=== PATIENT | male | born 1955 | race Caucasian/White ===

== ENCOUNTER 2024-11-05 01:10 | Outpatient (CLI) | payer MEDICARE, OTHER, SELFPAY ==
--- OUTSIDE RECORDS SUMMARY | 2024-11-05 01:47 | XMS_ITS ---
Author Organization [facility] Address [facility] [place] [address] Care Team Providers Care Commercial Credit Specialist Name Role Phone Vahe Valdes DO Primary Care Provider +1- [phone] Active Problems Problem Noted Date Diagnosed Date Sacrococcygeal disorders, not elsewhere classifi ed 08/08/2022 Sciatica 08/08/2022 Bradycardia 04/11/2022 Depression 02/21/2022 Anxiety state 02/21/2022 Arthritis of left acromioclavicular joint 2021 Temporomandibular joint disorder 02/21/2022 Asthma 02/21/2022 Benign localized prostatic h yperplasia with lower urinary tract symptoms (LUTS) 02/21/2022 Benign paroxysmal positional vertigo 02/21/2022 Sleep-related bruxism 02/21/2022 Cervical radiculopathy 02/21/2022 Chronic hepatitis C virus infection 02/21/2022 Degeneration of cervical intervertebral disc Facial pain 02/21/2022 Jaw pain 02/21/2022 Hearing loss 02/21/2022 Hemorrhoids without complication 02/21/2022 Impairment of balance 02/21/2022 Male hypogonadism 02/21/2022 Obstructive sleep apnea 02/21/2022 Other and unspecified alcohol dependence, in rem ission 02/21/2022 Persistent hypersomnia 02/21/2022 Sensorineural hearing loss (SNHL) of both ears 0 02/21/2022 Tinnitus 02/21/2022 Fibroid tumor 02/21/2022 Spine pain, multilevel 11/19/2019 Environmental allergies 11/21/2018 Overview (11/21/2018): PRN Loratadine Insomnia 11/13/2018 Overview (01/17/2019): (first encounter 11/2018); Sleeping well: It varies; difficult starting & staying asleep; [facility] (stopped 08/2018) Tx OTC Aleve PM Weaned myself off Ambien & Klonopin a number of times 5-6x in last 18 yrs; longest time without them 3-4 weeks - Prior non-pharm trial mindfulness (+) diff starting and staying asleep; onset 2000; worse last 2 months, sleep onset, bedtime 2200, out of bed at 0000 into recliner down stairs, awaking 0600 (+) snoring prior Tx CPAP stopped after intentional weight loss, last sleep study ~2017 Dr. Mota of [facility]; nightly Klonopin & Ambien at that time. (+) restless legs - Prior PRN OTC trial Unisom and Aleve PM; stopped working a month ago - last trial Melatonin 3-4 weeks ago; increased restlessness - Trial Trazodone 100 mg last 2 night; some what tired, through the night increased dreams, I have always nightmarish dreams since 2000; IMPROVED w/prior Ambien & Klonopin use. CAROLYNE (generalized anxiety disorder) 11/13/2018 Overview (01/17/2019): [facility]; 7552-8301 Klonopin, 2082-8844 Paxil, 2018 Zoloft 75-125 mg qd Most recent counseling Fall 2017 sleep disorders - Psychiatry Ashley Lieberman based in [facility] 10/2018 Gastroesophageal reflux 11/13/2018 Overview (11/21/2018): Intermittent since ; worse w/elevated weight ED (erectile dysfunction) 11/13/2018 Overview (11/21/2018): Urology in [facility] 2008, med trials Cialis, trial Viagra 2008; change in vision, light- headed/dizziness (+) Difficult maintaining erection; no masturbation; intercourse q2 weeks; able to switch positions Chronic pain syndrome 11/13/2018 Overview (11/21/2018): Daily neck and lower back stiffness; improves after starting activity of day. (+) RA screening per [facility] (+) Hx LEFT drop foot 2013 after lumbar disc herniation s/p lifting Tx PT; chronic LEFT great & 2nd toe numbness. (+) Hx Sc[facility] 70% disabled 2nd to bilateral wrist & knee pain & hearing loss. COPD (chronic obstructive pulmonary disease) Overview (11/21/2018): Dx 2009; PRN MDI Ventolin; last used winter Prior CPAP Viral warts 11/22/2017 AK (actinic keratosis) 11/22/2017 Acrochordon 05/10/2017 History of basal cell carcinoma 05/10/2017 CLL (chronic lymphocytic leukemia) 04/05/2011 Overview (06/30/2012): 1. 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 a. Caneadea 70 neg, Chrom 13 abnm by FISH (good prognosis) b. Observation only History of hepatitis C, successfully treated 03/2011 Overview (11/21/2018): Tx 2008 Current Oncology Plans No current plan information found. Past Plans No past plan information found. Radiation Treatments * No radiation treatments are documented for this patient in [facility]. Treatments may have been administered in another system. Lifetime Dose Tracking * Chemical Lifetime Dose Automatic Entry Manual Entr y DLP (Dose Length Product) 419 mGy-cm 419 mGy-cm 0 mGy-cm CTDI (CT Dose Index) Min 7.85 mGy 7.85 mGy 0 m Gy CTDI (CT Dose Index) Max 7.85 mGy 7.85 mGy 0 m Gy
--- OUTSIDE RECORDS SUMMARY | 2024-11-05 01:47 | XMS_ITS | Encounter Summary ---
Author Organization [facility] Address [facility] [place] [address] Care Team Providers Care Ball Worker Name Role Phone KeishaVahe Hoffman Primary Care Provider +1- [phone] Encounter Details Date Type Department Care Team (Latest Contact Info) Description 10/15/2023 Travel Social History Tobacco Use Types Packs/Day Years Used Date Smoking Tobacco: Never Smokeless Tobacco: Never Alcohol Use Standard Drinks/Week Comments Not Currently 0 (1 standard drink = 0.6 oz pure alcohol) (+) Hx Alcohol abuse; Quit 1998 Sex and Gender Information Value Date Recorded Sex Assigned at Not on file Gender Identity Not on file Sexual Orientation Not on file documented as of this encounter Plan of Treatment Upcoming Encounters Date Type Department Care Team (Late st Contact Info) Description 11/05/2024 10:30 AM EST Office Visit Hematology/Oncology at [address] [phone] Sha Figueroa MD [facility] [place] [address] Stephany Kramer, ELECTRIC CONTAINER TESTER [address] [place] [address] DR MEDICAL ONCOLOGY [place], [place] [address] 11/11/2024 8:45 AM EST Office Visit Dermatology at [address] [place] [phone] Rusty Flores MD [address] [place] [address] RD, [place] [address] documented as of this encounter Visit Diagnoses Not on filedocumented in this encounter Care Teams Ball Worker Relationship Specialty Start Date End Date Vahe Valdes DO [address] [place] [address] PCP - General Family Medicine 12/13/21 documented as of this encounter
--- OUTSIDE RECORDS SUMMARY | 2024-11-05 01:47 | XMS_ITS | Encounter Summary ---
Author Organization [facility] One [facility] [place] [address] Care Team Providers Care Clinical Information Systems Director Name Role Phone Keisha, Vahe Plaza DO Primary Care Provider +1- [phone] Reason for Visit * Reason Comments Skin Check Encounter Details Date Type Department Care Team (Late st Contact Info) Description 11/12/2023 10:15 AM EST Office Visit Dermatology at [address] [phone] Rusty Flores MD [address] [facility] A DERMATOLOGY [place], [place] [id number] History of basal cell carcinoma; History of SCC (squamous cell carcinoma) of skin; AK (actinic keratosis) Social History Tobacco Use Types Packs/Day Years [...] on file documented as of this encounter Progress Notes * Rusty Flores MD - 11/12/2023 10:15 AM EST Problem: 1. New lesions of concern, facial sites 2. 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 History of BCCA right upper shoulder x2, treated 1992 treated at [facility] 5. Status post 5-FU twice daily 1 week on 3 weeks off for 3 cycles March 2023 Isrrael follows up today for his 6-month skin checkup. Since I last saw him he utilized a course of 5-FU face and neck. Physical examination reveals a pleasant 68-year-old gentleman who has a benign examination today ofthe head and the neck chest the back the hands on forearms thighs and calves. He has actinic's present over the left latter day and an erythematous patch with actinic damage on the left lateral neck. There is no evidence of any cutaneous malignancies today. Assessment and plan: Actinic keratoses, facial and neck 1. LN 2 x 2 applied each of 2 sites 2. Return to clinic another 6 months for repeat skin checkup. History of nonmelanoma cutaneous malignancies 1. No evidence of recurrence. No new lesions of concern seen today. CC: Vahe Valdes DO documented in this encounter Plan of Treatment Upcoming Encounters Date Type Department Care Team (Late st Contact Info) Description 11/05/2024 10:30 AM EST Office Visit Hematology/Oncology at [address] [phone] Sha Figueroa MD [facility] DR H[place]AT[place]Y [place] [address] Stephany Kramer EDI CONSULTANT [address] [place] [address] [place] [address] 11/11/2024 8:45 AM EST Office Visit Dermatology at [place] [address] [facility] [place] [address] Rusty Flores MD [address] [facility], [place] [address] documented as of this encounter Visit Diagnoses Diagnosis History of basal cell carcinoma Personal history of other malignant neoplasm of skin History of SCC (squamous cell carcinoma) of skin Personal history of other malignant neoplasm of skin AK (actinic keratosis) Actinic keratosis documented in this encounter Care Teams Clinical Information Systems Director Relationship Specialty Start Date End Date Vahe Valdes DO [address] [place] [address] PCP - General Family Medicine 12/13/21 documented as of this encounter
--- OUTSIDE RECORDS SUMMARY | 2024-11-05 01:47 | XMS_ITS | Encounter Summary ---
Author Organization [facility] Address [facility] [place] [address] Care Team Providers Care Ibm Websphere Commerce Consultant Name Role Phone KeishaVahe Hoffman Primary Care Provider +1- [phone] Encounter Details Date Type Department Care Team (Latest Contact Info) Description 05/09/2024 Travel Social History Tobacco Use Types Packs/Day [...] 10:30 AM EST Office Visit Hematology/Oncology at [address] [phone] Sha Figueroa MD [facility] DR HEMATOLOGY [place] [address] Stephany Kramer, THINNER SPRAYER [address] [place] [address] DR MEDICAL ONCOLOGY [place], [place] [address] 11/11/2024 8:45 AM EST Office Visit Dermatology at [address] [place] [phone] Rusty Flores MD [address] [place] [address] RD, [place] [address] documented as of this encounter Visit Diagnoses Not on filedocumented in this encounter Care Teams Ibm Websphere Commerce Consultant Relationship Specialty Start Date End Date Vahe Valdes DO [address] [place] [address] PCP - General Family Medicine 12/13/21 documented as of this encounter
--- OUTSIDE RECORDS SUMMARY | 2024-11-05 01:47 | XMS_ITS | Encounter Summary ---
Author Organization [facility] Address [facility] [place] [address] Care Team Providers Care Supervisor [employer] Name Role Phone KeishaVahe oliveira Mela JARRELL Primary Care Provider +1- [phone] Encounter Details Date Type Department Care Team (Late Contact Info) Description 10/02/2024 Orders Only Hematology/Oncology at [address] [phone] Sha Figueroa MD [facility] DR HEMATOLOGY [place] [address] Chronic lymphocytic leukemia Social History Tobacco Use Types Packs/Day Years [...] Encounters Date Type Department Care Team (Late Contact Info) Description 11/05/2024 10:30 AM EST Office Visit Hematology/Oncology at [address] [phone] Sha Figueroa MD [facility] [place]AT[place] [address] Stephany Kramer APRN [address] [place] [address] [place] [address] 11/11/2024 8:45 AM EST Office Visit Dermatology at [place] [address] [facility] [place] [phone] [address]y [address] MD [address] [facility], [place] [address] Scheduled Orders Name Type Priority Associated Diagnoses Orde r Schedule CBC (with Diff) Lab Routine Chronic lymphocytic leukemia Expected: 10/09/2024 (Approximate), Expires: 10/02/2025 Comprehensive metabolic panel Non-fasting Lab STAT Chronic lymphocytic leukemia Expected: 10/09/2024 (Approximate), Expires: 10/02/2025 Lactate Dehydrogenase Lab STAT Chronic lymphocytic leukemia Expected: 10/09/2024 (Approximate), Expires: 10/02/2025 documented as of this encounter Visit Diagnoses Diagnosis Chronic lymphocytic leukemia Chronic lymphoid leukemia, without mention of having achieved remission documented in this encounter Care Teams Supervisor [employer] Relationship Specialty Start Date End Date Vahe Valdes DO [address] [place] [address] PCP - General Family Medicine 12/13/21 documented as of this encounter
--- OUTSIDE RECORDS SUMMARY | 2024-11-05 01:47 | XMS_ITS | Encounter Summary ---
Author Organization [facility] Address [facility] [place] [address] Care Team Providers Care Divider Operator Name Role Phone KeishaVahe Hoffman Primary Care Provider +1- [phone] Encounter Details Date Type Department Care Team (Latest Contact Info) Description 11/12/2023 Travel Social History Tobacco Use Types Packs/Day [...] 10:30 AM EST Office Visit Hematology/Oncology at [address] [phone] Sha Figueroa MD [facility] DR [place]OLOGY [place] [address] Stephany Kramer, GROUNDSKEEPING MAINTENANCE [address] [place] [address] DR MEDICAL ONCOLOGY [place], [place] [id number] 11/11/2024 8:45 AM EST Office Visit Dermatology at [address] [place] [phone] Rusty Flores MD [address] [place] [address] RD, [place] [address] documented as of this encounter Visit Diagnoses Not on filedocumented in this encounter Care Teams Divider Operator Relationship Specialty Start Date End Date Vahe Valdes DO [address] [place] [address] PCP - General Family Medicine 12/13/21 documented as of this encounter
--- OUTSIDE RECORDS SUMMARY | 2024-11-05 01:47 | XMS_ITS | Clinical Summary ---
Author Organization [facility] Address One [facility] [place] [address] Care Team Providers Care Armor Reconnaissance Vehicle Crewman Name Role Phone KeishaVahe shaw Mela JARRELL Primary Care Provider [phone]- [phone] Allergies Active Allergy Reactions Criticality Noted Date Comments Sildenafil Low 11/27/2018 Visual disturbance, dizziness Other reaction(s): visual disturbance, dizziness Other reaction(s): Dizziness, Visual disturbance Medications Medication Sig Dispensed Refills Start Date End Date Status acetaminophen (Tylenol) 500 mg Tablet Take 1,000 mg by mouth every 6 hours as needed for Pain. Active tadalafiL (CIALIS) 5 mg Tablet Take 5 mg by mouth as needed. 11/20/2019 Active omeprazole (PriLOSEC) 20 mg Capsule, Delayed Release(E.C.) daily as needed. 09/07/2020 Activ e b complex vitamins Capsule Take 1 capsule by mouth daily. Active clonazePAM (KlonoPIN) 1 mg tablet Take by mouth daily as needed. 01/18/2023 Active tamsulosin (Flomax) 0.4 mg capsule Take 0.8 mg by mouth. 06/06/2023 Active albuteroL 90 mcg/actuation inhaler (HFA) 02/02/2024 Active Active Problems Problem Noted Date Diagnosed Date [...] starting & staying asleep; onset Rx from [facility] 08/2001 (stopped 08/2018) Tx OTC Aleve PM [...] after intentional weight loss, last sleep study ~2018 Dr. Mota of [facility]; nightly Klonopin & Amblyla at that time. (+) restless legs - [...] Overview (01/17/2019): [facility]; 1010-4050 Klonopin, 5133-7166 Paxil, 2018 Zoloft 75-125 mg qd Most recent counseling Fall 2017 sleep disorders - Psychiatry Ashley Lieberman based in [facility] 10/2018 Gastroesophageal reflux 11/13/2018 Overview (11/21/2018): Intermittent since ; worse w/elevated weight ED (erectile dysfunction) 11/13/2018 Overview (11/21/2018): Urology in [facility] 2008, med trials Cialis, trial Viagra 2008; change in vision, light- headed/dizziness (+) Difficult maintaining erection; no masturbation; intercourse q2 weeks; able to switch positions Chronic pain syndrome 11/13/2018 Overview (11/21/2018): Daily neck and lower back stiffness; improves after starting activity of day. (+) RA screening per [employer] (+) Hx LEFT drop foot 2013 after [...] Stage 0 CLL diagnosed August 2009. a. [place] 70 neg, Chrom 13 abnm by FISH (good prognosis) b. Observation only History of hepatitis C, successfully treated 03/2011 Overview (11/21/2018): Tx 2009 Encounters Date Type Department Care Team Description 10/02/2024 Orders Only Hematology/Oncology at [address] [phone] Sha Figueroa MD Chronic lymphocytic leukemia from Last 3 Months Immunizations Name Administration Dates Next Due Covid-19 Monovalent (Pfizer Comirnaty purple cap) 12yrs+ (6911-5265) 01/30/2022 Hepatitis A Adult (Havrix, Vaqta) 01/20/2003 Hepatitis A/B (TwinRix) 11/21/2007,10/11/2007 Influenza Adjuvanted (FluAd) Trivalent, PF 65yrs + 09/10/2018 Influenza Trivalent, Preservative Free 9,09/10/2018 Influenza Unspecified Formulation 07/15/2008 Influenza Vaccine, Whole 08/08/2007 Pneumococcal 13-Valent Conjugate (Prevnar 13) Pneumococcal 23-Valent Polysaccharide (Pneumovax 23) 03/08/2015 Td Adult, Unspecified Formulation 03/01/2001,10/1996 Tdap (Adacel, Boostrix) 03/08/2015 Zoster Recombinant (ShingRix) 04/08/2019, 019 Family History Medical History Relation Comments Aneurysm Father Cerebrovascular Accident Father Arrhythmia Maternal Grandfather Coronary Artery Disease Maternal Grandmother Diabetes Maternal Grandmother Heart Disease Maternal Grandmother Cancer Mother Lung Ca (+) Toba account support manager abuse Heart Murmur Mother Thyroid Disease Mother Early Neg Hx Kidney Disease Neg Hx Relation Status Comments Father (Age 68) Maternal Grandfather (Age 96) Maternal Grandmother (Age 50s) Mother (Age 76) Paternal Grandfather Paternal Grandmother Social History Tobacco Use Types Packs/Day Years Used Date Smoking Tobacco: Never Smokeless Tobacco: Never Alcohol Use Standard Drinks/Week Comments Not Currently 0 (1 standard drink = 0.6 oz pure alcohol) (+) Hx Alcohol abuse; Quit 1998 Sex and Gender Information Value Date Recorded Sex Assigned at Not on file Gender Identity Not on file Sexual Orientation Not on file Last Filed Vital Signs Vital Sign Reading Time Taken Comments Blood Pressure 150/95 10/15/2023 2:39 PM EST Pulse 65 10/15/2023 2:39 PM EST Temperature 36.1 ??C (97 ??F) 10/15/2023 2:39 PM EST Respiratory Rate 16 10/15/2023 2:39 PM EST Oxygen Saturation 97% 10/15/2023 2:39 PM EST Inhaled Oxygen Concentration - - Weight 87.9 kg (193 lb 12.6 oz) 10/15/2023 2:39 PM EST Height 175.3 cm (5' 9.02) 10/15/2023 2:39 PM ES T Body Mass Index 28.6 10/15/2023 2:39 PM EST Plan of Treatment Upcoming Encounters Date Type Department Care Team (Late st Contact Info) Description 11/05/2024 10:30 AM EST Office Visit Hematology/Oncology at [address] [phone] Sha Figueroa MD [facility] DR [place] [address] Stephany Kramer MASTER OF CEREMONIES [address] [place] [address] DR MEDICAL ONCOLOGY [place], [place] [address] 11/11/2024 8:45 AM EST Office Visit Dermatology at [address] [place] [phone] Rusty Flores MD [address] [facility] [place] [address] Health Maintenance Due Date Last Done Comments CT Colonography 1955 FIT DNA 1955 FIT 1955 Sigmoidoscopy 1955 Advance Directive 2008 RSV Vaccine (1 - Risk 60-74 years 1-dose series) 2013 Pneumoccocal Vaccine: 50+ (3 of 3 - PPSV23, PCV20 or PCV21) 03/08/2020 10/18/2018, 03/08/2015 Lipid Screening 01/30/2022 01/30/2017 Influenza (Flu) vaccine (1 o f 1 - Influenza standard series) 06/01/2024 07/08/2019, 09/10/2018, 09/10/2018, Additional history exists Tetanus/Diphtheria/Pertussis Vaccines (2 - Td or Tdap) 03/08/2025 03/08/2015, 03/01/2001, 10/01/1996 Colonoscopy 11/27/2028 11/27/2018, 11/02, 05/11/2008 (Outside per patient (enter details in comments)), Additional history exists Colorectal Cancer Screening 11/27/2028 Sigmoidoscopy (10 year) with FIT yearly 11/27/2028 11/27/2018, 11/27/2018 Zoster vaccine Completed 04/08/2019, 11/05/2018 Diabetes Screening (HgbA1C o r Glucose) Discontinued 10/15/2023, 10/16/2022, 10/17/2021, Additional history exists Covid-19 Vaccine Completed 08/20/2024, , 07/19/2022, Additional history exists Medical Devices Implanted Type Area Dancing Instructor Device Identifier Shelf Expiration Date Model / Serial / Lot Mesh Hernia [id number] Synthetic Rectangle Pp Progrip ([id number]) ([employer]) - [id number] Implanted:Qt y: 1 on 09/14/2020 by Kimmy Trevino MD at [facility] IMPLANTS Left: Pelvis [employer] - CR BARD [id number] 05/28/2025 [id number] / / [id number] Procedures Procedure Name Priority Date/Time Associated Diagnosis Comments COMPREHENSIVE METABOLIC PANEL STAT 10/15/2023 1:43 PM EST Chronic lymphocytic leukemia COLONOSCOPY Routine 11/27/2018 4:00 PM EST EXTERNAL LIPID LAB RESULTS PANEL Routine 01/30/2017 from Last 3 Months or Most Recently Relevant to Health Maintenance Results * (ABNORMAL) Comprehensive metabolic panel (non-fasting) (10/15/2023 1:43 PM EST) Glucose 65 65 - 199 mg/dL [facility] Comment:Diabetes: >=200 mg/d L plus symptoms Blood Urea Nitrogen 22(H) 10 - 20 mg/dL [facility] Creatinine 0.98 0.80 - 1.50 mg/dL [facility] Sodium 142 135 - 145 mmol/L [facility] Potassium 4.3 3.5 - 5.0 mmol/L [facility] Comment: Please note: ??Patients with WBC >100,000 may have falsely elevated Potassium levels. ??For accurate Potassium quantification in these patients send serum separator tube (gold top) for subsequent determinations. ??Contact the Clinical Chemistry Laboratory if there are any questions. Chloride 107 98 - 107 mmol/L [facility] Carbon Dioxide 26 22 - 31 mmol/L [facility] Anion Gap 9 5 - 15 mmol/L [facility] Calcium 9.3 8.5 - 10.5 mg/dL [facility] Protein, Total 7.1 6.1 - 8.0 g/dL [facility] Albumin 4.6 3.2 - 5.2 g/dL [facility] Aspartate Aminotransferase 29 0 - 39 unit/L [facility] Alanine Aminotransferase 29 0 - 55 unit/L [facility] Alkaline Phosphatase 94 40 - 130 unit/L [facility] Bilirubin, Total 0.4 0.2 - 1.3 mg/dL [facility] Est Glomerular Filtration Rate 83 >=60 mL/min/1. 73 m?? [facility] Comment: This patient's estimated GFR was calculated using the 2020 CKD-EPI equation. The estimated GFR can vary from the measured GFR by up to 30% in the absence of rapidly changing kidney function. Assessment of the estimated GFR is not appropriate when creatinine concentrations are rapidly changing. For clinical situations in which a more precise estimate of GFR is necessary, consider alternative methods of GFR estimation such as a 24-hour urine creatinine clearance. Assignment of CKD stage 1-5 for patients with an eGFR near the transition point between stages may be based on clinical assessment of muscle mass and symptoms in addition to eGFR. Blood 10/15/2023 1:43 PM EST 10/15/2023 1:49 PM EST Narrative Resulting Agency Comment Spec In Lab Sha Figueroa MD CHEMISTRY ORDERABLES [facility] [place] [address] * COLONOSCOPY (11/27/2018 4:00 PM EST) COLONOSCOPY [facility] Endoscopy Procedure Date: 11/27/2018 4:00 PM ? Patient Name: Isrrael Anton ? Date of : 1955 ? Age: 63 ? Order #: [id number] ? Instrument Name: [id number] ? Procedure: ? Colonoscopy Indications: ? Screening for colorectal malignant ? neoplasm Providers: ? Nuria De León MD, Gabriela Valdovinos, ? Yamilex Garcia MD: ?Junior España Medicines: ? Midazolam 4.5 mg IV, Fentanyl 175 ? micrograms IV Complications: ? No immediate complications. Procedure: ? The procedure, indications, benefits, ? risks and alternatives were explained ? to the patient. Specifically ? discussed were potential ? complications including, but not ? limited to, bleeding, perforation, ? infection, missing a cancer, and ? adverse medication reactions. The ? patient was placed in the left ? lateral decubitus position, and a ? digital rectal exam was performed. ? The Colonoscope was inserted in the ? anus and under direct visualization, ? advanced to the cecum, identified by ? appendiceal orifice and ileocecal ? valve. Careful inspection was made as ? the colonoscope was withdrawn. The ? colonoscopy was performed without ? difficulty. The patient tolerated the ? procedure well. The quality of the ? bowel preparation was excellent. The ? quality of the bowel preparation was ? evaluated using the BBPS (Spencer ? Bowel Preparation Scale) with scores ? of: Right Colon = 3, Transverse Colon ? = 3 and Left Colon = 3 (entire mucosa ? seen well with no residual staining, ? small fragments of stool or opaque ? liquid). The total BBPS score equals ? 9. Withdrawal time was 19 minutes. ? Findings: ? The perianal and digital rectal examinations were ? normal. ? The entire examined colon appeared normal. ? Non-bleeding internal hemorrhoids were found during ? retroflexion. The hemorrhoids were mild. ? Moderate Sedation: ? Moderate (conscious) sedation was administered by the ? endoscopy nurse and supervised by the endoscopist. ? The following parameters were monitored: oxygen ? saturation, heart rate, blood pressure, and response ? to care. Impression: ?- The entire examined colon is normal. ? - Non-bleeding internal hemorrhoids. Recommendation: ?- High fiber diet. ? - Repeat colonoscopy in 10 years for ? screening purposes. ? - Return to referring physician PRN. ? Attending Participation: ? I personally performed the entire procedure. ? Dr. Nuria De León ___ Nuria De León MD 11/27/2018 5:06:56 PM Number of Addenda: 0 Note Initiated On: 11/27/2018 4:00 PM PROVATION 11/27/2018 4:00 PM EST Junior España DO GENERAL SURGICAL O RDERABLES PROVATION * (ABNORMAL) Lipid External Results (01/30/2017) Cholesterol, Total 185(Exter nal Lab) EXTERNAL LAB HDL Cholesterol 41(Machine Pecan Picker al Lab) EXTERNAL LAB LDL Cholesterol 113(Exter nal Lab) EXTERNAL LAB Triglyceride 156(ExtH) EXTERNAL LAB 01/30/2017 Historical Provider POINT OF CARE SHARON T ORDERABLES Performing Organization Address City/[facility]/ZIP Co de Phone Number EXTERNAL LAB from Last 3 Months or Most Recently Relevant to Health Maintenance Advance Directives * Attempt Cardiopulmonary Resuscitation - Inpatient (Latest Code Status on File) Date Activated Date Inactivated Comments 09/14/2020 1:26 PM 09/14/2020 9:11 PM Question Answer Comments Code Status decision made by: Patient Care Teams Armor Reconnaissance Vehicle Crewman Relationship Specialty Start Date End Date Vahe Valdes DO [address] [place] [address] PCP - General Family Medicine 12/13/21
--- OUTSIDE RECORDS SUMMARY | 2024-11-05 01:47 | XMS_ITS | Encounter Summary ---
Author Organization [facility] One [facility] [place] [address] Care Team Providers Care Scheduling Analyst Name Role Phone Keisha, Vahe Plaza DO Primary Care Provider +1- [phone] Reason for Visit * Reason Comments Follow-up Encounter Details Date Type Department Care Team (Late st Contact Info) Description 05/09/2024 9:30 AM EDT Office Visit Dermatology at [address] [phone] Rusty Flores MD [address] [facility] A DERMATOLOGY [place], [place] [id number] History of basal cell carcinoma; History of [...] Progress Notes * Rusty Flores MD - 05/09/2024 9:30 AM EDT Problem: 1. 6-month skin checkup 2. 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 History of BCCA right upper shoulder x2, treated 1993 treated at [place] 5. Status post 5-FU twice daily 1 week on 3 weeks off for 3 cycles May 2023, Isrrael follows up today for his 6-month skin checkup. Doing well. He is noticing new actinic's. Physical examination reveals a pleasant 69-year-old gentleman who has a benign examination today ofthe head and the neck chest the back the hands on forearms thighs and calves. He has actinic's present over the left and right superior sideburn areas. There is no evidence of any cutaneous malignancies today. Assessment and plan: Actinic keratoses, left and right sideburn areas 1. LN 2 x 2 applied each [...] 10:30 AM EST Office Visit Hematology/Oncology at [address] [phone] Sha Figueroa MD [facility] [address] [place] [address] Stephany Kramer [address] [address] 11/11/2024 8:45 AM EST Office Visit Dermatology at [address] [place] [address] Rusty Flores MD [address] [facility] [place] [address] documented as of this encounter Visit Diagnoses Diagnosis History of basal cell carcinoma Personal history of other malignant neoplasm of skin History of SCC (squamous cell carcinoma) of skin Personal history of other malignant neoplasm of skin AK (actinic keratosis) Actinic keratosis documented in this encounter Care Teams Scheduling Analyst Relationship Specialty Start Date End Date Vahe Valdes DO [address] [place] [address] PCP - General Family Medicine 12/13/21 documented as of this encounter
--- OUTSIDE RECORDS SUMMARY | 2024-11-05 01:48 | XMS_ITS | Encounter Summary ---
Author Organization [facility] [place] [address] Care Team Providers Care Fire Engineer Name Role Phone KeishaVahe oliveira Mela JARRELL Primary Care Provider [phone]- [phone] Reason for Visit * Reason Comments Follow-up Encounter Details Date Type Department Care Team (Late st Contact Info) Description 10/15/2023 2:45 PM EST Office Visit [place] [address] Bret Rojas MD [facility] DR HEMATOLOGY [place] [address] Reny Lawler, [employer] Chronic lymphocytic leukemia Social History Tobacco Use [...] on file documented as of this encounter Last Filed Vital Signs Vital Sign Reading [...] Mass Index 28.6 10/15/2023 2:39 PM EST documented in this encounter Progress Notes * Reny Lawler, [employer] - 10/15/2023 2:45 PM EST Subjective Patient ID: Isrrael Anton is a 68 y.o. male here for f/u of CLL Patient Active Problem List Diagnosis Sacrococcygeal disorders, not elsewhere classified Sciatica Bradycardia Depression Anxiety state Arthritis of left acromioclavicular joint Temporomandibular joint disorder Asthma Benign localized prostatic hyperplasia with lower urinary tract symptoms (LUTS) Benign paroxysmal positional vertigo Sleep-related bruxism Cervical radiculopathy Chronic hepatitis C virus infection Degeneration of cervical intervertebral disc Facial pain Jaw pain Hearing loss Hemorrhoids without complication Impairment of balance Male hypogonadism Obstructive sleep apnea Other and unspecified alcohol dependence, in remission Persistent hypersomnia Sensorineural hearing loss (SNHL) of both ears Tinnitus Fibroid tumor Spine pain, multilevel Environmental allergies PRN Loratadine Insomnia (first encounter 11/2018); Sleeping well: It varies; difficult starting & staying asleep; [facility] Josephon[facility] (stopped 08/2018) Tx OTC Aleve PM [...] last sleep study ~2018 Dr. Mota of [facility]; nightly Klonopin & Ambien at that [...] & Klonopin use. CAROLYNE (generalized anxiety disorder) [facility]; [id number] Klonopin, [id number] Paxil, 2018 Zoloft 75-125 mg qd Most recent counseling Fall 2017 sleep disorders - Psychiatry Ashley Lieberman based in [facility] 10/2018 Gastroesophageal reflux Intermittent since ; worse w/elevated weight ED (erectile dysfunction) Urology in [facility] 2008, med trials Cialis, trial Viagra 2008; change in vision, light- headed/dizziness (+) Difficult maintaining erection; no masturbation; intercourse q2 weeks; able to switch positions Chronic pain syndrome Daily neck and lower back stiffness; improves after starting activity of day. (+) RA screening per [employer] (+) Hx LEFT drop foot 2013 after lumbar disc herniation s/p lifting Tx PT; chronic LEFT great &2nd toe numbness. (+) Hx [facility] 70% disabled 2nd to bilateral wrist & knee pain & hearing loss. COPD (chronic obstructive pulmonary disease) Dx 2009; PRN MDI Walter; last used winter Prior CPAP Viral warts AK (actinic keratosis) Acrochordon History of basal cell carcinoma CLL (chronic lymphocytic leukemia) 1. 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 a. [place] 70 neg, Chrom 13 abnm by FISH (good prognosis) b. Observation only History of hepatitis C, successfully treated Tx 2008 HPI Desean is doing well. 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 He continuesto struggle with OA - currently sciatica - he has had a number of injections and medication pulses to help with this. He has no hospitalizations. He has started cymbalta which has helped - however hehas had sexual side effects from this. Review of Systems Constitutional: Negative. HENT: Negative. Eyes: Negative. Respiratory: Negative. Negative for cough and shortness of breath. Cardiovascular: Negative. Negative for chest pain, palpitations and leg swelling. Gastrointestinal: Negative. Negative for constipation, diarrhea, nausea and vomiting. Genitourinary: Negative. Musculoskeletal: Positive for arthralgias. Skin: Negative. Neurological: Negative. Negative for weakness and numbness. Hematological: Negative. Psychiatric/Behavioral: Negative. Objective Physical Exam Constitutional: General: He is not in acute distress. Appearance: He is well-developed. HENT: Head: Atraumatic. Mouth/Throat: Pharynx: No oropharyngeal exudate. Eyes: Conjunctiva/sclera: Conjunctivae normal. Pupils: Pupils are equal, round, and reactive to light. Cardiovascular: Rate and Rhythm: Normal rate and regular rhythm. Heart sounds: Normal heart sounds. No murmur heard. Pulmonary: Effort: Pulmonary effort is normal. Breath sounds: Normal breath sounds. No wheezing or rales. Abdominal: General: Bowel sounds are normal. Palpations: Abdomen is soft. There is no mass. Tenderness: There is no guarding or rebound. Musculoskeletal: General: Normal range of motion. Cervical back: Normal range of motion and neck supple. Lymphadenopathy: Cervical: No cervical adenopathy. Upper Body: Right upper body: No supraclavicular adenopathy. Left upper body: No supraclavicular adenopathy. Comments: Few shoddy cervical nodes bilat Skin: General: Skin is warm and dry. Neurological: Mental Status: He is alert and oriented to person, place, and time. Psychiatric: Mood and Affect: Mood normal. Recent Results (from the past 72 hour(s)) Lactate Dehydrogenase Result Value Ref Range LDH 239 (H) 110 - 220 unit/L Comprehensive metabolic panel (non-fasting) Result Value Ref Range Glucose Lvl 65 65 - 199 mg/dL BUN 22 (H) 10 - 20 mg/dL Creatinine 0.98 0.80 - 1.50 mg/dL Sodium 142 135 - 145 mmol/L Potassium 4.3 3.5 - 5.0 mmol/L Chloride 107 98 - 107 mmol/L CO2 26 22 - 31 mmol/L Anion Gap 9 5 - 15 mmol/L Calcium 9.3 8.5 - 10.5 mg/dL Total Protein 7.1 6.1 - 8.0 g/dL Albumin 4.6 3.2 - 5.2 g/dL AST 29 0 - 39 unit/L ALT 29 0 - 55 unit/L Alk Phos 94 40 - 130 unit/L Total Bilirubin 0.4 0.2 - 1.3 mg/dL Estimated GFR 83 >=60 mL/min/1.73 m?? Hemogram Result Value Ref Range WBC 18.1 (H) 4.0 - 9.5 x10(3)/mcL RBC 4.98 4.58 - 5.54 x10(6)/mcL Hemoglobin 15.4 13.7 - 16.5 g/dL Hematocrit 45.7 40.5 - 48.5 % MCV 91.8 82.9 - 93.1 fL MCH 30.9 27.5 - 32.1 pg MCHC 33.7 32.0 - 35.7 g/dL Platelets 191 145 - 357 x10(3)/mcL RDWSD 45.2 (H) 36.0 - 45.0 fL RDWCV 13.5 11.4 - 13.8 % MPV 11.3 7.6 - 12.9 fL nRBC % Auto 0.1 % nRBC Abs Auto 0.020 (H) 0.000 - 0.000 x10(3)/mcL Differential, Automated Result Value Ref Range Neutrophils % 28.7 % Neutr Abs (ANC) 5.17 1.70 - 6.10 x10(3)/mcL Lymphocytes % 62.3 % Lymphocytes Abs 11.3 (H) 0.9 - 3.2 x10(3)/mcL Monocytes % 5.4 % Monocyte Abs 1.0 (H) 0.3 - 0.9 x10(3)/mcL Eosinophils % 3.0 % Eosinophils Abs 0.6 (H) 0.0 - 0.4 x10(3)/mcL Basophils % 0.4 % Basophils Abs 0.1 0.0 - 0.1 x10(3)/mcL Immature Gran % 0.20 % Letty Gran Abs 0.04 0.00 - 0.04 x10(3)/mcL Scan, Peripheral Blood Result Value Ref Range Plat Estimate Normal RBC Morphology Abnormal Ovalocytes 1-5 /HPF Atypical Lymph Moderate Smudge Cells Present BP (!) 150/95 (Patient Position: Sitting) Pulse 65 Temp 36.1 ??C (97 ??F) (Temporal) Resp 16 Ht 175.3 cm (5' 9.02) Wt 87.9 kg (193 lb 12.6 oz) SpO2 97% BMI 28.60 kg/m?? Assessment and Plan Desean is a delightful 67 year old man with a 13 year history of stage 0 CLL, he has not required any treatment. His ALC remains stable. NO anemia or thrombocytopenia. NO significant palpable adenopathy, no B symptoms. No recent infections. We will continue to monitor prospectively. Desean would prefer to follow up closer to home with Dr. Figueroa. Chroni cback/neck pain - will continue to follow with PCP and spine center. We will see him back in 1 year in [facility] - he knows to call if he has any hcnages in status before then. documented in this encounter Plan of Treatment Upcoming Encounters Date Type Department Care Team (Late st Contact Info) Description 11/05/2024 10:30 AM EST Office Visit Hematology/Oncology at [address] [phone] Sha Figueroa MD [facility] DR HEMATOLOGY [place] [address] Stephany Kramer APRN [address] [place] [address] [place] [address] 11/11/2024 8:45 AM EST Office Visit Dermatology at [place] [address] [facility] [place] [phone] Rusty Flores MD [address] [facility] [place] [address] documented as of this encounter Visit Diagnoses Diagnosis Chronic lymphocytic leukemia Chronic lymphoid leukemia, without mention of having achieved remission documented in this encounter Care Teams Fire Engineer Relationship Specialty Start Date End Date Vahe Valdes DO [address] [place] [address] PCP - General Family Medicine 12/13/21 documented as of this encounter
--- OUTSIDE RECORDS SUMMARY | 2024-11-05 01:48 | XMS_ITS | Encounter Summary ---
Author Organization [facility] [place] [address] Care Team Providers Care Commodity Broker Name Role Phone Unavailable Primary Care Provider Unavailabl e Reason for Visit * Reason Comments Follow-up Encounter Details Date Type Department Care Team (Late st Contact Info) Description 10/17/2021 1:15 PM EST Office Visit Hematology and Oncology at [place] [phone] Sha Figueroa MD [facility] DR [place] [address] Reny Lawler, Jonah Arenas P, DO Chronic lymphocytic leukemia Social History Tobacco Use [...] Sign Reading Time Taken Comments Blood Pressure 156/78 10/17/2021 1:01 PM EST Pulse 57 10/17/2021 1:01 PM EST Temperature 37 ??C (98.6 ??F) 10/17/2021 1:01 PM EST Respiratory Rate 18 10/17/2021 1:01 PM EST Oxygen Saturation 97% 10/17/2021 1:01 PM EST Inhaled Oxygen Concentration - - Weight 87.6 kg (193 lb 3.2 oz) 10/17/2021 1:01 P M EST Height 174.5 cm (5' 8.7) 10/17/2021 1:01 PM EST Body Mass Index 28.78 10/17/2021 1:01 PM EST documented in this encounter Progress Notes * Reny Lawler, INTERNAL REVIEW AND AUDIT COMPLIANCE - 10/17/2021 1:15 PM EST Subjective Patient ID: Isrrael Anton is a 66 y.o. male here for f/u of CLL Patient Active Problem List Diagnosis ??? Spine pain, multilevel ??? Environmental allergies PRN Loratadine ??? Insomnia (first encounter 11/2018); Sleeping well: It varies; difficult starting & staying asleep; [facility] Amblyla & Klonopin 08/2001 (stopped 08/2018) Tx OTC [...] last sleep study ~2017 Dr. Mota of [facility]; nightly Klonopin & Ambien at that time. (+) restless legs - Prior PRN OTC trial Unisom and Aleve PM; stopped working a month ago - last trial Melatonin 3-4 weeks ago; increased restlessness - Trial Trazodone 100 mg last 2 night; some what tired, through the night increased dreams, I have always nightmarish dreams since 2000; IMPROVED w/prior Ambien & Klonopin use. ??? CAROLYNE (generalized anxiety disorder) [facility]; 0330-8389 Klonopin, [id number] Paxil, 2018 Zoloft 75-125 mg qd Most recent counseling Fall 2017 sleep disorders - Psychiatry Ashley Lieberman based in [facility] 10/2018 ??? Gastroesophageal reflux Intermittent since ; worse w/elevated weight ??? ED (erectile dysfunction) Urology in [facility] 2008, med trials Cialis, trial Viagra 2008; change in vision, light- headed/dizziness (+) Difficult maintaining erection; no masturbation; intercourse q2 weeks; able to switch positions ??? Chronic pain syndrome Daily neck and lower back stiffness; improves after starting activity of day. (+) RA screening per [employer] (+) Hx LEFT drop foot 2013 after lumbar disc herniation s/p lifting Tx PT; chronic LEFT great &2nd toe numbness. (+) Hx [facility] 70% disabled 2nd to bilateral wrist & knee pain & hearing loss. ??? COPD (chronic obstructive pulmonary disease) Dx 2009; PRN MDI Ventolin; last used winter Prior CPAP ??? Viral warts ??? AK (actinic keratosis) ??? Acrochordon ??? History of basal cell carcinoma ??? CLL (chronic lymphocytic leukemia) 1. 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 a. [place] 70 neg, Chrom 13 abnm by FISH (good prognosis) b. Observation only ??? History of hepatitis C, successfully treated Tx 2008 HPI Isrrael is doing well - he continues to enjoy caring for his grandchildren, ages 5,8,9 and 12. He didget covid this fall, mild URI. He is fully vaccinated including booster. He otherwise has been healthy. He has a left cervical radiculopathy - he has seen neurology for this. He is on amitrytplyine for this which is helping. He has had successful hernia repair. He denies any lumps or bumps, no night sweats. His energy is low which is stable for him over the past 2 years. Feels worn out. He does nap occasionally. He is sleeping better at night with the Elavil. His anxiety has been about the same. He is looking into natural alternatives. Review of Systems Constitutional: Negative. HENT: Negative. Eyes: Negative. Respiratory: Negative. Negative for cough and shortness of breath. Cardiovascular: Negative. Negative for chest pain, palpitations and leg swelling. Gastrointestinal: Negative. Negative for constipation, diarrhea, nausea and vomiting. Genitourinary: Negative. Musculoskeletal: Positive for arthralgias. Skin: Negative. Neurological: Negative. Negative for weakness and numbness. Psychiatric/Behavioral: The patient is nervous/anxious. Objective Physical Exam Constitutional: General: He is not in acute distress. Appearance: He is well-developed. HENT: Mouth/Throat: Pharynx: No oropharyngeal exudate. Eyes: Conjunctiva/sclera: Conjunctivae normal. Pupils: Pupils are equal, round, and reactive to light. Cardiovascular: Rate and Rhythm: Normal rate and regular rhythm. Heart sounds: Normal heart sounds. No murmur heard. Pulmonary: Effort: Pulmonary effort is normal. Breath sounds: Normal breath sounds. No wheezing or rales. Chest: Breasts: Right: No supraclavicular adenopathy. Left: No supraclavicular adenopathy. Abdominal: General: Bowel sounds are normal. Palpations: Abdomen is soft. There is no mass. Tenderness: There is no guarding or rebound. Musculoskeletal: General: Normal range of motion. Cervical back: Normal range of motion and neck supple. Lymphadenopathy: Cervical: No cervical adenopathy. Upper Body: Right upper body: No supraclavicular adenopathy. Left upper body: No supraclavicular adenopathy. Skin: General: Skin is warm and dry. Neurological: Mental Status: He is alert and oriented to person, place, and time. CLINICAL HISTORY: Abdominal distension Please assess for recurrent right inguinal hernia ?? TECHNIQUE: Helical CT of the abdomen and pelvis was performed without contrast. ?? COMPARISON: None ?? FINDINGS: The absence of intravenous contrast limits the evaluation of solid viscera and vasculature. ?? Lower chest: Small hiatal hernia. ?? Liver: Normal. Bile ducts: Nondilated. Gallbladder: No calcified gallstones. Normal caliber wall. Pancreas: Normal. Spleen: Normal. Adrenals: Normal. Kidneys: Minimal perinephric stranding. No obvious masses, calcifications or hydronephrosis.. Urinary Bladder: Normal. ?? Vasculature: Rare mural atherosclerotic calcifications. No aneurysm. Lymph Nodes: No enlarged lymph nodes. Bowel: Nondilated, no wall thickening. Normal appendix. Peritoneum and mesentery: No ascites, free air, or loculated fluid collection. No mesenteric inflammation. Abdominal wall: Suggestion of prior left femoral hernia repair with mesh. A small fat-containing right inguinal hernia, approximately 2 cm in diameter.. ?? Reproductive organs: Normal sized prostate. Osseous structures: Minimal facet hypertrophic changes in the lumbar spine. Degenerative spondylosis changes at L4-L5 level. No suspicious lesions. ?? IMPRESSION ?? 1. A small fat-containing right inguinal hernia. 2. Ancillary findings as above. ?? Recent Results (from the past 72 hour(s)) Lactate Dehydrogenase Result Value Ref Range LDH 216 110 - 220 unit/L Comprehensive metabolic panel (non-fasting) Result Value Ref Range Glucose Lvl 74 65 - 199 mg/dL BUN 16 10 - 20 mg/dL Creatinine 0.88 0.80 - 1.50 mg/dL Sodium 143 135 - 145 mmol/L Potassium 3.8 3.5 - 5.0 mmol/L Chloride 109 (H) 98 - 107 mmol/L CO2 25 22 - 31 mmol/L Anion Gap 9 5 - 15 mmol/L Calcium 9.1 8.5 - 10.5 mg/dL Total Protein 6.6 6.1 - 8.0 g/dL Albumin 4.6 3.2 - 5.2 g/dL AST 37 0 - 39 unit/L ALT 37 0 - 55 unit/L Alk Phos 79 40 - 130 unit/L Total Bilirubin 0.4 0.2 - 1.3 mg/dL Estimated GFR 88 >=60 mL/min/1.73 m?? Hemogram Result Value Ref Range WBC 14.7 (H) 4.0 - 9.5 x10(3)/mcL RBC 4.69 4.58 - 5.54 x10(6)/mcL Hemoglobin 14.7 13.7 - 16.5 g/dL Hematocrit 42.8 40.5 - 48.5 % MCV 91.3 82.9 - 93.1 fL MCH 31.3 27.5 - 32.1 pg MCHC 34.3 32.0 - 35.7 g/dL Platelets 148 145 - 357 x10(3)/mcL RDWSD 44.2 36.0 - 45.0 fL RDWCV 13.2 11.4 - 13.8 % MPV 11.8 7.6 - 12.9 fL nRBC % Auto 0.0 % nRBC Abs Auto 0.000 0.000 - 0.000 x10(3)/mcL BP 156/78 (Patient Position: Sitting) Pulse 57 Temp 37 ??C (98.6 ??F) (Temporal) Resp 18 Ht174.5 cm (5' 8.7) Wt 87.6 kg (193 lb 3.2 oz) SpO2 97% BMI 28.78 kg/m?? Assessment & Plan Desean is a very pleasant 66 year old man with an 11 year history of stage 0 CLL, he has not required any treatment. Counts stable, No worrisome or symptomatic adenoapthy. No B symptoms, ALC doubling time is stable since diagnosis, No recurrent infections, no signs of AIHA or ITP. No concern for transformation. No indication for treatment at this time. ?? Reviewed CLL and indications for therapy, Also reviewed inherent increase risk for infection. ?? Influenza = UTD ?? Pneumococcal - UTD ?? Varicella - UTD ?? COVID - will be getting as soon as available. ? Plan: We will continue to monitor in hematology clinic. Reviewed CLL and indications for treatment.Isrrael will return to hematology in 12 months. he will call if there are any problems before then. ?? documented in this encounter Plan of Treatment Upcoming Encounters Date Type Department Care Team (Late st Contact Info) Description 11/05/2024 10:30 AM EST Office Visit Hematology/Oncology at [address] [phone] Sha Figueroa MD [facility] DR HEMATOLOGY [place] [address] Stephany Kramer APRN [address] [place] [address] [place] [address] 11/11/2024 8:45 AM EST Office Visit Dermatology at [address] [place] [address] Rusty Flores MD [address] [place] [address] RD, LYLE [place] [address] documented as of this encounter Results * Lactate Dehydrogenase (10/16/2022 12:08 PM EST) Lactate Dehydrogenase 214 110 - 220 unit/L [facility] Blood 10/16/2022 12:0 8 PM EST 10/16/2022 12:22 PM EST Narrative Resulting Agency Comment Spec In Lab Reny Thee Lawler INTERNAL REVIEW AND AUDIT COMPLIANCE CHEMISTRY ORDERABLES [facility] [place] [address] * (ABNORMAL) Comprehensive metabolic panel (non-fasting) (10/16/2022 12:08 PM EST) Glucose 82 65 - 199 mg/dL [facility] Comment:Diabetes: >=200 mg/d L plus symptoms Blood Urea Nitrogen 21(H) 10 - 20 mg/dL [facility] Creatinine 0.98 0.80 - 1.50 mg/dL [facility] Sodium 139 135 - 145 mmol/L [facility] Potassium 4.2 3.5 - 5.0 mmol/L [facility] Comment: Please note: ??Patients with WBC >100,000 may have falsely elevated Potassium levels. ??For accurate Potassium quantification in these patients send serum separator tube (gold top) for subsequent determinations. ??Contact the Clinical Chemistry Laboratory if there are any questions. Chloride 105 98 - 107 mmol/L [facility] Carbon Dioxide 27 22 - 31 mmol/L [facility] Anion Gap 7 5 - 15 mmol/L [facility] Calcium 9.4 8.5 - 10.5 mg/dL [facility] Protein, Total 6.8 6.1 - 8.0 g/dL [facility] Albumin 4.4 3.2 - 5.2 g/dL [facility] Aspartate Aminotransferase 28 0 - 39 unit/L [facility] Alanine Aminotransferase 38 0 - 55 unit/L [facility] Alkaline Phosphatase 76 40 - 130 unit/L [facility] Bilirubin, Total 0.4 0.2 - 1.3 mg/dL [facility] Est Glomerular Filtration Rate 83 >=60 mL/min/1. 73 m?? [facility] Comment: This patient's estimated GFR was [...] and symptoms in addition to eGFR. Blood 10/16/2022 12:0 8 PM EST 10/16/2022 12:22 PM EST Narrative Resulting Agency Comment Spec In Lab Reny Lawler INTERNAL REVIEW AND AUDIT COMPLIANCE CHEMISTRY ORDERABLES [facility] [place] [address] documented in this encounter Visit Diagnoses Diagnosis Chronic lymphocytic leukemia Chronic lymphoid leukemia, without mention of having achieved remission documented in this encounter
--- OUTSIDE RECORDS SUMMARY | 2024-11-05 01:48 | XMS_ITS | Encounter Summary ---
Author Organization [facility] Address [facility] [place] [address] Care Team Providers Care Gallery Or Museum Guide Name Role Phone Marco Reina MD Primary Care Provider + Reason for Visit * Reason Comments Follow-up Skin Check Encounter Details Date Type Department Care Team (Late st Contact Info) Description 12/21/2020 8:45 AM EDT Office Visit Dermatology at [address] [phone] Rusty Flores MD [address] [facility] A DERMATOLOGY [place], [place] [id number] Seborrheic keratosis; Acrochordon Social History Tobacco Use Types Packs/Day Years [...] Progress Notes * Rusty Flores MD - 12/21/2020 8:45 AM EDT Problem: 1. ??New lesions of concern 2. ??History of BCCA right upper shoulder x2, treated 1992 treated at [place] Isrrael follows up concerned about lesion on the left sideburn area, on the right inner thigh, and onthe right superior shoulder. Physical examination reveals an actinic keratosis on the face, and the other 2 sites are skin tags. Assessment and plan: Skin tags/actinic keratosis 1. LN 2 x 2 applied to all 3 sites. 2. Return to clinic here as needed. CC: Marco Reina MD documented in this encounter Plan of Treatment Upcoming Encounters Date Type Department Care Team (Late st Contact Info) Description 11/05/2024 10:30 AM EST Office Visit Hematology/Oncology at [address] [phone] Sha Figueroa MD [facility] DR [place] [address] [place] [address] 11/11/2024 8:45 AM EST Office Visit Dermatology at [address] [phone] Rusty Flores MD [address] [facility] [place] [address] documented as of this encounter Visit Diagnoses Diagnosis Seborrheic keratosis Other seborrheic keratosis Acrochordon Unspecified hypertrophic and atrophic condition of skin documented in this encounter Care Teams Gallery Or Museum Guide Relationship Specialty Start Date End Date Marco Reina MD [address] [place] [id number] PCP - General Family Medicine 07/08/19 10/01/21 documented as of this encounter
--- OUTSIDE RECORDS SUMMARY | 2024-11-05 01:48 | XMS_ITS | Encounter Summary ---
Author Organization [facility] Address [facility] [place] [address] Care Team Providers Care Kettle Firer Name Role Phone Marco Reina MD Primary Care Provider + Encounter Details Date Type Department Care Team (Late st Contact Info) Description 10/13/2020 2:45 PM EST Office Visit General Surgery at [place] [phone] Kimmy Trevino MD [facility] [place] [address] Status post hernia repair Social History Tobacco Use Types Packs/Day Years [...] Sign Reading Time Taken Comments Blood Pressure 147/77 10/13/2020 2:20 PM EST Pulse 75 10/13/2020 2:20 PM EST Temperature 36.4 ??C (97.6 ??F) 10/13/2020 2:20 PM ES T Respiratory Rate 16 10/13/2020 2:20 PM EST Oxygen Saturation 97% 10/13/2020 2:20 PM EST Inhaled Oxygen Concentration - - Weight 92.8 kg (204 lb 9.6 oz) 10/13/2020 2:20 P M EST Height - - Body Mass Index 31.12 09/14/2020 1:49 PM EST documented in this encounter Progress Notes * Kimmy Trevino MD - 10/13/2020 2:45 PM EST Isrrael Anton returns one month following laparoscopic repair of a left inguinal and umbilical hernia. This procedure went well and he has done well since. He is essentially asymptomatic since and has resumed many of his usual activities. On physical examination, his incision sites are well healed. There are no signs of recurrent hernias. Overall, he is doing very well. He knows to contact me if further problems develop. [facility] Postoperative Assessment - Inguinal Hernia 05/26/2020 10/13/2020 Feel hernia has come back - No Feel or see bulge - No Physical Pain of symptoms at site - No Additional surgeries since hernia operation - No Pain at Rest: Pain in rest (lying down) (0-10) - 0 - No pain Pain at Rest: Pain during activities (0-10) - 0 - No pain Pain at Rest: Pain during last week (0-10) - 0 - No pain Restrictions of Activities: Restrictions from daily activities (0-10) - 0 - No restrictions Restrictions of Activities: Restriction outside house (0-10) - 0 - No restriction Restrictions of Activities: Restrictions durig sports (0-10) - 0 - No restrictions Restrictions of Activities: Restrictions during heavy labor (0-10) - 0 - No restrictions Cosmetic Discomfort: Shape of your abdomen (0-10) - 1 Cosmetic Discomfort:Site of Hernia and scor (0-10) - 1 Taking prescription opioids in last 30 days 0 0 documented in this encounter Plan of Treatment Upcoming Encounters Date Type Department Care Team (Late st Contact Info) Description 11/05/2024 10:30 AM EST Office Visit Hematology/Oncology at [address] [phone] Sha Figueroa MD [facility] DR [place] [address] Stephany Kramer APRN [address] [place] [address] [place] [address] 11/11/2024 8:45 AM EST Office Visit Dermatology at [place] [address] [facility] [place] [address] Rusty Flores MD [address] [facility] [place] [address] documented as of this encounter Visit Diagnoses Diagnosis Status post hernia repair Other postprocedural status documented in this encounter Care Teams Kettle Firer Relationship Specialty Start Date End Date Marco Reina MD [address] [place] [address] PCP - General Family Medicine 07/08/19 10/01/21 documented as of this encounter
--- OUTSIDE RECORDS SUMMARY | 2024-11-05 01:48 | XMS_ITS | Encounter Summary ---
Author Organization [facility] [place] [address] Care Team Providers Care Tire Center Supervisor Name Role Phone Marco Reina MD Primary Care Provider + Reason for Visit * Reason Comments Skin Check Encounter Details Date Type Department Care Team (Late st Contact Info) Description 08/20/2020 11:30 AM EST Office Visit Dermatology at [address] [place] [address] Rusty Flores MD [address] [facility] A DERMATOLOGY [place], [place] [id number] [place] (actinic keratosis); Seborrheic keratosis; History of basal cell carcinoma Social History Tobacco Use Types Packs/Day Years [...] Progress Notes * Rusty Flores MD - 08/20/2020 11:30 AM EST Problem: 1. New lesions of concern 2. History of BCCA right upper shoulder x2, treated 1992 treated at [place] Isrrael follows up today and is concerned about a lesion on his left leg and skin tags that are pruritic.. Physical examination reveals a pleasant 65-year-old gentleman who has a waxy stuck on appearing magalis-shaped waxy stuck on appearing lesion on the left lateral thigh consistent with a seborrheic keratosis. He has skin tags on the right buttock and also one on the left lateral neck. He has actinic's in the left sideburn area and one on his left lateral eyebrow. Fortunately otherwise examination of the face the neck the chest the back the hands the arms of forearms the thighs and the calves is benign. Assessment and plan: Seborrheic keratosis left thigh 1. Patient reassured about benign seborrheic keratosis 2. No treatment necessary nor was it requested. 3. Return to clinic prn. Tags left lateral base of neck and right buttocks 1. Today the neck site was treated with LN2 and the buttocks site was anesthetized and removed withelectrodesiccation therapy 2. Wound care instructions given CC: Marco Reina MD documented in this encounter Plan of Treatment Upcoming Encounters Date Type Department Care Team (Late st Contact Info) Description 11/05/2024 10:30 AM EST Office Visit Hematology/Oncology at [address] [phone] Sha Figueroa MD [facility] DR HEMATOLOGY [place] [address] Stephany Kramer [address] [place] [address] 11/11/2024 8:45 AM EST Office Visit Dermatology at [place] [address] [facility] [place] [address] Rusty Flores MD [address] [facility] [place] [address] documented as of this encounter Visit Diagnoses Diagnosis AK (actinic keratosis) Actinic keratosis Seborrheic keratosis Other seborrheic keratosis History of basal cell carcinoma Personal history of other malignant neoplasm of skin documented in this encounter Care Teams Tire Center Supervisor Relationship Specialty Start Date End Date Marco Reina MD [address] [place] [address] PCP - General Family Medicine 07/08/19 10/01/21 documented as of this encounter
--- OUTSIDE RECORDS SUMMARY | 2024-11-05 01:48 | XMS_ITS | Encounter Summary ---
Author Organization [facility] Address [facility] [place] [address] Care Team Providers Care Head Teller Name Role Phone Vahe Valdes Primary Care Provider [phone]- [phone] Encounter Details Date Type Department Care Team (Late st Contact Info) Description 04/11/2022 Abstract Cardiology at [address] [place] [address] Gamaliel Méndez RN Social History Tobacco Use Types Packs/Day Years [...] 10:30 AM EST Office Visit Hematology/Oncology at [address] [phone] Sha Figueroa MD [facility] DR [place] [address] Stephany Kramer APRN [address] [place] [address] DR MEDICAL ONCOLOGY [place], [place] [address] 11/11/2024 8:45 AM EST Office Visit Dermatology at [address] [place] [address] Rusty Flores MD [address] [facility] [place] [address] documented as of this encounter Visit Diagnoses Not on filedocumented in this encounter Care Teams Head Teller Relationship Specialty Start Date End Date Vahe Valdes DO [address] [place] [address] PCP - General Family Medicine 12/13/21 documented as of this encounter
--- OUTSIDE RECORDS SUMMARY | 2024-11-05 01:48 | XMS_ITS | Encounter Summary ---
Author Organization [facility] [address] [facility] [place] [address] Care Team Providers Care Audio Visual Equipment Rental Clerk Name Role Phone KeishaVahe oliveira Mela JARRELL Primary Care Provider +1- [phone] Reason for Visit * Reason Comments Follow-up Encounter Details Date Type Department Care Team (Late st Contact Info) Description 05/07/2023 10:45 AM EDT Office Visit Dermatology at [address] [phone] Rusty Flores MD [address] [facility] A DERMATOLOGY [place], [place] [phone] History of basal cell carcinoma; History of [...] Progress Notes * Rusty Flores MD - 05/07/2023 10:45 AM EDT Problem: 1. New lesions of concern, facial sites 2. 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 History of BCCA right upper shoulder x2, treated 1992 treated at [place] Isrrael follows up concerned today about some lesions on his face. Physical examination reveals a pleasant 68-year-old gentleman who is mild actinic keratoses presenton the forehead the temples and on his left lateral neck. Assessment and plan: Actinic keratoses 1. Recommend that we begin 5-fluorouracil 5% cream apply on a twice daily basis for 1 week on 3 weeks off. Repeat for total of 3 cycles. Dispense 40 g with 0 refills. This to be submitted to his [facility] pharmacy. 2. Return to clinic another 6 months for repeat skin checkup. History of nonmelanoma cutaneous malignancies 1. No evidence of recurrence. No new lesions of concern seen today. CC: Vahe Valdes DO documented in this encounter Plan of Treatment Upcoming Encounters Date Type Department Care Team (Late st Contact Info) Description 11/05/2024 10:30 AM EST Office Visit Hematology/Oncology at [address] [phone] Sha Figueroa MD [facility] DR HEMATOLOGY [place] [address] Stephany Kramer APRN [address] [place] [address] [place] [address] 11/11/2024 8:45 AM EST Office Visit Dermatology at [place] [address] [place] [phone] Rusty Flores MD [address] [facility] [place] [address] documented as of this encounter Visit Diagnoses Diagnosis History of basal cell carcinoma Personal history of other malignant neoplasm of skin History of SCC (squamous cell carcinoma) of skin Personal history of other malignant neoplasm of skin [place] (actinic keratosis) Actinic keratosis documented in this encounter Care Teams Audio Visual Equipment Rental Clerk Relationship Specialty Start Date End Date Vahe Valdes DO [address] [place] [address] PCP - General Family Medicine 12/13/21 documented as of this encounter
--- OUTSIDE RECORDS SUMMARY | 2024-11-05 01:48 | XMS_ITS | Encounter Summary ---
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 Name Role Phone Marco Reina MD Primary Care Provider + Encounter Details Date Type Department Care Team (Late st Contact Info) Description 09/14/2020 2:12 PM EST - 09/14/2020 4:49 PM EST Surgery [place] [address] Rian Negrete MD [facility] [place] [address] LAPAROSCOPIC HERNIA REPAIR, INITIAL INGUINAL (WRVU 6.36) Social History Tobacco Use Types Packs/Day Years [...] Sign Reading Time Taken Comments Blood Pressure 129/61 09/14/2020 4:45 PM EST Pulse 63 09/14/2020 4:45 PM EST Temperature 36.7 ??C (98.1 ??F) 09/14/2020 4:15 PM ES T Respiratory Rate 17 09/14/2020 4:45 PM EST Oxygen Saturation 95% 09/14/2020 4:45 PM EST Inhaled Oxygen Concentration - - Weight 88.7 kg (195 lb 8.8 oz) 09/14/2020 1:49 P M EST Height 172.7 cm (5' 7.99) 09/14/2020 1:49 PM ES T Body Mass Index 29.74 09/14/2020 1:49 PM EST documented in this encounter Discharge Instructions * Patient Instructions* Rian Negrete MD - 09/14/2020 9:10 AM EST Instructions following Laparoscopic Inguinal and Umbilical Hernia Repair Wound Care: You will either have a liquid dressing or steri-strips and Band-Aids or a dry sterile dressing. ?? If you have a liquid dressing, there is nothing to remove. - Please keep the area clean and dry. After 24 hours, you may shower and gently pat the area dry. ?? If you have steri-strips and Band-Aids, remove the Band-Aids/outer dressing in 48 hours. - You may then shower and pat the area dry. Leave the steri-strips (little pieces of skin tape) across the incision and allow them to peel off on their own. If they are still there in 10 days, you may remove them. ?? Some bruising around your incisions is normal. ?? For men: Bruising and swelling of your scrotum and base of your penis is normal ?? No swimming or soaking for two weeks. ?? Your stitches will dissolve and do not need to be removed. Urinary retention: If you are unable to urinate 6-8 hours after your surgery, please call [phone] before 5 PM weekdays and [phone] after 5 PM and weekends to discuss further managment. Activity: No heavy lifting more than 10 pounds for the next 4 weeks, then you may gradually lift heavier objects as tolerated by discomfort. Otherwise activity as tolerated by your comfort level. Pain Management: Use Tylenol, ibuprofen and ice to treat your pain. ?? You may take 1 gram of Tylenol (Max 4 grams per day), and 600 mg of ibuprofen with meals and before bed time. ?? You may use an ice pack to your groin as needed. ?? If you still have pain not controlled by these measures, take your prescription pain medication as prescribed. Bowel Medications: Prescription pain medication can make you constipated. If you take this medication, also take colace 100 mg twice daily (this is over the counter). If this is not sufficient, you may take Miralax (polyethylene glycol) to help move your bowels. Diet: After your procedure, there are no dietary restrictions. Driving restrictions: No driving if you are taking prescription pain medication or if you think your normal reaction timeand attentiveness has been slowed by your surgery. Call Doctor for: Please call if you notice worsening redness or drainage from incision(s) lasting longer than 5 daysafter your surgery, any foul-smelling drainage from the incision, pain not controlled by pain medications, persistent nausea and vomiting, or for any fevers greater than 101.3 F. The number for questions is [phone] before 5 PM weekdays and [phone] after 5 PM and weekends. Follow-up: Follow-up appointment will be scheduled with Dr. Negrete in 4 weeks. Appointment will be mailed to you. Please call [phone] (clinic number for appointments) to confirm date and time of your appointment if you do not receive your apointment in 3 weeks. documented in this encounter Medications at Time of Discharge Medication Sig Dispensed Refills Start Date End Date omeprazole (PriLOSEC) 20 mg Capsule, Delayed Release(E.C.) daily as needed. 09/07/2020 tadalafiL (CIALIS) 5 mg Tablet Take 5 mg by mouth as needed. 11/20/2019 acetaminophen (Tylenol) 500 mg Tablet Take 1,000 mg by mouth every 6 hours as needed for Pain. tamsulosin (Flomax) 0.4 mg Capsule take 1 capsule by mouth once daily 05/10/2020 11/12/2023 albuterol 90 mcg/actuation HFA Aerosol Inhaler Inhale 2 puffs into the lungs every 4 hours as needed for Wheezing. Use with spacer 1 Inhaler 1 12/03/2019 04/11/2022 zolpidem (AMBIEN) 10 mg Tablet 1 tablet nightly as needed. 08/07/2019 08/15/2023 clonazePAM (KlonoPIN) 2 mg Tablet 1 tablet as needed. Taking half the dose as needed 07/14/2016 01/11/2023 naproxen sodium (Aleve) 220 mg Tablet Take 440 mg by mouth 2 times daily (with meals). 10/13/2020 sertraline (ZOLOFT) 100 mg TabletIndications:CAROLYNE (generalized anxiety disorder) Take 1 tablet by mouth daily. 90 tablet 1 01/17/2019 10/13/2020 documented as of this encounter Progress Notes * Ilene Grant RN - 09/14/2020 6:20 PM EST 174: Break coverage for RN. Pt ambulated to bathroom to void. No PVR by bladder scan. Order obtained to d/c pt. 1814: IV d/c'd, pt dressed. AVS given to pt and , instructions reviewed with both. Pt d/c'd to home via wheelchair. * Zahra So RN - 09/14/2020 4:18 PM EST Patient admitted to PACU. Hand off received from Lizeth Geiger CRNA. care assumed. Assessments asdocumented. Monitors on, alarms audible and individualized to patient. documented in this encounter H&P Notes * Rian Negrete MD - 09/14/2020 1:26 PM EST Day of Surgery Update Please see clinic note for further historical details, copied below. The patient's history and physical exam have been reviewed and completed. There has been no interval change from that of the pre-operative history and physical exam with RRRand CTAB. All preoperative questions were answered. Plan to proceed with laparoscopic left inguinal hernia repair and umbilical hernia repair. RIAN NEGRETE MD Isrrael Anton is referred by Marco Reina MD for evaluation of a left inguinal hernia. This 65y.o. male first noticed the onset of a pressure feeling in his left groin approximately 3-4 months ago when renovating his home. This was followed shortly afterwards by the appearance of a lump. His symptoms bother him most with lifting or other heavy exertion. He denies symptoms of incarceration or intestinal obstruction. ?? He states his umbilicus is minimally symptomatic. ?? He has a history of a prior open right inguinal hernia repair. ?? Past Medical History Past Medical History: Diagnosis Date ??? CLL (chronic lymphocytic leukemia) 04/05/2011 ?? Patient Active Problem List Diagnosis Code ??? CLL (chronic lymphocytic leukemia) C91.10 ??? History of hepatitis C, successfully treated Z86.19 ??? Acrochordon L91.8 ??? History of basal cell carcinoma Z85.828 ??? Viral warts B07.9 ??? AK (actinic keratosis) L57.0 ??? Insomnia G47.00 ??? CAROLYNE (generalized anxiety disorder) F41.1 ??? Gastroesophageal reflux K21.9 ??? ED (erectile dysfunction) N52.9 ??? Chronic pain syndrome G89.4 ??? COPD (chronic obstructive pulmonary disease) J44.9 ??? Environmental allergies Z91.09 ??? Spine pain, multilevel M54.9 ?? CLL - stable, diagnosed 10 years ago ?? Past Surgical History Past Surgical History: Procedure Laterality Date ??? ELBOW FRACTURE SURGERY Right 1963 ??? HERNIA REPAIR Right 1960 ?? Ingiunal ??? PRO COLONOSCOPY, DIAGNOSTIC N/A 11/27/2018 ?? COLONOSCOPY, DIAGNOSTIC performed by Nuria De León MD at [facility] ENDOSCOPY Vasectomy ? Current Outpatient Medications: ??? tadalafiL (CIALIS) 5 mg Tablet, every 24 hours., Disp: , Rfl: ??? tamsulosin (Flomax) 0.4 mg Capsule, take 1 capsule by mouth once daily, Disp: , Rfl: ??? zolpidem (AMBIEN) 10 mg Tablet, 1 tablet nightly., Disp: , Rfl: ??? clonazePAM (KlonoPIN) 2 mg Tablet, 1 tablet as needed., Disp: , Rfl: ??? sertraline (ZOLOFT) 100 mg Tablet, Take 1 tablet by mouth daily., Disp: 90 tablet, Rfl: 1 ??? albuterol 90 mcg/actuation HFA Aerosol Inhaler, Inhale 2 puffs into the lungs every 4 hours as needed for Wheezing. Use with spacer (Patient not taking: Reported on 05/26/2020), Disp: 1 Inhaler, Rfl: 1 ??? acetaminophen (Tylenol Extra Strength) 500 mg Tablet, Take 1,000 mg by mouth every 6 hours as needed for Pain., Disp: , Rfl: ??? naproxen sodium (Aleve) 220 mg Tablet, Take 440 mg by mouth 2 times daily (with meals)., Disp: , Rfl: ?? Allergies: Viagra [sildenafil] ?? Social history: reports that he has never smoked. He has never used smokeless tobacco. He reports previous alcohol use. He reports previous drug use. ?? Family history noncontributory ?? Review of systems is negative for any unexplained weight loss or weight gain. He denies any cough, chest pain or shortness on breath on exertion. He has no fevers, chills or night sweats. Bowel and bladder elimination is normal. He denies issues with bleeding, clotting or anesthesia. All other system reviews are negative. ?? BP 111/60 (BP Location (NBP): Right arm) Pulse 80 Temp 36.3 ??C (97.4 ??F) Resp 16 Ht 172.7cm (5' 7.99) Wt 88.7 kg (195 lb 8 oz) SpO2 97% BMI 29.73 kg/m?? On physical examination, this is a well appearing male. There is no scleral or skin icterus. Mucousmembranes are moist. His lungs are clear to auscultation. Heart is regular, rate, and rhythm and without murmurs. His abdomen is nontender and without palpable masses. A small, reducible left inguinal hernia is easily appreciated. There are no right groin hernias. There is a well healed open right inguinal hernia incision. There is a small, reducible umbilical hernia. His extremity and neurological exam are grossly normal. ?? Impression. Symptomatic left inguinal hernia, and umbilical hernia. Because he is bothered by his hernia symptoms, I agree that surgical repair is warranted. We discussed both open and laparoscopic options for repair. The patient wishes to proceed with a laparoscopic repair. The majority of this visit was spent discussing the nature of hernia surgery and its risks, including risks of postoperative hematoma, neuralgias which tend to resolve with time in most patients, and hernia recurrence. We discussed that permanent mesh will be used to reduce the recurrence rate, and this has a small associated risk ofinfection and erosion. Overall, he seems well informed and wishes to proceed with a laparoscopic left inguinal hernia and umbilical hernia repair. [facility] - Inguinal Hernia 05/26/2020 Pain at site: Pain at rest (0-10) 2 Pain at site: Pain during acivities (0-10) 4 Pain at site: Pain felt during the last week (0-10) 3 Restrictions of activities: Restrictions from daily activities (0-10) 2 Restrictions of activities: Restriction outside the house (0-10) 4 Restrictions of activities: Restriction during sports (0-10) 10 - Completely restricted Restrictions of activities: Restriction during heavy labor (0-10) 5 Cosmetic discomfort: Shape of your abdomen (0-10) 2 Cosmetic discomfort: Site of the hernia (0-10) 3 Taking prescription opioids in last 30 days 0 ?? documented in this encounter Miscellaneous Notes * Op Note - Rian Negrete MD - 09/14/2020 3:39 PM EST [facility] Operative Note Patient Name: Isrrael Anton : [id number] MR#: [id number] Case Date: 09/14/2020 Surgeon: Surgeon(s) and Role: * Rian Negrete MD - Primary * Dennis Patiño MD - Resident Preoperative diagnosis: LEFT INGUINAL HERNIA UMBILICAL HERNIA Postoperative diagnosis: LEFT INGUINAL HERNIA UMBILICAL HERNIA Procedure(s) (LRB): LAPAROSCOPIC HERNIA REPAIR, INITIAL INGUINAL (WRVU 6.36) (Left) MODIFIER MESH,BARD,3D MAX REG (Left) HERNIA REPAIR, UMBILICAL, REDUCIBLE; AGE 5 OR OVER (WRVU 6.59) (N/A) MODIFIER MESH,BARD VENTRALEX ST (N/A) Findings: 1) Indirect defect and cord lipoma 2) < 1 cm umbilical hernia, repaired primarily Anesthesia: General Estimated Blood Loss: 11 cc Specimens removed during surgery: None Drains: None Surgical Closure: Primary Closure - skin incision is completely closed without any wires, aspen, drains or other devices Disposition: awakened from anesthesia, extubated and taken to the recovery room in a stable condition, having suffered no apparent untoward event. Condition: doing well without problems (Please see the Surgical Encounter Summary for any Implant and Specimen details pertinent to this patient.) HPI/Surgical Indications: This 65 y.o. male presented with a history of left groin pain and some asymmetry on examination in the office. He was diagnosed with an inguinal hernia, and he chose to have laparoscopic hernia repair, with an open repair of an umbilical hernia. Description of procedure: Under general anesthesia and endotracheal intubation, the patient was prepped and draped in the supine position with both arms tucked. A timeout was performed with verification of site duarte and side of procedure verified. Iv antibiotics were infused prior to incision. After infiltration with 0.25% Marcaine without epinephrine, an incision was made just below the umbilicus, slightly off to the left of midline. Dissection was carried across the anterior sheath and the rectus muscle retracted laterally. A kidney shaped dissecting balloon was then inserted in through the anterior portion of the rectus into the preperitoneal space. This was insufflated with the right side compressed and blunt dissection was therefore achieved in the preperitoneal space of the left. The balloon was then removedand a Alfreda trocar placed and anchored with 0 Vicryl suture. Two 5- mm pedi ports were also placed in the midline below the camera port. Blunt dissection was used to dissect the epigastric vessels and leave then anterior onto the posterior surface of the muscle. Blunt dissection was used to identify the direct, indirect, and femoral canals. The cord was inspected and an indirect hernia sac was noted. This was reduced along with a cord lipoma. There was no weakness in the direct space floor. There was no femoral herniation. The spermatic vessels and vas deferens were identified and preserved. A large 3D max mesh was then placed into position and positioned into the appropriate area to cover all 3 defects. The area was then completely infiltrated with 30 cc of 0.25% Marcaine without epinephrine. The insufflation was slowly decreased and the mesh was assured to be in proper position with desufflation. The trocars were removed. The Alfreda trocar site was then closed with 0 Vicryl sutures to the fascial layer in a [id number] fashion We then turned our attention to the umbilicus. The stalk of the umbilicus was encircled and the sacseparated from the stalk of the umbilicus. The stalk was from the fascia. The sac was excised, and a 0.7 cm umbilical defect was noted. The fascial edges were then reapproximated with a [id number] 0 PDS suture. The stalk was tacked to the fascia using an interrupted 2-0 Vicryl suture. Bilateral rectus sheath blocks were placed with a blunted needle, utilizing 10 cc of 0.25% marcaine on each side. Hemostasis was assured. The skin sites were all closed with running subcuticular 4-0 Monacryl suture. Dermabond was applied. Inspection of the scrotum revealed both testes to be in position. No obvious hernia was noted on the patient coughing waking up. The patient returned to the recovery room in stable condition. Spongeand instrument counts were correct. No specimen sent to pathology I was the attending physician supervising the resident in the above care and I was present with theresident for the entire procedure. Wt & BMI By Encounter Date Admission (Current) from 09/14/2020 in Main Operating Room [facility] Office Visit from 05/26/2020 in General Surgery at [facility] Weight 88.7 kg (195 lb 8.8 oz) 1 09/14/2020 1349 88.7 kg (195 lb 8 oz) 1 05/26/2020 0919 BMI 29.74 1 09/14/2020 1349 29.73 1 05/26/2020 0919 ASA Class: 2 Elective case: Yes Intraoperative wound class: Clean Operative time (minutes): 0-59 x 60-119 120-179 180-239 240+ Concomitant procedure: No Intra-op complications: No History of inflammatory bowel disease: No History of open abdomen: No Is this hernia related to a previous organ transplantation operation: No History of component separation: No History of abdominal wall surgical site infection: No Is this hernia related to a previous cancer operation: No If yes, Type of cancer: Bowel preparation: No Prophylactic IV antibiotic received within 1 hour prior to surgical incision: Yes Epidural used for pain control: No Transversus Abdominis Plane block or Rectus sheath block used for pain control: Yes Indications for umbilical hernia repair: x Asymptomatic Pain Enlarging/interfering with activities Bowel obstruction Fistula Infected mesh Ventral hernia Procedure Category: Incisional Parastomal Incisional and Parastomal Epigastric (primary hernia) x Umbilical (primary hernia) Spigelian (primary hernia) Lumbar (primary hernia) Prior mesh present: No Recurrent hernia: Yes/No Midline ( Hernia Classification - Incisional hernia) M1 - Subxiphoidal M2 - Epigastric x M3 - Umbilical M4 - Infraumbilical M5 - Suprapubic No Midline component (if selected, ensure no other boxes checked M1-M5) Lateral L1 - Subcostal L2 - Flank L3 - Iliac L4 - Lumbar x No Lateral component (if selected, ensure no other boxes checked L1-L4) Hernia Length (cm) = 0.7 Hernia Width (cm) = 0.7 Stoma present: No Parastomal hernia present: No Operative approach: x Open Laparoscopic Robotic Laparoscopy-assisted ventral hernia repair MIS convert to open Robotic-assisted ventral hernia repair Subcutaneous flaps raised: No Mesh used: No Chemical Component Separation: No Fascial closure: Yes Suture type used for fascial closure: x Absorbable Permanent Mesh suture Suture technique used for fascial closure site: Running Simple interrupted x Figure of eight Mattress Wound Closure Technique (select all that apply): x Closed (hector, sutures, adhesives, strips) Wet to Dry Packing or Aspen Negative Pressure Wound Therapy Drains used: No Concomitant procedure: No Intra-op complications: No Prior pelvic operation: No Urinary catheter placed during operation: No Hernia laterality: Unilateral left Indications for left hernia repair: Asymptomatic x Painful bulge Pain without bulge Recurrent Hernia Inguinal disruption/Core muscle injury Chronic pain after prior inguinal hernia repair Bowel obstruction Infected mesh Incidental contra-lateral hernia found at operation Enlarging hernia Anesthesia: General, Local Local Anesthesia Type: Bupivacaine Left Hernia Type and Size: 0 - No hernia I -(<1.5 cm or <1 fingertip II - 1.5-3 cm or 1-2 fingertips III - >3 cm or >2 fingertips 1. Lateral (indirect) x 2. Medial (direct) x 3. Femoral x 4. Obturator x Scrotal component: No Left prior mesh present: No Left operative approach: Laparoscopic TEP Left defect primarily closed: No Left mesh used: Yes Left Mesh Name: 3D Max Left mesh fixation: None Preformed mesh size: Large Left dissecting Balloon Name: Other Balloons Individual nerves identified: No Infection Bundle used? N/A documented in this encounter Plan of Treatment Upcoming Encounters Date Type Department Care Team (Late st Contact Info) Description 11/05/2024 10:30 AM EST Office Visit Hematology/Oncology at [address] [place] [phone] Sha Figueroa MD [facility] DR HEMATOLOGY [place] [address] Stephany Kramer APRN [address] [place] [address] DR MEDICAL ONCOLOGY [place], [place] [address] 11/11/2024 8:45 AM EST Office Visit Dermatology at [place] [address] [place] [id number] Rusty Flores MD [address], R[address] [place]quita DERMATOLOGY [place], [place] [id number] documented as of this encounter Procedures Procedure Name Priority Date/Time Associated Diagnosis Comments MODIFIER MESH,BARD VENTRALEX ST 09/14/2020 2:09 PM EST LEFT INGUINAL HERNIA UMBILICAL HERNIA Repair Umbilical Sandi, 5+Y/O, Reduc ([id number]) 09/14/2020 2:09 PM EST LEFT INGUINAL HERNIA UMBILICAL HERNIA MODIFIER MESH,BARD,3D MAX REG 09/14/2020 2:09 PM EST LEFT INGUINAL HERNIA UMBILICAL HERNIA Lap, Inguinal Hernia Repr, Initial ([id number]) 09/14/2020 2:09 PM EST LEFT INGUINAL HERNIA UMBILICAL HERNIA documented in this encounter Visit Diagnoses Not on filedocumented in this encounter Administered Medications Inactive Administered Medications - up to 3 most recent administrations Medication Order MAR Action Action Date Dose Rate Site acetaminophen (Tylenol) tablet 1,000 mg 1,000 mg, Oral, EVERY 6 HOURS PRN, Starting on Sun09/14/20 at 1603, Until Sun09/14/20 at 2110, Pain, Maximum dose of acetaminophen is 4000 mg from all sources in 24 hours., Routine BUpivacaine (pf) (Marcaine) (2.5 mg/mL) 0.25% injection ONCE PRN, Starting on Sun09/14/20 at 1434, Until Sun09/14/20 at 211, Intra-Operative (Intra-Procedure), Routine Given 09/14/2020 2:34 PM EST 60 mLs 19- Surgical Site HYDROmorphone (Dilaudid) (2 mg/mL) multi-dose injection solution 0.2-0.4 mg 0.2-0.4 mg, Intravenous, EVERY 5 MIN PRN, Starting on Sun09/14/20 at 1628, Until Sun09/14/20 at 2110, Pain, Give 0.2 mg every 5 minutes PRN for mild to moderate pain (1-5) Give 0.4 mg every 5 minutes PRN for moderate to severe pain (6-10). Hold for respiratory rate less than 10 per minute. Maximum dose 4 mg over one hour. If multiple pain medications are ordered, start with hydromorphone or morphine and use fentanyl for breakthrough pain., PACU Recovery, Routine ibuprofen (Advil;Motrin) tablet 600 mg 600 mg, Oral, EVERY 6 HOURS PRN, Starting on Sun09/14/20 at 1603, Until Sun09/14/20 at 2110, Pain, Administer orally with milk or food to minimize GI irritation. Maximum dose of 3200 mg from all sources in 24 hours, Routine Given 09/14/2020 5:04 PM EST 600 mg lactated ringers infusion 1,000 mL, at 100 mL/hr, Intravenous, CONTINUOUS, Starting on Sun09/14/20 at 1400, Until Sun09/14/20 at 2110, Day of Surgery (Day of Procedure) New Bag 09/14/2020 2:02 PM EST 1,000 mLs 100 mL/hr lidocaine (Xylocaine) 1% (10 mg/mL) injection 3 mg 3 mg (0.3 mL), Subcutaneous, ONCE PRN, 1 dose, Starting on Sun09/14/20 at 1339, Until Sun09/14/20 at 2110, for discomfort with PIV insertion, Day of Surgery (Day of Procedure), Routine naloxone (Narcan) (0.4 mg/mL) injection 0.04 mg 0.04 mg, Intravenous, EVERY 5 MIN PRN, 3 doses, Starting on Sun09/14/20 at 1628, Until Sun09/14/20 at 2110, Opioid Reversal, for respiratory rate less than 6 or unresponsive., May repeat every 5 minutes to increase respiratory rate. DO NOT exceed 0.12 mg total dose. Notify anesthesia immediately if administered., PACU Recovery, Routine ondansetron (pf) (Zofran) (2 mg/mL) injection 4 mg 4 mg, Intravenous, EVERY 30 MIN PRN, Starting on Sun09/14/20 at 1628, Until 09/14/20 at 2111, Nausea, May repeat 4 mg once in 30 minutes. If multiple antiemetics ordered, use ondansetron first and if ineffective use prochlorperazine second and if ineffective use promethazine, PACU Recovery prochlorperazine (Compazine) (5 mg/mL) injection 5 mg 5 mg, Intravenous, EVERY 30 MIN PRN, 2 doses, Starting on Sun09/14/20 at 1628, Until Sun09/14/20 at 2111, Nausea, May repeat 5 mg once in 30 minutes. If multiple antiemetics ordered, use ondansetron first and if ineffective use prochlorperazine second and if ineffective use promethazine, PACU Recovery, Routine sodium chloride 0.9 % (flush) flush 5-20 mL 5-20 mL, Intravenous, EVERY 1 MIN PRN, Starting on Sun09/14/20 at 1339, Until Sun09/14/20 at 2111, flush, Flush pertains to all indwelling lines. Flush per protocol found in the job aid using the link provided on this medication record., Day of Surgery (Day of Procedure), Routine documented in this encounter Active and Recently Administered Medications Times are shown in EST. Scheduled Medication Order 09/12/2020 09/13/2020 09/14/2020 ceFAZolin (Ancef) 2 g in dextrose 5% 100 mL infusion (COMPLETED) 2 g, Intravenous, ONCE, 1 dose, On Sun09/14/20 at 1400, Administer over 30 Minutes, Indication for (Active or Suspected): Prophylaxis 1412 (Given - Provid er: Lizeth Sterling, FINE ARTIST - Comment: administered over 15 minutes) Continuous Medication Order 09/12/2020 09/13/2020 09/14/2020 lactated ringers infusion 1,000 mL, at 100 mL/hr, Intravenous, CONTINUOUS, Starting on Sun09/14/20 at 1400, Until Sun09/14/20 at 2110, Day of Surgery (Day of Procedure) 1402 (New Bag - Prov ider: Domonique Wen RN)1430 (Anesthesia Volume Adjustment - Provider: Lizeth Sterling CRNA)1549 (Anesthesia Volume Adjustment - Provider: Lizeth Sterling CRNA) PRN Medication Order 09/12/2020 09/13/2020 09/14/2020 acetaminophen (Tylenol) tablet 1,000 mg 1,000 mg, Oral, EVERY 6 HOURS PRN, Starting on Sun09/14/20 at 1603, Until Sun09/14/20 at 2110, Pain, Maximum dose of acetaminophen is 4000 mg from all sources in 24 hours., Routine BUpivacaine (pf) (Marcaine) (2.5 mg/mL) 0.25% injection (CANCELED) ONCE PRN, Starting on Sun09/14/20 at 1434, Until Sun09/14/20 at 2110, Intra-Operative (Intra-Procedure), Routine 1434 (Given - Provid er: Dennis Patiño MD) HYDROmorphone (Dilaudid) (2 mg/mL) multi-dose injection solution 0.2-0.4 mg 0.2-0.4 mg, Intravenous, EVERY 5 MIN PRN, Starting on Sun09/14/20 at 1628, Until Sun09/14/20 at 2110, Pain, Give 0.2 mg every 5 minutes PRN for mild to moderate pain (1-5) Give 0.4 mg every 5 minutes PRN for moderate to severe pain (6-10). Hold for respiratory rate less than 10 per minute. Maximum dose 4 mg over one hour. If multiple pain medications are ordered, start with hydromorphone or morphine and use fentanyl for breakthrough pain., PACU Recovery, Routine ibuprofen (Advil;Motrin) tablet 600 mg 600 mg, Oral, EVERY 6 HOURS PRN, Starting on Sun09/14/20 at 1603, Until Sun09/14/20 at 2110, Pain, Administer orally with milk or food to minimize GI irritation. Maximum dose of 3200 mg from all sources in 24 hours, Routine 1704 (Given - Provid er: Zahra So RN) lidocaine (Xylocaine) 1% (10 mg/mL) injection 3 mg 3 mg (0.3 mL), Subcutaneous, ONCE PRN, 1 dose, Starting on Sun09/14/20 at 1339, Until Sun09/14/20 at 2110, for discomfort with PIV insertion, Day of Surgery (Day of Procedure), Routine naloxone (Narcan) (0.4 mg/mL) injection 0.04 mg 0.04 mg, Intravenous, EVERY 5 MIN PRN, 3 doses, Starting on Sun09/14/20 at 1628, Until Sun09/14/20 at 2110, Opioid Reversal, for respiratory rate less than 6 or unresponsive., May repeat every 5 minutes to increase respiratory rate. DO NOT exceed 0.12 mg total dose. Notify anesthesia immediately if administered., PACU Recovery, Routine ondansetron (pf) (Zofran) (2 mg/mL) injection 4 mg 4 mg, Intravenous, EVERY 30 MIN PRN, Starting on Sun09/14/20 at 1628, Until Sun09/14/20 at 2110, Nausea, May repeat 4 mg once in 30 minutes. If multiple antiemetics ordered, use ondansetron first and if ineffective use prochlorperazine second and if ineffective use promethazine, PACU Recovery prochlorperazine (Compazine) (5 mg/mL) injection 5 mg 5 mg, Intravenous, EVERY 30 MIN PRN, 2 doses, Starting on Sun09/14/20 at 1628, Until Sun09/14/20 at 2110, Nausea, May repeat 5 mg once in 30 minutes. If multiple antiemetics ordered, use ondansetron first and if ineffective use prochlorperazine second and if ineffective use promethazine, PACU Recovery, Routine sodium chloride 0.9 % (flush) flush 5-20 mL 5-20 mL, Intravenous, EVERY 1 MIN PRN, Starting on Sun09/14/20 at 1339, Until Sun09/14/20 at 2110, flush, Flush pertains to all indwelling lines. Flush per protocol found in the job aid using the link provided on this medication record., Day of Surgery (Day of Procedure), Routine documented in this encounter Care Teams Washing Machine Loader And Puller Relationship Specialty Start Date End Date Marco Reina MD [address] [place] [address] PCP - General Family Medicine 07/08/19 10/01/21 documented as of this encounter
--- OUTSIDE RECORDS SUMMARY | 2024-11-05 01:48 | XMS_ITS | Encounter Summary ---
Author Organization Formerly [facility] [place] [address] Care Team Providers Care Assistant Secretary Name Role Phone Unavailable Primary Care Provider Unavailabl e Encounter Details Date Type Department Care Team (Late st Contact Info) Description 10/25/2021 10:45 AM EST Office Visit Dermatology at [address] [phone] Rusty Flores MD [address] [facility] [place] [address] Seborrheic keratosis; Acrochordon; AK (actinic keratosis); History of basal cell carcinoma Social History [...] Progress Notes * Rusty Flores MD - 10/25/2021 10:45 AM EST Problem: 1. ??New lesions of concern 2. ??History of BCCA right upper shoulder x2, treated 1992 treated at [place] Isrrael follows up and is now 66. I had last seen him in November and treated some irritated skin tags and early actinic keratoses. He is noted some new lesions of concern. Physical examination reveals an early seborrheic keratosis of the left preauricular cheek. He has asmall papule developing at the right oral commissure. Fortunately there is no evidence of any malignant lesions today on the facial status post skin examination Assessment and plan: Seborrheic keratoses/irritated tag 1. Could consider LN2 for the sites 2. The patient was reassured about his overall benign skin examination 3. Return to clinic as needed for new lesions/concerns. CC: Marco Reina MD documented in this encounter Plan of Treatment Upcoming Encounters Date Type Department Care Team (Late st Contact Info) Description 11/05/2024 10:30 AM EST Office Visit Hematology/Oncology at [address] [phone] Sha Figueroa MD [facility] DR HEMATOLOGY [place] [address] Stephany Kramer APRN [address] [place] [address] [place] [address] 11/11/2024 8:45 AM EST Office Visit Dermatology at [place] [address] [place] [phone] Rusty Flores MD [address] [facility] [place] [address] documented as of this encounter Visit Diagnoses Diagnosis Seborrheic keratosis Other seborrheic keratosis Acrochordon Unspecified hypertrophic and atrophic condition of skin AK (actinic keratosis) Actinic keratosis History of basal cell carcinoma Personal history of other malignant neoplasm of skin documented in this encounter
--- OUTSIDE RECORDS SUMMARY | 2024-11-05 01:48 | XMS_ITS | Encounter Summary ---
Author Organization Formerly [facility] [place] [address] Care Team Providers Care General Office Dispatcher Name Role Phone Marco Reina MD Primary Care Provider + Reason for Referral * Diagnostic Test (Routine) - Closed Specialty Diagnoses / Procedures Referred By Contac t Referred To Contact Radiology Diagnoses Right groin pain Procedures CT Abdomen & Pelvis wo Contrast Kimmy Negrete MD [facility] [address] [facility] [place] [address] Referral ID Status Reason Start Date Expiration Date V isits Requested Visits Authorized [id number] Closed Specialty Service Requested 06/09/2021 12/07/2022 1 1 Reason for Visit * Reason Comments Follow-up recurrent inguinal h ernia Encounter Details Date Type Department Care Team (Late st Contact Info) Description 06/09/2021 9:45 AM EDT Office Visit [place] [address] Kimmy Negrete MD [facility] [address] Right groin pain Social History Tobacco Use Types Packs/Day Years [...] Sign Reading Time Taken Comments Blood Pressure - - Pulse - - Temperature - - Respiratory Rate - - Oxygen Saturation - - Inhaled Oxygen Concentration - - Weight - - Height 172.7 cm (5' 7.99) 06/09/2021 9:38 AM ED T Body Mass Index - - documented in this encounter Progress Notes * Cong Guzman MD - 06/09/2021 9:45 AM EDT [facility] General Surgery History and Physical Isrrael Anton is a 66 y.o. male with a history of prior laparoscopic left inguinal/primary umbilcalhernia repair who presents today for evaluation of right groin pain. Pain started getting worse 3 months prior to his visit. He denies any signs or symptoms concrning for incarceration/strangulation.His pain radiated down his right leg and medial inner thigh, exacerbated when he walks. He had a prior open inguinal hernia repair when he was 1 years old.The patient reports that he has been well since the last clinic visit without significant changes to medical status. Denies new diagnoses or medication changes. Denies recent illness including fever/chills, cough/flu-like symptoms, and recent in fection. Denies chest pain and shortness of breath. Signficant PM/ Past Medical History: Diagnosis Date ??? CLL (chronic lymphocytic leukemia) 04/05/2011 Past Surgical History: Procedure Laterality Date ??? ELBOW FRACTURE SURGERY Right 1963 ??? HERNIA REPAIR Right 1959 Ingiunal ??? PRO COLONOSCOPY, DIAGNOSTIC N/A 11/27/2018 COLONOSCOPY, DIAGNOSTIC performed by Nuria De León MD at [facility] ENDOSCOPY ??? PRO LAP, INGUINAL HERNIA REPR, INITIAL Left 09/14/2020 LAPAROSCOPIC HERNIA REPAIR, INITIAL INGUINAL (WRVU 6.36) performed by Kimmy Negrete MD at [facility] MAIN OR ??? PRO REPAIR UMBILICAL CHLOE, 5+Y/O, REDUC N/A 09/14/2020 HERNIA REPAIR, UMBILICAL, REDUCIBLE; AGE 5 OR OVER (WRVU 6.59) performed by Kimmy Negrete MD at [facility] MAIN OR Current Outpatient Medications: ??? omeprazole (PriLOSEC) 20 mg Capsule, Delayed Release(E.C.), , Disp: , Rfl: ??? tadalafiL (CIALIS) 5 mg Tablet, every 24 hours., Disp: , Rfl: ??? tamsulosin (Flomax) 0.4 mg Capsule, take 1 capsule by mouth once daily, Disp: , Rfl: ??? albuterol 90 mcg/actuation HFA Aerosol Inhaler, Inhale 2 puffs into the lungs every 4 hours as needed for Wheezing. Use with spacer, Disp: 1 Inhaler, Rfl: 1 ??? zolpidem (AMBIEN) 10 mg Tablet, 1 tablet nightly., Disp: , Rfl: ??? clonazePAM (KlonoPIN) 2 mg Tablet, 1 tablet as needed., Disp: , Rfl: ??? acetaminophen (Tylenol Extra Strength) 500 mg Tablet, Take 1,000 mg by mouth every 6 hours as needed for Pain., Disp: , Rfl: No data found. Physical Exam Gen: alert and oriented, laying comfortably in bed Neuro: no focal deficits CV: regular rate and rhythm Pulm: clear bilaterally, breathing comfortably on room air GI: Soft, nondistended, nontender, +cough impulse on right. No obvious signs of hernia. Left inguinal region with no hernia. Assesssment/Plan: Isrrael Anton is a 66 y.o. male with a history of prior left inguinal/umbilcal hernia repair who presents today for evaluation of right groin pain. Afebrile and hemodynamically stable. - Will obtain CT scan to better characterize pain etiology and to look for recurrence. Cong Guzman MD 06/09/2021 General Surgery Resident [facility] Attending addendum: I have seen and examined the patient. I agree with the events, physical exam findings and assessment/plan as outlined above. In brief, this is a 66 year old male known to me status post prior laparoscopic left inguinal and umbilical hernia repair, as well as a history of an openright inguinal hernia repair with several month history of right groin/right medial thigh pain, exacerbated by exercise. No clear hernia on exam. Discussed continued watchful waiting and further workup with imaging. He prefers the later. Will schedule CT and follow up afterward to finalize a surgical plan. KIMMY NEGRETE MD documented in this encounter Plan of Treatment Upcoming Encounters Date Type Department Care Team (Late st Contact Info) Description 11/05/2024 10:30 AM EST Office Visit Hematology/Oncology at [address] [place] [phone] Sha Figueroa MD [facility] DR [place] [address] Stephany Kramer APRN [address] [place] [address] DR MEDICAL ONCOLOGY [place], [place] [address] 11/11/2024 8:45 AM EST Office Visit Dermatology at [place] [address] [place] [address] Rusty Flores MD [address] [facility] [place] [address] documented as of this encounter Results * CT Abdomen & Pelvis wo Contrast (06/22/2021 2:24 PM EDT) Anatomical Region Laterality Modality Abdomen, Pelvis Computed Tomogra phy 06/22/2021 2:41 PM EDT Impressions 06/22/2021 2:39 PM EDT 1. ??A small fat-containing right inguinal hernia. 2. ??Ancillary findings as above. Thank you for letting us participate in the care of this patient. ??If you are a health care provider and have any questions regarding this report, please contact the number below. ??For patients who have questions please contact the health senior care manager that requested your imaging first. ? Narrative 06/22/2021 2:39 PM EDT EXAMINATION: ??CT ABDOMEN AND PELVIS WO CONTRAST CLINICAL HISTORY: ??Abdominal distension Please assess for recurrent right inguinal hernia TECHNIQUE: Helical CT of the abdomen and pelvis was performed without contrast. COMPARISON: ??None FINDINGS: The absence of intravenous contrast limits the evaluation of solid viscera and vasculature. Lower chest: ??Small hiatal hernia. Liver: Normal. Bile ducts: Nondilated. Gallbladder: No calcified gallstones. Normal caliber wall. Pancreas: Normal. Spleen: Normal. Adrenals: Normal. Kidneys: Minimal perinephric stranding. No obvious masses, calcifications or hydronephrosis.. Urinary Bladder: Normal. Vasculature: Rare mural atherosclerotic calcifications. No aneurysm. Lymph Nodes: No enlarged lymph nodes. Bowel: Nondilated, no wall thickening. Normal appendix. Peritoneum and mesentery: No ascites, free air, or loculated fluid collection. No mesenteric inflammation. Abdominal wall: Suggestion of prior left femoral hernia repair with mesh. A small fat-containing right inguinal hernia, approximately 2 cm in diameter.. Reproductive organs: Normal sized prostate. Osseous structures: Minimal facet hypertrophic changes in the lumbar spine. Degenerative spondylosis changes at L4-L5 level. No suspicious lesions. Procedure Note Giorgi Flores MD - 06/22/2021 EXAMINATION: CT ABDOMEN AND PELVIS WO CONTRAST CLINICAL HISTORY: Abdominal distension Please assess for recurrent right inguinal hernia TECHNIQUE: Helical CT of the abdomen and pelvis was performed withoutcontrast. COMPARISON: None FINDINGS: The absence of intravenous contrast limits the evaluation of solid visceraand vasculature. Lower chest: Small hiatal hernia. Liver: Normal. Bile ducts: Nondilated. Gallbladder: No calcified gallstones. Normal caliber wall. Pancreas: Normal. Spleen: Normal. Adrenals: Normal. Kidneys: Minimal perinephric stranding. No obvious masses, calcificationsor hydronephrosis.. Urinary Bladder: Normal. Vasculature: Rare mural atherosclerotic calcifications. No aneurysm. Lymph Nodes: No enlarged lymph nodes. Bowel: Nondilated, no wall thickening. Normal appendix. Peritoneum and mesentery: No ascites, free air, or loculated fluidcollection. No mesenteric inflammation. Abdominal wall: Suggestion of prior left femoral hernia repair with mesh.A small fat-containing right inguinal hernia, approximately 2 cm indiameter.. Reproductive organs: Normal sized prostate. Osseous structures: Minimal facet hypertrophic changes in the lumbarspine. Degenerative spondylosis changes at L4-L5 level. No suspicious lesions. IMPRESSION 1. A small fat-containing right inguinal hernia. 2. Ancillary findings as above. Thank you for letting us participate in the care of this patient. If youare a health care provider and have any questions regarding this report,please contact the number below. For patients who have questions please contactthe health senior care manager that requested your imaging first. Kimmy Negrete MD IMG CT ORDERABLES documented in this encounter Visit Diagnoses Diagnosis Right groin pain Abdominal pain, right lower quadrant Right groin pain Abdominal pain, right lower quadrant documented in this encounter Care Teams General Office Dispatcher Relationship Specialty Start Date End Date Marco Reina MD [address] [place] [address] PCP - General Family Medicine 07/08/19 10/01/21 documented as of this encounter
--- OUTSIDE RECORDS SUMMARY | 2024-11-05 01:48 | XMS_ITS | Encounter Summary ---
Author Organization Formerly [facility] Address [facility] [place] [address] Care Team Providers Care Warehouse Person Name Role Phone Marco Reina MD Primary Care Provider + Encounter Details Date Type Department Care Team (Latest Contact Info) Description 10/18/2020 8:40 AM EST - 10/18/2020 11:59 PM [facility] Hospital Encounter [place]ematology [place] [address] Chronic lymphocytic leukemia Discharge Disposition: Home Social History Tobacco Use Types Packs/Day Years [...] on file documented as of this encounter Medications at Time of Discharge [...] half the dose as needed 07/14/2016 01/11/2023 documented as of this encounter Plan of Treatment Upcoming Encounters Date Type Department Care Team (Late st Contact Info) Description 11/05/2024 10:30 AM EST Office Visit Hematology/Oncology at [address] [phone] Sha Figueroa MD [facility] DR HEMATOLOGY [place] [address] Stephany Kramer APRN [address] [place] [address] DR MEDICAL ONCOLOGY [place], [place] [address] 11/11/2024 8:45 AM EST Office Visit Dermatology at [place] [address] [place] [address] Rusty Flores MD [address] [facility] [address] [place] [address] documented as of this encounter Procedures Procedure Name Priority Date/Time Associated Diagnosis Comments SCAN, PERIPHERAL BLOOD STAT 10/18/2020 9:20 AM EST HEMOGRAM STAT 10/18/2020 9:20 AM EST Chronic lymphocytic leukemia DIFFERENTIAL, AUTOMATED STAT 10/18/2020 9:20 AM EST Chronic lymphocytic leukemia HC CBC,PLT & AUTO DIFF STAT 10/18/2020 9:20 AM EST Chronic lymphocytic leukemia HC VENIPUNCTURE STAT 10/18/2020 9:20 AM EST Chronic lymphocytic leukemia documented in this encounter Results * Scan, Peripheral Blood (10/18/2020 9:20 AM EST) Pathologist [facility] Plat estimate Normal [facility] RBC Morphology Abnormal [facility] Ovalocytes 1-5 /HPF [facility] Smudge cell Present [facility] Blood specimen (specimen) 10/18/2020 9:20 AM EST 10/18/2020 9:34 AM EST Narrative Resulting Agency Comment Spec In Lab Sha Figueroa MD HEMATOLOGY ORDERABLE S [facility] [place] [address] * (ABNORMAL) Differential, Automated (10/18/2020 9:20 AM EST) Neutrophil % 21.2 % [facility] Neutrophil Absolute 2.91 1.70 - 6.10 x10(3)/mc L [facility] Lymph % 70.7 % [facility] Lymphocytes Abs 9.8(H) 0.9 - 3.2 x10(3)/mc L [facility] Monocyte % 5.1 % [facility] Monocyte Abs 0.7 0.3 - 0.9 x10(3)/mc L [facility] Eos % 2.5 % [facility] Eosinophils Abs 0.4 0.0 - 0.4 x10(3)/mc L [facility] Basophil % 0.4 % [facility] Baso Absolute 0.1 0.0 - 0.1 x10(3)/mc L [facility] Immature Gran % 0.10 % [facility] Comment: Immature granulocytes(IG's)percentage and absolute count will include metamyelocytes, myelocytes, and promyelocytes. Blood smears from CBCs yielding IG's will be scanned manually for concordance. If this scan disagrees with the automated IG or if promyelocytes are noted, a manual differential will be performed. Immature Gran Absolute 0.02 0.00 - 0.04 x10(3)/mc L [facility] Blood specimen (specimen) 10/18/2020 9:20 AM EST 10/18/2020 9:34 AM EST Narrative Resulting Agency Comment Spec In Lab Sha Figueroa MD HEMATOLOGY ORDERABLE S Performing Organization Address City/State/[facility] Co de Phone Number [facility] [place] [address] * (ABNORMAL) Hemogram (10/18/2020 9:20 AM EST) White Blood Cell 13.8(H) 4.0 - 9.5 x10(3)/mc L [facility] Red Blood Cell 4.65 4.58 - 5.54 x10(6)/mc L [facility] Hemoglobin 14.6 13.7 - 16.5 gm/dL [facility] Hematocrit 43.3 40.5 - 48.5 % [facility] Mean Cell Volume 93.1 82.9 - 93.1 fL [facility] Mean Cell Hemoglobin 31.4 27.5 - 32.1 pg [facility] Mean Cell Hemoglobin Concentration 33.7 32.0 - 35.7 gm/dL [facility] Platelet 147 145 - 357 x10(3)/mc L [facility] RDW Standard Deviation 45.4(H) 36.0 - 45.0 [facility] RDW coefficient of variation 13.3 11.4 - 13.8 % [facility] Mean Platelet Volume 11.9 7.6 - 12.9 [facility] NRBC% auto 0.0 % [facility] NRBC Absolute 0.000 0.000 - 0.000 x10(3)/mc L [facility] Blood specimen (specimen) 10/18/2020 9:20 AM EST 10/18/2020 9:34 AM EST Narrative Resulting Agency Comment Spec In Lab Sha Figueroa MD HEMATOLOGY ORDERABLE S [facility] [place] [address] * (ABNORMAL) Comprehensive metabolic panel (non-fasting) (10/18/2020 9:20 AM EST) Glucose 90 65 - 199 mg/dL [facility] Comment:Diabetes: >=200 mg/d L plus symptoms Blood Urea Nitrogen 14 10 - 20 mg/dL [facility] Creatinine 0.95 0.80 - 1.50 mg/dL [facility] Sodium 141 135 - 145 mmol/L [facility] Potassium 4.2 3.5 - 5.0 mmol/L [facility] Comment: Please note: ??Patients with WBC >100,000 may have falsely elevated Potassium levels. ??For accurate Potassium quantification in these patients send serum separator tube (gold top) for subsequent determinations. ??Contact the Clinical Chemistry Laboratory if there are any questions. Chloride 108(H) 98 - 107 mmol/L [facility] Carbon Dioxide 26 22 - 31 mmol/L [facility] Anion Gap 7 5 - 15 mmol/L [facility] Calcium 8.9 8.5 - 10.5 mg/dL [facility] Protein, Total 6.5 6.1 - 8.0 gm/dL [facility] Albumin 4.6 3.2 - 5.2 gm/dL [facility] Aspartate Aminotransferase 27 0 - 39 unit/L [facility] Alanine Aminotransferase 25 0 - 55 unit/L [facility] Alkaline Phosphatase 87 40 - 130 unit/L [facility] Bilirubin, Total 0.3 0.2 - 1.3 mg/dL [facility] Est Glomerular Filtration Rate 82 >=60 mL/min/1. 73 m?? [facility] Comment: This patient? s estimated glomerular filtration rate (eGFR) is between 82 mL/min/1.73 m2 (patients with less muscle mass per kg body weight) and 96 mL/min/1.73 m2 (patients with more muscle mass per kg body weight) as determined by the CKD-EPI equation. Assessment of eGFR is not appropriate when creatinine concentrations are rapidly changing. For clinical decisions where creatinine clearance will affect therapy, a 24-hour urine creatinine clearance may be advised. Assignment of CKD stage 1 ? 5 for patients with an eGFR near the transition point between stages may be based on clinical assessment of muscle mass and symptoms in addition to eGFR. Blood specimen (specimen) 10/18/2020 9:20 AM EST 10/18/2020 9:34 AM EST Narrative Resulting Agency Comment Spec In Lab Sah Figueroa MD [place] [address] documented in this encounter Visit Diagnoses Diagnosis Chronic lymphocytic leukemia Chronic lymphoid leukemia, without mention of having achieved remission documented in this encounter Care Teams Warehouse Person Relationship Specialty Start Date End Date Marco Reina MD [address] [place] [address] PCP - General Family Medicine 07/08/19 10/01/21 documented as of this encounter
--- OUTSIDE RECORDS SUMMARY | 2024-11-05 01:48 | XMS_ITS | Encounter Summary ---
Author Organization [facility] [place] [address] Care Team Providers Care Supervisor Hot Dip Tinning Name Role Phone KeishaVahe oliveira Primary Care Provider +1- [phone] Encounter Details Date Type Department Care Team (Late Contact Info) Description 03/06/2022 Surgery [place] [phone] Kimmy Trevino MD [facility] [place] [address] Not Performed LAPAROSCOPIC HERNIA REPAIR, INITIAL INGUINAL (WRVU 6.36) [...] 10:30 AM EST Office Visit Hematology/Oncology at [address] [phone] Sha Figueroa MD [facility] [address] HEM[place] [address] Stephany Kramer, BAHMAN [address] [place] [address] [place] [address] 11/11/2024 8:45 AM EST Office Visit Dermatology at [place] [address] [facility] [place] [phone] Rusty Flores MD 580 [facility], R[place] Flaquita DERMATOLOGY [place], [place] [phone] documented as of this encounter Visit Diagnoses Not on filedocumented in this encounter Care Teams Supervisor Hot Dip Tinning Relationship Specialty Start Date End Date Vahe Valdes DO [address] [place] [address] PCP - General Family Medicine 12/13/21 documented as of this encounter
--- OUTSIDE RECORDS SUMMARY | 2024-11-05 01:48 | XMS_ITS | Encounter Summary ---
Author Organization [facility] Address [facility] [place] [address] Care Team Providers Care Telecommunications Sales Representative Name Role Phone Marco Reina MD Primary Care Provider + Reason for Visit * Reason Comments Follow-up Encounter Details Date Type Department Care Team (Late st Contact Info) Description 10/18/2020 9:45 AM EST Office Visit Hematology [place] [address] Sha Figueroa MD [facility] DR HEMATOLOGY [place] [address] Reny Lawler, Stephany Blackwell MD Chronic lymphocytic leukemia Social History Tobacco Use [...] Taken Comments Blood Pressure - - Pulse 69 10/18/2020 9:47 AM EST Temperature 36.4 ??C (97.5 ??F) 10/18/2020 9:47 AM ES T Respiratory Rate 18 10/18/2020 9:47 AM EST Oxygen Saturation 96% 10/18/2020 9:47 AM EST Inhaled Oxygen Concentration - - Weight 90.6 kg (199 lb 12.8 oz) 10/18/2020 9:47 AM EST Height 172.7 cm (5' 7.99) 10/18/2020 9:47 AM ES T Body Mass Index 30.39 10/18/2020 9:47 AM EST documented in this encounter Patient Instructions * Patient Instructions* Reny Lawler, TORCH BURNER - 10/18/2020 9:45 AM EST Recent Results (from the past 72 hour(s)) Comprehensive metabolic panel (non-fasting) Result Value Ref Range Glucose Lvl 90 65 - 199 mg/dL BUN 14 10 - 20 mg/dL Creatinine 0.95 0.80 - 1.50 mg/dL Sodium 141 135 - 145 mmol/L Potassium 4.2 3.5 - 5.0 mmol/L Chloride 108 (H) 98 - 107 mmol/L CO2 26 22 - 31 mmol/L Anion Gap 7 5 - 15 mmol/L Calcium 8.9 8.5 - 10.5 mg/dL Total Protein 6.5 6.1 - 8.0 gm/dL Albumin 4.6 3.2 - 5.2 gm/dL AST 27 0 - 39 unit/L ALT 25 0 - 55 unit/L Alk Phos 87 40 - 130 unit/L Total Bilirubin 0.3 0.2 - 1.3 mg/dL Estimated GFR 82 >=60 mL/min/1.73 m?? Hemogram Result Value Ref Range WBC 13.8 (H) 4.0 - 9.5 x10(3)/mcL RBC 4.65 4.58 - 5.54 x10(6)/mcL Hemoglobin 14.6 13.7 - 16.5 gm/dL Hematocrit 43.3 40.5 - 48.5 % MCV 93.1 82.9 - 93.1 fL MCH 31.4 27.5 - 32.1 pg MCHC 33.7 32.0 - 35.7 gm/dL Platelets 147 145 - 357 x10(3)/mcL RDWSD 45.4 (H) 36.0 - 45.0 fL RDWCV 13.3 11.4 - 13.8 % MPV 11.9 7.6 - 12.9 fL nRBC % Auto 0.0 % nRBC Abs Auto 0.000 0.000 - 0.000 x10(3)/mcL Pulse 69 Temp 36.4 ??C (97.5 ??F) (Temporal) Resp 18 Ht 172.7 cm (5' 7.99) Wt 90.6 kg (199lb 12.8 oz) SpO2 96% BMI 30.39 kg/m?? documented in this encounter Progress Notes * Reny Lawler APRN - 10/18/2020 9:45 AM EST Subjective: Patient ID: Isrrael Anton is a 65 y.o. male here for annual CLL follow up Patient Active Problem List Diagnosis ??? Spine [...] last sleep study ~2018 Dr. Mota of [facility]; nightly Klonopin & Ambien at that time. [...] anxiety disorder) [facility]; [id number] Klonopin, [id number] Paxil, 2018 Zoloft 75-125 mg qd Most recent counseling Fall 2017 sleep disorders - Psychiatry Ashley Lieberman based in [facility] 10/2018 ??? Gastroesophageal reflux Intermittent since ; worse w/elevated weight ??? ED (erectile dysfunction) Urology in [facility] 2008, med trials Cialis, trial Viagra 2008; change in vision, light- headed/dizziness (+) Difficult maintaining erection; no masturbation; intercourse q2 weeks; able to switch positions ??? Chronic pain syndrome Daily neck and lower back stiffness; improves after starting activity of day. 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 a. [place] 70 neg, Chrom 13 abnm by FISH (good prognosis) b. Observation only ??? History of hepatitis C, successfully treated Tx 2008 HPI Desean is doing well - he is enjoying his long term - he and his help to take care of his 4 grandchildren. He was diagnosed last year with TMJ which was likely contributing to his headaches. He was treated with botox which was successful, headaches much improved. He is UTD with his PCP. He had a successful hernia repair with no complications. He is UTD with hisPCP. Denies any lumps or bumps, no recent infections. Energy is stable. Review of Systems Constitutional: Negative. HENT: Negative. Eyes: Negative. Respiratory: Negative. Negative for cough and shortness of breath. Cardiovascular: Negative. Negative for chest pain, palpitations and leg swelling. Gastrointestinal: Negative. Negative for constipation, diarrhea, nausea and vomiting. Genitourinary: Negative. Musculoskeletal: Positive for arthralgias and back pain. Chronic and stable Skin: Negative. Neurological: Negative. Negative for weakness and numbness. Hematological: Negative. Psychiatric/Behavioral: The patient is nervous/anxious. Chronic anxiety - stable on klonipin Objective: Physical Exam Constitutional: General: He is not in acute distress. Appearance: He is well-developed. HENT: Mouth/Throat: Pharynx: No oropharyngeal exudate. Eyes: Conjunctiva/sclera: Conjunctivae normal. Pupils: Pupils are equal, round, and reactive to light. Neck: Musculoskeletal: Normal range of motion and neck supple. Cardiovascular: Rate and Rhythm: Normal rate and regular rhythm. Heart sounds: Normal heart sounds. No murmur. Pulmonary: Effort: Pulmonary effort is normal. Breath sounds: Normal breath sounds. No wheezing or rales. Abdominal: General: Bowel sounds are normal. Palpations: Abdomen is soft. There is no mass. Tenderness: There is no guarding or rebound. Musculoskeletal: Normal range of motion. Lymphadenopathy: Cervical: No cervical adenopathy. Upper Body: Right upper body: No supraclavicular adenopathy. Left upper body: No supraclavicular adenopathy. Skin: General: Skin is warm and dry. Neurological: Mental Status: He is alert and oriented to person, place, and time. Recent Results (from the past 72 hour(s)) Comprehensive metabolic panel (non-fasting) Result Value Ref Range Glucose Lvl 90 65 - 199 mg/dL BUN 14 10 - 20 mg/dL Creatinine 0.95 0.80 - 1.50 mg/dL Sodium 141 135 - 145 mmol/L Potassium 4.2 3.5 - 5.0 mmol/L Chloride 108 (H) 98 - 107 mmol/L CO2 26 22 - 31 mmol/L Anion Gap 7 5 - 15 mmol/L Calcium 8.9 8.5 - 10.5 mg/dL Total Protein 6.5 6.1 - 8.0 gm/dL Albumin 4.6 3.2 - 5.2 gm/dL AST 27 0 - 39 unit/L ALT 25 0 - 55 unit/L Alk Phos 87 40 - 130 unit/L Total Bilirubin 0.3 0.2 - 1.3 mg/dL Estimated GFR 82 >=60 mL/min/1.73 m?? Hemogram Result Value Ref Range WBC 13.8 (H) 4.0 - 9.5 x10(3)/mcL RBC 4.65 4.58 - 5.54 x10(6)/mcL Hemoglobin 14.6 13.7 - 16.5 gm/dL Hematocrit 43.3 40.5 - 48.5 % MCV 93.1 82.9 - 93.1 fL MCH 31.4 27.5 - 32.1 pg MCHC 33.7 32.0 - 35.7 gm/dL Platelets 147 145 - 357 x10(3)/mcL RDWSD 45.4 (H) 36.0 - 45.0 fL RDWCV 13.3 11.4 - 13.8 % MPV 11.9 7.6 - 12.9 fL nRBC % Auto 0.0 % nRBC Abs Auto 0.000 0.000 - 0.000 x10(3)/mcL Pulse 69 Temp 36.4 ??C (97.5 ??F) (Temporal) Resp 18 Ht 172.7 cm (5' 7.99) Wt 90.6 kg (199lb 12.8 oz) SpO2 96% BMI 30.39 kg/m?? Assessment and Plan: Desean is a very pleasant 65 year old man with a 10 year history of stage 0 CLL, he has not requiredany treatment. Counts stable, No worrisome or symptomatic adenoapthy. No B symptoms, ALC doubling time is stable since diagnosis, No recurrent infections, no signs of AIHA or ITP. No concern for transformation. No indication for treatment at this time. Reviewed CLL and indications for therapy, Also reviewed inherent increase risk for infection. Influenza = UTD Pneumococcal - UTD Varicella - UTD COVID - will be getting as soon as available. Plan: We will continue to monitor in hematology clinic. Reviewed CLL and indications for treatment.Isrrael will return to hematology in 12 months. he will call if there are any problems before then. documented in this encounter Plan of Treatment Upcoming Encounters Date Type Department Care Team (Late st Contact Info) Description 11/05/2024 10:30 AM EST Office Visit Hematology/Oncology at [address] [phone] Sha Figueroa MD [facility] DR HEMATOLOGY [place] [address] Stephany Kramer APRN [address] [place] [address] DR MEDICAL ONCOLOGY [place], [place] [id number] 11/11/2024 8:45 AM EST Office Visit Dermatology at [place] [address] [facility] [place] [address] Rusty Flores MD [address] [facility] [address], [place] [address] documented as of this encounter Results * Lactate Dehydrogenase (10/17/2021 12:14 PM EST) Lactate Dehydrogenase 216 110 - 220 unit/L [facility] Blood 10/17/2021 12:1 4 PM EST 10/17/2021 12:37 PM EST Narrative Resulting Agency Comment Spec In Lab Reny Lawler TORCH BURNER CHEMISTRY ORDERABLES [facility] [place] [address] * (ABNORMAL) Comprehensive metabolic panel (non-fasting) (10/17/2021 12:14 PM EST) Glucose 74 65 - 199 mg/dL [facility] Comment:Diabetes: >=200 mg/d L plus symptoms Blood Urea Nitrogen 16 10 - 20 mg/dL [facility] Creatinine 0.88 0.80 - 1.50 mg/dL [facility] Sodium 143 135 - 145 mmol/L [facility] Potassium 3.8 3.5 - 5.0 mmol/L [facility] Comment: Please note: ??Patients with WBC >100,000 may have falsely elevated Potassium levels. ??For accurate Potassium quantification in these patients send serum separator tube (gold top) for subsequent determinations. ??Contact the Clinical Chemistry Laboratory if there are any questions. Chloride 109(H) 98 - 107 mmol/L [facility] Carbon Dioxide 25 22 - 31 mmol/L [facility] Anion Gap 9 5 - 15 mmol/L [facility] Calcium 9.1 8.5 - 10.5 mg/dL [facility] Protein, Total 6.6 6.1 - 8.0 g/dL [facility] Albumin 4.6 3.2 - 5.2 g/dL [facility] Aspartate Aminotransferase 37 0 - 39 unit/L [facility] Alanine Aminotransferase 37 0 - 55 unit/L [facility] Alkaline Phosphatase 79 40 - 130 unit/L [facility] Bilirubin, Total 0.4 0.2 - 1.3 mg/dL [facility] Est Glomerular Filtration Rate 88 >=60 mL/min/1. 73 m?? [facility] Comment: This patient? s estimated glomerular filtration rate (eGFR) is between 88 mL/min/1.73 m2 (patients with less muscle mass per kg body weight) and 102 mL/min/1.73 m2 (patients with more muscle mass per kg body weight) as determined by the CKD-EPI equation. Assessment of eGFR is not appropriate when creatinine concentrations are rapidly changing. For clinical decisions where creatinine clearance will affect therapy, a 24-hour urine creatinine clearance may be advised. Assignment of CKD stage 1 - 5 for patients with an eGFR near the transition point between stages may be based on clinical assessment of muscle mass and symptoms in addition to eGFR. Blood 10/17/2021 12:1 4 PM EST 10/17/2021 12:37 PM EST Narrative Resulting Agency Comment Spec In Lab Reny Lawler TORCH BURNER CHEMISTRY ORDERABLES Performing Organization Address City/State/[facility] Co de Phone Number [facility] [place] [address] documented in this encounter Visit Diagnoses Diagnosis Chronic lymphocytic leukemia Chronic lymphoid leukemia, without mention of having achieved remission documented in this encounter Care Teams Telecommunications Sales Representative Relationship Specialty Start Date End Date Marco Reina MD [address] [place] [address] PCP - General Family Medicine 07/08/19 10/01/21 documented as of this encounter
--- OUTSIDE RECORDS SUMMARY | 2024-11-05 01:48 | XMS_ITS | Encounter Summary ---
Author Organization [facility] Address [facility] [place] [address] Care Team Providers Care Chief Radiology Name Role Phone Marco Reina MD Primary Care Provider + Encounter Details Date Type Department Care Team (Late st Contact Info) Description 06/22/2021 4:20 PM EDT Office [place] [address] Kimmy Trevino MD [facility] [place] [address] Recurrent right inguinal hernia Social History Tobacco Use Types Packs/Day Years [...] as of this encounter Progress Notes * Kimmy Trevino MD - 06/22/2021 4:20 PM EDT Isrrael Anton returns in follow up. He was last seen by me on 06/09/21 regarding right groin pain. In summary, this is a 66 year old male known to me status post prior laparoscopic left inguinal andumbilical hernia repair, as well as a history of an open right inguinal hernia repair with several month history of right groin/right medial thigh pain, exacerbated by exercise. No clear hernia on exam. Discussed continued watchful waiting and further workup with imaging. He prefers the later. Willschedule CT and follow up afterward to finalize a surgical plan. Since our last visit, he reports no change in symptoms. He underwent a CT that showed: 1. A small fat-containing right inguinal hernia. 2. Ancillary findings as above. I reviewed the images with him. Impression: Recurrent right inguinal hernia. Because he is bothered by his hernia symptoms, I agree that surgical repair is warranted. We discussed both open and laparoscopic options for repair. The patient wishes to proceed with a laparoscopicrepair. The majority of this visit was spent discussing the nature of hernia surgery and its risks,including risks of postoperative hematoma, neuralgias which tend to resolve with time in most patients, and hernia recurrence. We discussed that permanent mesh will be used to reduce the recurrence rate, and this has a small associated risk of infection and erosion. Overall, he seems well informed and wishes to proceed. 10 of 15 minutes spent on counseling and coordination of care. documented in this encounter Plan of Treatment Upcoming Encounters Date Type Department Care Team (Late st Contact Info) Description 11/05/2024 10:30 AM EST Office Visit Hematology/Oncology at [address] [phone] Sha Figueroa MD [facility] DR [place] [address] Stephany Kramer APRN [address] [place] [address] [place] [address] 11/11/2024 8:45 AM EST Office Visit Dermatology at [address] [place] [phone] Rusty Flores MD [address] [facility], [place] [address] documented as of this encounter Visit Diagnoses Diagnosis Recurrent right inguinal hernia Inguinal hernia without mention of obstruction or gangrene, recurrent unilateral or unspecified documented in this encounter Care Teams Chief Radiology Relationship Specialty Start Date End Date Marco Reina MD [address] [place] [phone] PCP - General Family Medicine 07/08/19 10/01/21 documented as of this encounter
--- OUTSIDE RECORDS SUMMARY | 2024-11-05 01:48 | XMS_ITS | Encounter Summary ---
Author Organization [facility] Address [facility] [place] [address] Care Team Providers Care Hydraulic Auto Jack Mechanic Name Role Phone Keisha, Vahe Plaza DO Primary Care Provider +1- [phone] Reason for Visit * Reason Comments Skin Check Encounter Details Date Type Department Care Team (Late st Contact Info) Description 12/13/2021 3:30 PM EDT Office Visit Dermatology at [address] [phone] Rusty Flores MD [address] [facility] [place] [address] Seborrheic keratosis, inflamed Social History Tobacco Use Types Packs/Day Years [...] Progress Notes * Rusty Flores MD - 12/13/2021 3:30 PM EDT Problem: Skin lesion of concern, back Isrrael presents today for evaluation of a new lesion on the left lower back. His Ashley recentlynoticed this. Physical examination reveals a 7 mm waxy stuck on appearing hyperkeratotic papule circular in its shape with some erythema around the margins, consistent with a seborrheic keratosis on the left lowerback. It appears mildly inflamed/irritated the examination of the back is unremarkable with severalsmall nevi. Assessment and plan: Seborrheic keratosis left lower back, irritated and inflamed 1. LN 2 x 2 applied to single site 2. Post LN2 instructions given 3. Return to clinic here as needed for new lesions concerns. CC: Vahe Valdes DO documented in this encounter Plan of Treatment Upcoming Encounters Date Type Department Care Team (Late st Contact Info) Description 11/05/2024 10:30 AM EST Office Visit Hematology/Oncology at [address] [phone] Sha Figueroa MD [facility] DR [place] [address] Stephany Kramer APRN [address] [place] [address] [place] [address] 11/11/2024 8:45 AM EST Office Visit Dermatology at [place] [address] [place] [phone] Rusty Flores MD [address] [facility] [place] [address] documented as of this encounter Visit Diagnoses Diagnosis Seborrheic keratosis, inflamed Inflamed seborrheic keratosis documented in this encounter Care Teams Hydraulic Auto Jack Mechanic Relationship Specialty Start Date End Date Vahe Valdes DO [address] [place] [address] PCP - General Family Medicine 12/13/21 documented as of this encounter
--- OUTSIDE RECORDS SUMMARY | 2024-11-05 01:48 | XMS_ITS | Encounter Summary ---
Author Organization [facility] [place] [address] Care Team Providers Care Cocktail Server Name Role Phone Unavailable Primary Care Provider Unavailabl e Encounter Details Date Type Department Care Team (Latest Contact Info) Description 10/17/2021 12:04 PM EST - 10/17/2021 11:59 PM EST Hospital Encounter Hematology and Oncology at [facility] [place] [phone] Chronic lymphocytic leukemia Discharge Disposition: Home Social [...] 10:30 AM EST Office Visit Hematology/Oncology at [address] [place] [phone] Sha Figueroa MD [facility] [place] [address] Stephany Kramer APRN [address] [place] [address] DR MEDICAL ONCOLOGY [place], [place] [address] 11/11/2024 8:45 AM EST Office Visit Dermatology at [place] [address] [place] [address] Rusty Flores MD [address] [facility] [facility] [address], [place] [address] documented as of this encounter Procedures Procedure Name Priority Date/Time Associated Diagnosis Comments SCAN, PERIPHERAL BLOOD STAT 12:14 PM EST HEMOGRAM STAT 10/17/2021 12:14 PM EST Chronic lymphocytic leukemia DIFFERENTIAL, AUTOMATED STAT 10/17/2021 12:14 PM EST Chronic lymphocytic leukemia HC CBC,PLT & AUTO DIFF STAT 12:14 PM EST Chronic lymphocytic leukemia HC VENIPUNCTURE STAT 10/17/2021 12:14 PM EST Chronic lymphocytic leukemia COMPREHENSIVE METABOLIC PANEL STAT 10/17/2021 12:14 PM EST Chronic lymphocytic leukemia documented in this encounter Results * Scan, Peripheral Blood (10/17/2021 12:14 PM EST) Plat estimate Normal [facility] RBC Morphology Abnormal [facility] Ovalocytes 1-5 /HPF [facility] Smudge cell Present [facility] Blood 10/17/2021 12:1 4 PM EST 10/17/2021 12:37 PM EST Narrative Resulting Agency Comment Spec In Lab Reny Lawler COMPOUND MACHINE OPERATOR HEMATOLOGY ORDERABLE S [facility] [place] [address] * (ABNORMAL) Differential, Automated (10/17/2021 12:14 PM EST) Neutrophil % 20.5 % [facility] Neutrophil Absolute 3.02 1.70 - 6.10 x10(3)/mc L [facility] Lymph % 72.0 % [facility] Lymphocytes Abs 10.6(H) 0.9 - 3.2 x10(3)/mc L [facility] Monocyte % 5.2 % [facility] Monocyte Abs 0.8 0.3 - 0.9 x10(3)/mc L [facility] Eos % 1.7 % [facility] Eosinophils Abs 0.2 0.0 - 0.4 x10(3)/mc L [facility] Basophil % 0.5 % [facility] Baso Absolute 0.1 0.0 - 0.1 x10(3)/mc L [facility] Immature Gran % 0.10 % [facility] Comment: Immature granulocytes(IG's)percentage and absolute count will include metamyelocytes, myelocytes, and promyelocytes. Blood smears from CBCs yielding IG's will be scanned manually for concordance. If this scan disagrees with the automated IG or if promyelocytes are noted, a manual differential will be performed. Immature Gran Absolute 0.02 0.00 - 0.04 x10(3)/mc L [facility] Blood 10/17/2021 12:1 4 PM EST 10/17/2021 12:37 PM EST Narrative Resulting Agency Comment Spec In Lab Reny Lawler APRN HEMATOLOGY ORDERABLE S [facility] [place] [address] * (ABNORMAL) Hemogram (10/17/2021 12:14 PM EST) White Blood Cell 14.7(H) 4.0 - 9.5 x10(3)/ L [facility] Red Blood Cell 4.69 4.58 - 5.54 x10(6)/ L [facility] Hemoglobin 14.7 13.7 - 16.5 g/dL [facility] Hematocrit 42.8 40.5 - 48.5 % [facility] Mean Cell Volume 91.3 82.9 - 93.1 fL [facility] Mean Cell Hemoglobin 31.3 27.5 - 32.1 pg [facility] Mean Cell Hemoglobin Concentration 34.3 32.0 - 35.7 g/dL [facility] Platelet 148 145 - 357 x10(3)/ L [facility] RDW Standard Deviation 44.2 36.0 - 45.0 [facility] RDW coefficient of variation 13.2 11.4 - 13.8 % [facility] Mean Platelet Volume 11.8 7.6 - 12.9 fL [facility] NRBC% auto 0.0 % [facility] NRBC Absolute 0.000 0.000 - 0.000 x10(3)/ L [facility] Blood 10/17/2021 12:1 4 PM EST 10/17/2021 12:37 PM EST Narrative Resulting Agency Comment Spec In Lab Reny D Schaal COMPOUND MACHINE OPERATOR HEMATOLOGY ORDERABLE S [facility] [place] [address] * (ABNORMAL) Comprehensive metabolic panel (non-fasting) (10/17/2021 12:14 PM EST) Glucose 74 65 - 199 mg/dL [facility] Comment:Diabetes: >=200 mg/d L plus symptoms Blood Urea Nitrogen 16 10 - 20 mg/dL [facility] Creatinine 0.88 0.80 - 1.50 mg/dL [facility] Sodium 143 135 - 145 mmol/L [facility] Potassium 3.8 3.5 - 5.0 mmol/L [facility] Comment: Please note: ??Patients with WBC >100,000 may have falsely elevated Potassium levels. ??For accurate Potassium quantification in these patients send serum separator tube (gold top) for subsequent determinations. ??Contact the Clinical Chemistry Laboratory if there are any questions. Chloride 109(H) 98 - 107 mmol/L [facility] Carbon Dioxide 25 22 - 31 mmol/L [facility] Anion Gap 9 5 - 15 mmol/L [facility] Calcium 9.1 8.5 - 10.5 mg/dL [facility] Protein, Total 6.6 6.1 - 8.0 g/dL [facility] Albumin 4.6 3.2 - 5.2 g/dL [facility] Aspartate Aminotransferase 37 0 - 39 unit/L [facility] Alanine Aminotransferase 37 0 - 55 unit/L [facility] Alkaline Phosphatase 79 40 - 130 unit/L [facility] Bilirubin, Total 0.4 0.2 - 1.3 mg/dL [facility] Est Glomerular Filtration Rate 88 >=60 mL/min/1. 73 m?? [facility] Comment: This patient? s estimated [...] Agency Comment Spec In Lab Reny Lawler APRN CHEMISTRY ORDERABLES Performing Organization Address [facility]/ZIP Co de Phone Number [facility] [place] [address] * Lactate Dehydrogenase (10/17/2021 12:14 PM EST) Lactate Dehydrogenase 216 110 - 220 unit/L [facility] Blood 10/17/2021 12:1 4 PM EST 10/17/2021 12:37 PM EST Narrative Resulting Agency Comment Spec In Lab Reny Lawler APRN CHEMISTRY ORDERABLES Performing Organization Address [facility] Co de Phone Number [facility] [place] [address] documented in this encounter Visit Diagnoses Diagnosis Chronic lymphocytic leukemia Chronic lymphoid leukemia, without mention of having achieved remission documented in this encounter
--- OUTSIDE RECORDS SUMMARY | 2024-11-05 01:48 | XMS_ITS | Encounter Summary ---
Author Organization [facility] [place] [address] Care Team Providers Care Line Pilot Name Role Phone KeishaVahe oliveira Mela JARRELL Primary Care Provider +1- [phone] Reason for Visit * Reason Comments Follow-up Encounter Details Date Type Department Care Team (Late st Contact Info) Description 06/28/2022 8:30 AM EDT Office Visit Dermatology at [address] [address] Rusty Flores MD [address] [facility] [place] A DERMATOLOGY [place], [place] [id number] Seborrheic keratosis, inflamed; History of basal cell carcinoma Social History [...] Progress Notes * Rusty Flores MD - 06/28/2022 8:30 AM EDT Problem: Skin lesion of concern Isrrael follows up today for some new lesions to be checked. These have developed as quite recently. Physical examination reveals a pleasant 67-year-old gentleman who has a hyperkeratotic 8 mm papule on the left dorsal hand concerning for SCCA. He has a number of small seborrheic keratoses on his arms and forearms. He does not desire examination of the chest or back. 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 After obtaining for consent site was anesthetized and removed with shave C&D 2. After curettage the site measured 8 mm in diameter 3. Wound care instructions and supplies given. We will notify patient of biopsy results in 1 week 4. Return to clinic as needed for new lesion/concerns. Seborrheic keratoses forearms and arms and left postauricular scalp 1. Could consider LN2 for removal of these benign lesions. CC: Vahe Valdes DO. documented in this encounter Plan of Treatment Upcoming Encounters Date Type Department Care Team (Late st Contact Info) Description 11/05/2024 10:30 AM EST Office Visit Hematology/Oncology at [address] [phone] Sha Figueroa MD [facility] [address] [place] [address] Stephany Kramer [facility] [address] [place] [address] [place] [address] 11/11/2024 8:45 AM EST Office Visit Dermatology at [address] [place] [phone] Rusty Flores MD [address] [facility] [place] [address] documented as of this encounter Visit Diagnoses Diagnosis Seborrheic keratosis, inflamed Inflamed seborrheic keratosis History of basal cell carcinoma Personal history of other malignant neoplasm of skin documented in this encounter Care Teams Line Pilot Relationship Specialty Start Date End Date Vahe Valdes DO [address] [place] [address] PCP - General Family Medicine 12/13/21 documented as of this encounter
--- OUTSIDE RECORDS SUMMARY | 2024-11-05 01:48 | XMS_ITS | Encounter Summary ---
Author Organization [facility] Address [facility] [place] [address] Care Team Providers Care Benzene Still Utility Operator Name Role Phone KeishaVahe Hoffman Primary Care Provider +1- [phone] Encounter Details Date Type Department Care Team (Latest Contact Info) Description 08/15/2022 Travel Social History Tobacco Use Types Packs/Day [...] 10:30 AM EST Office Visit Hematology/Oncology at [address] [phone] Sha Figueroa MD [facility] [place] [address] Stephany Kramer, CAPSULE FILLING MACHINE OPERATOR [address] [place] [address] DR MEDICAL ONCOLOGY [place], [place] [address] 11/11/2024 8:45 AM EST Office Visit Dermatology at [address] [place] [phone] Rusty Flores MD [address] [place] [address] RD, [place] [address] documented as of this encounter Visit Diagnoses Not on filedocumented in this encounter Care Teams Benzene Still Utility Operator Relationship Specialty Start Date End Date Vahe Valdes DO [address] [place] [address] PCP - General Family Medicine 12/13/21 documented as of this encounter
--- OUTSIDE RECORDS SUMMARY | 2024-11-05 01:48 | XMS_ITS | Encounter Summary ---
Author Organization [facility] Address [facility] [place] [address] Care Team Providers Care Floor Renovator Name Role Phone Marco Reina MD Primary Care Provider + Encounter Details Date Type Department Care Team (Latest Contact Info) Description 09/14/2020 1:24 PM EST - 09/14/2020 6:15 PM EST Hospital [place] [address] Rian Negrete MD [facility] [place] [address] Discharge Disposition: Home Social History Tobacco Use [...] Sign Reading Time Taken Comments Blood Pressure 137/70 09/14/2020 5:00 PM EST Pulse 51 09/14/2020 5:00 PM EST Temperature 36.7 ??C (98.1 ??F) 09/14/2020 4:15 PM ES T Respiratory Rate 15 09/14/2020 5:00 PM EST Oxygen Saturation 94% 09/14/2020 5:00 PM EST Inhaled Oxygen Concentration - - [...] 6-8 hours after your surgery, please call [phone] before 5 PM weekdays and [phone] after 5 PM and weekends to discuss [...] 101.3 F. The number for questions is [phone] before 5 PM weekdays and [phone] after 5 PM and weekends. Follow-up: Follow-up appointment will be scheduled with Dr. Negrete in 4 weeks. Appointment will be mailed to you. Please call [phone] (clinic number for appointments) to confirm date [...] Grant RN - 09/14/2020 6:20 PM EST 1745: Break coverage for RN. Pt ambulated to [...] performed by Nuria De León MD at [facility] ENDOSCOPY Vasectomy ? Current Outpatient Medications: ??? [...] inguinal hernia and umbilical hernia repair. ? [facility] Preoperative Assessment - Inguinal Hernia 05/26/2020 Pain [...] Negrete MD - 09/14/2020 3:39 PM EST [facility] Operative Note Patient Name: Isrrael Anton : [id number] MR#: [id number] Case Date: 09/14/2020 Surgeon: Surgeon(s) and Role: [...] sutures to the fascial layer in a [id number] fashion We then turned our attention to the umbilicus. The stalk of the umbilicus was encircled and the sacseparated from the stalk of the umbilicus. The stalk was from the fascia. The sac was excised, and a 0.7 cm umbilical defect was noted. The fascial edges were then reapproximated with a [id number] 0 PDS suture. The stalk was tacked [...] (Current) from 09/14/2020 in Main Operating Room [facility] Office Visit from 05/26/2020 in General Surgery at [facility] Weight 88.7 kg (195 lb 8.8 oz) [...] 10:30 AM EST Office Visit Hematology/Oncology at [address] [place] [address] Sha Figueroa MD [facility] DR [place] [address] Stephany Kramer APRN [address] [place] [address] DR MEDICAL ONCOLOGY [place], [place] [address] 11/11/2024 8:45 AM EST Office Visit Dermatology at [place] [address] [facility] [place] [address] Rusty Flores MD [address] [address], [place] [address] documented as of this encounter Procedures Procedure Name Priority Date/Time Associated Diagnosis Comments MODIFIER MESH,BARD VENTRALEX ST 09/14/2020 2:09 PM EST LEFT INGUINAL HERNIA UMBILICAL HERNIA Repair Umbilical Sandi, 3+Y/O, Reduc ([id number]) 09/14/2020 2:09 PM EST LEFT INGUINAL HERNIA UMBILICAL HERNIA MODIFIER MESH,BARD,3D MAX REG 09/14/2020 2:09 PM EST LEFT INGUINAL HERNIA UMBILICAL HERNIA Lap, Inguinal Hernia Repr, Initial ([id number]) 09/14/2020 2:09 PM EST LEFT INGUINAL HERNIA UMBILICAL HERNIA documented in this encounter Visit Diagnoses Not on filedocumented in this encounter Administered Medications Inactive Administered Medications - up to 3 most recent administrations Medication Order MAR Action Action Date Dose Rate Site acetaminophen (Tylenol) tablet 1,000 mg 1,000 mg, Oral, EVERY 6 HOURS PRN, Starting on Sun09/14/20 at 1603, Until Sun09/14/20 at 2111, Pain, Maximum dose of acetaminophen is 4000 mg from all sources in 24 hours., Routine HYDROmorphone (Dilaudid) (2 mg/mL) multi-dose injection solution [...] Until Sun09/14/20 at 2111, Nausea, May repeat 4 mg [...] Prophylaxis 1412 (Given - Provid er: Lizeth Sterling CRNA - Comment: administered over 15 minutes) Continuous [...] on Sun09/14/20 at 1628, Until Sun09/14/20 at 211, Opioid Reversal, for respiratory rate less than 6 or unresponsive., May repeat every 5 minutes to increase respiratory rate. DO NOT exceed 0.12 mg total dose. Notify anesthesia immediately if administered., PACU Recovery, Routine ondansetron (pf) (Zofran) (2 mg/mL) injection 4 mg 4 mg, Intravenous, EVERY 30 MIN PRN, Starting on Sun09/14/20 at 1628, Until 09/14/20 at 211, Nausea, May repeat 4 mg once in [...] Routine documented in this encounter Care Teams Floor Renovator Relationship Specialty Start Date End Date Marco Reina MD [address] [place] [address] PCP - General Family Medicine 07/08/19 10/01/21 documented as of this encounter
--- OUTSIDE RECORDS SUMMARY | 2024-11-05 01:48 | XMS_ITS | Encounter Summary ---
Author Organization [facility] Address [facility] [place] [address] Care Team Providers Care Makeup Sales Advisor Name Role Phone KeishaVahe Hoffman Primary Care Provider +1- [phone] Encounter Details Date Type Department Care Team (Latest Contact Info) Description 08/14/2023 Travel Social History Tobacco Use Types Packs/Day [...] 10:30 AM EST Office Visit Hematology/Oncology at [address] [phone] Sha Figueroa MD [facility] DR [place] [address] Stephany Kramer, PALAEONTOLOGIST [address] [place] [address] DR MEDICAL ONCOLOGY [place], [place] [address] 11/11/2024 8:45 AM EST Office Visit Dermatology at [address] [place] [phone] Rusty Flores MD [address] [place] [address] RD, [place] [address] documented as of this encounter Visit Diagnoses Not on filedocumented in this encounter Care Teams Makeup Sales Advisor Relationship Specialty Start Date End Date Vahe Valdes DO [address] [place] [address] PCP - General Family Medicine 12/13/21 documented as of this encounter
--- OUTSIDE RECORDS SUMMARY | 2024-11-05 01:48 | XMS_ITS | Encounter Summary ---
Author Organization Count Includes [facility] [place] [address] Care Team Providers Care Supervisor Carbon Paper Coating Name Role Phone KeishaVahe oliveira Mela JARRELL Primary Care Provider +1- [phone] Encounter Details Date Type Department Care Team (Late st Contact Info) Description 08/28/2022 Telephone Dermatology at [address] [address] Dasha Garcia RN Social History Tobacco Use Types Packs/Day [...] on file documented as of this encounter Miscellaneous Notes * Telephone Encounter - Dasha Garcia RN - 08/28/2022 10:34 AM EST Patient called and informed of his pathology results. Patient had 2 shave biopsies on08/15/2022. Specimen A Left side burn, Diagnosis: Seborrheic keratosis. Specimen B left mid triceps, Diagnosis: Squamous cell carcinoma. Per Dr. Flores no further treatment is needed. Patient informed this and stated that he understood. Patient is to return to the clinic as needed which he was reminded of. documented in this encounter Plan of Treatment Upcoming Encounters Date Type Department Care Team (Late st Contact Info) Description 11/05/2024 10:30 AM EST Office Visit Hematology/Oncology at [address] [phone] Sha Figueroa MD [facility] DR [place] [address] Stephany Kramer APRN [address] [place] [address] [place] [address] 11/11/2024 8:45 AM EST Office Visit Dermatology at [place] [address] [place] [address] Rusty Flores MD [address] [facility] [place] [address] documented as of this encounter Visit Diagnoses Not on filedocumented in this encounter Care Teams Supervisor Carbon Paper Coating Relationship Specialty Start Date End Date Vahe Valdes DO [address] [place] [address] PCP - General Family Medicine 12/13/21 documented as of this encounter
--- OUTSIDE RECORDS SUMMARY | 2024-11-05 01:48 | XMS_ITS | Encounter Summary ---
Author Organization [facility] [place] [address] Care Team Providers Care Jawbone Puller Name Role Phone KeishaVahe shaw Mela JARRELL Primary Care Provider +1- [phone] Reason for Visit * Reason Onset Date Comments Referral 05/03/2022 Encounter Details Date Type Department Care Team (Late Contact Info) Description 05/03/2022 Telephone Cardiology at [address] [phone] Isabel Oliveros, timber cutter Social History Tobacco Use Types Packs/Day Years [...] encounter Miscellaneous Notes * Telephone Encounter - Isabel Oliveros, RN - 05/03/2022 7:58 AM EDT Isrrael left a VM to cancel the Sunday morning appointment - he has been exposed to COVID documented in this encounter Plan of Treatment Upcoming Encounters Date Type Department Care Team (Late st Contact Info) Description 11/05/2024 10:30 AM EST Office Visit Hematology/Oncology at [address] [phone] Sha Figueroa MD [facility] DR HEMATOLOGY [place] [address] Stephany Kramer, [address] [address] 11/11/2024 8:45 AM EST Office Visit Dermatology at [place] [address] [place] [address] Rusty Flores MD [address] [facility] [place] [address] documented as of this encounter Visit Diagnoses Not on filedocumented in this encounter Care Teams Jawbone Puller Relationship Specialty Start Date End Date Vahe Valdes DO [address] [place] [address] PCP - General Family Medicine 12/13/21 documented as of this encounter
--- OUTSIDE RECORDS SUMMARY | 2024-11-05 01:48 | XMS_ITS | Encounter Summary ---
Author Organization [facility] [place] [address] Care Team Providers Care Customer Account Technician Name Role Phone Marco Reina MD Primary Care Provider + Reason for Referral * Diagnostic Test (Routine) - Closed Specialty Diagnoses / Procedures Referred By Contac t Referred To Contact Radiology Diagnoses Right groin pain Procedures CT Abdomen & Pelvis wo Contrast Kimmy Trevino MD [facility] [place] [address] [facility] [place] [address] Referral ID Status Reason Start Date Expiration Date V isits Requested Visits Authorized [id number] Closed Specialty Service Requested 06/09/2021 12/07/2022 1 1 Reason for Visit * Diagnostic Test (Routine) - Closed Specialty Diagnoses / Procedures Referred By Contac t Referred To Contact Radiology Diagnoses Right groin pain Procedures CT Abdomen & Pelvis wo Contrast Kimmy Trevino MD [facility] [place] [address] [facility] [place] [address] Referral ID Status Reason Start Date Expiration Date V isits Requested Visits Authorized [id number] Closed Specialty Service Requested 06/09/2021 12/07/2022 1 1 Encounter Details Date Type Department Care Team (Latest Contact Info) Description 06/22/2021 12:13 PM EDT - 06/22/2021 11:59 PM EDT Hospital [place] [address] Kimmy Trevino MD [facility] [place] [address] Right groin pain Discharge Disposition: Home Social History Tobacco Use [...] AM EST Office Visit Hematology/Oncology at [address] [phone] Sha Figueroa MD [facility] [place] [address] Stephany Kramer, FORTUNE COOKIE MAKER[address] [place] [address] 11/11/2024 8:45 AM EST Office Visit Dermatology at [place] [address] [place] [address] Rusty Flores MD [address], [place] [address] documented as of this encounter Procedures Procedure Name Priority Date/Time Associated Diagnosis Comments CT ABDOMEN AND PELVIS WO CONTRAST Routine 06/22/2021 2:24 PM EDT Right groin pain documented in this encounter Results * CT Abdomen & [...] who have questions please contact the health day care aide that requested your imaging first. ? Narrative [...] patients who have questions please contactthe health day care aide that requested your imaging first. Electronically signed by: Giorgi Flores MD, [facility]([phone]), at 06/22/2021 2:39 PM Kimmy Trevino MD IMG CT ORDERABLES documented in this encounter Visit Diagnoses Diagnosis Right groin pain Abdominal pain, right lower quadrant documented in this encounter Care Teams Customer Account Technician Relationship Specialty Start Date End Date Marco Reina MD [address] [place] [address] PCP - General Family Medicine 07/08/19 10/01/21 documented as of this encounter
--- OUTSIDE RECORDS SUMMARY | 2024-11-05 01:48 | XMS_ITS | Encounter Summary ---
Author Organization [facility] Address [facility] [place] [address] Care Team Providers Care Tool Setter Name Role Phone KeishaVahe Hoffman Primary Care Provider +1- [phone] Encounter Details Date Type Department Care Team (Late st Contact Info) Description 05/07/2023 Refill Dermatology at [address] [address] Dasha Garcia RN Social History [...] 10:30 AM EST Office Visit Hematology/Oncology at [address] [address] [facility] DR HEMATOLOGY [place] [address] Stephany Kramer APRN [address] [place] [address] DR MEDICAL ONCOLOGY [place], [place] [address] 11/11/2024 8:45 AM EST Office Visit Dermatology at [address] [place] [address] Rusty Flores MD [address] [facility], [place] [address] documented as of this encounter Visit Diagnoses Not on filedocumented in this encounter Care Teams Tool Setter Relationship Specialty Start Date End Date Vahe Valdes DO [address] [place] [address] PCP - General Family Medicine 12/13/21 documented as of this encounter
--- OUTSIDE RECORDS SUMMARY | 2024-11-05 01:48 | XMS_ITS | Encounter Summary ---
Author Organization [facility] Address [facility] [place] [address] Care Team Providers Care Operations Program Manager Name Role Phone Vahe Valdes DO Primary Care Provider +1- [phone] Reason for Visit * Reason Comments Irregular Heart Beat H/o bradycardia * Consultation (Routine) - Closed Specialty Diagnoses / Procedures Referred By Contac t Referred To Contact Cardiology Diagnoses Bradycardia 66yo hx sinus bradycardia having some decreased heart rates into the 30's w/o evidence of heart block. Vahe Valdes DO [address] [place] [address] Eliel Argueta MD [facility] [place] [address] Referral ID Status Reason Start Date Expiration Date V isits Requested Visits Authorized [id number] Closed Consult, Test & Treat PCP Updated and/or Approved 02/20/2022 02/20/2023 10 10 Encounter Details Date Type Department Care Team (Late st Contact Info) Description 08/09/2022 8:20 AM EST Office Visit Cardiology at [address] [place] [phone] Sowmya Browning MD [address] [place] [address] [place] [address] Bradycardia Social History Tobacco Use Types Packs/Day Years [...] Sign Reading Time Taken Comments Blood Pressure 138/56 08/09/2022 8:41 AM EST Pulse 51 08/09/2022 8:41 AM EST Temperature - - Respiratory Rate - - Oxygen Saturation - - Inhaled Oxygen Concentration - - Weight 90.9 kg (200 lb 4.8 oz) 08/09/2022 8:41 A M EST Height 172.7 cm (5' 8) 08/09/2022 8:41 AM EST Body Mass Index 30.46 08/09/2022 8:41 AM EST documented in this encounter Progress Notes * Sowmya Browning MD - 08/09/2022 8:20 AM EST CARDIOLOGY OUTPATIENT NEW PATIENT NOTE PRIMARY CARE PROVIDER: Vahe Valdes DO REFERRING PROVIDER: Vahe Valdes PROBLEM LIST: Patient Active Problem List Diagnosis ??? Sacrococcygeal disorders, not elsewhere classified ??? Sciatica ??? Bradycardia ??? Depression ??? Anxiety state ??? Arthritis of left acromioclavicular joint ??? Temporomandibular joint disorder ??? Asthma ??? Benign localized prostatic hyperplasia with lower urinary tract symptoms (LUTS) ??? Benign paroxysmal positional vertigo ??? Sleep-related bruxism ??? Cervical radiculopathy ??? Chronic hepatitis C virus infection ??? Degeneration of cervical intervertebral disc ??? Facial pain ??? Jaw pain ??? Hearing loss ??? Hemorrhoids without complication ??? Impairment of balance ??? Male hypogonadism ??? Obstructive sleep apnea ??? Other and unspecified alcohol dependence, in remission ??? Persistent hypersomnia ??? Sensorineural hearing loss (SNHL) of both ears ??? Tinnitus ??? Fibroid tumor ??? Spine pain, multilevel ??? Environmental allergies [...] last sleep study ~2017 Dr. Mota of [facility]; nightly Klonopin & Ambien at that [...] anxiety disorder) [facility]; 5616-5920 Klonopin, 3645-5621 Paxil, 2018 Zoloft 75-125 mg qd Most recent counseling Fall 2017 sleep disorders - Psychiatry Ashley Lieberman based in [facility] 10/2018 ??? Gastroesophageal reflux Intermittent since ; worse w/elevated weight ??? ED (erectile dysfunction) Urology in [facility] 2008, med trials Cialis, trial Viagra 2008; change in vision, light- headed/dizziness (+) Difficult maintaining erection; no masturbation; intercourse q2 weeks; able to switch positions ??? Chronic pain syndrome Daily neck and lower back stiffness; improves after starting activity of day. 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 a. [place] 70 neg, Chrom 13 abnm by FISH (good prognosis) b. Observation only ??? History of hepatitis C, successfully treated Tx 2008 MEDICATIONS: Current Outpatient Medications Medication Sig Dispense Refill ??? clonazePAM (KlonoPIN) 1 mg Tablet ??? b complex vitamins Capsule Take 1 capsule by mouth daily. ??? amitriptyline (Elavil) 10 mg Tablet Take 10 mg by mouth nightly. ??? omeprazole (PriLOSEC) 20 mg Capsule, Delayed Release(E.C.) ??? tadalafiL (CIALIS) 5 mg Tablet Take 5 mg by mouth every 24 hours. ??? tamsulosin (Flomax) 0.4 mg Capsule take 1 capsule by mouth once daily ??? zolpidem (AMBIEN) 10 mg Tablet 1 tablet nightly as needed. ??? clonazePAM (KlonoPIN) 2 mg Tablet 1 tablet as needed. Taking half the dose as needed ??? acetaminophen (Tylenol) 500 mg Tablet Take 1,000 mg by mouth every 6 hours as needed for Pain. No current facility-administered medications for this visit. Subjective: Patient ID: Isrrael Anton is a 67 y.o. male. HPI This 67-year-old man presents for cardiac evaluation. He is referred because of asymptomatic sinus bradycardia. In approximately 2018 he was seeing a counselor down in [place] and was noted to be bradycardic when his vital signs were checked. He was [facility]. EKG was normal, mild sinus bradycardia. His records were reviewed and it appearedthat he had relative bradycardia dating back at least to 2009, all asymptomatic. He was discharged About 6 months ago he was at the [facility] regarding neck pain and whether he was suitable for injections. He was again noted to be bradycardic, though asymptomatic. Some type of irregularity wasdescribed in his rhythm but no EKG was performed. He subsequently saw his primary care provider, who is Dr. Reina. An EKG was done then. The patient was told that he had early beats. EKG from this visit was reviewed and showed sinus bradycardia, otherwise normal. No testing or medication was recommended. The patient subsequently establish care with a new primary care provider who thought he should be evaluated by cardiology Patient reports that overall he feels well. He does not get much in the way of palpitations, thoughhe does note a rare flutter. This is momentary. He does not have significant episodes of lightheadedness near syncope. He has never fainted. His exercise tolerance is good. He does not describe anysymptoms concerning for angina Review of System Review of Systems All other systems reviewed and are negative. Family History: Family History Problem Relation Age of Onset ??? Cancer Mother Lung Ca (+) Tobacco abuse ??? Thyroid Disease Mother ??? Aneurysm Father ??? Cerebrovascular Accident Father ??? Diabetes Maternal Grandmother ??? Coronary Artery Disease Maternal Grandmother ??? Heart Disease Maternal Grandmother ??? Arrhythmia Maternal Grandfather ??? Kidney Disease Neg Hx ??? Early Neg Hx Social History: Social History Socioeconomic History ??? Marital status: Spouse name: Not on file ??? Number of children: Not on file ??? Years of education: Not on file ??? Highest education level: Not on file Occupational History ??? Not on file Tobacco Use ??? Smoking status: Never Smoker ??? Smokeless tobacco: Never Used Vaping Use ??? Vaping Use: Never used Substance and Sexual Activity ??? Alcohol use: Not Currently Comment: (+) Hx Alcohol abuse; Quit 1998 ??? Drug use: Not Currently Comment: remote Hx in twenties ??? Sexual activity: Yes Partners: Female control/protection: Post-menopausal Comment: spouse Other Topics Concern ??? 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 Constitutional: Comments: Well-developed well-nourished mildly anxious looks stated age no acute distress Neck: Comments: No neck vein distention no V waves normal carotid upstrokes no bruits Cardiovascular: Comments: Heart is regular, mildly bradycardic, no murmur or gallop Pulmonary: Effort: Pulmonary effort is normal. Breath sounds: Normal breath sounds. Abdominal: General: Abdomen is flat. Musculoskeletal: Comments: No peripheral edema, intact posterior tibial pulses Skin: General: Skin is warm and dry. EKG today shows sinus rhythm at 51, otherwise normal Assessment and Plan: #1. Sinus bradycardia. Patient has longstanding asymptomatic mild sinus bradycardia. I have no specific cardiac concerns. He does not require any cardiac testing at present. We discussed whether or not he should have follow-up. We elected to reevaluate in 1 year Thank you for the opportunity to participate in this patient's cardiovascular care. All questions were answered and I look forward to the next visit. documented in this encounter Plan of Treatment Upcoming Encounters Date Type Department Care Team (Late st Contact Info) Description 11/05/2024 10:30 AM EST Office Visit Hematology/Oncology at [address] [phone] Sha Figueroa MD [facility] DR HEMATOLOGY [place] [address] Stephany Kramer REMOTE INPATIENT CODER [address] [place] [address] [place] [address] 11/11/2024 8:45 AM EST Office Visit Dermatology at [place] [address] [facility] [place] [address] Rusty Flores MD [address] [facility], [place] [address] documented as of this encounter Visit Diagnoses Diagnosis Bradycardia Other specified cardiac dysrhythmias documented in this encounter Care Teams Operations Program Manager Relationship Specialty Start Date End Date Vahe Valdes DO [address] [place] [address] PCP - General Family Medicine 12/13/21 documented as of this encounter
--- OUTSIDE RECORDS SUMMARY | 2024-11-05 01:48 | XMS_ITS | Encounter Summary ---
Author Organization [facility] Address [facility] [place] [address] Care Team Providers Care Variety Performer Name Role Phone KeishaVahe Hoffman Primary Care Provider +1- [phone] Encounter Details Date Type Department Care Team (Late Contact Info) Description 07/05/2022 Abstract Cardiology at [address] [place] [address] Gamaliel Méndez RN Social History [...] 10:30 AM EST Office Visit Hematology/Oncology at [address] [phone] Sha Figueroa MD [facility] DR HEMATOLOGY [place] [address] Stephany Kramer APRN [address] [place] [address] DR MEDICAL ONCOLOGY [place], [place] [address] 11/11/2024 8:45 AM EST Office Visit Dermatology at [address] [place] [address] Rusty Flores MD [address] [facility], [place] [address] documented as of this encounter Visit Diagnoses Not on filedocumented in this encounter Care Teams Variety Performer Relationship Specialty Start Date End Date Vahe Valdes DO [address] [place] [address] PCP - General Family Medicine 12/13/21 documented as of this encounter
--- OUTSIDE RECORDS SUMMARY | 2024-11-05 01:48 | XMS_ITS | Encounter Summary ---
Author Organization [facility] Address [facility] [place] [address] Care Team Providers Care Supervisor Cell Efficiency Name Role Phone KeishaVahe Hoffman Primary Care Provider +1- [phone] Encounter Details Date Type Department Care Team (Latest Contact Info) Description 05/07/2023 Travel Social History Tobacco Use Types Packs/Day [...] AM EST Office Visit Hematology/Oncology at [address] [phone] Sha Figueroa MD [facility] [place] [address] Stephany Kramer, DEAF AND HARD OF HEARING TEACHER [address] [place] [address] DR MEDICAL ONCOLOGY [place], [place] [address] 11/11/2024 8:45 AM EST Office Visit Dermatology at [address] [place] [phone] Rusty Flores MD [address] [place] [address] RD, [place] [address] documented as of this encounter Visit Diagnoses Not on filedocumented in this encounter Care Teams Supervisor Cell Efficiency Relationship Specialty Start Date End Date Vahe Valdes DO [address] [place] [address] PCP - General Family Medicine 12/13/21 documented as of this encounter
--- OUTSIDE RECORDS SUMMARY | 2024-11-05 01:48 | XMS_ITS | Encounter Summary ---
Author Organization [facility] Address [facility] [place] [address] Care Team Providers Care Material Assistant Name Role Phone KeishaVahe Hoffman Primary Care Provider +1- [phone] Encounter Details Date Type Department Care Team (Latest Contact Info) Description 08/07/2022 Travel Social History Tobacco Use Types Packs/Day [...] AM EST Office Visit Hematology/Oncology at [address] [phone] Sha Figueroa MD [facility] DR [place] [address] Stephany Kramer, PROVIDER NETWORK MGR [address] [place] [address] DR MEDICAL ONCOLOGY [place], [place] [address] 11/11/2024 8:45 AM EST Office Visit Dermatology at [address] [place] [phone] Rusty Flores MD [address] [place] [address] RD, [place] [address] documented as of this encounter Visit Diagnoses Not on filedocumented in this encounter Care Teams Material Assistant Relationship Specialty Start Date End Date Vahe Valdes DO [address] [place] [address] PCP - General Family Medicine 12/13/21 documented as of this encounter
--- OUTSIDE RECORDS SUMMARY | 2024-11-05 01:48 | XMS_ITS | Encounter Summary ---
Author Organization [facility] [place] [address] Care Team Providers Care Oyster Fisherman Name Role Phone Marco Reina MD Primary Care Provider [phone] Reason for Referral * Consultation (Routine) - Closed Specialty Diagnoses / Procedures Referred By Contac t Referred To Contact Pain and Spine Center Diagnoses Spine pain, multilevel Blade Cain V [facility] [place] [address] [facility] [place] [address] Referral ID Status Reason Start Date Expiration Date Visits Requested Visits Authorized [id number] Closed Functional Restorative Program 05/20/2021 05/20/2022 1 1 Reason for Visit * Reason Comments Back Pain * Consultation (Routine) - Closed Specialty Diagnoses / Procedures Referred By Contac t Referred To Contact Pain and Spine Center Diagnoses Dorsalgia, unspecified Pain- back pain/ no new imaging/ ? pain mgmt options Marco Reina MD [address] [place] [phone] Phone: Blade Cain V [facility] [place] [address] Referral ID Status Reason Start Date Expiration Date V isits Requested Visits Authorized [id number] Closed Consult, Test & Treat Connection Center PCP Updated and/or Approved 05/02/2021 05/02/2022 10 10 Encounter Details Date Type Department Care Team (Late st Contact Info) Description 05/20/2021 1:00 PM EDT Office Visit Pain and Spine Center at [facility] [place] [address] Blade Cain V, [facility] [address] Spine pain, multilevel (Primary Dx) Social History Tobacco Use Types Packs/Day Years [...] Sign Reading Time Taken Comments Blood Pressure 122/58 05/20/2021 12:59 PM EDT Pulse 64 05/20/2021 12:59 PM EDT Temperature - - Respiratory Rate - - Oxygen Saturation 97% 05/20/2021 12:59 PM EDT Inhaled Oxygen Concentration - - Weight 86.2 kg (190 lb) 05/20/2021 12:59 PM EDT Height 174 cm (5' 8.5) 05/20/2021 12:59 PM EDT Body Mass Index 28.47 05/20/2021 12:59 PM EDT documented in this encounter Progress Notes * Blade Cain V, - 05/20/2021 1:00 PM EDT This is a very pleasant 66-year-old male. This is a new patient for me. He complains of low back and neck pain. The patient was seen by Frank Fairchild in 2019. At that time a functional yazdanism program was recommended. The patient had many ongoing commitments at that time. He could not do the program then, but would like to do this program now. The patient has many physical activities that he would like to do that he is no longer able to do. The patient has been very physically active overhis entire life. The patient retired after 20 years in the [employer]. The patient has grandchildren that he is having difficulty playing with because of pain. The patient has generalized anxiety disorder which interferes with some other activities. The patient has numerous physical goals which he can not complete currently but would very much like to complete in the future. The patient has no desire to complete any surgeries or injections for these issues. The patient does not like to take medications and would prefer a rehabilitation model over a medication or surgical model. I did review his medications, past surgical history, past medical history, and allergies. No red flags in terms of his low back and neck pain. He is neurologically intact. He is very stiff. He ambulates without difficulty. Encounter Diagnosis Name Primary? Spine pain, multilevel Yes We discussed the functional yazdanism program at length. After this discussion he wanted to proceed. The patient lives in the [facility]. He would like to participate in a hybrid model of functional yazdanism called the community functional yazdanism program. In this programhe would do the physical therapy component at [facility] and do the rest through telehealth from our FR[facility] hub here at . I did order a gap evaluation and he wants to do this as quick as possible. We discussed the gap evaluation as well as the details of the program. He is quite interested and wants to get going as quick as possible. He will follow-up here as needed. I spent 30 minutes with the patient.20 of these minutes were in counseling. BLADE CAIN DO, MPH Signal Operator Linguist of Anesthesiology/[facility] Sound Designer, Pain Medicine Fellowship Coat Checker, Functional Druze Program ABPM&R - Subspecialty board certification in Pain Medicine documented in this encounter Plan of Treatment Upcoming Encounters Date Type Department Care Team (Late st Contact Info) Description 11/05/2024 10:30 AM EST Office Visit Hematology/Oncology at [address] [phone] Sha Figueroa MD [facility] DR [place] [address] Stephany Kramer APRN [address] [place] [address] [place] [address] 11/11/2024 8:45 AM EST Office Visit Dermatology at [place] [address] [facility] [place] [address] Rusty Flores MD 580 [facility], [place] [address] Scheduled Referrals Name Type Priority Associated Diagnoses Orde r Schedule Referral to Spine Center Outpatient Referral Routine Spine pain, multilevel Ordered: 05/20/2021 documented as of this encounter Visit Diagnoses Diagnosis Spine pain, multilevel- Primary Backache, unspecified documented in this encounter Care Teams Oyster Fisherman Relationship Specialty Start Date End Date Marco Reina MD [address] [place] [address] PCP - General Family Medicine 07/08/19 10/01/21 documented as of this encounter
--- OUTSIDE RECORDS SUMMARY | 2024-11-05 01:48 | XMS_ITS | Encounter Summary ---
Author Organization Formerly [facility] Address One [facility] [place] [address] Care Team Providers Care Field Representative Name Role Phone KeishaVahe oliveira Primary Care Provider +1- [phone] Encounter Details Date Type Department Care Team (Late st Contact Info) Description 01/18/2023 Telephone Dermatology at [address] [phone] Dasha Garcia RN Social History [...] Telephone Encounter - Dasha Garcia RN - 01/18/2023 9:12 AM EDT Patient called and informed of his pathology results. Patient had a shave biopsy right dorsal forearm on 01/11/2023. Diagnosis: Actinic Keratosis. Per Dr. Flores's recommendation no further treatment is needed and patient is to return to the clinic as needed. Patient informed this and stated that heunderstood. documented in this encounter Plan of Treatment Upcoming Encounters Date Type Department Care Team (Late st Contact Info) Description 11/05/2024 10:30 AM EST Office Visit Hematology/Oncology at [address] [place] [place] [address] Sha Figueroa MD [facility] [address] [place] [address] Stephany Kramer APRN [address] [place] [address] [place] [address] 11/11/2024 8:45 AM EST Office Visit Dermatology at [place] [address] [facility] [place] [phone] Rusty Flores MD [address] [facility] [place] [address] documented as of this encounter Visit Diagnoses Not on filedocumented in this encounter Care Teams Field Representative Relationship Specialty Start Date End Date Vahe Valdes DO [address] [place] [address] PCP - General Family Medicine 12/13/21 documented as of this encounter
--- OUTSIDE RECORDS SUMMARY | 2024-11-05 01:48 | XMS_ITS | Encounter Summary ---
Author Organization [facility] One [facility] [place] [address] Care Team Providers Care Finisher Denture Name Role Phone KeishaVahe oliveira Primary Care Provider +1- [phone] Encounter Details Date Type Department Care Team (Late st Contact Info) Description 07/03/2022 Telephone Dermatology at [address] [phone] Dasha Garcia RN Social History [...] Telephone Encounter - Dasha Garcia RN - 07/03/2022 8:40 AM EDT Patient called and informed of his Pathology results. Patient had a shave biopsy left dorsal hand on 06/28/2022. Diagnosis Squamous cell carcinoma. Per Dr. Flores no further treatment is needed and patient informed. Patient stated that he understood. Patient to return to the clinic as needed. Patient stated no questions or concerns at this time. documented in this encounter Plan of Treatment Upcoming Encounters Date Type Department Care Team (Late st Contact Info) Description 11/05/2024 10:30 AM EST Office Visit Hematology/Oncology at [address] [phone] Sha Figueroa MD [facility] DR HEMATOLOGY [place] [address] Stephany Kramer APRN [address] [place] [address] [place] [address] 11/11/2024 8:45 AM EST Office Visit Dermatology at [place] [address] [facility] [place] [phone] Rusty Flores MD [address] [facility] [place] [address] documented as of this encounter Visit Diagnoses Not on filedocumented in this encounter Care Teams Finisher Denture Relationship Specialty Start Date End Date Vahe Valdes DO [address] [place] [address] PCP - General Family Medicine 12/13/21 documented as of this encounter
--- OUTSIDE RECORDS SUMMARY | 2024-11-05 01:48 | XMS_ITS | Encounter Summary ---
Author Organization [facility] Address [facility] [place] [address] Care Team Providers Care Cook House Supervisor Name Role Phone Keisha, Vahe Plaza DO Primary Care Provider +1- [phone] Encounter Details Date Type Department Care Team (Latest Contact Info) Description 10/16/2022 12:04 PM EST - 10/16/2022 11:59 PM [facility] Hospital Encounter Hematology and Oncology at [facility] [place] [phone] Chronic lymphocytic leukemia Discharge Disposition: Home Social [...] Sig Dispensed Refills Start Date End Date b complex vitamins Capsule Take 1 capsule by mouth daily. omeprazole (PriLOSEC) 20 mg Capsule, Delayed Release(E.C.) daily as needed. 09/07/2020 tadalafiL (CIALIS) 5 mg Tablet Take 5 mg by mouth as needed. 11/20/2019 acetaminophen (Tylenol) 500 mg Tablet Take 1,000 mg by mouth every 6 hours as needed for Pain. amitriptyline (Elavil) 10 mg Tablet Take 10 mg by mouth nightly as needed. 05/09/2024 tamsulosin (Flomax) 0.4 mg Capsule take 1 capsule by mouth once daily 05/10/2020 11/12/2023 gabapentin (Neurontin) 100 mg Capsule take 1 capsule by mouth three times a day for 10 days 10/15/2022 05/07/2023 predniSONE (Deltasone) 10 mg Tablet TAKE 4 TABLETS BY MOUTH DAILY FOR 3 DAYS THEN TAKE 3 TABS DAILY F... (REFER TO PRESCRIPTION NOTES). 10/15/2022 01/11/2023 diclofenac EC (Voltaren) 75 mg Tablet, Delayed Release (E.C.) Take 1 tablet by mouth as needed. 02/01/2022 01/11/2023 zolpidem (AMBIEN) 10 mg Tablet 1 tablet nightly as needed. 08/07/2019 08/15/2023 clonazePAM (KlonoPIN) 2 mg Tablet 1 tablet as needed. Taking half the dose as needed 07/14/2016 01/11/2023 documented as of this encounter Plan of Treatment Upcoming Encounters Date Type Department Care Team (Late st Contact Info) Description 11/05/2024 10:30 AM EST Office Visit Hematology/Oncology at [address] [phone] Sha Figueroa MD [facility] DR HEMATOLOGY [place] [address] Stephany Kramer BOARD FINISHER [address] [place] [address] [place] [address] 11/11/2024 8:45 AM EST Office Visit Dermatology at [place] [address] [facility] [place] [address] Rusty Flores MD [address] [facility] [address] [place] [address] documented as of this encounter Procedures Procedure Name Priority Date/Time Associated Diagnosis Comments SCAN, PERIPHERAL BLOOD STAT 12:08 PM EST HEMOGRAM STAT 10/16/2022 12:08 PM EST Chronic lymphocytic leukemia DIFFERENTIAL, AUTOMATED STAT 10/16/2022 12:08 PM EST Chronic lymphocytic leukemia HC CBC,PLT & AUTO DIFF STAT 12:08 PM EST Chronic lymphocytic leukemia HC VENIPUNCTURE STAT 10/16/2022 12:08 PM EST Chronic lymphocytic leukemia COMPREHENSIVE METABOLIC PANEL STAT 10/16/2022 12:08 PM EST Chronic lymphocytic leukemia documented in this encounter Results * Scan, Peripheral Blood (10/16/2022 12:08 PM EST) Plat estimate Normal [facility] RBC Morphology Normal [facility] Smudge cell Present [facility] Blood 10/16/2022 12:0 8 PM EST 10/16/2022 12:22 PM EST Narrative Resulting Agency Comment Spec In Lab Reny Lawler BOARD FINISHER HEMATOLOGY ORDERABLE S Performing Organization Address City/State/[facility] Co de Phone Number [facility] [place] [address] * (ABNORMAL) Differential, Automated (10/16/2022 12:08 PM EST) Neutrophil % 30.1 % [facility] Neutrophil Absolute 7.91(H) 1.70 - 6.10 x10(3)/mc L [facility] Lymph % 65.5 % [facility] Lymphocytes Abs 17.2(H) 0.9 - 3.2 x10(3)/mc L [facility] Monocyte % 3.4 % [facility] Monocyte Abs 0.9 0.3 - 0.9 x10(3)/mc L [facility] Eos % 0.5 % [facility] Eosinophils Abs 0.1 0.0 - 0.4 x10(3)/mc L [facility] Basophil % 0.2 % [facility] Baso Absolute 0.1 0.0 - 0.1 x10(3)/mc L [facility] Immature Gran % 0.30 % [facility] Comment: Immature granulocytes(IG's)percentage and absolute count will include metamyelocytes, myelocytes, and promyelocytes. Blood smears from CBCs yielding IG's will be scanned manually for concordance. If this scan disagrees with the automated IG or if promyelocytes are noted, a manual differential will be performed. Immature Gran Absolute 0.07(H) 0.00 - 0.04 x10(3)/mc L [facility] Blood 10/16/2022 12:0 8 PM EST 10/16/2022 12:22 PM EST Narrative Resulting Agency Comment Spec In Lab Reny Lawler BOARD FINISHER HEMATOLOGY ORDERABLE S [facility] [place] [address] * (ABNORMAL) Hemogram (10/16/2022 12:08 PM EST) White Blood Cell 26.2(H) 4.0 - 9.5 x10(3)/mc L [facility] Red Blood Cell 4.73 4.58 - 5.54 x10(6)/mc L [facility] Hemoglobin 14.8 13.7 - 16.5 g/dL [facility] Hematocrit 43.2 40.5 - 48.5 % [facility] Mean Cell Volume 91.3 82.9 - 93.[address] [facility] Mean Cell Hemoglobin 31.3 27.5 - 32.[address] [facility] Mean Cell Hemoglobin Concentration 34.3 32.0 - 35.7 g/dL [facility] Platelet 185 145 - 357 x10(3)/mc L [facility] RDW Standard Deviation 44.1 36.0 - 45.[address] [facility] RDW coefficient of variation 13.2 11.4 - 13.8 % [facility] Mean Platelet Volume 11.6 7.6 - 12.[address] [facility] NRBC% auto 0.1 % [facility] NRBC Absolute 0.020(H) 0.000 - 0.000 x10(3)/mc L [facility] Blood 10/16/2022 12:0 8 PM EST 10/16/2022 12:22 PM EST Narrative Resulting Agency Comment Spec In Lab Reny Lawler BOARD FINISHER HEMATOLOGY ORDERABLE S [facility] [place] [address] * (ABNORMAL) Comprehensive metabolic panel (non-fasting) (10/16/2022 12:08 PM EST) Glucose 82 65 - 199 mg/dL [facility] Comment:Diabetes: >=200 mg/d L plus symptoms Blood Urea Nitrogen 21(H) 10 - 20 mg/dL [facility] Creatinine 0.98 0.80 - 1.50 mg/dL [facility] Sodium 139 135 - 145 mmol/L [facility] Potassium 4.2 3.5 - 5.0 mmol/L [facility] Comment: Please note: ??Patients with WBC >100,000 may have falsely elevated Potassium levels. ??For accurate Potassium quantification in these patients send serum separator tube (gold top) for subsequent determinations. ??Contact the Clinical Chemistry Laboratory if there are any questions. Chloride 105 98 - 107 mmol/L [facility] Carbon Dioxide 27 22 - 31 mmol/L [facility] Anion Gap 7 5 - 15 mmol/L [facility] Calcium 9.4 8.5 - 10.5 mg/dL [facility] Protein, Total 6.8 6.1 - 8.0 g/dL [facility] Albumin 4.4 3.2 - 5.2 g/dL [facility] Aspartate Aminotransferase 28 0 - 39 unit/L [facility] Alanine Aminotransferase 38 0 - 55 unit/L [facility] Alkaline Phosphatase 76 40 - 130 unit/L [facility] Bilirubin, Total 0.4 0.2 - 1.3 mg/dL [facility] Est Glomerular Filtration Rate 83 >=60 mL/min/1. 73 m?? [facility] Comment: This patient's estimated GFR [...] Agency Comment Spec In Lab Reny Lawler BOARD FINISHER CHEMISTRY ORDERABLES Performing Organization Address City/[facility]/ZIP Co de Phone Number [facility] [place] [address] * Lactate Dehydrogenase (10/16/2022 12:08 PM EST) Lactate Dehydrogenase 214 110 - 220 unit/L [facility] Blood 10/16/2022 12:0 8 PM EST 10/16/2022 12:22 PM EST Narrative Resulting Agency Comment Spec In Lab Reny Lawler BOARD FINISHER CHEMISTRY ORDERABLES Performing Organization Address City/[facility] [place] [place] [address] documented in this encounter Visit Diagnoses Diagnosis Chronic lymphocytic leukemia Chronic lymphoid leukemia, without mention of having achieved remission documented in this encounter Care Teams Cook House Supervisor Relationship Specialty Start Date End Date Vahe Valdes DO [address] [place] [address] PCP - General Family Medicine 12/13/21 documented as of this encounter
--- OUTSIDE RECORDS SUMMARY | 2024-11-05 01:48 | XMS_ITS | Encounter Summary ---
Author Organization [facility] Address [facility] [place] [address] Care Team Providers Care Police Matron Name Role Phone Marco Reina MD Primary Care Provider + Encounter Details Date Type Department Care Team (Late st Contact Info) Description 09/14/2020 2:04 PM EST Anesthesia [place] [address] Isrrael Morillo MD [facility] [place] [address] Isac Bradford MD [facility] [place] [address] Anesthesia Record Procedure Summary Procedure Name Responsible Anesthesiologist Anesthesia Start Time Anesthesia Stop Time LAPAROSCOPIC HERNIA REPAIR, INITIAL INGUINAL (WRVU 6.36) (Left: Abdomen) Isrrael Morillo MD 09/14/20 1404 09/14/20 1615 Events Date Time Event Comment 09/14/2020 1403 1404 Start 1410 AN Verify 1410 An Start Data 1417 An Induction 1420 An Intubation 1421 Anesthesia Ready 1430 Procedure Start 1454 Handoff Intra-procedure anesthesia care was transferred after review of the patient's history, current anesthetic/surgical status and procedural plan, anticipated issues and expected post-operative course (including disposition.) ISAC BRADFORD MD 1551 Procedure Stop 1556 Extubation/LMA Out Patient s pontaneously ventilating; adequate tidal volumes ( > 600 mL); regular respiratory rate & rhythm; minute ventilation > 6 L/min; neuromuscular function intact as evidence by sustained tetanus; following commands. Oropharynx suctioned. Extubated without issue to 6L/min O2 via face mask. VSS. 1557 Quick Note SD PACU Hold 1607 an stop data 1614 Recovery or ICU Handoff Debby ent care was transferred to the destination unit staff after review of the patient's medical history, current anesthetic/surgical status and plan, according to the Provider Handoff Checklist. 1615 Stop Patient awake, alert, and oriented; actively conversing with staff. Spontaneous ventilation without issue. VSS. Full report given to CLERICAL ADJUDICATOR. Meds Name Total Midazolam 2 mg fentaNYL 100 mcg IV Lidocaine 100 mg Propofol 200 mg Rocuronium 50 mg Ondansetron 4 mg Neostigmine 4 mg Glycopyrrolate 0.6 mg ceFAZolin (Ancef) 2 g in dextrose 5% 100 mL infusion 2 g Propofol INF 439.07 mg lactated ringers infusion 800 mL * Agents Name O2 Air N2O Sevoflurane (et) O2 Auxiliary Flowmeter 1 * Blood No blood administrations on file. Lines, Drains, and Airways Type Details Placement Removal (RETIRED) Peripheral IV Line - Single Lumen 07/24/18; 1202; cephalic vein (lateral side of arm), right; 20 gauge; 07/06/21 (LDA Cleanup utility RA#[id number]); 1650 (LDA Cleanup utility RA#[id number]) 07/24/18 1202 by Rizwana Christensen RN 07/06/21 1650 by Zhou Canales (RETIRED) Peripheral IV Line - Single Lumen 09/14/20; 1359; metacarpal vein (top of hand), left; [id number] catheter system; 20 gauge; Bettye RUIZ; distraction, intradermal injection, tolerated well; 0; 07/06/21 (LDA Cleanup utility RA#2611); 1650 (LDA Cleanup utility RA#2611) 09/14/20 1359 by Cassidy Hobbs RN 07/06/21 1650 by Zhou Canales ETT Mask Ventilation: Ea sy (1); ETT Type: Cuffed, Oral; ETT Size: 7 mm; Mac Blade: 3; Notes: Asleep, Pre-O2, Stylette; Attempts: 1; Laryngoscopy Grade: 1; ETT Placement Verified By: Auscultation, Capnometry, Visual; Secured at Teeth: 23 cm; Inserted by: Lizeth Sterling CRNA; Removal Date: 09/14/20; Removal Time: 1556 09/14/20 1420 by Isac Bradford MD 09/14/20 1556 by Lizeth Sterling CRNA NG/OG Tube 09/14/20; 1421; orogastric; 16 Fr; mouth; Secured; low intermittent suction; removed to suction; tubing intact; 09/14/20; 1538 09/14/20 1421 by Lizeth Sterling CRNA 09/14/20 1538 by Lizeth Sterling CRNA Incision 09/14/20; 1431; abdomen; laparoscopic punctures (specify) (multiple stab incisions ); 05/29/22 (LDA cleanup utility RA#2746); 1715 (LDA cleanup utility RA#[id number]) 09/14/20 1431 by Yanni Royal RN 05/29/22 1715 by Shira Yu documented in this encounter Social History Tobacco Use Types Packs/Day Years [...] on file documented as of this encounter OR Notes * Anesthesia Postprocedure Evaluation - Isrrael Morillo MD - 09/14/2020 6:03 PM EST Department of Anesthesiology Post-procedure Note Patient: Isrrael Anton Procedure Summary Date: 09/14/20 Room / Location: [facility] OR [address] [place] [address] MAIN OR Anesthesia Start: 1403 Anesthesia Stop: 1614 Procedures: LAPAROSCOPIC HERNIA REPAIR, INITIAL INGUINAL (WRVU 6.36) (Left Abdomen) MODIFIER MESH,BARD,3D MAX REG (Left ) HERNIA REPAIR, UMBILICAL, REDUCIBLE; AGE 5 OR OVER (WRVU 6.59) (N/A Abdomen) MODIFIER MESH,BARD VENTRALEX ST (N/A ) Diagnosis: (LEFT INGUINAL HERNIA) (UMBILICAL HERNIA) Surgeon: Kimmy Trevino MD Responsible Provider: Isrrael Morillo MD Anesthesia Type: general ASA Status: 2 All Anesthesia Providers: Anesthesiologist: Isac Bradford MD; Isrrael Morillo MD SENIOR RESEARCH ASSOCIATE: Lizeth Sterling CRNA Vitals Value Taken Time BP 137/70 09/14/20 1701 Temp 36.7 ??C (98.1 ??F) 09/14/20 1615 Pulse 58 09/14/20 1706 Resp 16 09/14/20 1706 SpO2 97 % 09/14/20 1803 Pain Level 3 09/14/20 1704 Vitals shown include unvalidated device data. Patient Location: PACU/[facility] Level of Consciousness: Awake and Alert Pain Management: Satisfactory Analgesia PONV: None Cardiovascular Status: Hemodynamically Stable Respiratory Status: Stable Respiratory Status Postoperative Fluid Status: Intravascular EUvolemia Possible Anesthetic Complications: NONE apparent at time of evaluation Final Primary Anesthesia Type: General (The anesthetic type performed was the same as planned.) Comments: * Anesthesia Preprocedure Evaluation - Isac Bradford MD - 09/14/2020 2:01 PM EST Pre-Anesthesia Evaluation for: Isrrael Anton a 65 y.o. male. Procedure(s): LAPAROSCOPIC HERNIA REPAIR, INITIAL INGUINAL (WRVU 6.36) MODIFIER MESH,BARD,3D MAX REG HERNIA REPAIR, UMBILICAL, REDUCIBLE; AGE 5 OR OVER (WRVU 6.59) MODIFIER MESH,BARD VENTRALEX ST Patient Active Problem List Diagnosis ??? Spine [...] last sleep study ~2017 Dr. Mota of [facility]; nightly Klonopin & Ambien at [...] anxiety disorder) [facility]; 6612-1429 Klonopin, 1433-6147 Paxil, 2018 Zoloft 75-125 mg qd Most recent counseling Fall 2017 sleep disorders - Psychiatry Ashley Lieberman based in [facility] 10/2018 ??? Gastroesophageal reflux Intermittent since ; worse w/elevated weight ??? ED (erectile dysfunction) Urology in [facility] 2008, med trials Cialis, trial Viagra 2008; change in vision, light- headed/dizziness (+) Difficult maintaining erection; no masturbation; intercourse q2 weeks; able to switch positions ??? Chronic pain syndrome Daily neck and lower back stiffness; improves after starting activity of day. (+) RA screening per [employer] (+) Hx LEFT drop foot 2013 after [...] Stage 0 CLL diagnosed August 2009. a. Mastic 70 neg, Chrom 13 abnm by FISH (good prognosis) b. Observation only ??? History of hepatitis C, successfully treated Tx 2008 Past Medical History: Diagnosis Date ??? CLL (chronic lymphocytic leukemia) 04/05/2011 Past Surgical History: Procedure Laterality Date ??? ELBOW FRACTURE SURGERY Right 1963 ??? HERNIA REPAIR Right 1960 Ingiunal ??? PRO COLONOSCOPY, DIAGNOSTIC N/A 11/27/2018 COLONOSCOPY, DIAGNOSTIC performed by Nuria De León MD at [facility] ENDOSCOPY Social History Tobacco Use ??? Smoking status: Never Smoker ??? Smokeless tobacco: Never Used Substance Use Topics ??? Alcohol use: Not Currently Comment: (+) Hx Alcohol abuse; Quit 1998 Social History Substance and Sexual Activity Drug Use Not Currently Comment: remote Hx in twenties Allergies Allergen Reactions ??? Viagra [Sildenafil] Medications: MAR and/or home medications have been reviewed. Physical Exam: Patient Vitals for the past 24 hrs: Temp Pulse Resp BP SpO2 O2 Device 09/14/20 1349 36.5 ??C (97.7 ??F) 53 16 (!) 130/92 96 % RA Body mass index is 29.74 kg/m??. Height: 172.7 cm (5' 7.99) Weight: 88.7 kg (195 lb 8.8 oz) Airway Assessment: Mallampati: II TM distance: >3 FB Neck ROM: full Cardiovascular Assessment: system normal Pulmonary Assessment: pulmonary exam normal Dental Assessment: - normal exam Misc Assessment: IV access: Peripheral line Anesthesia Plan: ASA 2 general, with a(n) intravenous induction 65 yo male with hx of controlled GERD, COPD (from chronic bronchitis), DONALD (was told no longer needs CPAP), CLL and chronic pain presenting for Lap left inguinal hernia and ventral hernia repair. NPOappropriate. Denies angina with stacking wood. Plan for GETA. Region - Other Informed Consent: Anesthetic plan and risks discussed with patient and spouse. Plan discussed with SENIOR RESEARCH ASSOCIATE. PAT Clinic Note documented in this encounter Plan of Treatment Upcoming Encounters Date Type Department Care Team (Late st Contact Info) Description 11/05/2024 10:30 AM EST Office Visit Hematology/Oncology at [address] [phone] Sha Figueroa MD [facility] [place] [address] Stephany Kramer APRN [address] [place] [address] [place] [address] 11/11/2024 8:45 AM EST Office Visit Dermatology at [place] [address] [place] [phone] Rusty Flores MD [address], [place] [address] documented as of this encounter Visit Diagnoses Not on filedocumented in this encounter Administered Medications Inactive Administered Medications - up to 3 most recent administrations Medication Order MAR Action Action Date Dose Rate Site ceFAZolin (Ancef) 2 g in dextrose 5% 100 mL infusion 2 g, Intravenous, ONCE, 1 dose, On Sun09/14/20 at 1400, Administer over 30 Minutes, Indication for (Active or Suspected): Prophylaxis Given 09/14/2020 2:12 PM EST 2 g fentaNYL (pf) (50 mcg/mL) multi-dose injection PRN, Starting on Sun09/14/20 at 1431, Until Sun09/14/20 at 1616, Anesthesia Intra-op, Routine Given 09/14/2020 3:21 PM EST 25 mcg Given 09/14/2020 3:12 PM EST 25 mcg Given 09/14/2020 2:31 PM EST 25 mcg glycopyrrolate (Robinul) (0.2 mg/mL) multi-dose injection PRN, Starting on Sun09/14/20 at 1542, Until Sun09/14/20 at 1616, Anesthesia Intra-op, Routine Given 09/14/2020 3:42 PM EST 0.6 mg lidocaine (pf) (Xylocaine) (20 mg/mL) 2% injection syringe PRN, Starting on Sun09/14/20 at 1416, Until Sun09/14/20 at 1616, Anesthesia Intra-op, Routine Given 09/14/2020 2:16 PM EST 100 mg midazolam (pf) (Versed) (1 mg/mL) multi-dose injection PRN, Starting on Sun20 at 1404, Until 09/14/20 at 1616, Anesthesia Intra-op, Routine Given 09/14/2020 2:04 PM EST 2 mg neostigmine (Bloxiver) (1 mg/mL) injection PRN, Starting on 09/14/20 at 1542, Until 09/14/20 at 1616, Anesthesia Intra-op, Routine Given 09/14/2020 3:42 PM EST 4 mg ondansetron (pf) (Zofran) (2 mg/mL) injection PRN, Starting on 09/14/20 at 1427, Until 09/14/20 at 1616, Anesthesia Intra-op, Routine Given 09/14/2020 2:27 PM EST 4 mg propofoL (Diprivan) 10 mg/mL bolus injection (Anesthesia) PRN, Starting on 09/14/20 at 1417, Until 09/14/20 at 1616, Anesthesia Intra-op Given 09/14/2020 2:18 PM EST 50 mg Given 09/14/2020 2:17 PM EST 150 mg propofoL (Diprivan) infusion CONTINUOUS PRN, Starting on 09/14/20 at 1417, Until 09/14/20 at 1616, Anesthesia Intra-op, Routine Rate/Dose Change 09/14/2020 3:38 PM EST 100 mcg/kg/min 53.2 mL/hr New Bag 09/14/2020 2:17 PM EST 50 mcg/kg/min 26.6 mL/hr rocuronium (Zemuron) (10 mg/mL) multi-dose injection PRN, Starting on 09/14/20 at 1418, Until 09/14/20 at 1616, Anesthesia Intra-op, Routine Given 09/14/2020 2:18 PM EST 50 mg documented in this encounter Care Teams Police Matron Relationship Specialty Start Date End Date Marco Reina MD [address] [place] [address] PCP - General Family Medicine 07/08/19 10/01/21 documented as of this encounter
--- OUTSIDE RECORDS SUMMARY | 2024-11-05 01:48 | XMS_ITS | Encounter Summary ---
Author Organization [facility] Address [facility] [place] [address] Care Team Providers Care Correctional Case Records Supervisor Name Role Phone Vahe Valdes DO Primary Care Provider +1- [phone] Reason for Referral * Consultation (Routine) - Closed Specialty Diagnoses / Procedures Referred By Contac t Referred To Contact Cardiology Diagnoses Bradycardia 66yo hx sinus bradycardia having some decreased heart rates into the 30's w/o evidence of heart block. Vahe Valdes DO [address] [place] [address] Eliel Argueta MD [facility] [place] [address] Referral ID Status Reason Start Date Expiration Date V isits Requested Visits Authorized [id number] Closed Consult, Test & Treat PCP Updated and/or Approved 02/20/2022 02/20/2023 10 10 Encounter Details Date Type Department Care Team (Late st Contact Info) Description 02/20/2022 Transcribe Orders eDH Incoming Referrals [phone] Vahe Valdes DO [address] [place] [address] Bradycardia Social History Tobacco Use Types Packs/Day [...] 10:30 AM EST Office Visit Hematology/Oncology at [address] [phone] Sha Figueroa MD [facility] DR [place] [address] Stephany Kramer APRN [address] [place] [address] [place] [address] 11/11/2024 8:45 AM EST Office Visit Dermatology at [place] [address] [facility] [place] [phone] Rusty Flores MD [address] [facility] [place] [address] Scheduled Referrals Name Type Priority Associated Diagnoses Order Schedule Referral to Cardiology Outpatient Referral Routine Bradycardia Ordered: 02/20/2022 documented as of this encounter Visit Diagnoses Diagnosis Bradycardia Other specified cardiac dysrhythmias documented in this encounter Care Teams Correctional Case Records Supervisor Relationship Specialty Start Date End Date Vahe Valdes DO [address] [place] [address] PCP - General Family Medicine 12/13/21 documented as of this encounter
--- OUTSIDE RECORDS SUMMARY | 2024-11-05 01:48 | XMS_ITS | Encounter Summary ---
Author Organization [facility] Address [facility] [place] [address] Care Team Providers Care Pt Sitter Name Role Phone KeishaVahe oliveira Mela JARRELL Primary Care Provider +1- [phone] Reason for Visit * Reason Comments Skin Lesion Encounter Details Date Type Department Care Team (Late st Contact Info) Description 08/15/2022 10:45 AM EST Office Visit Dermatology at [address] [phone] Rusty Flores MD [address] [facility] [place] [address] Seborrheic keratosis, inflamed; History of basal cell [...] Progress Notes * Rusty Flores MD - 08/15/2022 10:45 AM EST Problem: 1. 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 ??History of BCCA right upper shoulder x2, treated 1992 treated at [facility] Isrrael follows up concerned about a lesion on the left sideburn area and on the left posterior tricep area. Examination reveals irritated seborrheic keratoses which apparently did not respond to liquid nitrogen in the past. The patient is concerned that they may represent more squamous cell skin cancers. Assessment and plan: Irritated seborrheic keratoses, doubt squamous cell carcinomas 1. After obtaining consent sites were anesthetized and removed with shave C&D. 2. Triple antibiotic ointment bandage placed 3. Site A left sideburn and site B left mid triceps were both treated with shave biopsy and submitted for pathologic analysis 4. Return to clinic prn. CC: Vahe Valdes DO documented in this encounter Plan of Treatment Upcoming Encounters Date Type Department Care Team (Late st Contact Info) Description 11/05/2024 10:30 AM EST Office Visit Hematology/Oncology at [address] [phone] Sha Figueroa MD [facility] DR H[place]Y [place] [address] [place] [address] 11/11/2024 8:45 AM EST Office Visit Dermatology at [address] [phone] Rusty Flores MD [address] [facility] A DERMATOLOGY [place], [place] [phone] documented as of this encounter Visit Diagnoses Diagnosis Seborrheic keratosis, inflamed Inflamed seborrheic keratosis History of basal cell carcinoma Personal history of other malignant neoplasm of skin documented in this encounter Care Teams Pt Sitter Relationship Specialty Start Date End Date Vahe Valdes DO [address] [place] [address] PCP - General Family Medicine 12/13/21 documented as of this encounter
--- OUTSIDE RECORDS SUMMARY | 2024-11-05 01:48 | XMS_ITS | Encounter Summary ---
Author Organization [facility] Address [facility] [place] [address] Care Team Providers Care Orange Peel Operator Name Role Phone KeishaVahe Hoffman Primary Care Provider +1- [phone] Encounter Details Date Type Department Care Team (Latest Contact Info) Description 01/11/2023 Travel Social History Tobacco Use Types Packs/Day [...] 10:30 AM EST Office Visit Hematology/Oncology at [address] [phone] Sha Figueroa MD [facility] DR HEMATOLOGY [place] [address] Stephany Kramer, WEIGHBRIDGE OPERATOR [address] [place] [address] DR MEDICAL ONCOLOGY [place], [place] [id number] 11/11/2024 8:45 AM EST Office Visit Dermatology at [address] [place] [phone] Rusty Flores MD [address] [place] [address] RD, [place] [address] documented as of this encounter Visit Diagnoses Not on filedocumented in this encounter Care Teams Orange Peel Operator Relationship Specialty Start Date End Date Vaeh Valdes DO [address] [place] [address] PCP - General Family Medicine 12/13/21 documented as of this encounter
--- OUTSIDE RECORDS SUMMARY | 2024-11-05 01:48 | XMS_ITS | Encounter Summary ---
Author Organization [facility]ly [facility] One [facility] [place] [address] Care Team Providers Care Electrical Electronics Engineer Name Role Phone KeishaVahe oliveira Mela JARRELL Primary Care Provider [phone]- [phone] Reason for Visit * Reason Comments Bradycardia Encounter Details Date Type Department Care Team (Late st Contact Info) Description 08/15/2023 9:00 AM EST Office Visit Cardiology at [address] [phone] Sowmya Browning MD [address] [place] [address] DR CARDIOLOGY [place], [place] [id number] Bradycardia Social History Tobacco Use Types Packs/Day [...] Sign Reading Time Taken Comments Blood Pressure 132/58 08/15/2023 9:16 AM EST Pulse 52 08/15/2023 9:16 AM EST ECG Temperature - - Respiratory Rate - - Oxygen Saturation - - Inhaled Oxygen Concentration - - Weight 83.9 kg (185 lb) 08/15/2023 9:16 AM EST Height 175.3 cm (5' 9) 08/15/2023 9:16 AM EST Body Mass Index 27.32 08/15/2023 9:16 AM EST documented in this encounter Progress Notes * Sowmya Browning MD - 08/15/2023 9:00 AM EST CARDIOLOGY OUTPATIENT FOLLOW-UP NOTE PRIMARY CARE PROVIDER: Vahe Valdes DO REFERRING PROVIDER: No ref. provider found PROBLEM LIST: Patient Active Problem List Diagnosis Sacrococcygeal disorders, [...] asleep; [facility] (stopped 08/2018) Tx OTC [...] last sleep study ~2017 Dr. Mota of [facility]; nightly Klonopin & Ambien at that [...] anxiety disorder) [facility]; [id number] Klonopin, [id number] Paxil, 2018 Zoloft 75-125 mg qd Most recent counseling Fall 2017 sleep disorders - Psychiatry Ashley Lieberman based in [facility] 10/2018 Gastroesophageal reflux Intermittent since ; worse w/elevated weight ED (erectile dysfunction) Urology in [facility] 2008, med trials Cialis, trial Viagra 2008; change in vision, light- headed/dizziness (+) Difficult maintaining erection; no masturbation; intercourse q2 weeks; able to switch positions Chronic pain syndrome Daily neck and lower back stiffness; improves after starting activity of day. (+) RA screening per [employer] (+) Hx LEFT drop foot 2013 after [...] Stage 0 CLL diagnosed August 2009. a. Knapp 70 neg, Chrom 13 abnm by FISH (good prognosis) b. Observation only History of hepatitis C, successfully treated Tx 2008 MEDICATIONS: Current Outpatient Medications Medication Sig Dispense Refill clonazePAM (KlonoPIN) 1 mg tablet fluorouraciL (EFUDEX) 5 % Cream Apply thin layer topically on a twice daily basis to affected area for 1 week on and 3 weeks off. Repeat for a total of 3 cycles. 40 g 0 gabapentin (Neurontin) 300 mg capsule Take 300 mg by mouth 3 times daily. b complex vitamins Capsule Take 1 capsule by mouth daily. amitriptyline (Elavil) 10 mg Tablet Take 10 mg by mouth nightly. omeprazole (PriLOSEC) 20 mg Capsule, Delayed Release(E.C.) tadalafiL (CIALIS) 5 mg Tablet Take 5 mg by mouth every 24 hours. tamsulosin (Flomax) 0.4 mg Capsule take 1 capsule by mouth once daily zolpidem (AMBIEN) 10 mg Tablet 1 tablet nightly as needed. acetaminophen (Tylenol) 500 mg Tablet Take 1,000 mg by mouth every 6 hours as needed for Pain. No current facility-administered medications for this visit. Subjective: Patient ID: Isrrael Anton is a 68 y.o. male. HPI This 68-year-old man presents for cardiac follow-up. He was initially evaluated a year ago regarding asymptomatic sinus bradycardia which has been present for more than 10 years. He comes in today reporting overall he feels well. He has not been dizzy or lightheaded. He does not describe any exercise intolerance. He denies chest pain, shortness of breath. He does have arthritis He enjoys being retired, spending time with his grandchildren He has no questions or concerns today Review of System Review of Systems All other systems reviewed and are negative. Family History: Family History Problem Relation Age of Onset Cancer Mother Lung Ca (+) Tobacco abuse Thyroid Disease Mother Heart Murmur Mother Aneurysm Father Cerebrovascular Accident Father Diabetes Maternal Grandmother Coronary Artery Disease Maternal Grandmother Heart Disease Maternal Grandmother Arrhythmia Maternal Grandfather Kidney Disease Neg Hx Early Neg Hx Social History: Social History Socioeconomic History Marital status: Spouse name: Ashley Anton Number of children: Not on file Years of education: Not on file Highest education level: Not on file Occupational History Occupation: retired Tobacco Use Smoking status: Never Smokeless tobacco: Never Vaping Use Vaping Use: Never used Substance and Sexual Activity Alcohol use: Not Currently Comment: (+) Hx Alcohol abuse; Quit 1998 Drug use: Not Currently Comment: remote Hx in twenties Sexual activity: Yes Partners: Female control/protection: Post-menopausal Comment: spouse Other Topics Concern Not on file Social History Narrative Lives w/spouse (Ashley, 1972, 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 Constitutional: Comments: Well-developed well-nourished normal weight no acute distress Neck: Comments: Neck veins are flat carotid pulsations are normal there are no bruits Cardiovascular: Comments: Heart is regular normal S1-S2 physiologically split no murmur or gallop Pulmonary: Effort: Pulmonary effort is normal. Breath sounds: Normal breath sounds. Abdominal: General: Abdomen is flat. Musculoskeletal: Comments: No peripheral edema Skin: General: Skin is warm and dry. EKG today shows sinus bradycardia at 52, otherwise normal Assessment and Plan: #1. Bradycardia. Patient has no symptoms related to his chronic asymptomatic sinus bradycardia. At this point I recommended follow-up in 2 years, sooner if new questions or concerns arise. Patient was agreeable to the plan Thank you for the opportunity to participate in this patient's cardiovascular care. All questions were answered and I look forward to the next visit. documented in this encounter Plan of Treatment Upcoming Encounters Date Type Department Care Team (Late st Contact Info) Description 11/05/2024 10:30 AM EST Office Visit Hematology/Oncology at [address] [phone] Sha Figueroa MD [facility] DR HEMATOLOGY [place] [address] [facility] [address] [place] [address] [place] [address] 11/11/2024 8:45 AM EST Office Visit Dermatology at [place] [address] [facility] [place] [address] Rusty Flores MD [address] [facility], [place] [address] documented as of this encounter Visit Diagnoses Diagnosis Bradycardia Other specified cardiac dysrhythmias documented in this encounter Care Teams Electrical Electronics Engineer Relationship Specialty Start Date End Date Vahe Valdes DO [address] [place] [address] PCP - General Family Medicine 12/13/21 documented as of this encounter
--- OUTSIDE RECORDS SUMMARY | 2024-11-05 01:48 | XMS_ITS | Encounter Summary ---
Author Organization Pending Sale To [facility] One [facility] [place] [address] Care Team Providers Care Washer Repairman Name Role Phone KeishaVahe oliveira Mela JARRELL Primary Care Provider +1- [phone] Reason for Visit * Reason Comments Follow-up Encounter Details Date Type Department Care Team (Late st Contact Info) Description 01/11/2023 9:45 AM EDT Office Visit Dermatology at [address] [phone] Rusty Flores MD [address] [facility], [facility] A DERMATOLOGY [place], [place] [phone] Seborrheic keratosis, inflamed; History of basal cell [...] Progress Notes * Rusty Flores MD - 01/11/2023 9:45 AM EDT Problem: 1. New lesion of concern, right dorsal forearm 2. 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 ??History of BCCA right upper shoulder x2, treated 1992 treated at [place] Isrrael presents today concerned of a lesion was present on the right dorsal forearm. He just got back from vacation down at [facility]. Physical examination reveals a pleasant 67-year-old gentleman who has a 1 cm erythematous scaly patch on the right dorsal forearm. Differential might include BCCA with SCCA, superficial type. Assessment and plan: Rule out Crow's disease versus superficial BCCA, right dorsal forearm 1. After obtaining informed patient consent, the site was anesthetized and removed shave C&D 2. Triple antibiotic ointment and Band-Aid placed. After curettage site measured 1 cm in diameter. 3. Wound care instructions and supplies given 4. Return to clinic in 1 year/as needed for new lesions / concerns. CC: Vahe Valdes DO ?? documented in this encounter Plan of Treatment Upcoming Encounters Date Type Department Care Team (Late st Contact Info) Description 11/05/2024 10:30 AM EST Office Visit Hematology/Oncology at [address] [phone] Sha Figueroa MD [facility] DR HEMATOLOGY [place] [address] Stephany Kramer APRN [address] [place] [address] [place] [address] 11/11/2024 8:45 AM EST Office Visit Dermatology at [place] [address] [place] [address] Rusty Flores MD [address] [facility] [place] [address] documented as of this encounter Visit Diagnoses Diagnosis Seborrheic keratosis, inflamed Inflamed seborrheic keratosis History of basal cell carcinoma Personal history of other malignant neoplasm of skin documented in this encounter Care Teams Washer Repairman Relationship Specialty Start Date End Date Vahe Valdes DO [address] [place] [address] PCP - General Family Medicine 12/13/21 documented as of this encounter
--- OUTSIDE RECORDS SUMMARY | 2024-11-05 01:48 | XMS_ITS | Encounter Summary ---
Author Organization [facility] Address [facility] [place] [address] Care Team Providers Care Polisher Eyeglass Frames Name Role Phone Keisha, Vahe Plaza DO Primary Care Provider [phone]- [phone] Encounter Details Date Type Department Care Team (Latest Contact Info) Description 10/15/2023 1:36 PM EST - 10/15/2023 11:59 PM [facility] Hospital Encounter [place] [phone] Chronic lymphocytic leukemia Discharge Disposition: Home Social [...] Sig Dispensed Refills Start Date End Date clonazePAM (KlonoPIN) 1 mg tablet Take by mouth daily as needed. 01/18/2023 b complex vitamins Capsule Take 1 capsule by mouth daily. omeprazole (PriLOSEC) 20 mg Capsule, Delayed Release(E.C.) daily as needed. 09/07/2020 tadalafiL (CIALIS) 5 mg Tablet Take 5 mg by mouth as needed. 11/20/2019 acetaminophen (Tylenol) 500 mg Tablet Take 1,000 mg by mouth every 6 hours as needed for Pain. tamsulosin (Flomax) 0.4 mg capsule Take 0.8 mg by mouth. 06/06/[address] (Cymbalta) [address] capsule See Instructions, Take 2 capsules daily. After 2 weeks, if 2 caps is ineffective for pain, may further increase to 3 capsules (60 mg) each morning., # 90 cap, 1 Refill(s), Pharmacy: [facility] 06/07/2023 amitriptyline (Elavil) 10 mg Tablet Take 10 mg by mouth nightly as needed. 05/09/2024 tamsulosin (Flomax) 0.4 mg Capsule take 1 capsule by mouth once daily 05/10/2020 11/12/[address] (Cymbalta) [address] capsule Take 60 mg by mouth. 08/15/2023 024 documented as of this encounter Plan of Treatment Upcoming Encounters Date Type Department Care Team (Late st Contact Info) Description 11/05/2024 10:30 AM EST Office Visit Hematology/Oncology at [address] [phone] Sha Figueroa MD [facility] DR [place] [address] Stephany Kramer APRN [address] [place] [address] [place] [address] 11/11/2024 8:45 AM EST Office Visit Dermatology at [address] [place] [address] Rusty Flores MD [address] [facility] [address] [place] [address] documented as of this encounter Procedures Procedure Name Priority Date/Time Associated Diagnosis Comments SCAN, PERIPHERAL BLOOD STAT 1:43 PM EST HEMOGRAM STAT 10/15/2023 1:43 PM EST Chronic lymphocytic leukemia DIFFERENTIAL, AUTOMATED STAT 10/15/2023 1:43 PM EST Chronic lymphocytic leukemia CBC (WITH DIFF) STAT 10/15/2023 1:43 PM EST Chronic lymphocytic leukemia LACTATE DEHYDROGENASE STAT 10/15/2023 1:43 PM EST Chronic lymphocytic leukemia COMPREHENSIVE METABOLIC PANEL STAT 10/15/2023 1:43 PM EST Chronic lymphocytic leukemia documented in this encounter Results * Scan, Peripheral Blood (10/15/2023 1:43 PM EST) Plat estimate Normal [facility] RBC Morphology Abnormal [facility] Ovalocytes 1-5 /HPF [facility] Atypical Lymph Moderate [facility] Smudge cell Present [facility] Blood 10/15/2023 1:43 PM EST 10/15/2023 1:49 PM EST Narrative Resulting Agency Comment Spec In Lab Sha Figueroa MD HEMATOLOGY ORDERABLE S Performing Organization Address City/State/[facility] Co de Phone Number [facility] [place] [address] * (ABNORMAL) Differential, Automated (10/15/2023 1:43 PM EST) Pathologist [facility] Neutrophil % 28.7 % [facility] Neutrophil Absolute 5.17 1.70 - 6.10 x10(3)/mc L [facility] Lymph % 62.3 % [facility] Lymphocytes Abs 11.3(H) 0.9 - 3.2 x10(3)/mc L [facility] Monocyte % 5.4 % [facility] Monocyte Abs 1.0(H) 0.3 - 0.9 x10(3)/mc L [facility] Eos % 3.0 % [facility] Eosinophils Abs 0.6(H) 0.0 - 0.4 x10(3)/mc L [facility] Basophil % 0.4 % [facility] Baso Absolute 0.1 0.0 - 0.1 x10(3)/mc L [facility] Immature Gran % 0.20 % [facility] Comment: Immature granulocytes(IG's)percentage and absolute count will include metamyelocytes, myelocytes, and promyelocytes. Blood smears from CBCs yielding IG's will be scanned manually for concordance. If this scan disagrees with the automated IG or if promyelocytes are noted, a manual differential will be performed. Immature Gran Absolute 0.04 0.00 - 0.04 x10(3)/mc L [facility] Blood 10/15/2023 1:43 PM EST 10/15/2023 1:49 PM EST Narrative Resulting Agency Comment Spec In Lab Sha Figueroa MD HEMATOLOGY ORDERABLE S [facility] [place] [address] * (ABNORMAL) Hemogram (10/15/2023 1:43 PM EST) White Blood Cell 18.1(H) 4.0 - 9.5 x10(3)/mc L [facility] Red Blood Cell 4.98 4.58 - 5.54 x10(6)/mc L [facility] Hemoglobin 15.4 13.7 - 16.5 g/dL [facility] Hematocrit 45.7 40.5 - 48.5 % [facility] Mean Cell Volume 91.8 82.9 - 93.1 fL [facility] Mean Cell Hemoglobin 30.9 27.5 - 32.1 pg [facility] Mean Cell Hemoglobin Concentration 33.7 32.0 - 35.7 g/dL [facility] Platelet 191 145 - 357 x10(3)/mc L [facility] RDW Standard Deviation 45.2(H) 36.0 - 45.0 fL [facility] RDW coefficient of variation 13.5 11.4 - 13.8 % [facility] Mean Platelet Volume 11.3 7.6 - 12.9 fL [facility] NRBC% auto 0.1 % [facility] NRBC Absolute 0.020(H) 0.000 - 0.000 x10(3)/mc L [facility] Blood 10/15/2023 1:43 PM EST 10/15/2023 1:49 PM EST Narrative Resulting Agency Comment Spec In Lab Sha Figueroa MD HEMATOLOGY ORDERABLE S [facility] [place] [address] * (ABNORMAL) Comprehensive metabolic panel (non-fasting) (10/15/2023 1:43 PM EST) Glucose 65 65 - 199 mg/dL [facility] Comment:Diabetes: >=200 mg/d L plus symptoms Blood Urea Nitrogen 22(H) 10 - 20 mg/dL [facility] Creatinine 0.98 0.80 - 1.50 mg/dL [facility] Sodium 142 135 - 145 mmol/L [facility] Potassium 4.3 3.5 - 5.0 mmol/L [facility] Comment: Please note: ??Patients with WBC >100,000 may have falsely elevated Potassium levels. ??For accurate Potassium quantification in these patients send serum separator tube (gold top) for subsequent determinations. ??Contact the Clinical Chemistry Laboratory if there are any questions. Chloride 107 98 - 107 mmol/L [facility] Carbon Dioxide 26 22 - 31 mmol/L [facility] Anion Gap 9 5 - 15 mmol/L [facility] Calcium 9.3 8.5 - 10.5 mg/dL [facility] Protein, Total 7.1 6.1 - 8.0 g/dL [facility] Albumin 4.6 3.2 - 5.2 g/dL [facility] Aspartate Aminotransferase 29 0 - 39 unit/L [facility] Alanine Aminotransferase 29 0 - 55 unit/L [facility] Alkaline Phosphatase 94 40 - 130 unit/L [facility] Bilirubin, Total 0.4 0.2 - 1.3 mg/dL [facility] Est Glomerular Filtration Rate 83 >=60 mL/min/1. 73 m?? [facility] Comment: This patient's estimated GFR [...] In Lab Sha Figueroa MD CHEMISTRY ORDERABLES Performing Organization Address City/[facility]/ZIP Co de Phone Number [facility] [place] [address] * (ABNORMAL) Lactate Dehydrogenase (10/15/2023 1:43 PM EST) Lactate Dehydrogenase 239(H) 110 - 220 unit/L [facility] Blood 10/15/2023 1:43 PM EST 10/15/2023 1:49 PM EST Narrative Resulting Agency Comment Spec In Lab Sha Figueroa MD CHEMISTRY ORDERABLES Performing Organization Address City/[facility] Co de Phone Number [facility] [place] [address] documented in this encounter Visit Diagnoses Diagnosis Chronic lymphocytic leukemia Chronic lymphoid leukemia, without mention of having achieved remission documented in this encounter Care Teams Polisher Eyeglass Frames Relationship Specialty Start Date End Date Vahe Valdes DO [address] [place] [address] PCP - General Family Medicine 12/13/21 documented as of this encounter
--- OUTSIDE RECORDS SUMMARY | 2024-11-05 01:48 | XMS_ITS | Encounter Summary ---
Author Organization [facility] Address [facility] [place] [address] Care Team Providers Care Tube Laser Operator Name Role Phone KeisahVahe oliveira Mela JARRELL Primary Care Provider +1- [phone] Reason for Visit * Reason Comments Follow-up Encounter Details Date Type Department Care Team (Late st Contact Info) Description 10/16/2022 1:15 PM EST Office Visit Hematology [place] [address] Sha Figueroa MD [facility] [address] HEMAT[place] [address] Reny Lawler, PHOTO MACHINE OPERATOR Chronic lymphocytic leukemia Social History Tobacco Use [...] Sign Reading Time Taken Comments Blood Pressure 133/73 10/16/2022 1:10 PM EST Pulse 58 10/16/2022 1:10 PM EST Temperature 36.5 ??C (97.7 ??F) 10/16/2022 1:10 PM ES T Respiratory Rate 17 10/16/2022 1:10 PM EST Oxygen Saturation 95% 10/16/2022 1:10 PM EST Inhaled Oxygen Concentration - - Weight 93 kg (205 lb 0.4 oz) 10/16/2022 1:10 PM EST Height 172.7 cm (5' 7.99) 10/16/2022 1:10 PM ES T Body Mass Index 31.18 10/16/2022 1:10 PM EST documented in this encounter Progress Notes * Sha Figueroa MD - 10/16/2022 1:15 PM EST Subjective Patient ID: Isrrael Anton is a 67 y.o. male here for f/u of CLL Patient Active Problem List Diagnosis ??? Sacrococcygeal [...] last sleep study ~2017 Dr. Mota of [facility]; nightly Klonopin & Ambien at that [...] anxiety disorder) [facility]; [id number] Klonopin, [id number] Paxil, 2018 Zoloft 75-125 mg qd Most recent counseling Fall 2017 sleep disorders - Psychiatry Ashley Lieberman based in [facility] 10/2018 ??? Gastroesophageal reflux Intermittent since ; worse w/elevated weight ??? ED (erectile dysfunction) Urology in [facility] 2008, med trials Cialis, trial Viagra 2008; change in vision, light- headed/dizziness (+) Difficult maintaining erection; no masturbation; intercourse q2 weeks; able to switch positions ??? Chronic pain syndrome Daily neck and lower back stiffness; improves after starting activity of day. (+) RA screening per [employer] (+) Hx LEFT drop foot 2013 after [...] Stage 0 CLL diagnosed August 2009. a. [place] 70 neg, Chrom 13 abnm by FISH (good prognosis) b. Observation only ??? History of hepatitis C, successfully treated Tx 2008 HPI 67-year-old man diagnosed with CLL with good prognostic features. He was diagnosed in 2008 and has been observed without initiating any therapy. He has not had any symptoms referable to the CLL. He has had some more arthritic pain especially inhis neck. Currently in the midst of a steroid pulse. No fevers chills sweats or weight loss. Review of Systems Constitutional: Negative. HENT: Negative. Eyes: Negative. Respiratory: Negative. Negative for cough and shortness of breath. Cardiovascular: Negative. Negative for chest pain, palpitations and leg swelling. Gastrointestinal: Negative. Negative for constipation, diarrhea, nausea and vomiting. Genitourinary: Negative. Musculoskeletal: Positive for arthralgias. Skin: Negative. Neurological: Negative. Negative for weakness and numbness. Psychiatric/Behavioral: The patient is nervous/anxious. Objective BP 133/73 (Patient Position: Sitting) Pulse 58 Temp 36.5 ??C (97.7 ??F) (Temporal) Resp 17 Ht 172.7 cm (5' 7.99) Wt 93 kg (205 lb 0.4 oz) SpO2 95% BMI 31.18 kg/m?? Physical Exam Constitutional: General: He is not [...] and oriented to person, place, and time. ?? Recent Results (from the past 72 hour(s)) Lactate Dehydrogenase Result Value Ref Range LDH 214 110 - 220 unit/L Comprehensive metabolic panel (non-fasting) Result Value Ref Range Glucose Lvl 82 65 - 199 mg/dL BUN 21 (H) 10 - 20 mg/dL Creatinine 0.98 0.80 - 1.50 mg/dL Sodium 139 135 - 145 mmol/L Potassium 4.2 3.5 - 5.0 mmol/L Chloride 105 98 - 107 mmol/L CO2 27 22 - 31 mmol/L Anion Gap 7 5 - 15 mmol/L Calcium 9.4 8.5 - 10.5 mg/dL Total Protein 6.8 6.1 - 8.0 g/dL Albumin 4.4 3.2 - 5.2 g/dL AST 28 0 - 39 unit/L ALT 38 0 - 55 unit/L Alk Phos 76 40 - 130 unit/L Total Bilirubin 0.4 0.2 - 1.3 mg/dL Estimated GFR 83 >=60 mL/min/1.73 m?? Hemogram Result Value Ref Range WBC 26.2 (H) 4.0 - 9.5 x10(3)/mcL RBC 4.73 4.58 - 5.54 x10(6)/mcL Hemoglobin 14.8 13.7 - 16.5 g/dL Hematocrit 43.2 40.5 - 48.5 % MCV 91.3 82.9 - 93.1 fL MCH 31.3 27.5 - 32.1 pg MCHC 34.3 32.0 - 35.7 g/dL Platelets 185 145 - 357 x10(3)/mcL RDWSD 44.1 36.0 - 45.0 fL RDWCV 13.2 11.4 - 13.8 % MPV 11.6 7.6 - 12.9 fL nRBC % Auto 0.1 % nRBC Abs Auto 0.020 (H) 0.000 - 0.000 x10(3)/mcL Differential, Automated Result Value Ref Range Neutrophils % 30.1 % Neutr Abs (ANC) 7.91 (H) 1.70 - 6.10 x10(3)/mcL Lymphocytes % 65.5 % Lymphocytes Abs 17.2 (H) 0.9 - 3.2 x10(3)/mcL Monocytes % 3.4 % Monocyte Abs 0.9 0.3 - 0.9 x10(3)/mcL Eosinophils % 0.5 % Eosinophils Abs 0.1 0.0 - 0.4 x10(3)/mcL Basophils % 0.2 % Basophils Abs 0.1 0.0 - 0.1 x10(3)/mcL Immature Gran % 0.30 % Letty Gran Abs 0.07 (H) 0.00 - 0.04 x10(3)/mcL Scan, Peripheral Blood Result Value Ref Range Plat Estimate Normal RBC Morphology Normal Smudge Cells Present BP 133/73 (Patient Position: Sitting) Pulse 58 Temp 36.5 ??C (97.7 ??F) (Temporal) Resp 17 Ht 172.7 cm (5' 7.99) Wt 93 kg (205 lb 0.4 oz) SpO2 95% BMI 31.18 kg/m?? Assessment & Plan 67 year old man with a 12 year history of stage 0 CLL, he has not required any treatment. Is ALC and ANC are up slightly at this point compared to his chronic baseline but I suspect that his recent steroid pulse. I do not think we will need to follow him very closely given his stable course and is also stable hemoglobin/platelets. We will see him back in 1 year but remain available if he has more problems. documented in this encounter Plan of Treatment Upcoming Encounters Date Type Department Care Team (Late st Contact Info) Description 11/05/2024 10:30 AM EST Office Visit Hematology/Oncology at [address] [phone] Sha Figueroa MD [facility] DR [place] [address] MEDICAL ONCOLOGY [place], [place] [address] 11/11/2024 8:45 AM EST Office Visit Dermatology at [address] [place] [phone] Rusty Flores MD [address] [facility], REX Sams DERMATOLOGY [place], [place] [id number] documented as of this encounter Results * (ABNORMAL) Lactate Dehydrogenase (10/15/2023 1:43 PM EST) Lactate Dehydrogenase 239(H) 110 - 220 unit/L [facility] Blood 10/15/2023 1:43 PM EST 10/15/2023 1:49 PM EST Narrative Resulting Agency Comment Spec In Lab Sha Figueroa MD CHEMISTRY ORDERABLES [facility] [place] [address] * (ABNORMAL) Comprehensive metabolic panel (non-fasting) (10/15/2023 1:43 PM EST) Glucose 65 65 - 199 mg/dL [facility] Comment:Diabetes: >=200 mg/d L plus symptoms Blood Urea Nitrogen 22(H) 10 - 20 mg/dL [facility] Creatinine 0.98 0.80 - 1.50 mg/dL [facility] Sodium 142 135 - 145 mmol/L [facility] Potassium 4.3 3.5 - 5.0 mmol/L [facility] Comment: Please note: ??Patients with WBC >100,000 may have falsely elevated Potassium levels. ??For accurate Potassium quantification in these patients send serum separator tube (gold top) for subsequent determinations. ??Contact the Clinical Chemistry Laboratory if there are any questions. Chloride 107 98 - 107 mmol/L [facility] Carbon Dioxide 26 22 - 31 mmol/L [facility] Anion Gap 9 5 - 15 mmol/L [facility] Calcium 9.3 8.5 - 10.5 mg/dL [facility] Protein, Total 7.1 6.1 - 8.0 g/dL [facility] Albumin 4.6 3.2 - 5.2 g/dL [facility] Aspartate Aminotransferase 29 0 - 39 unit/L [facility] Alanine Aminotransferase 29 0 - 55 unit/L [facility] Alkaline Phosphatase 94 40 - 130 unit/L [facility] Bilirubin, Total 0.4 0.2 - 1.3 mg/dL [facility] Est Glomerular Filtration Rate 83 >=60 mL/min/1. 73 m?? [facility] Comment: This patient's estimated GFR [...] Figueroa MD CHEMISTRY ORDERABLES Performing Organization Address City/State/[facility] Co de Phone Number [facility] [place] [address] documented in this encounter Visit Diagnoses Diagnosis Chronic lymphocytic leukemia Chronic lymphoid leukemia, without mention of having achieved remission documented in this encounter Care Teams Tube Laser Operator Relationship Specialty Start Date End Date Vahe Valdes DO [address] [place] [address] PCP - General Family Medicine 12/13/21 documented as of this encounter
--- OUTSIDE RECORDS SUMMARY | 2024-11-05 01:48 | XMS_ITS | Encounter Summary ---
Author Organization [facility] Address [facility] [place] [address] Care Team Providers Care Financial Auditor Name Role Phone KeishaVahe Hoffman Primary Care Provider +1- [phone] Encounter Details Date Type Department Care Team (Latest Contact Info) Description 10/16/2022 Travel Social History Tobacco Use Types Packs/Day [...] 10:30 AM EST Office Visit Hematology/Oncology at [address] [phone] Sha Figueroa MD [facility] DR [place] [address] Stephany Kramer, BACKHOE OPERATOR [address] [place] [address] DR MEDICAL ONCOLOGY [place], [place] [address] 11/11/2024 8:45 AM EST Office Visit Dermatology at [address] [place] [phone] Rusty Flores MD [address] [place] [address] RD, [place] [address] documented as of this encounter Visit Diagnoses Not on filedocumented in this encounter Care Teams Financial Auditor Relationship Specialty Start Date End Date Vahe Valdes DO [address] [place] [address] PCP - General Family Medicine 12/13/21 documented as of this encounter
--- OUTSIDE RECORDS SUMMARY | 2024-11-05 01:48 | XMS_ITS | Encounter Summary ---
Author Organization [facility] [place] [address] Care Team Providers Care Instrumentation Engineer Name Role Phone Marco Reina MD Primary Care Provider + Reason for Visit * Consultation (Routine) - Closed Specialty Diagnoses / Procedures Referred By Contac t Referred To Contact [facility] Sp[facility] Center Diagnoses Spine pain, multilevel Zander Cross V, [facility] [place] [address] [facility] [place] [address] Referral ID Status Reason Start Date Expiration Date Visits Requested Visits Authorized [id number] Closed Functional Restorative Program 05/20/2021 05/20/2022 1 1 Encounter Details Date Type Department Care Team (Late st Contact Info) Description 06/09/2021 12:00 PM EDT Notes Only [facility] [place] [address] Nely Mercado, Artem Social History Tobacco Use Types Packs/Day Years [...] as of this encounter Progress Notes * Randee Webb - 06/09/2021 12:00 PM EDT [facility] Active Pain Care, A Service of the [facility] Patient: Isrrael Anton Date: 06/09/2021 Appointment: Via Telehealth, No Charge Visit Isrrael attended a 60 minute Welcome Group for the Active Pain Care Service (AP[facility]). Patients were provided detailed information on the programs and treatment options available to them through the AP[facility].The group also presented the rationale for engaging in active treatment strategies that include education and interdisciplinary, multimodal therapies. Patients' questions were answered and they were provided written materials describing the [facility] and recommended next steps. Participants were encouraged to schedule an appointment for a Pain Neuroscience Education class, asresearch studies have shown that if patients have a basic understanding of how chronic pain develops and functions physiologically, they experience better treatment outcomes including improved function, reduced reliance on medications, and have greater interest in healthy exercise and movement. Plan: Isrrael will be scheduled to attend a Pain Education Group if he is interested. Patients were instructed to call the [facility] phone number or send a [employer] message if they are interested in getting scheduled. documented in this encounter Plan of Treatment Upcoming Encounters Date Type Department Care Team (Late st Contact Info) Description 11/05/2024 10:30 AM EST Office Visit Hematology/Oncology at [address] [phone] Sha Figueroa MD [facility] DR HEMATOLOGY [place] [address] Stephany Kramer REHABILITATION DIRECTOR [address] [place] [address] [place] [address] 11/11/2024 8:45 AM EST Office Visit Dermatology at [address] [place] [address] Rusty Flores MD [address] [place] [address], [place] [address] Scheduled Referrals Name Type Priority Associated Diagnoses Kayleighe r Schedule Referral to Spine Center Outpatient Referral Routine Spine pain, multilevel Ordered: 05/20/2021 documented as of this encounter Visit Diagnoses Not on filedocumented in this encounter Care Teams Instrumentation Engineer Relationship Specialty Start Date End Date Marco Reina MD [address] [place] [address] PCP - General Family Medicine 07/08/19 10/01/21 documented as of this encounter
--- OUTSIDE RECORDS SUMMARY | 2024-11-05 01:49 | XMS_ITS | Encounter Summary ---
Author Organization [facility] Address [facility] [place] [address] Care Team Providers Care Cardroom Drawing Runner Name Role Phone Marco Reina MD Primary Care Provider + Encounter Details Date Type Department Care Team (Late Contact Info) Description 08/02/2018 Telephone Psychiatry [place] [phone] Bety Savage, PhD [facility] [place] [address] Social History Tobacco Use Types Packs/Day Years Used Date Smoking Tobacco: Never Smokeless Tobacco: Never Sex and Gender Information Value Date Recorded Sex Assigned at Not on file Gender Identity Not on file Sexual Orientation Not on file documented as of this encounter Miscellaneous Notes * Telephone Encounter - Bety Savage, PhD - 08/05/2018 12:46 PM EST Neuropsychology Feedback. We called Mr. Anton to review his neuropsychological test results. Results were reviewed in brief and he set up an appointment to review the results in more detail when he returns from vacation. He appeared to understand and accept the information. documented in this encounter Plan of Treatment Upcoming Encounters Date Type Department Care Team (Late st Contact Info) Description 11/05/2024 10:30 AM EST Office Visit Hematology/Oncology at [address] [phone] Sha Figueroa MD [facility] DR HEMATOLOGY [place] [address] Stephany Kramer, [address] [place] [address] 11/11/2024 8:45 AM EST Office Visit Dermatology at [place] [address] [facility] [place] [address] Rusty Flroes MD [address] [facility], [place] [address] documented as of this encounter Visit Diagnoses Not on filedocumented in this encounter Care Teams Cardroom Drawing Runner Relationship Specialty Start Date End Date Marco Reina MD [address] [place] [address] PCP - General General Internal Medicine 06/17/18 2/2 documented as of this encounter
--- OUTSIDE RECORDS SUMMARY | 2024-11-05 01:49 | XMS_ITS | Encounter Summary ---
Author Organization [facility] Address [facility] [address] Care Team Providers Care Installment Agent Name Role Phone Junior España Primary Care Provider [phone] Encounter Details Date Type Department Care Team (Latest Contact Info) Description 11/27/2018 1:30 PM EST - 11/27/2018 5:28 PM EST Hospital Encounter [place] [address] Nuria De León MD [facility] [place] [address] Discharge Disposition: Home Social History Tobacco Use [...] Reading Time Taken Comments Blood Pressure 129/61 11/27/2018 5:15 PM EST Pulse 55 11/27/2018 4:45 PM EST Temperature 36.9 ??C (98.4 ??F) 11/27/2018 3:17 PM ES T Respiratory Rate 16 11/27/2018 5:15 PM EST Oxygen Saturation 96% 11/27/2018 5:00 PM EST Inhaled Oxygen Concentration - - Weight 82.1 kg (181 lb) 11/27/2018 3:13 PM EST Height 172.7 cm (5' 8) 11/27/2018 3:13 PM EST Body Mass Index 27.52 11/27/2018 3:13 PM EST documented in this encounter Discharge Instructions * Discharge Instructions* Rocio Rodriguez, RN - 11/27/2018 4:55 PM EST Colonoscopy What to expect after the procedure You may feel a little more gassy or bloated than usual. This is normal. You should expect the return of normal bowel function in the 2 to 3 days. Activity Because of the sedation that you received your judgement and reaction time are effected ?? Go home and rest quietly for the remainder of the day. You may resume your normal activities tomorrow. ?? Change from one position to the next slowly. You may lose your balance unexpectedly ?? Be careful on stairs, as you may be unsteady on your feet FOR THE NEXT 24 HRS ?? DO NOT DRIVE OR OPERATE ANY MACHINERY ?? DO NOT DRINK ALCOHOLIC BEVERAGES ?? DO NOT SIGN LEGAL DOCUMENTS ?? If you are a smoker: DO NOT SMOKE WHILE YOU ARE ALONE Diet ?? Start by eating small portions of foods that ordinarily will not upset your stomach . Avoid gas producing foods for the next few days ?? Be gentle with what you choose to start with ?? Drink plenty of fluids ( unless your doctor has told you not to). IV SITE-- slight redness, or tenderness is normal. You can use warm compresses if you become concerned. If the tenderness +/or redness increases or foul drainage and a red streak occurs, please contact your PCP immediately When shoud you call for help? Call 911 anytime you think you may need emergency care. For example If you pass out ( loss of consciousness) If you pass maroon or bloody stools If you have severe belly pain Call your doctor now or seek immediate medical care If your stools are black and tarlike If your stools have streaks of blood, but you did not have a biopsy or any polyps removed If you have belly pain, or your belly is swollen and firm If you vomit If you have a fever If you are very dizzy Watch closely for changes in your health, and be sure to contact your doctor if you have any problems Your doctor will let you know when you will need your next colonoscopy. The results of your test and your risk for colorectal cancer will help your doctor decide how often you need to be checked. Sunday-Sunday Same Day Endo [phone] 7a-8p Otherwise contact [phone] and ask to speak to the industrial registered nurse electronics processor Follow up care is a flores part of your treatment and safety. Be sure to make and go to all appointments, and call your doctor if you are having problems. Discharge instructions reviewed with patient who expresses understanding documented in this encounter Medications at Time of Discharge Medication Sig Dispensed Refills Start Date End Date clonazePAM (KlonoPIN) 2 mg Tablet 1 tablet as needed. Taking half the dose as needed 07/14/2016 01/11/2023 albuterol 90 mcg/actuation HFA Aerosol Inhaler Inhale 2 puffs into the lungs every 4 hours as needed. Use with spacer 05/26/2020 loratadine (CLARITIN) 10 mg Tablet 0 05/22/2018 11/19/2019 sertraline (ZOLOFT) 100 mg Tablet 50 mg. 0 09/12/2017 01/17/2019 documented as of this encounter H&P Notes * Nuria De León MD - 11/27/2018 4:06 PM EST Patient Name: Isrrael Anton Patient Age: 63 y.o. Birthdate: 1955 Admit date: 11/27/2018 Attending Physician: Nuria De León MD Gastroenterology and Hepatology Pre-Procedure History and Physical Exam Procedure: Colonoscopy: Indication: screening average risk Patient Active Problem List Diagnosis Code ??? CLL (chronic lymphocytic leukemia) C91.90 ??? History of hepatitis C, successfully treated Z86.19 ??? Acrochordon L91.8 ??? History of basal cell carcinoma Z85.828 ??? Viral warts B07.9 ??? AK (actinic keratosis) L57.0 ??? Insomnia G47.00 ??? CAROLYNE (generalized anxiety disorder) F41.1 ??? Gastroesophageal reflux K21.9 ??? ED (erectile dysfunction) N52.9 ??? Chronic pain syndrome G89.4 ??? COPD (chronic obstructive pulmonary disease) J44.9 ??? Environmental allergies Z91.09 EXAM: HEENT: Airway examined, oropharynx clear Mallampati Score: II (soft palate, uvula, fauces visible) LUNGS: Clear to auscultation HEART: Regular rate and rhythm, normal S1, S2 ABDOMEN: Normal bowel sounds, soft, non tender, non distended, A/P Proceed with the planned endoscopic procedure. ASA 2 - Patient with mild systemic disease with no functional limitations Sedation Plan: moderate (conscious sedation) Risks and benefits of the procedure explained to the patient. Consent signed. documented in this encounter Plan of Treatment Upcoming Encounters Date Type Department Care Team (Late st Contact Info) Description 11/05/2024 10:30 AM EST Office Visit Hematology/Oncology at [address] [phone] Sha Figueroa MD [facility] DR [place] [address] Stephany Kramer BLADE GROOVER [address] [place] [address] [place] [address] 11/11/2024 8:45 AM EST Office Visit Dermatology at [address] [place] [phone] Rusty Flores MD [address] [place] [address], [place] [address] documented as of this encounter Procedures Procedure Name Priority Date/Time Associated Diagnosis Comments COLONOSCOPY, DIAGNOSTIC (WRVU 3.26) 11/27/2018 4:07 PM EST 10 year Screening COLONOSCOPY Routine 11/27/2018 4:00 PM EST documented in this encounter Results * COLONOSCOPY (11/27/2018 4:00 PM EST) COLONOSCOPY [facility] Endoscopy Procedure Date: 11/27/2018 4:00 PM ? Patient Name: Isrrael Anton ? Date of : 1955 ? Age: 63 ? Order #: [id number] ? Instrument Name: [id number] ? Procedure: ? Colonoscopy Indications: ? Screening [...] preparation was ? evaluated using the BBPS ([place] ? Bowel Preparation Scale) with scores ? [...] 4:00 PM PROVATION 11/27/2018 4:00 PM EST [facility] DO GENERAL SURGICAL O RDERABLES PROVATION documented in this encounter Visit Diagnoses Not on filedocumented in this encounter Administered Medications Inactive Administered Medications - up to 3 most recent administrations Medication Order MAR Action Action Date Dose Rate Site lactated Ringers infusion 100 mL/hr, Intravenous, CONTINUOUS, Starting on Sun11/27/18 at 1530, Until Sun11/27/18 at 1929, Endoscopy (Day of Procedure) New Bag 11/27/2018 3:30 PM EST 100 mL/hr 100 mL/hr documented in this encounter Active and Recently Administered Medications Times are shown in EST. Continuous Medication Order 11/25/2018 11/26/2018 11/27/2018 lactated Ringers infusion 100 mL/hr, Intravenous, CONTINUOUS, Starting on Sun11/27/18 at 1530, Until Sun11/27/18 at 1929, Endoscopy (Day of Procedure) 1530 (New Bag - Prov ider: Ramon Whipple RN) PRN Medication Order 11/25/2018 11/26/2018 11/27/2018 fentaNYL 50 mcg/mL multi-dose injection (CANCELED) ONCE PRN, Starting on Sun11/27/18 at 1611, Until Sun11/27/18 at 1929, Intra-Operative (Intra-Procedure), Routine 161 (Given - Provid er: Gabriela Valdovinos RN)1614 (Given - Provider: Gabriela Valdovinos, RN)1624 (Given - Provider: Gabriela Valdovinos, RN)1628 (Given - Provider: Gabriela Valdovinos RN) midazolam (PF) (VERSED) multi-dose injection (CANCELED) ONCE PRN, Starting on Sun11/27/18 at 1611, Until Sun11/27/18 at 1929, Intra-Operative (Intra-Procedure), Routine 161 (Given - Provid er: Gabriela Valdovinos RN)1614 (Given - Provider: Gabriela Valdovinos, RN)1617 (Given - Provider: Gabriela Valdovinos, RN)1624 (Given - Provider: Gabriela Valdovinos, RN)1628 (Given - Provider: Gabriela Valdovinos, RN) documented in this encounter Care Teams Installment Agent Relationship Specialty Start Date End Date Junior España, [facility] DR GILBERT MERCHANT [facility] [place] [address] PCP - General Family Medicine 11/21/18 07/07/19 documented as of this encounter
--- OUTSIDE RECORDS SUMMARY | 2024-11-05 01:49 | XMS_ITS | Encounter Summary ---
Author Organization [facility] [place] [address] Care Team Providers Care Service Center Specialist Name Role Phone Miki Sandoval MD Primary Care Provider [phone] Encounter Details Date Type Department Care Team (Late Contact Info) Description 04/25/2016 Telephone Psychiatry [place] [phone] Bety Savage, PhD [facility] [place] [address] Social History Tobacco Use Types Packs/Day Years Used Date Smoking Tobacco: Never Sex and Gender Information Value Date Recorded Sex Assigned at Not on file Gender Identity Not on file Sexual Orientation Not on file documented as of this encounter Miscellaneous Notes * Telephone Encounter - Bety Savage, PhD - 04/25/2016 5:52 PM EDT I reviewed with Mr. Anton his recent neuropsychological test results, and he appeared to understandand accept the information. documented in this encounter Plan of Treatment Upcoming Encounters Date Type Department Care Team (Late Contact Info) Description 11/05/2024 10:30 AM EST Office Visit Hematology/Oncology at [address] [phone] Sha Figueroa MD [facility] DR HEMATOLOGY [place] [address] Stephany Kramer APRN [address] [place] [address] [place] [address] 11/11/2024 8:45 AM EST Office Visit Dermatology at [address] [phone] Rusty Flores MD [address] [facility], [place] [address] documented as of this encounter Visit Diagnoses Not on filedocumented in this encounter Care Teams Service Center Specialist Relationship Specialty Start Date End Date Miki Sandoval MD [address] [address] PCP - General 04/11/11 05/09/17 documented as of this encounter
--- OUTSIDE RECORDS SUMMARY | 2024-11-05 01:49 | XMS_ITS | Encounter Summary ---
Author Organization [facility] [place] [address] Care Team Providers Care Reception Name Role Phone TacoRinkusangita Nair DO Primary Care Provider [phone] Encounter Details Date Type Department Care Team (Late st Contact Info) Description 11/25/2018 Telephone Gastroenterology at [facility] [place] [address] Ilene Kirby Social History Tobacco Use Types Packs/Day Years [...] encounter Miscellaneous Notes * Telephone Encounter - Ilene Kirby - 11/25/2018 1:31 PM EST Isrrael Anton [id number] Diagnosis: 10 year surv 1. Have you ever had a colonoscopy before? [x] YES [] NO If Yes, Date of Last Hankinson:_05/11/2008- outside hospital If yes, did you have any problems with the procedure? [] YES [x] NO Explain: What type of sedation was used: MAC- outside hospital 2. Do you take any Blood Thinners? [] YES [x] NO If Yes, type: 3. Do you have a Pacemaker or Defibrillator device? [] YES [x] NO If Yes send Timetovisit message to FAD ? IO DEVICE CHECK 4. Are you a diabetic? [] YES [x] NO If yes, controlled by meds or diet? 5. Do you have any Allergies to Eggs, Latex or Medications? [] YES [x] NO If Yes, what: 6. Do you take any Oral Iron Supplements (Including multi vitamins)? [] YES [x] NO 7. Do you have a history of three or more abdominal surgeries? [] YES [x] NO 8. Have you had a problem with sedation or anesthesia? [] YES [x] NO 9. Do you have a c-pap machine or oxygen tank? [] C-PAP [] Oxygen [x] NO 10. Do you take prescription narcotic pain medications? [] YES [x] NO 11. You must have a responsible alliance party stay at the facility during your procedure and drive you home? [x] YES 12. Is there any other information you would like to give us to aid in scheduling? Height: __5'8 Weight:_188lbs BMI: _28.6___ Age:63 y.o. documented in this encounter Plan of Treatment Upcoming Encounters Date Type Department Care Team (Late st Contact Info) Description 11/05/2024 10:30 AM EST Office Visit Hematology/Oncology at [address] [place] [address] Sha Figueroa MD [facility] [address] [place] [address] Stephany Kramer, BAH[place] [address] [place] [address] [place] [address] 11/11/2024 8:45 AM EST Office Visit Dermatology at [place] [address] [place] [address] Rusty Flores MD [address] [facility], [place] [address] documented as of this encounter Visit Diagnoses Not on filedocumented in this encounter Care Teams Reception Relationship Specialty Start Date End Date Junior España, [facility] [address] [place] [place] [address] PCP - General Family Medicine 11/21/18 07/07/19 documented as of this encounter
--- OUTSIDE RECORDS SUMMARY | 2024-11-05 01:49 | XMS_ITS | Encounter Summary ---
Author Organization [facility] [place] [address] Care Team Providers Care Assembler Metal Furniture Name Role Phone Miki Sandoval MD Primary Care Provider [phone] Reason for Visit * Reason Comments Fall Encounter Details Date Type Department Care Team (Late st Contact Info) Description 08/27/2015 10:09 AM EST - 08/27/2015 12:43 PM EST [place] [phone] Closed fracture of rib, unspecified laterality, initial encounter; Contusion of chest wall, unspecified laterality, initial encounter; Fall on same level, initial encounter Discharge Disposition: Home Social History Tobacco Use Types Packs/Day Years Used Date Smoking Tobacco: Never Sex and Gender Information Value Date Recorded Sex Assigned at Not on file Gender Identity Not on file Sexual Orientation Not on file documented as of this encounter Last Filed Vital Signs Vital Sign Reading Time Taken Comments Blood Pressure 145/72 08/27/2015 12:15 PM EST Pulse 44 08/27/2015 12:15 PM EST Temperature - - Respiratory Rate 12 08/27/2015 10:30 AM EST Oxygen Saturation 97% 08/27/2015 10:30 AM EST Inhaled Oxygen Concentration - - Weight - - Height - - Body Mass Index - - documented in this encounter Discharge Instructions * Discharge Instructions* Lis Willis APRN - 08/27/2015 12:40 PM EST Images from the original note were not included. [facility] Broken Rib: After Your Visit Your Care Instructions A broken rib is a crack or break in one of the bones of the rib cage. Breathing can be very painfulbecause the muscles used for breathing pull on the rib. In most cases, a broken rib will heal on its own. You can take pain medicine while the rib mends. Pain relief allows you to take deep breaths. In the past, doctors recommended taping or wrapping broken ribs. This is no longer done because taping makes it hard for you to take deep breaths. You need to take deep breaths at least once an hour to prevent pneumonia or a partial collapse of a lung. Your rib will heal in about 6 weeks. You heal best when you take good care of yourself. Eat a variety of healthy foods, and don't smoke. Follow-up care is a flores part of your treatment and safety. Be sure to make and go to all appointments, and call your doctor if you are having problems. It's also a good idea to know your test resultsand keep a list of the medicines you take. How can you care for yourself at home? ?? Be safe with medicines. Take pain medicines exactly as directed. ?? If the doctor gave you a prescription medicine for pain, take it as prescribed. ?? If you are not taking a prescription pain medicine, ask your doctor if you can take an wijh-voc-dexyrzv medicine. ?? Even if it hurts, cough or take the deepest breath you can at least once every hour. This will get air deeply into your lungs and reduce your chance of getting pneumonia or a partial collapse of alung. Hold a pillow against your chest to make this less painful. ?? Put ice or a cold pack on the area for 10 to 20 minutes at a time. Put a thin cloth between the ice and your skin. When should you call for help? Call 911 anytime you think you may need emergency care. For example, call if: ?? You have sudden chest pain and shortness of breath, or you cough up blood. Call your doctor now or seek immediate medical care if: ?? You have some trouble breathing. ?? You have a fever. ?? You have a cough that gets worse. For example, you have a dry cough that turns into a wet cough,bringing up mucus from the lungs. Watch closely for changes in your health, and be sure to contact your doctor if: ?? You have pain even after taking your medicine. ?? You do not get better as expected. Where can you learn more? Visit our health information library at [email or web address] You can also view health information on [employer], your personal patient account. Log in or sign up today. Enter M135 in the search box to learn more about Broken Rib: After Your Visit. ?? [id number] [employer]. Care instructions adapted under license by [facility]. This care instruction is for use with your licensed healthcare professional. If you have questions about a medical condition or this instruction, always ask your healthcare professional. [employer] disclaims any warranty or liability for your use of this information. Content Version: 10.4.394445; Current as of: June 24, 2014 documented in this encounter Medications at Time of Discharge Medication Sig Dispensed Refills Start Date End Date HYDROcodone-acetaminophen (NORCO) 5-325 mg Tablet Take 1 tablet by mouth every 6 hours as needed for Pain. 12 tablet 0 08/27/2015 02/21/2016 PAROXETINE HCL (PAXIL ORAL) Take 20 mg by mouth daily. 11/21/2018 zolpidem (AMBIEN) 10 mg tablet 10/03/2010 11/21/2018 clonAZEpam (KLONOPIN) 2 mg disintegrating tablet 10/03/20102017 documented as of this encounter ED Notes * Lis Willis APRN - 08/27/2015 5:53 PM EST Images from the original note were not included. Chief Complaint Patient presents with ??? Fall HPI 60 y.o. male presents to the ED today s/p fall on Sunday. 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 States he was on the ground but he had forgot that he had tools on the ground and he tripped over them landing on his left posterior ribs/flank. C/o rib pain and pain with deep breath or cough. No Known Allergies Review of Systems Constitutional: Negative for fever, chills and fatigue. Respiratory: Negative for cough, chest tightness, shortness of breath and wheezing. Cardiovascular: Positive for chest pain. Negative for palpitations. Gastrointestinal: Negative for nausea, vomiting and abdominal pain. Genitourinary: Positive for flank pain. Negative for dysuria, hematuria, decreased urine volume anddifficulty urinating. Musculoskeletal: Positive for back pain and gait problem. Left rib and flank pain Skin: Negative for wound. Neurological: Negative for dizziness, syncope, weakness, light-headedness, numbness and headaches. Physical Exam Constitutional: He is oriented to person, place, and time. He appears well- developed and well-nourished. HENT: Head: Atraumatic. Neck: Normal range of motion. Neck supple. Cardiovascular: Normal rate, regular rhythm, normal heart sounds and intact distal pulses. Pulmonary/Chest: Effort normal and breath sounds normal. Abdominal: Soft. Bowel sounds are normal. Musculoskeletal: Cervical back: Normal. Thoracic back: Normal. Lumbar back: Normal. Back: Arms: Neurological: He is alert and oriented to person, place, and time. Skin: Skin is warm and dry. Psychiatric: He has a normal mood and affect. Vitals reviewed. Procedures UA neg for blood Bedside Ultrasound preformed by Dr. Ruelas negative for injury to the kidney or spleen Rib xray: Negative for fracture MDM Fall: Rib contusion. Pain management discussed. IS provided. Follow up and return precautions discussed. ED Course: H & PE U/S UA Rib xray Lis Willis APRN 08/27/15 3028 documented in this encounter Miscellaneous Notes * ED Triage - Santi Dent - 08/27/2015 10:28 AM EST Pt presents with 6/10 mid back/ side pain after falling backwards (tripped over construction items)and landed on power tools. Mechanical fall; patient denies loss of consciousness, but it knocked the wind out of him. Pt denies blood in urine. Fall occurred Saturday 08/25. Patient has taken advil with no relief. Lung sounds are clear bilaterally. No bruising noted. A&Ox4, GCS 15. documented in this encounter Plan of Treatment Upcoming Encounters Date Type Department Care Team (Late st Contact Info) Description 11/05/2024 10:30 AM EST Office Visit Hematology/Oncology at [address] [place] [phone] Sha Figueroa MD [facility] [address] [place] [address] Stephany Kramer APRN [address] [place] [address] DR MEDICAL ONCOLOGY [place], [place] [id number] 11/11/2024 8:45 AM EST Office Visit Dermatology at [place] [address] [place] [address] Rusty Flores MD [address], [place] [address] documented as of this encounter Procedures Procedure Name Priority Date/Time Associated Diagnosis Comments XR RIBS AP, OBLIQUE LEFT AND PA CHEST STAT 08/27/2015 11:13 AM EST URINALYSIS WITH REFLEX CULTURE STAT 08/27/2015 10:56 AM EST documented in this encounter Results * XR Ribs With PA Left Chest Left (SR GENERIC) (08/27/2015 11:13 AM EST) Anatomical Region Laterality Modality Chest Left Digital Radiogra phy Impressions 08/27/2015 12:30 PM EST IMPRESSION: No displaced rib fractures. I have personally reviewed the image(s) and the residents interpretation and agree with the findings, Leon Tang at 08/27/2015 12:30 PM Narrative 08/27/2015 12:30 PM EST EXAMINATION: XR LEFT RIBS WITH PA CHEST CLINICAL HISTORY: s/p fall left sided rib pain TECHNIQUE: Single frontal chest radiograph, oblique views of the left ribs COMPARISON: None FINDINGS: The lungs are clear. The cardiomediastinal silhouette is within normal limits. There are no pleural effusions or pneumothorax. No displaced rib fractures are seen at the level of the BB marker. Procedure Note Leon Tang MD - 08/27/2015 EXAMINATION: XR LEFT RIBS WITH PA CHEST CLINICAL HISTORY: s/p fall left sided rib pain TECHNIQUE: Single frontal chest radiograph, oblique views of the leftribs COMPARISON: None FINDINGS: The lungs are clear. The cardiomediastinal silhouette is within normallimits. There are no pleural effusions or pneumothorax. No displaced rib fracturesare seen at the level of the BB marker. IMPRESSION IMPRESSION: No displaced rib fractures. I have personally reviewed the image(s) and the residents interpretationand agree with the findings, Leon Tang at 08/27/2015 12:30 PM Samantha Kimball MD IMG DX ORDERABLES * (ABNORMAL) Urinalysis with reflex Culture (08/27/2015 10:56 AM EST) Glucose, Urine Dipstick 50(A) Negative mg/dL CERNER MILLENNIUM Protein, Urine Dipstick Negative Negative mg/dL CERNER MILLENNIUM Bilirubin, Urine Dipstick Negative Negative mg/dL CERNER MILLENNIUM Comment: Clinical correlation required for positive Urine Bilirubin results as false positive may occur with some drugs and drug related products. If a false positive is suspected a serum total bilirubin should be considered if clinically indicated. Urobilinogen, Urine Dipstick Normal Normal mg/dL CERNER MILLENNIUM pH, Urn (dipstick) 5.0 5.0 - 8.0 CERNER MILLENNIUM Blood, Urine Dipstick Negative Negative mg/dL CERNER MILLENNIUM Ketone, Urine Dipstick Negative Negative mg/dL CERNER MILLENNIUM Nitrite, Urine Dipstick Negative Negative CERNER MILLENNIUM Leukocytes, Urine Dipstick Negative Negative mcL CERNER MILLENNIUM Appearance, Urine Dipstick Clear Clear CERNER MILLENNIUM Specific [place] Urine Automated 1.021 1.002 - 1.030 CERNER MILLENNIUM Color, Urine Dipstick Yellow Yellow CERNER MILLENNIUM RBC, Urine <1 0 - 3 /HPF CERNER MILLENNIUM WBC, Urine <1 0 - 3 /HPF CERNER MILLENNIUM Reflex to Culture No CERNER MILLENNIUM Urine specimen obtained by clean catch procedure (specimen) 08/27/2015 10:56 AM EST 08/27/2015 11:09 AM EST Narrative Resulting Agency Comment Spec In Lab Samantha Kimball MD URINE ORDERABLES [facility] documented in this encounter Visit Diagnoses Diagnosis Closed fracture of rib, unspecified laterality, initial encounter Contusion of chest wall, unspecified laterality, initial encounter Fall on same level, initial encounter documented in this encounter Administered Medications Inactive Administered Medications - up to 3 most recent administrations Medication Order MAR Action Action Date Dose Rate Site HYDROcodone-acetaminophen (NORCO) 5-325 mg per tablet 2 tablet 2 tablet, Oral, ONCE, 1 dose, On Sun08/27/15 at 1044, Maximum dose of acetaminophen is 4000 mg from all sources in 24 hours., STAT Given 08/27/2015 10:55 AM EST 2 tablets documented in this encounter Active and Recently Administered Medications Times are shown in EST. Scheduled Medication Order 08/25/2015 08/26/2015 08/27/2015 HYDROcodone-acetaminophen (NORCO) 5-325 mg per tablet 2 tablet (COMPLETED) 2 tablet, Oral, ONCE, 1 dose, On Sun08/27/15 at 1044, Maximum dose of acetaminophen is 4000 mg from all sources in 24 hours., STAT 1055 (Given - Provid er: Mikey Lowery RN) documented in this encounter Care Teams Assembler Metal Furniture Relationship Specialty Start Date End Date Miki Sandoval MD [facility] [address] [place] [address] PCP - General 04/11/11 05/09/17 documented as of this encounter
--- OUTSIDE RECORDS SUMMARY | 2024-11-05 01:49 | XMS_ITS | Encounter Summary ---
Author Organization [facility] Address [facility] [place] [address] Care Team Providers Care Contracts Law Professor Name Role Phone Marco Reina MD Primary Care Provider + Encounter Details Date Type Department Care Team (Late st Contact Info) Description 04/08/2020 Telephone Dermatology at [facility] [address] [place] [address] Isamar Duffy MD [facility] [address] [place] [address] Social History Tobacco Use Types Packs/Day Years [...] encounter Miscellaneous Notes * Telephone Encounter - LiNancyFloresita R - 04/08/2020 12:04 PM EDT I contacted patient today to reschedule postponed December visit. I was not able to speak with patientwhen I called but I was able to leave a message with [phone] for call back. documented in this encounter Plan of Treatment Upcoming Encounters Date Type Department Care Team (Late st Contact Info) Description 11/05/2024 10:30 AM EST Office Visit Hematology/Oncology at [address] [phone] Sha Figueroa MD [facility] DR HEMATOLOGY [place] [address] Stephany Kramer, BAHMAN [address] [place] [address] [place] [address] 11/11/2024 8:45 AM EST Office Visit Dermatology at [place] [address] [facility] [place] [address] Rusty Flores MD [address] [facility] [place] [address] documented as of this encounter Visit Diagnoses Not on filedocumented in this encounter Care Teams Contracts Law Professor Relationship Specialty Start Date End Date Marco Reina MD [address] [place] [address] PCP - General Family Medicine 07/08/19 10/01/21 documented as of this encounter
--- OUTSIDE RECORDS SUMMARY | 2024-11-05 01:49 | XMS_ITS | Encounter Summary ---
Author Organization [facility] Address [facility] [place] [address] Care Team Providers Care Online Activist Name Role Phone Marco Reina MD Primary Care Provider + Reason for Visit * Reason Comments Procedure Encounter Details Date Type Department Care Team (Late st Contact Info) Description 09/01/2019 1:45 PM EST Office Visit Dermatology at [address] [phone] Isamar Duffy MD [facility] [address] [place] [address] Encounter for cosmetic procedure Social History Tobacco Use Types Packs/Day Years [...] as of this encounter Progress Notes * Dasha Cisneros LPN - 09/01/2019 1:45 PM EST N/C consult- treatment done today documented in this encounter Plan of Treatment Upcoming Encounters Date Type Department Care Team (Late st Contact Info) Description 11/05/2024 10:30 AM EST Office Visit Hematology/Oncology at [place] [phone] Sha Figueroa MD [facility] DR HEMATOLOGY [place] [address] Stephany Kramer APRN [address] [place] [address] [place] [address] 11/11/2024 8:45 AM EST Office Visit Dermatology at [place] [address] [facility] [place] [address] Rusty Flores MD [address] [facility] [place] [address] documented as of this encounter Visit Diagnoses Diagnosis Encounter for cosmetic procedure documented in this encounter Care Teams Online Activist Relationship Specialty Start Date End Date Marco Reina MD [address] [place] [address] PCP - General Family Medicine 07/08/19 10/01/21 documented as of this encounter
--- OUTSIDE RECORDS SUMMARY | 2024-11-05 01:49 | XMS_ITS | Encounter Summary ---
Author Organization [facility] [place] [address] Care Team Providers Care Child Care Group Leader Name Role Phone Junior España DO Primary Care Provider +1- [phone] Reason for Visit * Reason Comments Follow-up discuss continued sl eep issues - only getting 3-4 hours of fitful sleep Encounter Details Date Type Department Care Team (Late st Contact Info) Description 01/17/2019 10:00 AM EDT Office Visit Family Medicine at [facility] [address] [place] [phone] [place] [address] CAROLYNE (generalized anxiety disorder) (Primary Dx); Insomnia, unspecified type Social History Tobacco Use Types Packs/Day Years [...] Sign Reading Time Taken Comments Blood Pressure 120/62 01/17/2019 9:59 AM EDT Pulse 64 01/17/2019 9:59 AM EDT Temperature - - Respiratory Rate 18 01/17/2019 9:59 AM EDT Oxygen Saturation 97% 01/17/2019 9:59 AM EDT Inhaled Oxygen Concentration - - Weight 88.5 kg (195 lb 3.2 oz) 01/17/2019 9:59 A M EDT Height 172.7 cm (5' 7.99) 01/17/2019 9:59 AM ED T Body Mass Index 29.69 01/17/2019 9:59 AM EDT documented in this encounter Patient Instructions * Patient Instructions* Junior España, - 01/17/2019 10:00 AM EDT 1. Insomnia, unspecified type UNCONTROLLED; 2 night trial Trazodone not effective. Consider trial Buspar for sleep and anxiety. 2. CAROLYNE (generalized anxiety disorder) UNCONTROLLED; please increase Zoloft back to 100 mg; may increase to 1.5 tab (150 mg) if no change after 1 week. - sertraline (ZOLOFT) 100 mg Tablet; Take 1 tablet by mouth daily. Dispense: 90 tablet; Refill: 1 *Please reschedule local Psych/counseling Consider trial Buspar; take at bedtime; may take up to 3x/day for anxiety; potentially safer alternative to Klonopin given age >65 yrs. If no change after 1 tab may increase to 2 tabs (10 mg) up to 3x/day. - busPIRone (BUSPAR) 5 mg Tablet; Take 1 tablet by mouth 3 times daily as needed (anxiety). Dispense: 90 tablet; Refill: 1 -The risks, benefits, alternatives and indications for the use of mediations prescribed or recommended during today's visit were reviewed with the patient. The patient understood and agreed with whatwas discussed. All questions were answered. Sleep Hygiene Tips Establish a regular time for going to bed and getting up in the morning. Stick to this schedule even on weekends and during vacations. Use the bed for sleep and sexual relations only, not for reading, watching television, working on computer or working. Excessive time in bed disrupts sleep. Avoid naps, especially in the evening. Exercise before dinner. A low point in energy occurs a few hours after exercise; sleep will then come more easily. Exercising close to bedtime, however, may increase alertness. Take a hot bath about 1.5-2 hours before bedtime. This alters the body's core temperature rhythm and helps people fall asleep more easily and more continuously. (taking a bath shortly before bed increases alertness.) Do something relaxing in the 30 minutes before bedtime. Reading, meditation, and a leisurely walk are all appropriate activities. Keep the bedroom relatively cool and well ventilated. Do not look at the clock. Obsessing over time will just make it more difficult to sleep. Eat light meals and schedule dinner 4-5 hours before bedtime. A light snack before bedtime can helpsleep, but a large meal may have the opposite effect. Spend a half hour in the sun each day. The best time is early in the day. (Take precautions againstoverexposure to sunlight by wearing protective clothing and sunscreen.) Avoid fluids just before bedtime so that sleep is not disturbed by the need to urinate. Avoid caffeine in the hours before sleep. (in fact caffeine lasts in the body a prolonged time - 1 cup this morning takes 30 hours before 95% of it is cleared from the system.) If one is still awake after 15-20 minutes, go into another room, read or do a quiet activity using dim lighting until feeling very sleepy. (Don't watch television, use back lit computer screens, or use bright lights.) If distracted by a sleeping bed partner, moving to the couch or a spare bed for a couple of nights might be helpful. documented in this encounter Progress Notes * Junior España DO - 01/17/2019 10:00 AM EDT Subjective: Return in about 1 month (around 02/14/2019) for recheck CAROLYNE & insomnia after med trial. Patient ID: Isrrael Anton is a 63 y.o. male. Chief Complaint Patient presents with ??? Follow-up discuss continued sleep issues - only getting 3-4 hours of fitful sleep Est pat presenting for recheck sleep (first encounter 11/2018); Sleeping well: It varies; difficult starting & staying asleep; [facility] & [facility] 2 mg 08/2001 (stopped 08/2018) Tx OTC Aleve PM [...] last sleep study ~2017 Dr. Mota of [facility]; nightly Klonopin & Ambien at that time. (+) restless legs 3 panic attacks in last 2 months. - Prior PRN OTC trial Unisom and Aleve PM; stopped working a month ago - last trial Melatonin 3-4 weeks ago; increased restlessness - Trial Trazodone 100 mg last 2 night; some what tired, through the night increased dreams, I have always nightmarish dreams since 2000; IMPROVED w/prior Ambien & Klonopin use. - Psychiatry Ashley Lieberman based in [facility] 10/2018 GAD7 Questionnaires Data: last 4 values of anxiety scores CAROLYNE-7 Questionnaire Score Only 01/17/2019 CAROLYNE-7 Score (Clinic) 15 PHQ9 Questionnaires Data (Clinic and Pt Entered): last 4 values PHQ-9 QUESTIONNAIRE LAST 4 VALUES (AMB) 11/20/2018 01/17/2019 PHQ - 9 Score (Clinic) - 13 (Moderate Depression) Little interest or pleasure (Clinic) - Several Days Little interest or pleasure (Patient) Not at all - Down, depressed, hopeless (Clinic) - Not at all Down, depressed, hopeless (Patient) Not at all - Trouble sleeping (Clinic) - Nearly every day Tired or no energy (Clinic) - Nearly every day Poor appetite or overeating (Clinic) - Several days Feeling like a failure (Clinic) - Several Days Trouble concentrating (Clinic) - More than half the days Moving or speaking slowly (Clinic) - More than half the days Would be better off (Clinic) - Not at all BP Readings from Last 3 Encounters: 01/17/19 120/62 11/27/18 129/61 11/21/18 116/64 HPI Social History Social History Narrative Lives w/spouse (Ashley, 1972, 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 [employer] x 20 yrs (no [facility]) Inherited [employer] 2012 after working it for many years Daughter 1976, Son 1982 both live in [place] (4 grandchildren) Pat grew-up in [place], parents , no siblings Enjoys; plays Guitar, walk/hiking, swimming, reading still figuring out [facility] Review of Systems Respiratory: Negative for chest tightness and shortness of breath. Cardiovascular: Negative for chest pain and palpitations. Gastrointestinal: Negative for blood in stool. Genitourinary: Negative for hematuria. Psychiatric/Behavioral: Positive for dysphoric mood and sleep disturbance. Negative for agitation, behavioral problems, confusion, decreased concentration, hallucinations, self-injury and suicidal ideas. The patient is nervous/anxious. The patient is not hyperactive. Objective: Patient reported measures: Pain:3 Physical Health:Very Good Fall: PHQ-9 QUESTIONNAIRE SCORE ONLY (AMB) 01/17/2019 PHQ - 9 Score (Clinic) 13 (Moderate Depression) No LMP for male patient. Physical Exam Psychiatric: His behavior is normal. Judgment and thought content normal. His mood appears anxious.His speech is rapid and/or pressured. Cognition and memory are normal. Constitutional: Well developed, well nourished, no acute distress, non-toxic appearance Respiratory: No respiratory distress, normal breath sounds, no rales, no wheezing Cardiovascular: Normal rate, normal rhythm, no murmurs, no gallops, no rubs, no ankle edema Integument: Well hydrated, no rash Neurologic: Alert & oriented x 3, no focal deficits noted Assessment and Plan: Assessment/Plan Patient Instructions 1. Insomnia, unspecified type UNCONTROLLED; 2 night trial Trazodone not effective. Consider trial Buspar for sleep and anxiety. 2. CAROLYNE (generalized anxiety disorder) UNCONTROLLED; please increase Zoloft back to 100 mg; may increase to 1.5 tab (150 mg) if no change after 1 week. - sertraline (ZOLOFT) 100 mg Tablet; Take 1 tablet by mouth daily. Dispense: 90 tablet; Refill: 1 Consider trial Buspar; take at bedtime; may take up to 3x/day for anxiety; potentially safer alternative to Klonopin given age >65 yrs. If no change after 1 tab may increase to 2 tabs (10 mg) up to 3x/day. - busPIRone (BUSPAR) 5 mg Tablet; Take 1 tablet by mouth 3 times daily as needed (anxiety). Dispense: 90 tablet; Refill: 1 -The risks, benefits, alternatives and indications for the use of mediations prescribed or recommended during today's visit were reviewed with the patient. The patient understood and agreed with whatwas discussed. All questions were answered. Sleep Hygiene Tips Establish a regular time for going to bed and getting up in the morning. Stick to this schedule even on weekends and during vacations. Use the bed for sleep and sexual relations only, not for reading, watching television, working on computer or working. Excessive time in bed disrupts sleep. Avoid naps, especially in the evening. Exercise before dinner. A low point in energy occurs a few hours after exercise; sleep will then come more easily. Exercising close to bedtime, however, may increase alertness. Take a hot bath about 1.5-2 hours before bedtime. This alters the body's core temperature rhythm and helps people fall asleep more easily and more continuously. (taking a bath shortly before bed increases alertness.) Do something relaxing in the 30 minutes before bedtime. Reading, meditation, and a leisurely walk are all appropriate activities. Keep the bedroom relatively cool and well ventilated. Do not look at the clock. Obsessing over time will just make it more difficult to sleep. Eat light meals and schedule dinner 4-5 hours before bedtime. A light snack before bedtime can helpsleep, but a large meal may have the opposite effect. Spend a half hour in the sun each day. The best time is early in the day. (Take precautions againstoverexposure to sunlight by wearing protective clothing and sunscreen.) Avoid fluids just before bedtime so that sleep is not disturbed by the need to urinate. Avoid caffeine in the hours before sleep. (in fact caffeine lasts in the body a prolonged time - 1 cup this morning takes 30 hours before 95% of it is cleared from the system.) If one is still awake after 15-20 minutes, go into another room, read or do a quiet activity using dim lighting until feeling very sleepy. (Don't watch television, use back lit computer screens, or use bright lights.) If distracted by a sleeping bed partner, moving to the couch or a spare bed for a couple of nights might be helpful. documented in this encounter Plan of Treatment Upcoming Encounters Date Type Department Care Team (Late st Contact Info) Description 11/05/2024 10:30 AM EST Office Visit Hematology/Oncology at [address] [phone] Sha Figueroa MD [facility] [place] [address] Stephany Kramer APRN [address] [place] [address] [place] [address] 11/11/2024 8:45 AM EST Office Visit Dermatology at [place] [address] [place] [phone] Rusty Flores MD [address] [facility] [address], [place] [address] documented as of this encounter Visit Diagnoses Diagnosis CAROLYNE (generalized anxiety disorder)- Primary Generalized anxiety disorder Insomnia, unspecified type documented in this encounter Care Teams Child Care Group Leader Relationship Specialty Start Date End Date Junior España, [facility] [address] [place] [address] PCP - General Family Medicine 11/21/18 07/07/19 documented as of this encounter
--- OUTSIDE RECORDS SUMMARY | 2024-11-05 01:49 | XMS_ITS | Encounter Summary ---
Author Organization [facility] Address [facility] [place] [address] Care Team Providers Care Dinkey Operator Slag Name Role Phone Marco Reina MD Primary Care Provider + Encounter Details Date Type Department Care Team (Late st Contact Info) Description 07/14/2020 Telephone Functional [facility] at [facility] [address] [place] [address] Elsa Romano Social History Tobacco Use Types Packs/Day Years [...] encounter Miscellaneous Notes * Telephone Encounter - Elsa Romano - 07/16/2020 8:16 AM EDT Attempted to reach patient in regards to canceled GAPP assessment, but was unsuccessful as the homephone rang multiple times and eventually went to a busy signal and the cell number does not have a voicemail set up. * Telephone Encounter - Elsa Romano - 07/14/2020 9:47 AM EDT Left message informing patient that his GAPP assessment on 07/19/20 needs to be cancelled. Asked patient to call back [phone] to discuss plan moving forward. Per Kimmy, GAPP needs to be cancelled as patient is having a hernia surgery on 07/23/20 and needs to be cleared by his surgeon before completing GAPP assessment. documented in this encounter Plan of Treatment Upcoming Encounters Date Type Department Care Team (Late st Contact Info) Description 11/05/2024 10:30 AM EST Office Visit Hematology/Oncology at [address] [phone] Sha Figueroa MD [facility] DR HEMATOLOGY [place] [address] MEDICAL ONCOLOGY [place], [place] [address] 11/11/2024 8:45 AM EST Office Visit Dermatology at [address] [phone] Rusty Flores MD [address] [facility] [place] [address] documented as of this encounter Visit Diagnoses Not on filedocumented in this encounter Care Teams Dinkey Operator Slag Relationship Specialty Start Date End Date Marco Reina MD [address] [place] [id number] PCP - General Family Medicine 07/08/19 10/01/21 documented as of this encounter
--- OUTSIDE RECORDS SUMMARY | 2024-11-05 01:49 | XMS_ITS | Encounter Summary ---
Author Organization [facility] Address [facility] [place] [address] Care Team Providers Care Jumpbasting Collar Baster Name Role Phone Junior España Primary Care Provider +1- [phone] Encounter Details Date Type Department Care Team (Late st Contact Info) Description 06/12/2018 Orders Only Hematology/Oncology at [address] [phone] Reny Lawler APRN Chronic lymphocytic leukemia not having achieved remission Social History Tobacco Use Types Packs/Day Years [...] 10:30 AM EST Office Visit Hematology/Oncology at [address] [phone] Sha Figueroa MD [facility] DR HEMATOLOGY [place] [address] Stephany Kramer APRN [address] [place] [address] DR MEDICAL ONCOLOGY [place], [place] [id number] 11/11/2024 8:45 AM EST Office Visit Dermatology at [address] [place] [phone] Rusty Flores MD [address] [address] [place] [address] documented as of this encounter Results * (ABNORMAL) Lactate Dehydrogenase (06/17/2018 1:41 PM EDT) Lactate Dehydrogenase 238(H) 110 - 220 unit/L [facility] Blood specimen (specimen) 06/17/2018 1:41 PM EDT 06/17/2018 2:12 PM EDT Narrative Resulting Agency Comment Spec In Lab Reny Lawler FEATHER MAKER CHEMISTRY ORDERABLES [facility] [place] [address] * Comprehensive metabolic panel (non-fasting) (06/17/2018 1:41 PM EDT) Glucose 84 65 - 199 mg/dL [facility] Comment:Diabetes: >=200 mg/d L plus symptoms Blood Urea Nitrogen 16 10 - 20 mg/dL [facility] Creatinine 0.88 0.80 - 1.50 mg/dL [facility] Sodium 140 135 - 145 mmol/L [facility] Potassium 4.0 3.5 - 5.0 mmol/L [facility] Comment: Please note: ??Patients with WBC >100,000 may have falsely elevated Potassium levels. ??For accurate Potassium quantification in these patients send serum separator tube (gold top) for subsequent determinations. ??Contact the Clinical Chemistry Laboratory if there are any questions. Chloride 104 98 - 107 mmol/L [facility] Carbon Dioxide 24 22 - 31 mmol/L [facility] Anion Gap 12 5 - 15 mmol/L [facility] Calcium 8.9 8.5 - 10.5 mg/dL [facility] Protein, Total 6.5 6.1 - 8.0 gm/dL [facility] Albumin 4.4 3.2 - 5.2 gm/dL [facility] Aspartate Aminotransferase 26 0 - 39 unit/L [facility] Alanine Aminotransferase 26 0 - 55 unit/L [facility] Alkaline Phosphatase 65 40 - 120 unit/L [facility] Bilirubin, Total 0.5 0.2 - 1.3 mg/dL [facility] Est Glomerular Filtration Rate 90 >=60 mL/min/1. 73 m?? [facility] Comment: The eGFR was calculated using the CKD-EPI equation. As with all creatinine based estimates of kidney function, eGFR values calculated with the CKD-EPI equation are not accurate in patients with acute kidney failure, extremes of body mass or the acutely ill. [email or web address] [email or web address] eGFR 104 >=60 mL/min/1. 73 m?? [facility] Comment: The eGFR was calculated using the CKD-EPI equation. As with all creatinine based estimates of kidney function, eGFR values calculated with the CKD-EPI equation are not accurate in patients with acute kidney failure, extremes of body mass or the acutely ill. [email or web address] [email or web address] Blood specimen (specimen) 06/17/2018 1:41 PM EDT 06/17/2018 2:12 PM EDT Narrative Resulting Agency Comment Spec In Lab Reny Lawler FEATHER MAKER CHEMISTRY ORDERABLES Performing Organization Address City/State/[facility] Co de Phone Number [facility] [place] [address] documented in this encounter Visit Diagnoses Diagnosis Chronic lymphocytic leukemia not having achieved remission documented in this encounter Care Teams Jumpbasting Collar Baster Relationship Specialty Start Date End Date Junior España [facility] [address] [place] [address] PCP - General Family Medicine 06/04/18 06/16/18 documented as of this encounter
--- OUTSIDE RECORDS SUMMARY | 2024-11-05 01:49 | XMS_ITS | Encounter Summary ---
Author Organization Formerly [facility] Address [facility] [place] [address] Care Team Providers Care Rn Dialysis Name Role Phone Marco Reina MD Primary Care Provider + Reason for Referral * Psychiatric (Routine) - Specialty Diagnoses / Procedures Referred By Contac t Referred To Contact Psychiatry Diagnoses Chronic lymphocytic leukemia Cornel Jacobs APRN [facility] [address] [place] [address] Bety Savage, PhD [facility] [place] [address] Referral ID Status Reason Start Date Expiration Date V isits Requested Visits Authorized [id number] Consult, Test & Treat 06/25/2018 06/25/2019 1 1 Reason for Visit * Reason Comments Follow-up Encounter Details Date Type Department Care Team (Late st Contact Info) Description 06/17/2018 2:45 PM EDT Office Visit [place]ematology [place] [phone] Sha Figueroa MD [facility] [place] [address] Cornel Jacobs APRN Burns, Timothy F, MD Chronic lymphocytic leukemia Social History Tobacco Use Types Packs/Day Years Used Date Smoking Tobacco: Never Smokeless Tobacco: Never Sex and Gender Information Value Date Recorded Sex Assigned at Not on file Gender Identity Not on file Sexual Orientation Not on file documented as of this encounter Last Filed Vital Signs Vital Sign Reading Time Taken Comments Blood Pressure 122/64 06/17/2018 2:52 PM EDT Pulse 41 06/17/2018 2:52 PM EDT Temperature 36.2 ??C (97.2 ??F) 06/17/2018 2:52 PM ED T Respiratory Rate 18 06/17/2018 2:52 PM EDT Oxygen Saturation - - Inhaled Oxygen Concentration - - Weight 84.5 kg (186 lb 3.2 oz) 06/17/2018 2:52 P M EDT Height 171.7 cm (5' 7.6) 06/17/2018 2:52 PM EDT Body Mass Index 28.65 06/17/2018 2:52 PM EDT documented in this encounter Progress Notes * Cornel Jacobs, FORGING ROLL OPERATOR - 06/17/2018 2:45 PM EDT Subjective: Patient ID: Isrrael Anton is a 63 y.o. male here for f/u of CLL Patient Active Problem List Diagnosis ??? Viral warts ??? AK (actinic keratosis) ??? Acrochordon ??? History of basal cell carcinoma ??? CLL (chronic lymphocytic leukemia) 1. 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 a. Tanner 70 neg, Chrom 13 abnm by FISH (good prognosis) b. Observation only ??? History of hepatitis C, successfully treated HPI Isrrael is recently retired. He is changing all his medical care to [facility] - he is looking into new PCP - on the list. He has been doing OK . He has been healthy. He did get pneumonia this winter - treated as an outpatient with antibiotics. He also was doagnosed wth the flu and treated with Tamiflu. He also had a fall off an 8 foot ladder and hurt his left shoulder. He is NOT UTD on pneumonia vaccines - he did get Bad headache with an older pneumonia vaccine 4-5 years ago. He does not getannual flu vaccine. He is not sure why - he thinks someone at some time told him not to - but he isnot sure why. He is still having a lot of fatigue. He does use CPAP machine - he has sleep medicine appointment in [place] this fall. He also still continues with memory issues - has had neurophych testing - did not have annual follow up last year - he is willing to check back in with them. He does admit to anxiety and he is hoping to have new mental health providers. He would like to re-engage with neurophysch team. He denies any lumps or bumps. No drenching night sweats. He is [employer] and also has audiology appointmnett coming up. He does enjoy caring for his grandchildren who he spends quite a bit of time with - ages from 2.5-9= 4 in total. Review of Systems Constitutional: Negative. HENT: Negative. Eyes: Negative. Respiratory: Negative. Negative for cough and shortness of breath. Cardiovascular: Negative. Negative for chest pain, palpitations and leg swelling. Gastrointestinal: Negative. Negative for constipation, diarrhea, nausea and vomiting. Genitourinary: Negative. Musculoskeletal: Positive for arthralgias. ? RA - chronic History of herniated discs with radicular pain - now he describes neuropahty of feet with distortedtoes. Skin: Negative. Neurological: Positive for numbness. Negative for weakness. Chronic in both feet - worse after activity - believes this is secondary to previous herniated discs. Unchanged. Hematological: Negative. Psychiatric/Behavioral: Negative. Objective: Physical Exam Constitutional: He is oriented to person, place, and time. He appears well- developed and well-nourished. No distress. HENT: Head: Atraumatic. Mouth/Throat: Oropharynx is clear and moist. No oropharyngeal exudate. Eyes: Conjunctivae are normal. Pupils are equal, round, and reactive to light. Neck: Normal range of motion. Neck supple. Cardiovascular: Normal rate, regular rhythm and normal heart sounds. No murmur heard. Pulmonary/Chest: Effort normal and breath sounds normal. Abdominal: Soft. Bowel sounds are normal. Musculoskeletal: Normal range of motion. He exhibits no edema. Lymphadenopathy: He has no cervical adenopathy. Neurological: He is alert and oriented to person, place, and time. Skin: Skin is warm and dry. Psychiatric: He has a normal mood and affect. Assessment and Plan: 1. Assessment: CLL. Counts stable, No worrisome or symptomatic adenoapthy. No B symptoms, ALC has actually declined over the past 8 years, No recurrent infections, no signs of AIHA or ITP. No concernfor transformation. No indication for treatment at this time. Reviewed CLL and indications for therapy, Also reviewed inherent increase risk for infection. Influenza = encouraged Pneumococcal - not UTD - encouraged to follow up with PCP To get UTD. 2. I do not believe his fatigue is related to his CLL dx. More likley secondary to other etiologiesincluding sleep apnea and anxiety - he does have follow up for this coming up. 3. Re-referrral to neurophysch - follow up from testing 2 years ago. Plan: We will continue to monitor in hematology clinic. Reviewed CLL and indications for treatment.Isrrael will return to hematology in 12months. he will call if there are any problems before then. documented in this encounter Miscellaneous Notes * Addendum Note - Cornel Jacobs APRN - 06/25/2018 3:19 PM EDTAddended by: CORNEL JACOBS on: 06/25/2018 03:19 PM Modules accepted: Orders documented in this encounter Plan of Treatment Upcoming Encounters Date Type Department Care Team (Late st Contact Info) Description 11/05/2024 10:30 AM EST Office Visit Hematology/Oncology at [address] [phone] Sha Figueroa MD [facility] DR HEMATOLOGY [place] [address] Stephany Kramer APRN [address] [place] [address] [place] [address] 11/11/2024 8:45 AM EST Office Visit Dermatology at [address] [place] [phone] Rusty Flores MD [address] [place] [address], [place] [address] Scheduled Referrals Name Type Priority Associated Diagnoses Orde r Schedule Referral to Psychiatry Outpatient Referral Routine Chronic lymphocytic leukemia Ordered: 06/25/2018 documented as of this encounter Visit Diagnoses Diagnosis Chronic lymphocytic leukemia Chronic lymphoid leukemia, without mention of having achieved remission documented in this encounter Care Teams Rn Dialysis Relationship Specialty Start Date End Date Marco Reina MD [address] [place] [address] PCP - General General Internal Medicine 06/17/182 documented as of this encounter
--- OUTSIDE RECORDS SUMMARY | 2024-11-05 01:49 | XMS_ITS | Encounter Summary ---
Author Organization [facility] Address [facility] [place] [address] Care Team Providers Care Entry Level Manager Name Role Phone Marco Reina MD Primary Care Provider + Reason for Visit * Psychiatric (Routine) - Specialty Diagnoses / Procedures Referred By Contvicki t Referred To Contact Psychiatry Diagnoses Chronic lymphocytic leukemia Reny Lawler, PENSION MANAGER [facility] DR HEMATOLOGY [place] [address] Bety Savage, PhD [facility] [place] [address] Referral ID Status Reason Start Date Expiration Date V isits Requested Visits Authorized [id number] Consult, Test & Treat 06/25/2018 06/25/2019 1 1 Encounter Details Date Type Department Care Team (Late st Contact Info) Description 07/15/2018 9:00 AM EDT Office Visit Psychiatry and Behavioral Health at [place] [phone] Bety Savage, PhD [facility] [place] [address] Chronic lymphocytic leukemia; Depression, unspecified depression type; Anxiety Social History Tobacco Use Types Packs/Day Years Used Date Smoking Tobacco: Never Smokeless Tobacco: Never Sex and Gender Information Value Date Recorded Sex Assigned at Not on file Gender Identity Not on file Sexual Orientation Not on file documented as of this encounter Progress Notes * Bety Savage, PhD - 07/15/2018 9:00 AM EDT [facility] Neuropsychological Evaluation Background and Reason for Referral: Mr. Isrrael Anton was referred for brief neuropsychological evaluation by Reny Lawler APRN in the context of a history of chronic lymphocytic leukemia (CLL). This is his second [facility] neuropsychological evaluation, having completed a previous evaluation on 016. Background information was obtained from review of selected medical records and an interview with the patient. Mr. Anton???s history is well known to his treatment team and will not be repeated in detail here. In brief, Mr. Anton was diagnosed with CLL Stage 0 in August of 2009. To date, he has only required regular observation by his cancer treatment team, as he has shown stable blood counts (with declines in ALC over the past 8 years), no recurrent infections, no symptomatic adenopathy, and no signs of AIHA or ITP. In 2016, Mr. Anton was referred for a neuropsychological evaluation due to concerns of fatigue, a ???mental fog,?? word finding difficulty, and problems with short-term memory. Results of that evaluation indicated that his cognitive functioning was largely intact with the exception of a subtle weakness in attention and a mild impairment on a measure of verbal learning and memory. S charla that evaluation, Mr. Anton retired and has recently begun addressing longstanding issues with sleep and anxiety. He and his psychiatrist are attempting to wean him off of Klonopin and Ambien, which he has taken for nearly 15 years. As he has stepped down his dosage, he has noticed rebound anxiety and disturbed sleep, and he believes that these symptoms may also be contributing to his currentcognitive problems. He reported continued difficulties with short- term memory and occasionally long-term memory, decreased attention, slow processing speed, decreased organization and multitasking abilities, word finding problems, and an increased incidence of bumping into objects when navigating through space. Although he felt certain that his attentional abilities had declined since his evaluation in 2016, he was less certain about the progression of other difficulties. He completes basic activities of daily living without issue; he noted an increased reliance on a calculator when managing his finances or attempting arithmetic, and he indicated getting lost once while driving around [facility] recently. Otherwise, he denied noticing significant changes in his instrumental activities of daily living. A CT scan of the brain completed at [facility] () was interpreted as normal. 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 He indicated that his work environment had been stressful, so he was grateful for the change; however, the transition to penitentiary has also been somewhat stressful. 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 With respect to sleep, Mr. Anton reported a history of sleeping difficulties that have been exacerbated by his recent medication changes, and he experiences frequent daytime fatigue. He indicated that he often experiences nightmares and teeth clenching while he sleeps, which is typically only around 5-6 hours per night. He reported being compliant with his CPAP, although the device has been disruptive to his ???s sleep in the past, so he has started a referral to a sleep specialist in order to be fitted for an alternate device. He reported a past psychiatric diagnosis of generalized anxiety disorder, but he suspected that he had PTSD and depression as well. He has had two visits with a new psychiatrist, Dr. Ashley Lieberman, primarily for medication management; he thought that their visits had been helpful. He denied suicidal ideation, homicidal ideation, or experiencing auditory/visual hallucinations. He does not currently smoke tobacco, drink alcohol, or use illicit substances, although he has considered pursuing a prescription for medicinal marijuana for sleep. Records indicate that Mr. Anton???s gestation and were within normal limits, and he reached developmental milestones at appropriate ages. In the previous neuropsychological evaluation, he characterized himself as a ???terrible student?? who was shy and distractible. After dropping out of [employer] in the 11th grade, he joined the [employer] and completed high school by taking classes offered through the . He eventually completed a bachelor???s degree in Human Services. His medical history is otherwise notable for GERD, arthritis in his wrists, knees, and back, chronic pain in his lower back due to herniated disc, sciatica, hepatitis C (successfully treated), COPD, and bronchitis. Medical records reference a fall approximately 22 years ago, but additional details about sequelae relevant to a possible head injury (e.g., neuroimaging results, loss of consciousness) were not available. He reported sustaining a 7-8 foot fall off of a ladder in October of 2017 in which he hit his head and shoulder. A CT scan completed at [facility] (11/10/2017)was interpreted as normal. He reported not experiencing any loss of consciousness or noticing any lasting cognitive changes as a result of the fall. Family history is notable for lung disease and aneurysm. His medications are listed in ED. Behavioral Observations: Mr. Anton was alert and fully cooperative with the evaluation. He was casually dressed and appropriately groomed. Gross motor function was unremarkable on informal examination. He wore hearing aids and was able to understand test instructions and conversation without difficulty. He was talkative, and expressive language was notable for frequent word finding difficulties. Thought processes were occasionally tangential, although he was receptive to redirection; they were otherwise coherent and of normal content. He initially described his mood as ???good,?? although heendorsed anxiety more generally; his affect generally appeared worried. He noted that his back painwas a 4 or 5 out of 10 on the date of testing. Nevertheless, he appeared motivated to perform to the best of his ability and put forth consistent effort. The obtained results are generally felt to hanane valid indication of his current level of functioning on the tests administered. Tests Administered: Rebecca Adult Intelligence Scale - IV (WAIS-IV; selected subtests); Symbol-Digit Modalities Test; Reitan Healy-Making Test; Judgment (from the Neurobehavioral Cognitive Status Exam); Ragland Verbal Learning Test - Revised; Rebecca Memory Scale - IV (Logical Memory subtest); Brief Visuospatial Memory Test - Revised (BVMT-R); Letty-Lainez Executive Function System (Verbal Fluency Test, Letters and Categories only); [place]ilene Naming Test; [place] Diagnostic Aphasia Examination (BDAE; selected subtests); Wide Range Achievement Test 4 (WRAT-4; Math Computation); [place]aca Visual Organization Test; Drawings to Command and Copy; Grooved Pegboard Test; Thumb-Finger Sequencing Test; Vigil Depression Inventory - II; State-Trait Anxiety Inventory. Test Results: Attention and Executive Abilities: Mr. Anton???s simple auditory attention and auditory working memory were intact. Processing speed was in the average range on several measures and in the borderlinerange on another (a timed test of symbol-digit coding), although the latter score appeared primarily due to a couple instances in which he lost his place. Practical judgment and performance on a measure of cognitive flexibility were in the average range. Verbal and nonverbal abstract reasoning werein the average and high average ranges, respectively. Overall, attention and executive abilities were intact. Learning and Memory: Learning of a word list across three trials was in the mildly impaired range, with benefit from repetition. Of note, this was the first test administered in the evaluation, and anxiety may have played a role in his difficulty. Delayed recall and recognition of the words list were in the low average range, with only one false positive error during recognition, indicating that he ultimately encoded and retained the information in memory. Learning and delayed recall of a display of six geometric figures was in the average range, with benefit from repetition; recognition memory was intact (perfect score). Immediate and delayed recall for stories was in the average range, with intact recognition. Overall, impairment was noticed for initial learning of a verbal list, but that may have been at least partly anxiety-related; consolidation of the information appeared adequateand performance was intact on other verbal and visuospatial learning and memory tests. Language Skills: Rapid generation of words in response to letter cues was in the high average range; generation in response to category cues was in the average range. Confrontation naming was in the average range, was without paraphasic errors or perceptual distortions, and showed benefit from the provision of phonemic cues (4/4 correct). This is in contrast to his frequent word-finding difficulties in free conversation, which may have been related to the fact that conversation is less structured and/or may have been anxiety-related. Repetition of short words and sentences, a narrative writing sample, and ability to read and comprehend short sentences were intact. Performance on a task requiring comprehension of nuanced language in brief questions and short stories was in the low average range. Overall, assessed expressive and receptive language abilities were intact on formal testing. Spatial Skills: Drawings to command and copy ranged from the mildly impaired to high average range;he had particular difficulty copying a cube. He also showed some imprecision in a copy-drawing of overlapping figures. However, his ability to copy a cross was well within normal limits. His performance on other measures of visuospatial ability was within normal limits. Specifically, visuoperceptual ability was in the average range on a measure involving integration of disassembled pictures. Ability to reproduce two dimensional designs using blocks was also in the average range. Overall, exceptfor difficulty on some drawing tasks, his visuoperceptual, spatial and constructional skills were in the average range. Motor Skills: On the Grooved Pegboard Test, fine motor coordination and speed were in the average range bilaterally. Thumb-finger sequencing was also in the average range bilaterally. Mood: On self-report measures of mood, he endorsed severe symptoms of depression. He indicated having some thoughts of suicidal ideation, but he denied intention or plan. He also endorsed a severe degree of symptoms consistent with trait anxiety, although a milder degree of anxiety was noted for the day of the evaluation. Comparison to Prior Testing: Compared to the results from his evaluation in 2016, declines were seen in his initial learning of unstructured verbal material (the word list); that is, he was not as quick or efficient at learning this information as he was in 2016. However, his ability to freely recall the information later improved from his performance in 2016, suggesting adequate consolidation and retrieval of information. He performed somewhat less well on one measure of processing speed in 2018 compared to 2016, but this was due to losing his place on the task, and his performance on the remaining measures of processing speed was stable. Left hand performance on a peg-placing task was lower than in 2016, but left hand thumb-finger sequencing showed no significant change, and across measures his left hand motor performance is still in the average range. Right hand motor performance wasstable from 2016 to 2018. Performance in the domains of attention, executive functioning, and expressive and receptive language was stable; he continued to demonstrate a weakness for drawing of some complex figures (stable). He endorsed a more severe degree of affective distress during the current evaluation than in 2016. Summary and Recommendations: On this neuropsychological evaluation, Mr. Anton???s performance was intact in most domains, including attention, working memory, learning and memory of contextual verbalinformation and visuospatial information, executive abilities, practical and abstract reasoning, expressive language, receptive language, reading, writing, math, visuospatial reasoning, and bilateralfine motor speed and dexterity. Mr. Anton demonstrated mild impairment for drawing, particularly asthe complexity of the figures increased, and for initial acquisition (learning) of unstructured verbal information (i.e., a word list). Once he had encoded the word list, however, he retained it and was able to freely recall the information later. In addition, his ability to learn and retain information on other memory measures was well within the average range. He endorsed a severe degree of affective distress consistent with symptoms of both depression and anxiety. Overall, his test performance indicates generally intact and stable cognitive functioning relative to his prior evaluation in 2016. He had greater difficulty learning a word list during this evaluation than during the former evaluation; as that difficulty was only seen on one test, it is possible that anxiety or depression contributed to this result as affective distress can impair learning through disrupted attention. As that particular test was the first test administered, initial anxiety about the evaluation could have hampered acquisition of new material as well. Overall, there was no consistent pattern of decline relative to the 2016 in any cognitive or fine motor domain assessed. However, he was experiencing greater depression and anxiety symptoms than at the time of the 2016 evaluation. Although his performance was generally within normal limits in the quiet and structured testing setting, people can experience greater cognitive difficulties in less structured contexts in everyday life, and that appears to be the case for Mr. Anton. In the context of his everyday activities, he reported difficulties in areas such as memory, attention, processing speed, word-finding, organization, and multitasking. Based on the above findings, we offer the following recommendations: 1. We will review the findings with Mr. Anton, emphasizing his generally intact and stable cognitive functioning on standardized testing, and reviewing the reasons he may be experiencing greater cognitive difficulty in everyday life, e.g., due to affective distress, fatigue, lack of sleep, pain, and situational factors such as distractions and multi-tasking demands. We will also review the following recommendations with him. 2. Mr. Anton reported that he is benefitting from starting to see a psychiatrist, Dr. Ashley Lieberman,and we encourage him to continue. He reported experiencing rebound anxiety as a result of adjustinghis psychiatric medications. He also reported some stress in the transition to penitentiary. As research suggests that the combination of medication and psychotherapy tends to be most efficacious for mood and anxiety disorders, we recommend that he discuss with his psychiatrist a possible referral for concurrent psychotherapy. Cognitive-behavioral therapy, in particular, could provide Mr. Anton with strategies to help manage distress and address unhelpful cognitions that exacerbate depression andanxiety. 3. Given that Mr. Anton reported experiencing difficulties with short-term memory in everyday life,we recommend the following internal strategies to support memory functioning: a. Elaborative rehearsal, which refers to repeating the information while also adding additional details or ways in which the new material can be connected to material already known. For example, if one was trying to remember the name of a new acquaintance (e.g., Krystal), one could say, ???Krystal, like my childhood friend?? or ???Krystal, she is sharp like a ???barbed-wire??? fence.?? b. Chunking, or breaking large amounts of new information into smaller, meaningful ???chunks,?? such as taking a 7-digit phone number and remembering it by the first three digits and the last four digits. c. Mnemonics, which will work best if they are self-generated rather than taught by someone else. As an example, a grocery list that included apples, bread, and carrots could be remembered by the acronym, ???ABC.?? d. Imagery or multi-modal use of information when learning new material. If he is trying to learn anew medication regimen, he could repeat the times and the dosages of the medication, picture the type of pills and the way they look, and envision a clock pointing to a specific time when he should take the medication. 4. It possible, as noted above, that he was better able to focus, concentrate, and learn due to thestructured setting of the testing environment. To the extent possible, he should try to adjust his working environments so that they resemble the testing room (i.e., with limited distractions, focusing on one task at a time, breaking larger tasks into smaller steps and completing one step at a time). He could also try reading or working on important material in the hog tender or other times when he is likely to experience few distractions. 5. To address his reported problems with attention in everyday life, he is encouraged to avoid external distractions (e.g., television) when needing to concentrate, limit exposure to fast-paced environments with multiple sensory demands, write down complicated information, and use checklists of work tasks rather than attempting to hold everything in mind 6. If he has difficulty implementing the suggestions in Items 3 through 5, he is welcome to contactus for clarification and/or he may wish to consider working with an occupational therapist to develop compensatory memory and organizational strategies. We will review this with him and coordinate with his referring clinician if a referral to OT is indicated. 7. As Mr. Anton indicated difficulty with insomnia and sleep, he is encouraged to follow up with his sleep specialist as planned. Depending on the results of that evaluation, a referral to a therapist who specializes in cognitive behavioral therapy for insomnia (CBT-I) could be beneficial, as well.Improvement in his sleep may also have benefit for his cognitive functioning. He may want to try the following sleep hygiene techniques: a. Progressive muscle relaxation exercises, which can be either self-taught online or taught by a psychotherapist or other qualified specialist b. Using the bed for sleep only, and avoiding watching television, using the computer, or eating while in bed c. Avoiding sleep-disturbing substances shortly before bedtime (e.g., afternoon caffeine) d. Developing a consistent ???wind down?? routine an hour before sleep, such as taking a shower and reading e. Keeping a cool and dark sleep environment f. Using a white noise machine to reduce distracting sounds g. Maintaining a regular time to go to bed and get up in the morning, even on the weekend h. If he struggles to fall asleep or wakes in the middle of the night, he may wish to get out of bed if not asleep within 30 minutes. He is encouraged to move to another room and engage in a quiet activity (e.g., reading, resting) for 15 minutes, then returning to bed and trying to sleep again i. Avoiding naps until regular sleep is established. He may also want to explore CBT-I Event Organizer, an odell for a Scint-X offered through the [place] [employer] that is intended to augment CBT- I and address unhelpful sleep habits. More information about the odell can be found at the following website: https://Colorescience.Apollidon.gov/odell/cbt-i-swimming coach or instructor 8. Certain types of pain (e.g., jaw clenching/grinding and associated pain, arthritis) can possiblybe alleviated with non-invasive means, such as talk therapy (e.g., progressive muscle relaxation for TMJ), mild exercise, or physical therapy. Mr. Anton is encouraged to speak with his new primary care provider about the different types of pain he experiences and ways to better manage that pain, which may in turn result in cognitive improvements. If his pain continues to be difficult to manage, areferral to the [facility] may be helpful. Referrals can be made bytreating physicians by calling [phone]. 9. Mr. Anton is welcome to return for neuropsychological re-evaluation if needed in future. He is also welcome to contact us if he has any questions or concerns ( ; or via [facility]). Krista Tovar, Ph.D. Post-Doctoral Fellow Neuropsychology Program Bety Savage, Ph.D. Clinical Neuropsychologist A postdoctoral fellow in neuropsychology was involved in test administration, interpretation, and report development. The interpretation and integration of pertinent clinical information found in this report was directed and verified by the supervising neuropsychologist/licensed clinical psychologist. 82372: 4 hours 60090: 3 hours documented in this encounter Plan of Treatment Upcoming Encounters Date Type Department Care Team (Late st Contact Info) Description 11/05/2024 10:30 AM EST Office Visit Hematology/Oncology at [address] [phone] Sha Figueroa MD [facility] DR [place] [address] Stephany Kramer PENSION MANAGER [address] [place] [address] [place] [address] 11/11/2024 8:45 AM EST Office Visit Dermatology at [address] [place] [address] Rusty Flores MD [address] [facility] [place] [address] Scheduled Referrals Name Type Priority Associated Diagnoses Orde r Schedule Referral to Psychiatry Outpatient Referral Routine Chronic lymphocytic leukemia Ordered: 06/25/2018 documented as of this encounter Visit Diagnoses Diagnosis Chronic lymphocytic leukemia Chronic lymphoid leukemia, without mention of having achieved remission Depression, unspecified depression type Anxiety Anxiety state, unspecified documented in this encounter Care Teams Entry Level Manager Relationship Specialty Start Date End Date Marco Reina MD [address] [place] [address] PCP - General General Internal Medicine 06/17/18 2/ documented as of this encounter
--- OUTSIDE RECORDS SUMMARY | 2024-11-05 01:49 | XMS_ITS | Encounter Summary ---
Author Organization [facility] [place] [address] Care Team Providers Care Electronic Bench Technician Name Role Phone Marco Reina MD Primary Care Provider [phone] Reason for Visit * Reason Comments Bradycardia Encounter Details Date Type Department Care Team (Late st Contact Info) Description 07/24/2018 11:48 AM EDT - 07/24/2018 1:23 PM EDT Emergency [place] [phone] Fritz Ferreira MD [facility] [place] [address] Bradycardia, sinus Discharge Disposition: Home Social History Tobacco Use Types Packs/Day Years Used Date Smoking Tobacco: Never Smokeless Tobacco: Never Sex and Gender Information Value Date Recorded Sex Assigned at Not on file Gender Identity Not on file Sexual Orientation Not on file documented as of this encounter Last Filed Vital Signs Vital Sign Reading Time Taken Comments Blood Pressure 150/70 07/24/2018 1:00 PM EDT Pulse 49 07/24/2018 1:00 PM EDT Temperature 37 ??C (98.6 ??F) 07/24/2018 11:30 AM EDT Respiratory Rate 12 07/24/2018 1:00 PM EDT Oxygen Saturation 100% 07/24/2018 1:00 PM EDT Inhaled Oxygen Concentration - - Weight - - Height - - Body Mass Index - - documented in this encounter Discharge Instructions * Discharge Instructions* Gordon Pan DO - 07/24/2018 1:10 PM EDT You were admitted to the ED due to a low heart rate which has been your baseline according to our records. Your EKG shows sinus bradycardia. You are hemodynamically stable. If you develop chest pain, shortness of breath, syncopal episodes please, come back to the emergency department for evaluation. * Attachments The following attachments cannot be sent through Care Everywhere. * BRADYCARDIA ([place]) documented in this encounter Medications at Time of Discharge Medication Sig Dispensed Refills Start Date End Date clonazePAM (KlonoPIN) 2 mg Tablet 1 tablet as needed. Taking half the dose as needed 07/14/2016 01/11/2023 loratadine (CLARITIN) 10 mg Tablet 0 05/22/2018 11/19/2019 clonazePAM (KLONOPIN) 2 mg Tablet take 1 tablet by mouth twice a day 0 10/09/2017 11/21/2018 cyclobenzaprine (FLEXERIL) 10 mg Tablet TAKE 1 TABLET BY MOUTH NEEDED AT BEDTIME FOR 10 DAYS, DO NOT TAKE KLONOPIN WITH THIS MEDICATION 0 10/15/2017 11/21/2018 oseltamivir (TAMIFLU) 75 mg Capsule take 1 capsule by mouth twice a day 0 10/20/2017 11/21/2018 sertraline (ZOLOFT) 100 mg Tablet 50 mg. 0 09/12/2017 01/17/2019 CIALIS 5 mg Tablet Take 5 mg by mouth as needed. 1 01/19/2016 11/21/2018 PAROXETINE HCL (PAXIL ORAL) Take 20 mg by mouth daily. 11/21/2018 zolpidem (AMBIEN) 10 mg tablet 10/03/2010 11/21/2018 documented as of this encounter ED Notes * Gordon Pan DO - 07/24/2018 12:38 PM EDT Isrrael Anton is a 63 y.o. male who presents to the ED with: Chief Complaint Patient presents with ??? Bradycardia HPI Isrrael Anton is a 63 y.o. male who presents to the Emergency Department with lightheadedness and bradycardia. As per the patient, his heart rate has been always low, his PCP is aware of it. Today when he went to his psychiatrist and he was told that his heart rate was 40s. At the time patient was asymptomatic and was not lightheaded. Upon arrival to the emergency department patient is anxious and feels lightheaded. He attributes his lightheadedness to his current anxiety episode. Patient denies any focalneurologic deficits, slurred speech, fainting. He first noticed his heart rate being 40s secondary and was completely asymptomatic. As per the patient he he used to walk long distances for 20 years. Patient also states that he has been tapering clonazepam over the last 2 months and he has been on clozapine for 17 years. Today is supposed to be the first day off of clonazepam. According to our records pt's HR has been 40-50s since 2010. Review of Systems: Review of Systems Review of Systems (positives bolded) Constitutional: appetite change, fatigue, fevers, chills, night sweats, shakes, unexpected weight change. HEENT: visual changes, hearing changes, speech changes, dysphagia Respiratory: cough, wheeze, shortness of breath. Cardiovascular: chest pain, palpitations, paroxysmal nocturnal dyspnea, dyspnea on exertion, orthopnea, leg swelling Gastrointestinal: bloating, abdominal pain, nausea, vomiting, diarrhea, constipation, hematochezia,melena. Genitourinary: dysuria, urgency, frequency, hematuria Skin: rash. Muskuloskeletal: arthralgia, myalgia, joint swelling Neurological: headaches, dizziness, lightheadedness,anxiety tingling, numbness, extremity weakness,facial weakness, balance problems, speech pattern changes Hematological: adenopathy, easy bruising Physical Exam: Patient Vitals for the past 24 hrs: BP Temp Temp src Pulse Resp SpO2 07/24/18 1200 173/68 -- -- 52 17 98 % 07/24/18 1153 -- -- -- (!) 47 15 100 % 07/24/18 1152 -- -- -- -- -- 100 % 07/24/18 1151 -- -- -- -- -- 100 % 07/24/18 1150 -- -- -- -- -- 99 % 07/24/18 1149 123/68 -- -- -- -- -- 07/24/18 1130 161/87 37 ??C (98.6 ??F) Oral 54 16 96 % Physical Exam General: AAOx4, anxious HEENT: normocephalic/atraumatic, EOMI, PERRL, MMM. Oropharynx clear, pink, moist without erythema/exudates. Neck: supple, full range of motion Cardiovascular: bradycardia, regular rhythm, S1/2, no murmurs, rubs, gallops. peripheral pulses intact bilaterally. no LE edema Pulmonary: LCTAB Abdomen: soft, nondistended, no TTP, no rebound/guarding Skin: no rashes, no bruising, no lesions Neuro: CN II-XII grossly intact, grossly normal strength. Light touch intact face, body, extremities. Psych: normal mood and thought pattern. ED Course: Patient was evaluated and discussed with Dr. Ferreira Meds, allergies, and PMH reviewed. Nursing notes and VS reviewed. No results found for this or any previous visit (from the past 24 hour(s)). Meds and fluid administered: Medications - No data to display Relevant imaging findings: No orders to display EKG: sinus bradycardia Procedure(s): none Consults: noone Assessment and Plan: [employer]ICAL [employer] y.o. male who presents to the Emergency Department with lightheadednessand bradycardia. According to our records patient has been bradycardic in his 40/50s since 2010. Patient has been hemodynamically stable. His lightheadedness is attributed to his current anxiety episode related to his being in the emergency department. Patient does not require any additional workup at this point. PLAN: - dispo: discharge home - follow-up: PCP in 2 days - prescriptions:none Gordon Pan DO IM PGY-1 07/24/2018 Please excuse any errors. This note was dictated with Pins software. Gordon Pan DO Resident 07/24/18 1315 Associated attestation - Fritz Ferreira MD - 07/24/2018 2:20 PM EDT ED ATTENDING ATTESTATION The patient was seen in conjunction with the resident physician. I have independently performed thekey portions of the history and physical exam. I have personally reviewed nursing notes, vital signs, and diagnostic studies including labs, imaging studies and EKGs. I have discussed the details of the case with the resident and agree with the assessment and plan as described in the resident's note, unless stated below: 63M referred from psychiatrist for evaluation of bradycardia. The patient thinks he may have been bradycardic for some time but is unaware. He is not symptomatic though has had some intermittent spells of lightheadedness which he attributes to anxiety. On examination today he is well-appearing, sinus bradycardia on his EKG with no other abnormalities. On review of our records the patient's heart r ate has always been 40s-50s since 2010, the first time it was documented. We discussed further evaluation with the patient but as he is only here because he was told to come for a low heart rate, he would like to defer any further workup to outpatient providers which I think is reasonable. * Rizwana Woodward RN - 07/24/2018 12:03 PM EDT MD at the bedside, aware of patient's bradycardia, 45-60 bpm. Patient in NAD at this time. Denies lightheadedness or dizziness. documented in this encounter Plan of Treatment Upcoming Encounters Date Type Department Care Team (Late st Contact Info) Description 11/05/2024 10:30 AM EST Office Visit Hematology/Oncology at [address] [phone] Sha Figueroa MD [facility] DR [place] [address] Stephany Kramer APRN [address] [place] [address] DR MEDICAL ONCOLOGY [place], [place] [address] 11/11/2024 8:45 AM EST Office Visit Dermatology at [address] [place] [address] Rusty Flores MD [address], [place] [address] documented as of this encounter Procedures Procedure Name Priority Date/Time Associated Diagnosis Comments EKG 12-LEAD STAT 07/24/2018 11:13 AM EDT documented in this encounter Results * EKG 12 Lead (07/24/2018 11:13 AM EDT) Ventricular rate 50 BPM MUSE SYSTEM Atrial Rate 50 BPM MUSE SYSTEM P-R Interval 136 ms MUSE SYSTEM QRS Duration 78 ms MUSE SYSTEM Q-T Interval 438 ms MUSE SYSTEM QTC Calculated (Bezet) 399 ms MUSE SYSTEM Calculated P [place] 29 degrees MUSE SYSTEM Calculated R [place] 42 degrees MUSE SYSTEM Calculated T [place] 25 degrees MUSE SYSTEM INTERPRETATION Sinus bradycardia Otherwise normal ECG When compared with ECG of 08-JUN-2009 15:15, No significant change was found Confirmed by MD MANUEL, FRIEDA ([id number]) on 07/24/2018 8:36:18 PM MUSE SYSTEM 07/24/2018 11:1 3 AM EDT 07/24/2018 8:36 PM EDT Fritz Ferreira MD ECG ORDERABLES MUSE SYSTEM documented in this encounter Visit Diagnoses Diagnosis Bradycardia, sinus Other specified cardiac dysrhythmias documented in this encounter Care Teams Electronic Bench Technician Relationship Specialty Start Date End Date Marco Reina MD [address] [place] [address] PCP - General General Internal Medicine 06/17/18 2/ documented as of this encounter
--- OUTSIDE RECORDS SUMMARY | 2024-11-05 01:49 | XMS_ITS | Encounter Summary ---
Author Organization [facility] [place] [address] Care Team Providers Care Collection Technician Name Role Phone Junior España DO Primary Care Provider [phone] Reason for Referral * Consultation (Routine) - Closed Specialty Diagnoses / Procedures Referred By Laura haines Referred To Contact Gastroenterology Diagnoses Special screening for malignant neoplasms, colon Junior España DO [facility] [place] [place] [address] [facility] [address] [address] Referral ID Status Reason Start Date Expiration Date V isits Requested Visits Authorized [id number] Closed Test Only 11/21/2018 11/21/2019 1 1 Reason for Visit * Reason Comments Establish Care Encounter Details Date Type Department Care Team (Late st Contact Info) Description 11/21/2018 4:00 PM EST Office Visit Family Medicine at [facility] [address] [place] [address] Junior España [facility] [place] [address] Encounter for annual physical exam (Primary Dx); Establishing care with new doctor, encounter for; CAROLYNE (generalized anxiety disorder); Insomnia, unspecified type; Gastroesophageal reflux disease, esophagitis presence not specified; Chronic obstructive pulmonary disease, unspecified COPD type; Erectile dysfunction, unspecified erectile dysfunction type; Environmental allergies; Special screening for malignant neoplasms, colon; Chronic pain syndrome Social History Tobacco Use Types Packs/Day Years [...] Sign Reading Time Taken Comments Blood Pressure 116/64 11/21/2018 3:53 PM EST Pulse 51 11/21/2018 3:53 PM EST Temperature - - Respiratory Rate 16 11/21/2018 3:53 PM EST Oxygen Saturation 98% 11/21/2018 3:53 PM EST Inhaled Oxygen Concentration - - Weight 86.8 kg (191 lb 4.8 oz) 11/21/2018 3:53 P M EST Height 172 cm (5' 7.72) 11/21/2018 3:53 PM EST Body Mass Index 29.33 11/21/2018 3:53 PM EST documented in this encounter Patient Instructions * Patient Instructions* Junior España, - 11/21/2018 4:00 PM EST Images from the original note were not included. 1. Establishing care with new doctor, encounter for 2. Encounter for annual physical exam Reviewed [place] preventative services task force recommendations. Immunizations and health maintenance updated as able / as patient willing. - Sunscreen, bug repellent, seat belts & bike helmet 3. CAROLYNE (generalized anxiety disorder) STABLE; Considering trial of taper; 50 mg x2 weeks, 25 mg x2 weeks; finally 12.5 mg (1/2 tab) x2 weeks. 4. Insomnia, unspecified type - May consider trial Trazodone or low dose Doxepin 5. Gastroesophageal reflux disease, esophagitis presence not specified Heartburn advise; *Avoid trigger foods: caffeine, tobacco, chocolate, peppermint, alcohol, red sauce, spicy foods. Don't eat within 2 hours of bedtime. 6. Chronic obstructive pulmonary disease, unspecified COPD type STABLE; Infrequent PRN MDI use. 7. Erectile dysfunction, unspecified erectile dysfunction type Refill request; - CIALIS 5 mg Tablet; Take 1 tablet by mouth as needed. Dispense: 8 tablet; Refill: 1 8. Environmental allergies WORSE during summer Tx PRN Loratidine 9. Special screening for malignant neoplasms, colon - Referral to Gastroenterology Sleep Hygiene Tips Establish a regular time [...] a couple of nights might be helpful. Patient Education Anxiety Disorder: Care Instructions Your Care Instructions Anxiety is a normal reaction to stress. Difficult situations can cause you to have symptoms such assweaty palms and a nervous feeling. In an anxiety disorder, the symptoms are far more severe. Constant worry, muscle tension, trouble sleeping, nausea and diarrhea, and other symptoms can make normal daily activities difficult or impossible. These symptoms may occur for no reason, and they can affect your work, school, or social life. Medicines, counseling, and self-care can all help. Follow-up care is a flores part of your treatment and safety. Be sure to make and go to all appointments, and call your doctor if you are having problems. It's also a good idea to know your test resultsand keep a list of the medicines you take. How can you care for yourself at home? ?? Take medicines exactly as directed. Call your doctor if you think you are having a problem with your medicine. ?? Go to your counseling sessions and follow-up appointments. ?? Recognize and accept your anxiety. Then, when you are in a situation that makes you anxious, sayto yourself, This is not an emergency. I feel uncomfortable, but I am not in danger. I can keep going even if I feel anxious. ?? Be kind to your body: ? Relieve tension with exercise or a massage. ? Get enough rest. ? Avoid alcohol, caffeine, nicotine, and illegal drugs. They can increase your anxiety level and cause sleep problems. ? Learn and do relaxation techniques. See below for more about these techniques. ?? Engage your mind. Get out and do something you enjoy. Go to a funny movie, or take a walk or hike. Plan your day. Having too much or too little to do can make you anxious. ?? Keep a record of your symptoms. Discuss your fears with a good friend or family member, or join a support group for people with similar problems. Talking to others sometimes relieves stress. ?? Get involved in social groups, or volunteer to help others. Being alone sometimes makes things seem worse than they are. ?? Get at least 30 minutes of exercise on most days of the week to relieve stress. Walking is a good choice. You also may want to do other activities, such as running, swimming, cycling, or playing tennis or team sports. Relaxation techniques Do relaxation exercises 10 to 20 minutes a day. You can play soothing, relaxing music while you do them, if you wish. ?? Tell others in your house that you are going to do your relaxation exercises. Ask them not to disturb you. ?? Find a comfortable place, away from all distractions and noise. ?? Lie down on your back, or sit with your back straight. ?? Focus on your breathing. Make it slow and steady. ?? Breathe in through your nose. Breathe out through either your nose or mouth. ?? Breathe deeply, filling up the area between your navel and your rib cage. Breathe so that your belly goes up and down. ?? Do not hold your breath. ?? Breathe like this for 5 to 10 minutes. Notice the feeling of calmness throughout your whole body. As you continue to breathe slowly and deeply, relax by doing the following for another 5 to 10 minutes: ?? Tighten and relax each muscle group in your body. You can begin at your toes and work your way up to your head. ?? Imagine your muscle groups relaxing and becoming heavy. ?? Empty your mind of all thoughts. ?? Let yourself relax more and more deeply. ?? Become aware of the state of calmness that surrounds you. ?? When your relaxation time is over, you can bring yourself back to alertness by moving your fingers and toes and then your hands and feet and then stretching and moving your entire body. Sometimes people fall asleep during relaxation, but they usually wake up shortly afterward. ?? Always give yourself time to return to full alertness before you drive a car or do anything thatmight cause an accident if you are not fully alert. Never play a relaxation tape while you drive a car. When should you call for help? Call 911 anytime you think you may need emergency care. For example, call if: ? You feel you cannot stop from hurting yourself or someone else. ??Keep the numbers for these national suicide hotlines: 8-233-570-TALK ( ) and 9-615-GHHJAHJ ( ). If you or someone you know talks about suicide or feeling hopeless, get help right away. ??Watch closely for changes in your health, and be sure to contact your doctor if: ? You have anxiety or fear that affects your life. ? You have symptoms of anxiety that are new or different from those you had before. Where can you learn more? Visit our health information library at [email or web address]. You can also view health information on [employer], your personal patient account. Log in or sign uptoday. Enter P754 in the search box to learn more about Anxiety Disorder: Care Instructions. Current as of: June 11, 2018 Content Version: 11.9 ?? [id number] [employer]. Care instructions adapted under license by [facility]. If you have questions about a medical condition or this instruction, always ask your healthcare professional. [employer] disclaims any warranty or liability for your use of this information. Patient Education Well Visit, Over 65: Care Instructions Your Care Instructions Physical exams can help you stay healthy. Your doctor has checked your overall health and may have suggested ways to take good care of yourself. He or she also may have recommended tests. At home, you can help prevent illness with healthy eating, regular exercise, and other steps. Follow-up care is a flores part of your treatment and safety. Be sure to make and go to all appointments, and call your doctor if you are having problems. It's also a good idea to know your test resultsand keep a list of the medicines you take. How can you care for yourself at home? ?? Reach and stay at a healthy weight. This will lower your risk for many problems, such as obesity, diabetes, heart disease, and high blood pressure. ?? Get at least 30 minutes of exercise on most days of the week. Walking is a good choice. You alsomay want to do other activities, such as running, swimming, cycling, or playing tennis or team sports. ?? Do not smoke. Smoking can make health problems worse. If you need help quitting, talk to your doctor about stop-smoking programs and medicines. These can increase your chances of quitting for good. ?? Protect your skin from too much sun. When you're outdoors from 10 a.m. to 4 p.m., stay in the shade or cover up with clothing and a hat with a wide brim. Wear sunglasses that block UV rays. Even when it's cloudy, put broad-spectrum sunscreen (SPF 30 or higher) on any exposed skin. ?? See a dentist one or two times a year for checkups and to have your teeth cleaned. ?? Wear a seat belt in the car. ?? Limit alcohol to 2 drinks a day for men and 1 drink a day for women. Too much alcohol can cause health problems. Follow your doctor's advice about when to have certain tests. These tests can spot problems early. For men and women ?? Cholesterol. Your doctor will tell you how often to have this done based on your overall health and other things that can increase your risk for heart attack and stroke. ?? Blood pressure. Have your blood pressure checked during a routine doctor visit. Your doctor willtell you how often to check your blood pressure based on your age, your blood pressure results, andother factors. ?? Diabetes. Ask your doctor whether you should have tests for diabetes. ?? Vision. Experts recommend that you have yearly exams for glaucoma and other age-related eye problems. ?? Hearing. Tell your doctor if you notice any change in your hearing. You can have tests to find out how well you hear. ?? Colon cancer tests. Keep having colon cancer tests as your doctor recommends. You can have one of several types of tests. ?? Heart attack and stroke risk. At least every 4 to 6 years, you should have your risk for heart attack and stroke assessed. Your doctor uses factors such as your age, blood pressure, cholesterol, and whether you smoke or have diabetes to show what your risk for a heart attack or stroke is over the next 10 years. ?? Osteoporosis. Talk to your doctor about whether you should have a bone density test to find out whether you have thinning bones. Also ask your doctor about whether you should take calcium and vitamin D supplements. For women ?? Pap test and pelvic exam. You may no longer need a Pap test. Talk with your doctor about whetherto stop or continue to have Pap tests. ?? Breast exam and mammogram. Ask how often you should have a mammogram, which is an X-ray of your breasts. A mammogram can spot breast cancer before it can be felt and when it is easiest to treat. ?? Thyroid disease. Talk to your doctor about whether to have your thyroid checked as part of a regular physical exam. Women have an increased chance of a thyroid problem. For men ?? Prostate exam. Talk to your doctor about whether you should have a blood test (called a PSA test) for prostate cancer. Experts disagree on whether men should have this test. Some experts recommendthat you discuss the benefits and risks of the test with your doctor. ?? Abdominal aortic aneurysm. Ask your doctor whether you should have a test to check for an aneurysm. You may need a test if you ever smoked or if your parent, brother, sister, or child has had an aneurysm. When should you call for help? Watch closely for changes in your health, and be sure to contact your doctor if you have any problems or symptoms that concern you. Where can you learn more? Visit our health information library at [email or web address]. You can also view health information on [employer], your personal patient account. Log in or sign uptoday. Enter K859 in the search box to learn more about Well Visit, Over 65: Care Instructions. Current as of: December 26, 2017 Content Version: 11.9 ?? [id number] [employer]. Care instructions adapted under license by [facility]. If you have questions about a medical condition or this instruction, always ask your healthcare professional. [employer] disclaims any warranty or liability for your use of this information. documented in this encounter Progress Notes * Junior España DO - 11/21/2018 4:00 PM EST Images from the original note were not included. Return in about 6 months (around 05/21/2019) for Recheck Mood, COPD & ED. Subjective: Patient ID: Isrrael Anton is a 63 y.o. male. NEW Pt presents to Est care & complete health exam - Prior PCP Dr. Dan of [facility] 07/2018 Ruy and Noni bruno - Reviewed lab results from 06/17/2018 Lipid Panel Lab Results Component Value Date CHLPL 185 (External Lab) 01/30/2017 HDL 41 (External Lab) 01/30/2017 TRIG 156 (ExtH) 01/30/2017 LDLCHOL 113 (External Lab) 01/30/2017 The 10-year ASCVD risk score (Leandro NICK Vazquez., et al., 2013) is: 11.5%* Values used to calculate the score: Age: 63 years Sex: Male Is Non- : No Diabetic: No Tobacco smoker: No Systolic Blood Pressure: 116 mmHg Is BP treated: No HDL Cholesterol: 41 mg/dL* Total Cholesterol: 185 mg/dL* * - Cholesterol units were assumed for this score calculation Last dental visit: 11/2018 Last eye exam: 06/2018 glasses Any recent Urgent care or ED visit: [facility] [place] 07/2018 2nd to Bradycardia; reviewed ECG from 07/24/2018 Sleeping well: It varies; difficult starting & staying asleep; [facility] (stopped 08/2018) Tx OTC Aleve PM Exercise: less during winter; walking 4-5 miles daily when weather permits Diet: spouse primary cook at home Caffeine: 2-3 cups in AM Mood: pretty good; steep thor after jail; increased anxiety being more mindful and meditating. 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 (no [facility] P[facility]) Inherited [employer] 2012 after working it for many years Daughter 1976, Son 1982 both live in [place] (4 grandchildren) Pat grew-up in [facility], parents , no siblings Enjoys; plays Guitar, walk/hiking, swimming, reading still figuring out jail myD-[facility] Primary Care 11/20/2018 PROMIS 10-Health in general Very Good PROMIS 10-Quality of life Excellent PROMIS 10-Physical health Very Good PROMIS 10-Mental health Very Good PROMIS 10-Satisfaction with social activities Excellent PROMIS 10-Ability to carry out social activities Very Good PROMIS 10-Ability to carry out physical activities Completely PROMIS 10-Bothered by emotional problems Sometimes PROMIS 10-Rate of fatigue Mild PROMIS 10-Rate of pain 3 PROMIS 10- Physical Health Score 54.1 PROMIS 10- Mental Health Score 56 REVIEW OF SYSTEMS 11/20/2018 Constitutional None of the above Ear / nose / throat / mouth Hearing difficulty Eyes Dry eyes Respiratory Thick mucous or spit (Sputum or Phlegm) Cardiovascular Don't know Gastrointestinal None of the above Skin, hair None of the above Musculoskeletal Joint stiffness Neurological Numbness, tingling Hematologic / Lymphatic None of the above Genitourinary Sexual problems, Decreased urinary flow Other Symptoms Cll PC Q - ADLS/IADLS/FALL 11/20/2018 Activity - low level (Bathing, Dressing, Eating, Mobility, Using toilet, Grooming) No, I do not have difficulty with these activities Activity - high level (Laundry, Housekeeping, Banking, Shopping, Use phone, Food Prep, Transportation, Taking meds) I do not need any help Fallen in last year No Difficulties with balance or walking No No flowsheet data found. PHQ-9 QUESTIONNAIRE (AMB) 11/20/2018 Little interest or pleasure (Patient) Not at all Down, depressed, hopeless (Patient) Not at all Health Maintenance Topic Date Due ??? Hepatitis C Screening 1993 ??? Advance Directive 2008 ??? Colonoscopy 05/11/2018 ??? Zoster vaccine (2 of 2) 12/31/2018 ??? Pneumo vaccine (65+) (2 of 2 - PPSV23) 03/08/2020 ??? Diabetes Screening (HgbA1C or Glucose) 06/17/2021 ??? Lipid Screening 01/30/2022 ??? Tetanus vaccine 03/08/2025 ??? Influenza (Flu) vaccine Completed ??? Tdap adult Completed Review of Systems HENT: Positive for hearing loss (b[facility]) and tinnitus. Negative for sore throat (transient Globus sensation in AM) and trouble swallowing. Objective: Patient reported measures: Pain: Physical Health: Fall: No flowsheet data found. No LMP for male patient. Body mass index is 29.33 kg/m??. Last Lipid Panel Lab Results Component Value Date CHLPL 185 (External Lab) 01/30/2017 HDL 41 (External Lab) 01/30/2017 TRIG 156 (ExtH) 01/30/2017 LDLCHOL 113 (External Lab) 01/30/2017 Last 3 Hemoglobin A1Cs No results found for: HA1C Physical Exam Constitutional: He is oriented to person, place, and time. He appears well- developed and well-nourished. HENT: Head: Normocephalic and atraumatic. Right Ear: External ear and ear canal normal. Tympanic membrane is scarred. Decreased hearing is noted. Left Ear: External ear and ear canal normal. Tympanic membrane is scarred. Decreased hearing is noted. Nose: Nose normal. Mouth/Throat: Uvula is midline and oropharynx is clear and moist. Left hearing aids at home Eyes: Pupils are equal, round, and reactive to light. Conjunctivae and EOM are normal. Neck: Neck supple. Carotid bruit is not present. Cardiovascular: Normal rate, regular rhythm, normal heart sounds and intact distal pulses. Exam reveals no gallop and no friction rub. No murmur heard. Pulses: Radial pulses are 2+ on the right side, and 2+ on the left side. Pulmonary/Chest: Effort normal and breath sounds normal. No respiratory distress. He has no wheezes. He has no rales. Abdominal: Soft. Bowel sounds are normal. He exhibits no distension. There is no tenderness. There is no rebound. Genitourinary: Genitourinary Comments: exam was deferred; denied new concerns or complaints. Musculoskeletal: Normal range of motion. Lymphadenopathy: He has no cervical adenopathy. Neurological: He is alert and oriented to person, place, and time. He has normal reflexes. No cranial nerve deficit. Skin: Skin is warm and dry. Psychiatric: He has a normal mood and affect. His behavior is normal. Judgment and thought content normal. Vitals reviewed. Assessment and Plan: Patient Instructions 1. Establishing care with new doctor, encounter for 2. Encounter for annual physical exam Reviewed [place] preventative services task force recommendations. Immunizations and health maintenance updated as able / as patient willing. - Sunscreen, bug repellent, seat belts & bike helmet 3. CAROLYNE (generalized anxiety disorder) STABLE; Considering trial of taper; 50 mg x2 weeks, 25 mg x2 weeks; finally 12.5 mg (1/2 tab) x2 weeks. 4. Insomnia, unspecified type - May consider trial Trazodone or low dose Doxepin 5. Gastroesophageal reflux disease, esophagitis presence not specified Heartburn advise; *Avoid trigger foods: caffeine, tobacco, chocolate, peppermint, alcohol, red sauce, spicy foods. Don't eat within 2 hours of bedtime. 6. Chronic obstructive pulmonary disease, unspecified COPD type STABLE; Infrequent PRN MDI use. 7. Erectile dysfunction, unspecified erectile dysfunction type Refill request; - CIALIS 5 mg Tablet; Take 1 tablet by mouth as needed. Dispense: 8 tablet; Refill: 1 8. Environmental allergies WORSE during summer Tx PRN Loratidine 9. Special screening for malignant neoplasms, colon - Referral to Gastroenterology Sleep Hygiene Tips Establish a regular time [...] a couple of nights might be helpful. Patient Education Anxiety Disorder: Care Instructions Your Care Instructions Anxiety is a normal reaction to stress. Difficult situations can cause you to have symptoms such assweaty palms and a nervous feeling. In an anxiety disorder, the symptoms are far more severe. Constant worry, muscle tension, trouble sleeping, nausea and diarrhea, and other symptoms can make normal daily activities difficult or impossible. These symptoms may occur for no reason, and they can affect your work, school, or social life. Medicines, counseling, and self-care can all help. Follow-up care is a flores part of your treatment and safety. Be sure to make and go to all appointments, and call your doctor if you are having problems. It's also a good idea to know your test resultsand keep a list of the medicines you take. How can you care for yourself at home? ?? Take medicines exactly as directed. Call your doctor if you think you are having a problem with your medicine. ?? Go to your counseling sessions and follow-up appointments. ?? Recognize and accept your anxiety. Then, when you are in a situation that makes you anxious, sayto yourself, This is not an emergency. I feel uncomfortable, but I am not in danger. I can keep going even if I feel anxious. ?? Be kind to your body: ? Relieve tension with exercise or a massage. ? Get enough rest. ? Avoid alcohol, caffeine, nicotine, and illegal drugs. They can increase your anxiety level and cause sleep problems. ? Learn and do relaxation techniques. See below for more about these techniques. ?? Engage your mind. Get out and do something you enjoy. Go to a funny movie, or take a walk or hike. Plan your day. Having too much or too little to do can make you anxious. ?? Keep a record of your symptoms. Discuss your fears with a good friend or family member, or join a support group for people with similar problems. Talking to others sometimes relieves stress. ?? Get involved in social groups, or volunteer to help others. Being alone sometimes makes things seem worse than they are. ?? Get at least 30 minutes of exercise on most days of the week to relieve stress. Walking is a good choice. You also may want to do other activities, such as running, swimming, cycling, or playing tennis or team sports. Relaxation techniques Do relaxation exercises 10 to 20 minutes a day. You can play soothing, relaxing music while you do them, if you wish. ?? Tell others in your house that you are going to do your relaxation exercises. Ask them not to disturb you. ?? Find a comfortable place, away from all distractions and noise. ?? Lie down on your back, or sit with your back straight. ?? Focus on your breathing. Make it slow and steady. ?? Breathe in through your nose. Breathe out through either your nose or mouth. ?? Breathe deeply, filling up the area between your navel and your rib cage. Breathe so that your belly goes up and down. ?? Do not hold your breath. ?? Breathe like this for 5 to 10 minutes. Notice the feeling of calmness throughout your whole body. As you continue to breathe slowly and deeply, relax by doing the following for another 5 to 10 minutes: ?? Tighten and relax each muscle group in your body. You can begin at your toes and work your way up to your head. ?? Imagine your muscle groups relaxing and becoming heavy. ?? Empty your mind of all thoughts. ?? Let yourself relax more and more deeply. ?? Become aware of the state of calmness that surrounds you. ?? When your relaxation time is over, you can bring yourself back to alertness by moving your fingers and toes and then your hands and feet and then stretching and moving your entire body. Sometimes people fall asleep during relaxation, but they usually wake up shortly afterward. ?? Always give yourself time to return to full alertness before you drive a car or do anything thatmight cause an accident if you are not fully alert. Never play a relaxation tape while you drive a car. When should you call for help? Call 911 anytime you think you may need emergency care. For example, call if: ? You feel you cannot stop from hurting yourself or someone else. ??Keep the numbers for these national suicide hotlines: 2-892-672-TALK ( ) and 1-090-BUBDKGM ( ). If you or someone you know talks about suicide or feeling hopeless, get help right away. ??Watch closely for changes in your health, and be sure to contact your doctor if: ? You have anxiety or fear that affects your life. ? You have symptoms of anxiety that are new or different from those you had before. Where can you learn more? Visit our health information library at [email or web address]. You can also view health information on [employer], your personal patient account. Log in or sign uptoday. Enter P754 in the search box to learn more about Anxiety Disorder: Care Instructions. Current as of: June 11, 2018 Content Version: 11.9 ?? [id number] [employer]. Care instructions adapted under license by [facility]. If you have questions about a medical condition or this instruction, always ask your healthcare professional. [employer] disclaims any warranty or liability for your use of this information. Patient Education Well Visit, Over 65: Care Instructions Your Care Instructions Physical exams can help you stay healthy. Your doctor has checked your overall health and may have suggested ways to take good care of yourself. He or she also may have recommended tests. At home, you can help prevent illness with healthy eating, regular exercise, and other steps. Follow-up care is a flores part of your treatment and safety. Be sure to make and go to all appointments, and call your doctor if you are having problems. It's also a good idea to know your test resultsand keep a list of the medicines you take. How can you care for yourself at home? ?? Reach and stay at a healthy weight. This will lower your risk for many problems, such as obesity, diabetes, heart disease, and high blood pressure. ?? Get at least 30 minutes of exercise on most days of the week. Walking is a good choice. You alsomay want to do other activities, such as running, swimming, cycling, or playing tennis or team sports. ?? Do not smoke. Smoking can make health problems worse. If you need help quitting, talk to your doctor about stop-smoking programs and medicines. These can increase your chances of quitting for good. ?? Protect your skin from too much sun. When you're outdoors from 10 a.m. to 4 p.m., stay in the shade or cover up with clothing and a hat with a wide brim. Wear sunglasses that block UV rays. Even when it's cloudy, put broad-spectrum sunscreen (SPF 30 or higher) on any exposed skin. ?? See a dentist one or two times a year for checkups and to have your teeth cleaned. ?? Wear a seat belt in the car. ?? Limit alcohol to 2 drinks a day for men and 1 drink a day for women. Too much alcohol can cause health problems. Follow your doctor's advice about when to have certain tests. These tests can spot problems early. For men and women ?? Cholesterol. Your doctor will tell you how often to have this done based on your overall health and other things that can increase your risk for heart attack and stroke. ?? Blood pressure. Have your blood pressure checked during a routine doctor visit. Your doctor willtell you how often to check your blood pressure based on your age, your blood pressure results, andother factors. ?? Diabetes. Ask your doctor whether you should have tests for diabetes. ?? Vision. Experts recommend that you have yearly exams for glaucoma and other age-related eye problems. ?? Hearing. Tell your doctor if you notice any change in your hearing. You can have tests to find out how well you hear. ?? Colon cancer tests. Keep having colon cancer tests as your doctor recommends. You can have one of several types of tests. ?? Heart attack and stroke risk. At least every 4 to 6 years, you should have your risk for heart attack and stroke assessed. Your doctor uses factors such as your age, blood pressure, cholesterol, and whether you smoke or have diabetes to show what your risk for a heart attack or stroke is over the next 10 years. ?? Osteoporosis. Talk to your doctor about whether you should have a bone density test to find out whether you have thinning bones. Also ask your doctor about whether you should take calcium and vitamin D supplements. For women ?? Pap test and pelvic exam. You may no longer need a Pap test. Talk with your doctor about whetherto stop or continue to have Pap tests. ?? Breast exam and mammogram. Ask how often you should have a mammogram, which is an X-ray of your breasts. A mammogram can spot breast cancer before it can be felt and when it is easiest to treat. ?? Thyroid disease. Talk to your doctor about whether to have your thyroid checked as part of a regular physical exam. Women have an increased chance of a thyroid problem. For men ?? Prostate exam. Talk to your doctor about whether you should have a blood test (called a PSA test) for prostate cancer. Experts disagree on whether men should have this test. Some experts recommendthat you discuss the benefits and risks of the test with your doctor. ?? Abdominal aortic aneurysm. Ask your doctor whether you should have a test to check for an aneurysm. You may need a test if you ever smoked or if your parent, brother, sister, or child has had an aneurysm. When should you call for help? Watch closely for changes in your health, and be sure to contact your doctor if you have any problems or symptoms that concern you. Where can you learn more? Visit our health information library at [email or web address]. You can also view health information on [employer], your personal patient account. Log in or sign uptoday. Enter K859 in the search box to learn more about Well Visit, Over 65: Care Instructions. Current as of: December 26, 2017 Content Version: 11.9 ?? [id number] [employer]. Care instructions adapted under license by [facility]. If you have questions about a medical condition or this instruction, always ask your healthcare professional. [employer] disclaims any warranty or liability for your use of this information. documented in this encounter Plan of Treatment Upcoming Encounters Date Type Department Care Team (Late st Contact Info) Description 11/05/2024 10:30 AM EST Office Visit Hematology/Oncology at [address] [phone] Sha Figueroa MD [facility] [address] [place] [address] Stephany Kramer APRN [address] [place] [address] DR MEDICAL ONCOLOGY [place], [place] [phone] 11/11/2024 8:45 AM EST Office Visit Dermatology at [place] [address] [place] [address] Rusty Flores MD [address], [place] [address] Scheduled Referrals Name Type Priority Associated Diagnoses Order Schedule Referral to Gastroenterology Outpatient Referral Routine Special screening for malignant neoplasms, colon Ordered: 11/21/2018 documented as of this encounter Visit Diagnoses Diagnosis Encounter for annual physical exam- Primary Establishing care with new doctor, encounter for Other reasons for seeking consultation CAROLYNE (generalized anxiety disorder) Generalized anxiety disorder Insomnia, unspecified type Gastroesophageal reflux disease, esophagitis presence not specified Chronic obstructive pulmonary disease, unspecified COPD type Erectile dysfunction, unspecified erectile dysfunction type Environmental allergies Allergic rhinitis, cause unspecified Special screening for malignant neoplasms, colon Chronic pain syndrome documented in this encounter Care Teams Collection Technician Relationship Specialty Start Date End Date Junior España, [facility] [address] [facility] [place] [address] PCP - General Family Medicine 11/21/18 07/07/19 documented as of this encounter
--- OUTSIDE RECORDS SUMMARY | 2024-11-05 01:49 | XMS_ITS | Encounter Summary ---
Author Organization [facility] [place] [address] Care Team Providers Care Employment Case Manager Name Role Phone Marco Reina MD Primary Care Provider [phone] Encounter Details Date Type Department Care Team (Latest Contact Info) Description 06/17/2018 1:36 PM EDT - 06/17/2018 11:59 PM EDT Hospital Encounter Hematology [place] [address] Chronic lymphocytic leukemia not having achieved remission Discharge Disposition: Home Social History Tobacco Use [...] 10/03/2010 11/21/2018 documented as of this encounter Plan of Treatment Upcoming Encounters Date Type Department Care Team (Late st Contact Info) Description 11/05/2024 10:30 AM EST Office Visit Hematology/Oncology at [address] [phone] Sha Figueroa MD [facility] [address] [place] [address] Stephany Kramer APRN [address] [place] [address] DR MEDICAL ONCOLOGY [place], [place] [phone] 11/11/2024 8:45 AM EST Office Visit Dermatology at [facility] [address] [place] [address] Rusty Flores MD [address] [facility], [place] [address] documented as of this encounter Procedures Procedure Name Priority Date/Time Associated Diagnosis Comments SCAN, PERIPHERAL BLOOD STAT 8 1:41 PM EDT HEMOGRAM STAT 06/17/2018 1:41 PM EDT Chronic lymphocytic leukemia not having achieved remission DIFFERENTIAL, AUTOMATED STAT 06/17/2018 1:41 PM EDT Chronic lymphocytic leukemia not having achieved remission CBC (WITH DIFF) STAT 06/17/2018 1:41 PM EDT Chronic lymphocytic leukemia not having achieved remission LACTATE DEHYDROGENASE STAT 06/17/2018 1:41 PM EDT Chronic lymphocytic leukemia not having achieved remission COMPREHENSIVE METABOLIC PANEL STAT 06/17/2018 1:41 PM EDT Chronic lymphocytic leukemia not having achieved remission documented in this encounter Results * Scan, Peripheral Blood (06/17/2018 1:41 PM EDT) Pathologist [facility] Plat estimate Normal [facility] RBC Morphology Normal [facility] Atypical Lymph Moderate [facility] Smudge cell Present [facility] Plat, Giant Less than 1 /HPF [facility] Blood specimen (specimen) 06/17/2018 1:41 PM EDT 06/17/2018 2:12 PM EDT Narrative Resulting Agency Comment Spec In Lab Reny Lawler VEHICLE ASSEMBLY INSPECTOR HEMATOLOGY ORDERABLE S Performing Organization Address City/State/[facility] Co de Phone Number [facility] [place] [address] * (ABNORMAL) Differential, Automated (06/17/2018 1:41 PM EDT) Pathologist [facility] Neutrophil % 25.3 % [facility] Neutrophil Absolute 3.22 1.70 - 6.10 x10(3)/mc L [facility] Lymph % 62.7 % [facility] Lymphocytes Abs 8.0(H) 0.9 - 3.2 x10(3)/mc L [facility] Monocyte % 5.4 % [facility] Monocyte Abs 0.7 0.3 - 0.9 x10(3)/mc L [facility] Eos % 5.8 % [facility] Eosinophils Abs 0.7(H) 0.0 - 0.4 x10(3)/mc L [facility] Basophil % 0.6 % [facility] Baso Absolute 0.1 0.0 - 0.1 x10(3)/mc L [facility] Immature Gran % 0.20 % [facility] Comment: Immature granulocytes(IG's)percentage and absolute count will include metamyelocytes, myelocytes, and promyelocytes. Blood smears from CBCs yielding IG's will be scanned manually for concordance. If this scan disagrees with the automated IG or if promyelocytes are noted, a manual differential will be performed. Immature Gran Absolute 0.02 0.00 - 0.04 x10(3)/mc L [facility] Blood specimen (specimen) 06/17/2018 1:41 PM EDT 06/17/2018 2:12 PM EDT Narrative Resulting Agency Comment Spec In Lab Reny Lawler VEHICLE ASSEMBLY INSPECTOR HEMATOLOGY ORDERABLE S [facility] [place] [address] * (ABNORMAL) Hemogram (06/17/2018 1:41 PM EDT) White Blood Cell 12.7(H) 4.0 - 9.5 x10(3)/ L [facility] Red Blood Cell 4.60 4.58 - 5.54 x10(6)/mc L [facility] Hemoglobin 14.3 13.7 - 16.5 gm/dL [facility] Hematocrit 42.3 40.5 - 48.5 % [facility] Mean Cell Volume 92.0 82.9 - 93.1 fL [facility] Mean Cell Hemoglobin 31.1 27.5 - 32.1 pg [facility] Mean Cell Hemoglobin Concentration 33.8 32.0 - 35.7 gm/dL [facility] Platelet 186 145 - 357 x10(3)/mc L [facility] RDW Standard Deviation 43.8 36.0 - 45.0 [facility] RDW coefficient of variation 13.1 11.4 - 13.8 % [facility] Mean Platelet Volume 11.5 7.6 - 12.9 fL [facility] NRBC% auto 0.0 % [facility] NRBC Absolute 0.000 0.000 - 0.000 x10(3)/ L [facility] Blood specimen (specimen) 06/17/2018 1:41 PM EDT 06/17/2018 2:12 PM EDT Narrative Resulting Agency Comment Spec In Lab Reny Lawler APRN HEMATOLOGY ORDERABLE S Performing Organization Address [facility] Co de Phone Number [facility] [place] [address] * (ABNORMAL) Lactate Dehydrogenase (06/17/2018 1:41 PM EDT) Lactate Dehydrogenase 238(H) 110 - 220 unit/L [facility] Blood specimen (specimen) 06/17/2018 1:41 PM EDT 06/17/2018 2:12 PM EDT Narrative Resulting Agency Comment Spec In Lab Reny Lawler APRN CHEMISTRY ORDERABLES Performing Organization Address [facility] Co de Phone Number [facility] [place] [address] * Comprehensive metabolic panel (non-fasting) (06/17/2018 1:41 PM EDT) Glucose 84 65 - 199 mg/dL [facility] Comment:Diabetes: >=200 mg/d L plus symptoms Blood Urea Nitrogen 16 10 - 20 mg/dL [facility] Creatinine 0.88 0.80 - 1.50 mg/dL [facility] Sodium 140 135 - 145 mmol/L [facility] Potassium 4.0 3.5 - 5.0 mmol/L [facility] Comment: Please note: ??Patients with WBC >100,000 may have falsely elevated Potassium levels. ??For accurate Potassium quantification in these patients send serum separator tube (gold top) for subsequent determinations. ??Contact the Clinical Chemistry Laboratory if there are any questions. Chloride 104 98 - 107 mmol/L [facility] Carbon Dioxide 24 22 - 31 mmol/L [facility] Anion Gap 12 5 - 15 mmol/L [facility] Calcium 8.9 8.5 - 10.5 mg/dL [facility] Protein, Total 6.5 6.1 - 8.0 gm/dL [facility] Albumin 4.4 3.2 - 5.2 gm/dL [facility] Aspartate Aminotransferase 26 0 - 39 unit/L [facility] Alanine Aminotransferase 26 0 - 55 unit/L [facility] Alkaline Phosphatase 65 40 - 120 unit/L [facility] Bilirubin, Total 0.5 0.2 - 1.3 mg/dL [facility] Est Glomerular Filtration Rate 90 >=60 mL/min/1. 73 m?? [facility] Comment: The eGFR was calculated using the CKD-EPI equation. As with all creatinine based estimates of kidney function, eGFR values calculated with the CKD-EPI equation are not accurate in patients with acute kidney failure, extremes of body mass or the acutely ill. [email or web address] eGFR 104 >=60 mL/min/1. 73 m?? [facility] Comment: The eGFR was calculated using the CKD-EPI equation. As with all creatinine based estimates of kidney function, eGFR values calculated with the CKD-EPI equation are not accurate in patients with acute kidney failure, extremes of body mass or the acutely ill. [email or web address] Blood specimen (specimen) 06/17/2018 1:41 PM EDT 06/17/2018 2:12 PM EDT Narrative Resulting Agency Comment Spec In Lab Reny Lawler APRN CHEMISTRY ORDERABLES [facility] [place] [address] documented in this encounter Visit Diagnoses Diagnosis Chronic lymphocytic leukemia not having achieved remission documented in this encounter Care Teams Employment Case Manager Relationship Specialty Start Date End Date Marco Reina MD [address] [place] [address] PCP - General General Internal Medicine 06/17/1811/02 documented as of this encounter
--- OUTSIDE RECORDS SUMMARY | 2024-11-05 01:49 | XMS_ITS | Encounter Summary ---
Author Organization [facility] Address [facility] [place] [address] Care Team Providers Care Recordak Operator Name Role Phone Miki Sandoval MD Primary Care Provider [phone] Encounter Details Date Type Department Care Team (Latest Contact Info) Description 02/21/2016 9:30 AM EDT - 02/21/2016 11:59 PM EDT Hospital Encounter [place]ematology [place] [phone] CLL (chronic lymphocytic leukemia) Discharge Disposition: Home Social History Tobacco Use Types Packs/Day Years Used Date Smoking Tobacco: Never Sex and Gender Information Value Date Recorded Sex Assigned at Not on file Gender Identity Not on file Sexual Orientation Not on file documented as of this encounter Medications at Time of Discharge Medication Sig Dispensed Refills Start Date End Date CIALIS 5 mg Tablet Take 5 mg by mouth as needed. 1 01/19/2016 11/21/2018 PAROXETINE HCL (PAXIL ORAL) Take 20 mg by mouth daily. 11/21/2018 zolpidem (AMBIEN) 10 mg tablet 10/03/2010 11/21/2018 clonAZEpam (KLONOPIN) 2 mg disintegrating tablet 10/03/20102017 documented as of this encounter Plan of Treatment Upcoming Encounters Date Type Department Care Team (Late st Contact Info) Description 11/05/2024 10:30 AM EST Office Visit Hematology/Oncology at [address] [phone] Sha Figueroa MD [facility] [address] HEMATOLOGY [place] [address] Stephany Kramer, [address] [place] [address] 11/11/2024 8:45 AM EST Office Visit Dermatology at [place] [address] [place] [phone] Rusty Flores MD [address], [place] [address] documented as of this encounter Procedures Procedure Name Priority Date/Time Associated Diagnosis Comments IMMUNOGLOBULINS, QUANTITATIVE STAT 02/21/2016 10:16 AM EDT CLL (chronic lymphocytic leukemia) SCAN, PERIPHERAL BLOOD STAT 6 10:16 AM EDT HEMOGRAM STAT 02/21/2016 10:16 AM EDT CLL (chronic lymphocytic leukemia) DIFFERENTIAL, AUTOMATED STAT 02/21/2016 10:16 AM EDT CLL (chronic lymphocytic leukemia) CBC (WITH DIFF) STAT 02/21/2016 10:16 AM EDT CLL (chronic lymphocytic leukemia) COMPREHENSIVE METABOLIC PANEL STAT 02/21/2016 10:16 AM EDT CLL (chronic lymphocytic leukemia) documented in this encounter Results * Scan, Peripheral Blood (02/21/2016 10:16 AM EDT) Plat estimate Normal [facility] RBC Morphology Normal [facility] Smudge cell Present [facility] Blood specimen (specimen) 02/21/2016 10:16 AM EDT 02/21/2016 10:24 AM EDT Narrative Resulting Agency Comment Spec In Lab Sha Figueroa MD HEMATOLOGY [place] [address] * (ABNORMAL) Differential, Automated (02/21/2016 10:16 AM EDT) Neutrophil % 25.3 % [facility] Neutrophil Absolute 2.77 1.50 - 6.30 x10(3)/[facility] Lymph % 68.5 % [facility] Lymphocytes Abs 7.5(H) 1.0 - 3.6 x10(3)/[facility] Monocyte % 3.4 % [facility] Monocyte Abs 0.4 0.2 - 1.0 x10(3)/[facility] Eos % 2.5 % [facility] Eosinophils Abs 0.3 0.0 - 0.5 x10(3)/[facility] Basophil % 0.2 % [facility] Baso Absolute 0.0 0.0 - 0.2 x10(3)/[facility] Immature Gran % 0.10 % [facility] Comment: Immature granulocytes(IG's)percentage and absolute count will include metamyelocytes, myelocytes, and promyelocytes. Blood smears from CBCs yielding IG's will be scanned manually for concordance. If this scan disagrees with the automated IG or if promyelocytes are noted, a manual differential will be performed. Immature Gran Absolute 0.01 0.00 - 0.05 x10(3)/[facility] Blood specimen (specimen) 02/21/2016 10:16 AM EDT 02/21/2016 10:24 AM EDT Narrative Resulting Agency Comment Spec In Lab Sha Figueroa MD HEMATOLOGY ORDERABLE S [facility] [place] [address] * (ABNORMAL) Hemogram (02/21/2016 10:16 AM EDT) Pathologist [facility] White Blood Cell 10.9(H) 4.0 - 10.0 x10(3)/mc L [facility] Red Blood Cell 4.73 4.63 - 6.08 x10(6)/mc L [facility] Hemoglobin 14.8 13.7 - 17.5 gm/dL [facility] Hematocrit 44.0 40.0 - 51.0 % [facility] Mean Cell Volume 93.0(H) 79.0 - 92.0 fL [facility] Mean Cell Hemoglobin 31.3 25.6 - 32.2 pg [facility] Mean Cell Hemoglobin Concentration 33.6 32.0 - 36.5 gm/dL [facility] Platelet 171 145 - 370 x10(3)/mc L [facility] RDW Standard Deviation 46.2(H) 35.0 - 46.0 fL [facility] RDW coefficient of variation 13.7 10.9 - 14.4 % [facility] Mean Platelet Volume 12.5(H) 9.0 - 12.0 fL [facility] Blood specimen (specimen) 02/21/2016 10:16 AM EDT 02/21/2016 10:24 AM EDT Narrative Resulting Agency Comment Spec In Lab Sha Figueroa MD HEMATOLOGY ORDERABLE S [facility] [place] [address] * (ABNORMAL) Immunoglobulins, Quantitative (02/21/2016 10:16 AM EDT) IgG 794 700 - 1,600 mg/dL [facility] IgA 112 70 - 400 mg/dL [facility] IgM 20(L) 40 - 230 mg/dL [facility] Comment:rechecked-ds Blood specimen (specimen) 02/21/2016 10:16 AM EDT 02/21/2016 10:24 AM EDT Narrative Resulting Agency Comment Spec In Lab Sha Figueroa MD CHEMISTRY ORDERABLES [facility] [place] [address] * Comprehensive metabolic panel (non-fasting) (02/21/2016 10:16 AM EDT) Glucose 109 65 - 199 mg/dL [facility] Comment:Diabetes: >=200 mg/d L plus symptoms Blood Urea Nitrogen 16 10 - 20 mg/dL [facility] Creatinine 0.87 0.80 - 1.50 mg/dL [facility] Comment: Please note that the pediatric reference intervals supplied above were not validated at [facility]. Results from pediatric patients should be interpreted in conjunction to the patient's age, height and muscle mass. Sodium 143 135 - 145 mmol/L [facility] Potassium 4.3 3.5 - 5.0 mmol/L [facility] Comment: Please note: ??Patients with WBC >100,000 may have falsely elevated Potassium levels. ??For accurate Potassium quantification in these patients send serum separator tube (gold top) for subsequent determinations. ??Contact the Clinical Chemistry Laboratory if there are any questions. Chloride 106 98 - 107 mmol/L [facility] Carbon Dioxide 24 22 - 31 mmol/L [facility] Anion Gap 13 5 - 15 mmol/L [facility] Calcium 8.7 8.5 - 10.5 mg/dL [facility] Protein, Total 6.7 6.1 - 8.0 gm/dL [facility] Albumin 4.4 3.2 - 5.2 gm/dL [facility] Aspartate Aminotransferase 33 0 - 39 unit/L [facility] Alanine Aminotransferase 27 0 - 55 unit/L [facility] Alkaline Phosphatase 81 40 - 120 unit/L [facility] Bilirubin, Total 0.6 0.2 - 1.3 mg/dL [facility] Bilirubin, Direct 0.1 0.0 - 0.3 mg/dL [facility] Est Glomerular Filtration Rate >60 >=60 [facility] Comment: This estimated GFR (eGFR) value was calculated using the MDRD equation which has been validated on patients between the ages of 18 and 70. The MDRD should not be used to assess kidney function in patients < 18 years of age or in patients with extremes of body mass, or in patients with acute kidney failure. This value should be multiplied by 1.2 for patients. For further information please copy and paste the following links into your internet browser. [email or web address] [email or web address] Blood specimen (specimen) 02/21/2016 10:16 AM EDT 02/21/2016 10:24 AM EDT Narrative Resulting Agency Comment Spec In Lab Sha Figueroa MD CHEMISTRY ORDERABLES [facility] [place] [address] documented in this encounter Visit Diagnoses Diagnosis CLL (chronic lymphocytic leukemia) Chronic lymphoid leukemia, without mention of having achieved remission documented in this encounter Care Teams Recordak Operator Relationship Specialty Start Date End Date Miki Sandoval MD [place] [phone] PCP - General 04/11/11 05/09/17 documented as of this encounter
--- OUTSIDE RECORDS SUMMARY | 2024-11-05 01:49 | XMS_ITS | Encounter Summary ---
Author Organization [facility] Address [facility] [place] [address] Care Team Providers Care Tool Planner Name Role Phone Marco Reina MD Primary Care Provider + Reason for Visit * Reason Comments Skin Check Encounter Details Date Type Department Care Team (Late st Contact Info) Description 05/10/2017 8:00 AM EDT Office Visit Dermatology at [address] [place] [address] Rusty Flores MD [address] [facility] A DERMATOLOGY [place], [place] [id number] Acrochordon; History of basal cell carcinoma Social History Tobacco Use Types Packs/Day Years Used Date Smoking Tobacco: Never Smokeless Tobacco: Never Sex and Gender Information Value Date Recorded Sex Assigned at Not on file Gender Identity Not on file Sexual Orientation Not on file documented as of this encounter Progress Notes * Rusty Flores MD - 05/10/2017 8:00 AM EDT PROBLEM: 1. Skin lesions of concern. 2. History of BCCAs right upper shoulder x2, treated in 1992 at [place]. Isrrael follows up and is thinking of retiring in short order and would like to have some skin lesions checked. Physical examination reveals tags, 1 in either axillary vault, 1 on either side of the neck, and 1 at the nape of his neck. He also has 1 on the right lower abdomen. Otherwise examination of the face, the chest, the back, hands, arms, forearms, thighs and calves is benign. A/P: Tags. a. Patient reassured about benign tags. b. No treatment necessary. c. Reassured about benign skin examination. d. Return to clinic here p.r.n. Could consider removal of skin tags if they become symptomatic. CC: Marco Reina MD documented in this encounter Plan of Treatment Upcoming Encounters Date Type Department Care Team (Late st Contact Info) Description 11/05/2024 10:30 AM EST Office Visit Hematology/Oncology at [address] [phone] Sha Figueroa MD [facility] DR HEMATOLOGY [place] [address] Stephany Kramer [employer] [address] [place] [address] DR MEDICAL ONCOLOGY [place], [place] [address] 11/11/2024 8:45 AM EST Office Visit Dermatology at [address] [phone] Rusty Flores MD [address] [facility] [place] [address] documented as of this encounter Visit Diagnoses Diagnosis Acrochordon Unspecified hypertrophic and atrophic condition of skin History of basal cell carcinoma Personal history of other malignant neoplasm of skin documented in this encounter Care Teams Tool Planner Relationship Specialty Start Date End Date Marco Reina MD [address] [place] [address] PCP - General General Internal Medicine 05/10/1706/03 documented as of this encounter
--- OUTSIDE RECORDS SUMMARY | 2024-11-05 01:49 | XMS_ITS | Encounter Summary ---
Author Organization [facility] Address [facility] [place] [address] Care Team Providers Care Gym Teacher Name Role Phone Marco Reina MD Primary Care Provider + Reason for Visit * Reason Comments Follow-up Skin Check Encounter Details Date Type Department Care Team (Late st Contact Info) Description 11/22/2017 1:15 PM EST Office Visit Dermatology at [address] [place] [address] Rusty Flores MD [address] [facility] A DERMATOLOGY [place], [place] [phone] Viral warts, unspecified type; AK (actinic keratosis) Social History Tobacco Use Types Packs/Day Years Used Date Smoking Tobacco: Never Smokeless Tobacco: Never Sex and Gender Information Value Date Recorded Sex Assigned at Not on file Gender Identity Not on file Sexual Orientation Not on file documented as of this encounter Progress Notes * Rusty Flores MD - 11/22/2017 1:15 PM EST Problem: Neck lesions Isrrael follow-up after last seeing me in May. He has a lesion that is developed over the last several months on the right lateral base of his neck and one erythematous sore area on the left mid lateral neck. Physical examination reveals a probable verruca vulgaris on the right base the neck laterally, an erythematous patch persists consistent with possible Crow's disease on the left mid lateral neck Assessment plan: Verruca vulgaris, probable, right base of neck laterally 1. After obtaining full consent site was anesthetized with snip biopsy 2. Base was lightly electrodesiccated. Band-Aid placed. 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 LN 2 x 2 applied to site 2. Post LN 2 x 2 instructions given 3. Return to clinic as needed. Cc: Marco Reina MD documented in this encounter Plan of Treatment Upcoming Encounters Date Type Department Care Team (Late st Contact Info) Description 11/05/2024 10:30 AM EST Office Visit Hematology/Oncology at [address] [phone] Sha Figueroa MD [facility] DR [place] [address] Stephany Kramer APRN [address] [place] [address] [place] [address] 11/11/2024 8:45 AM EST Office Visit Dermatology at [address] [phone] Rusty Flores MD [address] [facility] [place] [address] documented as of this encounter Visit Diagnoses Diagnosis Viral warts, unspecified type AK (actinic keratosis) Actinic keratosis documented in this encounter Care Teams Gym Teacher Relationship Specialty Start Date End Date Marco Reina MD [address] [place] [address] PCP - General General Internal Medicine 05/10/1706/03 documented as of this encounter
--- OUTSIDE RECORDS SUMMARY | 2024-11-05 01:49 | XMS_ITS | Encounter Summary ---
Author Organization [facility] Address [facility] [place] [address] Care Team Providers Care Warehouse Operations Associate Name Role Phone Marco Reina MD Primary Care Provider + Encounter Details Date Type Department Care Team (Late Contact Info) Description 08/21/2018 Telephone Psychiatry [place] [phone] Bety Savage, PhD [facility] [place] [address] Social History Tobacco Use Types Packs/Day Years Used Date Smoking Tobacco: Never Smokeless Tobacco: Never Sex and Gender Information Value Date Recorded Sex Assigned at Not on file Gender Identity Not on file Sexual Orientation Not on file documented as of this encounter Miscellaneous Notes * Telephone Encounter - Bety Savage, PhD - 08/21/2018 9:53 AM EST Mr. Anton called to ask about accessing psychotherapy services here. We will make a referral for him. He has not yet started with his new PCP, but we also asked him to let his PCP know when he startswith him for continuity of care and in view of the fact that, depending on his insurance, physicianreferral may be needed. documented in this encounter Plan of Treatment Upcoming Encounters Date Type Department Care Team (Late Contact Info) Description 11/05/2024 10:30 AM EST Office Visit Hematology/Oncology at [address] [phone] Sha Figueroa MD [facility] DR HEMATOLOGY [place] [address] Stephany Kramer APRN [address] [place] [address] DR [place] [address] 11/11/2024 8:45 AM EST Office Visit Dermatology at [address] [place] [address] Rusty Flores MD [address] [facility] [place] [address] documented as of this encounter Visit Diagnoses Not on filedocumented in this encounter Care Teams Warehouse Operations Associate Relationship Specialty Start Date End Date Marco Reina MD [address] [place] [address] PCP - General General Internal Medicine 06/17/182 documented as of this encounter
--- OUTSIDE RECORDS SUMMARY | 2024-11-05 01:49 | XMS_ITS | Encounter Summary ---
Author Organization [facility] Address [facility] [place] [address] Care Team Providers Care Basket Assembler Name Role Phone Marco Reina MD Primary Care Provider + Reason for Visit * Reason Comments Follow-up Encounter Details Date Type Department Care Team (Late st Contact Info) Description 10/20/2019 9:45 AM EST Office Visit Hematology [place] [address] Sha Figueroa MD [facility] [address] HEMATOLOGY [place] [address] Reny Lawler, ELECTRICAL LOGGING ENGINEER Chronic lymphocytic leukemia Social History Tobacco Use [...] Sign Reading Time Taken Comments Blood Pressure 142/74 10/20/2019 9:30 AM EST Pulse 48 10/20/2019 9:30 AM EST Temperature 36.3 ??C (97.3 ??F) 10/20/2019 9:30 AM ES T Respiratory Rate 18 10/20/2019 9:30 AM EST Oxygen Saturation 96% 10/20/2019 9:30 AM EST Inhaled Oxygen Concentration - - Weight 89.6 kg (197 lb 9.6 oz) 10/20/2019 9:30 A M EST Height 172 cm (5' 7.72) 10/20/2019 9:30 AM EST Body Mass Index 30.3 10/20/2019 9:30 AM EST documented in this encounter Patient Instructions * Patient Instructions* Sha Figueroa MD - 10/20/2019 9:45 AM EST Recent Results (from the past 24 hour(s)) Hemogram Result Value Ref Range WBC 12.6 (H) 4.0 - 9.5 x10(3)/mcL RBC 4.72 4.58 - 5.54 x10(6)/mcL Hemoglobin 14.7 13.7 - 16.5 gm/dL Hematocrit 44.0 40.5 - 48.5 % MCV 93.2 (H) 82.9 - 93.1 fL MCH 31.1 27.5 - 32.1 pg MCHC 33.4 32.0 - 35.7 gm/dL Platelets 161 145 - 357 x10(3)/mcL RDWSD 46.1 (H) 36.0 - 45.0 fL RDWCV 13.5 11.4 - 13.8 % MPV 12.2 7.6 - 12.9 fL nRBC % Auto 0.0 % nRBC Abs Auto 0.000 0.000 - 0.000 x10(3)/mcL documented in this encounter Progress Notes * Sha Figueroa MD - 10/20/2019 9:45 AM EST Subjective: Patient ID: Isrrael Anton is a 64 y.o. male here for f/u of CLL Patient Active Problem List Diagnosis ??? Environmental allergies PRN Loratadine ??? Insomnia [...] last sleep study ~2017 Dr. Mota of [facility]; nightly Klonopin & Ambien at [...] anxiety disorder) [facility]; [id number] Klonopin, [id number] Paxil, 2018 Zoloft 75-125 mg qd Most recent counseling Fall 2017 sleep disorders - Psychiatry Ashley Lieberman based in [facility] 10/2018 ??? Gastroesophageal reflux Intermittent since ; worse w/elevated weight ??? ED (erectile dysfunction) Urology in [facility] 2008, med trials Cialis, trial Viagra 2008; change in vision, light- headed/dizziness (+) Difficult maintaining erection; no masturbation; intercourse q2 weeks; able to switch positions ??? Chronic pain syndrome Daily neck and lower back stiffness; improves after starting activity of day. (+) RA screening per [employer] (+) Hx LEFT drop foot 2013 after [...] Stage 0 CLL diagnosed August 2009. a. [place] 70 neg, Chrom 13 abnm by FISH (good prognosis) b. Observation only ??? History of hepatitis C, successfully treated Tx 2008 HPI The patient is a 64-year-old man with stage 0 CLL who has never been treated. He returns for yearlyfollow-up. Generally no major problems. He has been having headaches. Work-up being done locally. He has seen neurology and ENT. I do not have those notes. He thinks his headaches have been going on for about a year. He is also gained some weight. He wonders if his sleep apnea might be back and contributing to some of his symptoms. No significant infections. No lumps or bumps. No fevers chills or sweats. Review of Systems Constitutional: Negative. HENT: Negative. Eyes: Negative. Respiratory: Negative. Negative for cough and shortness of breath. Cardiovascular: Negative. Negative for chest pain, palpitations and leg swelling. Gastrointestinal: Negative. Negative for constipation, diarrhea, nausea and vomiting. Genitourinary: Negative. Musculoskeletal: Positive for arthralgias. Skin: Negative. Neurological: Positive for numbness and headaches. Negative for weakness. Hematological: Negative. Psychiatric/Behavioral: Negative. Objective: Physical Exam Constitutional: He is oriented to person, place, and time. He appears well- developed and well-nourished. No distress. HENT: Head: Atraumatic. Mouth/Throat: Oropharynx is clear and moist. No oropharyngeal exudate. Eyes: Pupils are equal, round, and reactive to light. Conjunctivae are normal. Neck: Normal range of motion. Neck supple. Cardiovascular: Normal rate, regular rhythm and normal heart sounds. No murmur heard. Pulmonary/Chest: Effort normal and breath sounds normal. Abdominal: Soft. Bowel sounds are normal. Musculoskeletal: Normal range of motion. General: No edema. Lymphadenopathy: He has no cervical adenopathy. Neurological: He is alert and oriented to person, place, and time. Skin: Skin is warm and dry. Psychiatric: He has a normal mood and affect. Recent Results (from the past 24 hour(s)) Lactate Dehydrogenase Result Value Ref Range LDH 211 110 - 220 unit/L Comprehensive metabolic panel (non-fasting) Result Value Ref Range Glucose Lvl 108 65 - 199 mg/dL BUN 16 10 - 20 mg/dL Creatinine 0.94 0.80 - 1.50 mg/dL Sodium 142 135 - 145 mmol/L Potassium 4.7 3.5 - 5.0 mmol/L Chloride 106 98 - 107 mmol/L CO2 27 22 - 31 mmol/L Anion Gap 9 5 - 15 mmol/L Calcium 9.2 8.5 - 10.5 mg/dL Total Protein 6.7 6.1 - 8.0 gm/dL Albumin 4.4 3.2 - 5.2 gm/dL AST 30 0 - 39 unit/L ALT 27 0 - 55 unit/L Alk Phos 78 40 - 130 unit/L Total Bilirubin 0.3 0.2 - 1.3 mg/dL eGFR 84 >=60 mL/min/1.73 m?? eGFR 98 >=60 mL/min/1.73 m?? Hemogram Result Value Ref Range WBC 12.6 (H) 4.0 - 9.5 x10(3)/mcL RBC 4.72 4.58 - 5.54 x10(6)/mcL Hemoglobin 14.7 13.7 - 16.5 gm/dL Hematocrit 44.0 40.5 - 48.5 % MCV 93.2 (H) 82.9 - 93.1 fL MCH 31.1 27.5 - 32.1 pg MCHC 33.4 32.0 - 35.7 gm/dL Platelets 161 145 - 357 x10(3)/mcL RDWSD 46.1 (H) 36.0 - 45.0 fL RDWCV 13.5 11.4 - 13.8 % MPV 12.2 7.6 - 12.9 fL nRBC % Auto 0.0 % nRBC Abs Auto 0.000 0.000 - 0.000 x10(3)/mcL Differential, Automated Result Value Ref Range Neutrophils % 19.5 % Neutr Abs (ANC) 2.48 1.70 - 6.10 x10(3)/mcL Lymphocytes % 70.9 % Lymphocytes Abs 9.0 (H) 0.9 - 3.2 x10(3)/mcL Monocytes % 5.4 % Monocyte Abs 0.7 0.3 - 0.9 x10(3)/mcL Eosinophils % 3.5 % Eosinophils Abs 0.4 0.0 - 0.4 x10(3)/mcL Basophils % 0.5 % Basophils Abs 0.1 0.0 - 0.1 x10(3)/mcL Immature Gran % 0.20 % Letty Gran Abs 0.02 0.00 - 0.04 x10(3)/mcL Scan, Peripheral Blood Result Value Ref Range Plat Estimate Normal RBC Morphology Normal Assessment and Plan: 64-year-old man with stage 0 CLL. Counts stable, No worrisome or symptomatic adenoapthy. No B symptoms, ALC has remained stable since his diagnosis. He has no recurrent infections, no signs of AIHA or ITP. No concern for transformation. No indication for treatment at this time. Reviewed CLL and indications for therapy, Also reviewed inherent increase risk for infection. I do not believe his headaches are related to his CLL dx. More likley secondary to other etiologiesincluding sleep apnea he does have follow up for this coming up. Return to clinic in 1 year for continued monitoring documented in this encounter Plan of Treatment Upcoming Encounters Date Type Department Care Team (Late st Contact Info) Description 11/05/2024 10:30 AM EST Office Visit Hematology/Oncology at [address] [phone] Sha Figueroa MD [facility] DR HEMATOLOGY [place] [address] MEDICAL ONCOLOGY [place], [place] [id number] 11/11/2024 8:45 AM EST Office Visit Dermatology at [address] [place] [phone] Rusty Flores MD [address] [place] [address], [place] [address] documented as of this encounter Results * (ABNORMAL) Comprehensive metabolic panel (non-fasting) (10/18/2020 9:20 AM EST) Glucose 90 65 - 199 mg/dL [facility] Comment:Diabetes: >=200 mg/d L plus symptoms Blood Urea Nitrogen 14 10 - 20 mg/dL [facility] Creatinine 0.95 0.80 - 1.50 mg/dL [facility] Sodium 141 135 - 145 mmol/L [facility] Potassium 4.2 3.5 - 5.0 mmol/L [facility] Comment: Please note: ??Patients with WBC >100,000 may have falsely elevated Potassium levels. ??For accurate Potassium quantification in these patients send serum separator tube (gold top) for subsequent determinations. ??Contact the Clinical Chemistry Laboratory if there are any questions. Chloride 108(H) 98 - 107 mmol/L [facility] Carbon Dioxide 26 22 - 31 mmol/L [facility] Anion Gap 7 5 - 15 mmol/L [facility] Calcium 8.9 8.5 - 10.5 mg/dL [facility] Protein, Total 6.5 6.1 - 8.0 gm/dL [facility] Albumin 4.6 3.2 - 5.2 gm/dL [facility] Aspartate Aminotransferase 27 0 - 39 unit/L [facility] Alanine Aminotransferase 25 0 - 55 unit/L [facility] Alkaline Phosphatase 87 40 - 130 unit/L [facility] Bilirubin, Total 0.3 0.2 - 1.3 mg/dL [facility] Est Glomerular Filtration Rate 82 >=60 mL/min/1. 73 m?? [facility] Comment: This patient? s estimated [...] Figueroa MD CHEMISTRY ORDERABLES Performing Organization Address City/[facility]/ZIP Co de Phone Number [facility] [place] [address] * Lactate Dehydrogenase (10/20/2019 9:24 AM EST) Lactate Dehydrogenase 211 110 - 220 unit/L [facility] Blood specimen (specimen) 10/20/2019 9:24 AM EST 10/20/2019 9:43 AM EST Narrative Resulting Agency Comment Spec In Lab Reny Lawler APRN CHEMISTRY ORDERABLES Performing Organization Address [facility] Co de Phone Number [facility] [place] [address] * Comprehensive metabolic panel (non-fasting) (10/20/2019 9:24 AM EST) Pathologist [facility] Glucose 108 65 - 199 mg/dL [facility] Comment:Diabetes: >=200 mg/d L plus symptoms Blood Urea Nitrogen 16 10 - 20 mg/dL [facility] Creatinine 0.94 0.80 - 1.50 mg/dL [facility] Sodium 142 135 - 145 mmol/L [facility] Potassium 4.7 3.5 - 5.0 mmol/L [facility] Comment: Please note: ??Patients with WBC >100,000 may have falsely elevated Potassium levels. ??For accurate Potassium quantification in these patients send serum separator tube (gold top) for subsequent determinations. ??Contact the Clinical Chemistry Laboratory if there are any questions. Chloride 106 98 - 107 mmol/L [facility] Carbon Dioxide 27 22 - 31 mmol/L [facility] Anion Gap 9 5 - 15 mmol/L [facility] Calcium 9.2 8.5 - 10.5 mg/dL [facility] Protein, Total 6.7 6.1 - 8.0 gm/dL [facility] Albumin 4.4 3.2 - 5.2 gm/dL [facility] Aspartate Aminotransferase 30 0 - 39 unit/L [facility] Alanine Aminotransferase 27 0 - 55 unit/L [facility] Alkaline Phosphatase 78 40 - 130 unit/L [facility] Bilirubin, Total 0.3 0.2 - 1.3 mg/dL [facility] Est Glomerular Filtration Rate 84 >=60 mL/min/1. 73 m?? [facility] Comment: The eGFR was calculated using the CKD-EPI equation. As with all creatinine based estimates of kidney function, eGFR values calculated with the CKD-EPI equation are not accurate in patients with acute kidney failure, extremes of body mass or the acutely ill. http://[employer]™/[facility] TULSAnkf eGFR 98 >=60 mL/min/1. 73 m?? [facility] Comment: The eGFR was calculated using the CKD-EPI equation. As with all creatinine based estimates of kidney function, eGFR values calculated with the CKD-EPI equation are not accurate in patients with acute kidney failure, extremes of body mass or the acutely ill. [email or web address]/DHnkf Blood specimen (specimen) 10/20/2019 9:24 AM EST 10/20/2019 9:43 AM EST Narrative Resulting Agency Comment Spec In Lab Reny Lawler APRN CHEMISTRY ORDERABLES [facility] [place] [address] documented in this encounter Visit Diagnoses Diagnosis Chronic lymphocytic leukemia Chronic lymphoid leukemia, without mention of having achieved remission documented in this encounter Care Teams Basket Assembler Relationship Specialty Start Date End Date Marco Reina MD [address] [place] [address] PCP - General Family Medicine 07/08/19 10/01/21 documented as of this encounter
--- OUTSIDE RECORDS SUMMARY | 2024-11-05 01:49 | XMS_ITS | Encounter Summary ---
Author Organization [facility] Address [facility] [place] [address] Care Team Providers Care Fittings Tightener Name Role Phone Marco Reina MD Primary Care Provider [phone] Reason for Visit * Reason Comments Procedure Encounter Details Date Type Department Care Team (Late st Contact Info) Description 09/01/2019 1:30 PM EST Office Visit Dermatology at [facility] [address] [place] [address] Isamar Duffy MD [facility] [address] [place] [address] Encounter for cosmetic procedure Social History Tobacco [...] on file documented as of this encounter Patient Instructions * Patient Instructions* Dasha Cisneros LPN - 09/01/2019 1:30 PM EST .BOTOX BEFORE AND AFTER INSTRUCTIONS BEFORE: o Ten days before your procedure: Avoid medications that increase the chances of bruising. NSAID pain relievers like Aspirin, Advil, Alleve, Motrin and Ibuprofen can thin the blood, so switch to Tylenol (acetaminophen) before your appointment. Stop supplements that can make bruising worse. These include gingko biloba, ginseng, omega-3, Dunlo???s Wort and vitamin E. o 24 hours before your treatment: Think twice about that glass of wine (or any form of alcohol) because it can increase your risk of bruising. o Supplements that can reduce bruising: Consider taking Arnica (one tablet the morning of your appointment and every six hours after your injections until you???re bruise-free. The pineapple-based enzyme bromelain can also help. Take 500 mg three times a day for three days after your procedure. o Plan for your results to be maximal at 2 weeks. If it is your first time, plan the treatment at least 4 weeks before a big event to allow time for any needed adjustments. o Most patients are able to return to work immediately after the procedure and need not make any changes to their social engagements. o Be sure you are not . AFTER: ??? Avoid facial massage for 2 hours. ??? Make exaggerated expressions, frequently in the hour immediatly after your procedure. We believe this enhances uptake of the product ??? Avoid yoga, calisthenics (and other activities that put your heart below your head) or intense exercise until one hour after your procedure. If you absolutely have to exercise is not harmful after botox, it simply may increase the chance of a visible bruise. ??? Be patient in the first 2 weeks. Asymmetry is not uncommon as the product takes effect (don???tworry, it is rarely noticeable to others). Some patients are concerned about an uneven look in the first week, only to see it balance out completely by day 10-14 in the majority. If it remains unevenor if you are dissatisfied in any way then please call Dr. Duffy??? medical assistant secretary at [phone] Duffy a message through [facility] COSMETIC DERMATOLOGY STUBBS QUOTE ?? We discussed Botox treatment(s) for pain in the masseter muscle. ?? The cost is $400 per treatment using 30 units of Botox This is not a package stubbs. Would plan next visit at 25 units per side with a cost of $500.00 for 50 units ?? Maintenance prices would be the same stubbs unless we discuss a new plan. ?? Any quote we give you for a procedure is valid for up to 6 months after your consult. After that, prices are subject to change. ?? If you are unsure about the cost, please ask us to clarify before you undergo your procedure. documented in this encounter Progress Notes * Isamar Duffy MD - 09/01/2019 1:30 PM EST Images from the original note were not included. DERMATOLOGY NEW PATIENT CLINIC NOTE Date of service: 09/01/2019 Isrrael Anton : 1955 Provider: Isamar Duffy MD Chief Complaint Patient presents with ??? Procedure HPI Isrrael Anton is a 64 y.o. year old male. New Patient to me and here today to discuss Botox treatment to the masseter muscle secondary to pain in the area, he found information on line that indicatedBotox may be helpful for the pain. ROS General: feeling well Skin: denies other skin complaints PMH Any chronic medical conditions: CLL SKIN HX: BCC years ago on his right shoulder and it was surgically remove HSV Hx and Details Yes uses abreva ADR: Allergies Allergen Reactions ??? Viagra [Sildenafil] MEDS: Current Outpatient Medications Medication Sig Dispense Refill ??? prazosin (MINIPRESS) 2 mg Capsule Take 1 capsule by mouth nightly. May increase to 2 tabs after3 days then 3 tabs after 3 days 90 capsule 1 ??? doxepin (SINEQUAN) 25 mg Capsule Take 1 capsule by mouth nightly as needed (may increase to 2 tabs after 1st week). 90 capsule 1 ??? sertraline (ZOLOFT) 100 mg Tablet Take 1 tablet by mouth daily. 90 tablet 1 ??? albuterol 90 mcg/actuation HFA Aerosol Inhaler Inhale 2 puffs into the lungs every 4 hours as needed. Use with spacer ??? loratadine (CLARITIN) 10 mg Tablet 0 No current facility-administered medications for this visit. SH: Tobacco? NO ETOH? No Examination General: Appears well, no distress Treatment maps: 09/01/2019 Assessment and Plan: # Botox: -Pt's primary area of concern: Masseter muscle -Special considerations for this pt: pain in masseter area -Reviewed pricing structure: $500 for 50 unit vial $850 for 51-70 units $100 for >70 units. Planfor 30 units (15 per side) quoted 400.00 for 30 units -Botox Before and After instructions given # History of Cold Sores: cutaneous and vermilion lip examined and free of any scar or active lesions - Pt reports history of cold sores uses abreva - HSV prophylaxis discussed for procedures where needles or lasers are used around the mouth/lip area - patient instructed on use of valtrex before and after injectable or laser treatment involving themouth/lip area Pt paid:$400.00 for Botox today Instructions: Follow up: 4-6 months for Botox Handout: Botox I am documenting this encounter acting as the scribe for and in the presence of Dr.Lucas Dasha Cisneros LPN I performed the above scribed service and agree with the accuracy of the documentation in this encounter. Isamar Duffy MD Section of Dermatology [facility] documented in this encounter Plan of Treatment Upcoming Encounters Date Type Department Care Team (Late st Contact Info) Description 11/05/2024 10:30 AM EST Office Visit Hematology/Oncology at [address] [phone] Sha Figueroa MD [facility] DR HEMAT[place] [address] Stephany Kramer APRN [address] [place] [address] [place] [address] 11/11/2024 8:45 AM EST Office Visit Dermatology at [place] [address] [facility] [place] [phone] Rusty Flores MD [address], [place] [address] documented as of this encounter Visit Diagnoses Diagnosis Encounter for cosmetic procedure documented in this encounter Administered Medications Inactive Administered Medications - up to 3 most recent administrations Medication Order MAR Action Action Date Dose Rate Site Botulinum Toxin Type A SolR 50 Units 50 Units, Intramuscular, ONCE, 1 dose, On Sun09/01/19 at 1600, Routine Given 09/01/2019 4:27 PM EST 50 Units 20-Other (document in comment section) documented in this encounter Care Teams Fittings Tightener Relationship Specialty Start Date End Date Marco Reina MD [address] [id number] PCP - General Family Medicine 07/08/19 10/01/21 documented as of this encounter
--- OUTSIDE RECORDS SUMMARY | 2024-11-05 01:49 | XMS_ITS | Encounter Summary ---
Author Organization [facility] Address [facility] [place] [address] Care Team Providers Care Facilities Operator Name Role Phone Miki Sandoval MD Primary Care Provider [phone] Reason for Visit * Reason Comments Cognitive Decline * Consultation (Routine) - Closed Specialty Diagnoses / Procedures Referred By Laura t Referred To Contact Hematology and Oncology Diagnoses Chronic lymphocytic leukemia Reny Lawler, AIR QUALITY MANAGER [facility] DR HEMATOLOGY [place] [address] Bety Savage, PhD [facility] [place] [address] Referral ID Status Reason Start Date Expiration Date V isits Requested Visits Authorized [id number] Closed Consult, Test & Treat 02/21/2016 02/20/2017 1 1 Encounter Details Date Type Department Care Team (Late st Contact Info) Description 04/10/2016 1:00 PM EDT Office Visit Hematology and Oncology at [place] [phone] Bety Savage, PhD [facility] [place] [address] Chronic lymphocytic leukemia Social History Tobacco Use Types Packs/Day Years Used Date Smoking Tobacco: Never Sex and Gender Information Value Date Recorded Sex Assigned at Not on file Gender Identity Not on file Sexual Orientation Not on file documented as of this encounter Progress Notes * Christa Parish, PhD - 04/10/2016 1:00 PM EDT [facility] Brief Neuropsychological Evaluation Background and Reason for Referral: Mr. Anton was referred by Dr. Sha Figueroa for brief neuropsychological evaluation in view of the patient's history of Chronic Lymphocytic Leukemia (CLL). Background information was obtained from a review of selected medical records and an interview with the patient and his , Mrs. Ashley Anton. Mr. Anton's history is well known to his treatment team, and will not be repeated here in detail. In brief, Mr. Anton was diagnosed with CLL Stage 0 approximately 6 years ago with no treatment to date. He is monitored regularly by his treatment team and shows stable blood counts and no infection,symptomatic adenopathy and no splenomegaly, AIHA or ITP. Mr. Anton has reported fatigue, thought byhis PCP to be multifactorial and not exclusively related to his history of CLL, and concern with word finding difficulties and problems with short term memory. These difficulties were reported in thecontext of poor sleep and stress. On neuropsychological interview today, Mr. Anton reported feeling in a fog and reported concern with short term memory and word finding. He reported the onset of memory difficulties approximately six years ago though he noted a decline in functioning more in the last couple of years. He reported feeling embarrassed and frustrated when word finding difficulties occur. Mr. Anton reported that his difficulties are exacerbated in the context of stress. His also noted some difficulties with receptive language due to his bilateral hearing loss and tendency not to use his hearing aids. His described this as a problem associated with hearing rather than difficulty with understanding what is said. She also reported feeling that this difficulties may be associated with the medications he takes and with stress. Mr. Anton reported difficulty sleeping, despite taking Ambien nightly, and indicated that he is uncertain if his CPAP is beneficial. He indicated that he has been taking Paxilfor mood for 4-5 years, and this has been beneficial. Mr. Anton's gestation and were reportedly within normal limits and he reached developmental milesones on expected timelines. He described himself as a terrible student and very shy in school.He described being easily distractible, and daydreaming in school and noted that one of his former health care providers suggested that he might have had ADHD as a child. He dropped out of school in 11th grade and after joining the [employer], he completed high school by taking classes offer in the . Upon his half-way from the service, he enrolled in [employer] and completed a degree in Human Service and has worked for the [employer] for the last 17 years. 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 Mr. Anton is and has two grown children. Medical history is otherwise significant for GERD and recently reported bloating and nausea; chronic pain; arthritis in his joints; neck and back pain due to herniated disc; sciatica; hepatitis C (successfully treated); COPD; and bronchitis. He also reported a fall with loss of consciousness approximately 20 years ago and indicated that some time later, after an MRI, he was told that he had an old lesion possibly from the fall. Records of that MRI have been requested. He has no other history of head injury or loss of consciousness. He reported exposure to toxic substances (airplane fuel; [place] during his time serving in the [employer]. He has never smoked andreported a remote history of drug and excessive alcohol use in high school and not since that time.Family medical history is significant for cancer, diabetes and heart disease. There is no reported family history of memory disorder in first degree relatives. At the time of the evaluation, he was taking the following medications: Ambien and Paxil. Behavioral Observations: Mr. Anton was fully alert and cooperative with the evaluation. He had no difficulty understanding interview questions. He tended to be talkative and somewhat circumstantial when answering questions. He was attentive during testing but on the Brief Test of Attention, his hearing loss was evident as he struggled to hear the audio while it played during Part A. The examiner therefore switched to reading the stimuli out loud during Part B, and his performance was slightly better. This was taken into account during scoring and interpretation, as described in more detail below. On the [place]-Making Test, Part B, he stopped twice before reaching the end of the task, and on the Symbol Digit Modalities Test, he lost his place; this may have affected his results on these tests to an extent, as they are both timed tasks. Mr. Anton appeared to exert good effort and motivation during testing and, with the above-noted exceptions, the obtained test results are felt to be a valid indication of his current level of cognitive functioning in the domains assessed. Tests Administered: Brief Test of Attention; Symbol Digit Modalities Test; Reitan [place]-Making Test; NCSE Judgment; Ragland Verbal Learning Test-Revised; Rebecca Memory Scale Logical Memory, Brief Visuospatial Memory Test-Revised; Letty-Lainez Verbal Fluency Test; Canadian Naming Test-Short Form; Canadian Diagnostic Aphasia Exam Sentence Comprehension; Repetition, and Reading; Test of Premorbid Function; Cookie Theft; Written Math Screen; [place] Visual Organization Test; Drawings to Command and Copy; Grooved Pegboard Test; Thumb- Finger Sequencing Test; Praxis Screen; Vigil Depression Inventory, State Trait Anxiety Inventory, Behavior Rating Inventory of Executive Function-Adult (Self and Informant); Patient Competency Scale (Self and Informant) Test Results: Mr. Els total score on the Brief Test of Attention was in the borderline to low average range for his age. However, as noted above, this may have been due at least partly to his difficulty hearing the audio recording. A prorated score based on the second half of the test, during which time the stimuli were read out loud to him, was in the low average to average range. This likely represents his attentional ability better than does the total score on this measure, but still suggests a mild weakness in attention/working memory relative to Mr. Anton's other higher abilities. Speed of processing was in the average range, as was cognitive flexibility. Practical reasoning and judgement were within normal limits. Verbal memory performance was variable with story recall and recognition in the average and high average ranges respectively, and list learning and recall in the lowaverage to mildly impaired range. Overall, he appeared to have mild difficulty with retrieval of new verbal information from memory, but it was helpful to him when information was presented in a structured and organized format. In addition, once he had encoded verbal information in memory, he was able to retain it over time. Initial learning of a set of visual figures was in the low average to average range, with delayed recall in the average range. Recognition of the figures was in the borderline to low average range. Word retrieval was in the high average and average ranges for for letter and category cues, respectively. His single word reading level was in the high average range. Brief screens of confrontation naming, speech comprehension, repetition, reading fluency, reading comprehension, writing and arithmetic were within normal limits. Visuospatial organization was in the averagerange and although he noted that spatial skills and drawing were not areas of strength, drawing to command and copy were generally within normal limits, with only slight difficulty in drawing a cube.Fine motor speed and coordination were generally in the average range bilaterally. Praxis was intact bilaterally. On self-report measures of mood, Mr. Anton's pattern of responses did not suggest depressed or anxious mood per se. However, he did endorse mild levels of symptoms such as decreased interest and enjoyment, self-critical thinking, fatigue, decreased sleep, increased appetite, and decreased libido. On a self-report measure of executive functioning, and his both reported concerns with his ability to independently initiate activities, hold information in mind for brief periods (working memory), plan and organize, monitor tasks for accuracy, and keep materials organized. Additionally, Mr. Anton reported difficulties with cognitive flexibility and emotional control. On a competency rating form regarding activities of daily living, Mrs. Anton rated her as able to do all activities with ease or fairly easily. Mr. Anton (who inadvertently failed to complete one of the pages) indicated that he can do with some difficulty the following tasks: cook meals, schedule activities, understand instructions, and consistently meet daily responsibilities. He indicated no significant difficulty with the remaining items. Formulation and Recommendations: Findings suggested weaknesses in attention/concentration and verbal learning and memory. Performance was otherwise within normal limits for age, including on measuresof processing speed, cognitive flexibility, practical reasoning, visual learning and memory, language functioning, visuospatial functioning, and basic screening measures of reading, math, sensory motor functions, and praxis. Mr. Anton did not endorse significantly depressed or anxious mood, but didendorse mild symptoms such as decreased interest, decreased enjoyment, and self-critical thinking. He also endorsed difficulty sleeping, fatigue, increased appetite, and decreased libido. Taken together, Mr. Anton's results suggest that his cognitive functioning is largely intact with the exception of a subtle weakness in attention and mild impairment on one measure of verbal learningand memory. However, these findings were observed in the quiet and structured testing context, and Mr. Anton reports a higher level of cognitive difficulty in everyday life, where factors such as fatigue, poor sleep, chronic pain, and stress may be more significant contributors to his level of cognitive performance. It is also worth noting that his difficulty with hearing (and decision not to usehearing aids) may also be affecting how well he can attend to and remember verbal information. In ad dition, he reported lifelong chronic difficulties with attention and concentration starting in childhood, though he was never evaluated for ADHD as a child. His remote history of head injury due to afall is unlikely to be significantly contributing to his current difficulties, based on the available history. In summary, Mr. Anton's current cognitive weaknesses are most likely multifactorial in origin, due sleep disturbance, fatigue, emotional distress, and chronic pain. His hearing loss may also be contributing to his ability to attend to and recall new information. In addition, these issues may be supe rimposed on a pre-existing, chronic attention/concentration difficulty that has been present since childhood, per his report. Based on the obtained pattern of test results, we offer the following recommendations for consideration: 1. In view of the fact that Mr. Anton reported a change in his cognition starting about six years ago, with gradually progressive cognitive changes over the past two years, we suggest repeat neuropsychological evaluation in approximately one year to rule out acid changer time, using the current scores as baseline. A provider referral would be needed to initiate re-evaluation. 2. In the interim, Mr. Anton may wish to consider discussing with his referring physician or PCP possible referral for routine laboratory screening to assess for reversible etiologies of cognitive decline (e.g., B vitamins, folate, thyroid function) if not recently done. Though less likely to be contributing, he may also wish to consider the appropriateness of a metal toxicity screen, given his past history of exposure to toxic substances (airplane fuel, contaminated water) in the . 3. Mr. Anton may also wish to consider some changes that may benefit cognition: ?? Given his difficulties with sleep, Mr. Anton may wish to have his CPAP machine reevaluated. It is possible that using a CPAP for a consistent period could result in improved sleep quality, and in turn improved cognition. ?? He may also wish to review his sleep hygeine (e.g., bedtime routines that aid with sleep) to insure that they are optimal. Some common suggestions include going to bed at a set time each night, nouse of electronics in the bedroom or immediately before sleep, relaxation exercises or quiet activities such as reading before bed. ?? Given his difficulties with hearing, which may be affecting his ability to attend to and remember new information, we suggest that he reconsider use of hearing aids, at least in some contexts. If not already done, an evaluation of his hearing aids may be helpful to determine if they are optimal for him. Meanwhile, he may benefit from having important conversations in a quiet and distraction free environment when possible. ?? Mr. Anton has benefited from pharmacologic treatment of his mood, but does report some residual mild symptoms (e.g., decreased interest and enjoyment). Thus, continued monitoring of his mood with his PCP is suggested. ?? He may also wish to consider relaxation training as a method of helping to cope with stress and anxiety. During testing, he appeared to have greater difficulty with timed measures so when he feelsunder time pressure these techniques may be especially helpful. He may wish to consider working with a therapist or nutritional health coach to explore the sources of stress in his life and work on methods of decreasing stress. ?? Memory techniques that may be helpful include repetition and paraphrasing. That is, he may remember new information best if he repeats it to himself or reads over information more than once. Paraphrasing, or putting the information in one's own words, can also help with encoding of new information in memory. For important information, e.g., medical information or work tasks, he should be sure to write it down. ?? To aid his memory, he may also wish to develop set routines to help with organization and planning (e.g., placing keys and phone in the same place each day; always putting things away in the same place). As noted above, Mr. Anton may wish to be reevaluated in approximately one year once he has had the opportunity to address some of the factors could be contributing to his difficulties, or sooner should he notice cognitive decline. We will call Mr. Anton to review these results and recommendations, and he is welcome to contact usif he has any cognitive questions or concerns (Tel. [phone]). Christa Parish, PhD Bety Savage, PhD Postdoctoral Fellow in Clinical Neuropsychologist Clinical Neuropsychologist documented in this encounter Plan of Treatment Upcoming Encounters Date Type Department Care Team (Vikash smith Contact Info) Description 11/05/2024 10:30 AM EST Office Visit Hematology/Oncology at [address] [phone] Sha Figueroa MD [facility] DR [place] [address] Stephany Kramer APRN [address] [place] [address] [place] [address] 11/11/2024 8:45 AM EST Office Visit Dermatology at [address] [phone] Rusty Flores MD [address] [facility], [place] [address] Scheduled Referrals Name Type Priority Associated Diagnoses Orde r Schedule Referral to Hematology and Oncology Outpatient Referral Routine Chronic lymphocytic leukemia Ordered: 02/21/2016 documented as of this encounter Visit Diagnoses Diagnosis Chronic lymphocytic leukemia Chronic lymphoid leukemia, without mention of having achieved remission documented in this encounter Care Teams Facilities Operator Relationship Specialty Start Date End Date Miki Sandoval MD [address] [address] PCP - General 04/11/11 05/09/17 documented as of this encounter
--- OUTSIDE RECORDS SUMMARY | 2024-11-05 01:49 | XMS_ITS | Encounter Summary ---
Author Organization [facility] [place] [address] Care Team Providers Care Axminster Weaver Name Role Phone Miki Sandoval MD Primary Care Provider [phone] Encounter Details Date Type Department Care Team (Late st Contact Info) Description 02/16/2016 Orders Only Hematology [place] [phone] Reny Lawler APRN CLL (chronic lymphocytic leukemia) Social History Tobacco Use Types Packs/Day Years Used Date Smoking Tobacco: Never Sex and Gender Information Value Date Recorded Sex Assigned at Not on file Gender Identity Not on file Sexual Orientation Not on file documented as of this encounter Plan of Treatment Upcoming Encounters Date Type Department Care Team (Late st Contact Info) Description 11/05/2024 10:30 AM EST Office Visit Hematology/Oncology at [address] [phone] Sha Figueroa MD [facility] DR HEMATOLOGY [place] [address] Stephany Kramer APRN [address] [place] [address] DR MEDICAL ONCOLOGY [place], [place] [id number] 11/11/2024 8:45 AM EST Office Visit Dermatology at [address] [place] [phone] Rusty Flores MD [address] [facility] [address], [place] [address] documented as of this encounter Results * (ABNORMAL) Immunoglobulins, Quantitative (02/21/2016 10:16 AM EDT) IgG 794 700 - 1,600 mg/dL [facility] IgA 112 70 - 400 mg/dL [facility] IgM 20(L) 40 - 230 mg/dL [facility] Comment:rechecked-ds Blood specimen (specimen) 02/21/2016 10:16 AM EDT 02/21/2016 10:24 AM EDT Narrative Resulting Agency Comment Spec In Lab Sha Figueroa MD CHEMISTRY ORDERABLES [facility] [place] [address] * Comprehensive metabolic panel (non-fasting) (02/21/2016 10:16 AM EDT) Glucose 109 65 - 199 mg/dL [facility] Comment:Diabetes: >=200 mg/d L plus symptoms Blood Urea Nitrogen 16 10 - 20 mg/dL [facility] Creatinine 0.87 0.80 - 1.50 mg/dL [facility] Comment: Please note that the pediatric reference intervals supplied above were not validated at [facility]. Results from pediatric patients should be interpreted in conjunction to the patient's age, height and muscle mass. Sodium 143 135 - 145 mmol/L [facility] Potassium 4.3 3.5 - 5.0 mmol/L [facility] Comment: Please note: ??Patients with WBC >100,000 may have falsely elevated Potassium levels. ??For accurate Potassium quantification in these patients send serum separator tube (gold top) for subsequent determinations. ??Contact the Clinical Chemistry Laboratory if there are any questions. Chloride 106 98 - 107 mmol/L [facility] Carbon Dioxide 24 22 - 31 mmol/L [facility] Anion Gap 13 5 - 15 mmol/L [facility] Calcium 8.7 8.5 - 10.5 mg/dL [facility] Protein, Total 6.7 6.1 - 8.0 gm/dL [facility] Albumin 4.4 3.2 - 5.2 gm/dL [facility] Aspartate Aminotransferase 33 0 - 39 unit/L [facility] Alanine Aminotransferase 27 0 - 55 unit/L [facility] Alkaline Phosphatase 81 40 - 120 unit/L [facility] Bilirubin, Total 0.6 0.2 - 1.3 mg/dL [facility] Bilirubin, Direct 0.1 0.0 - 0.3 mg/dL [facility] Est Glomerular Filtration Rate >60 >=60 [facility] Comment: This estimated GFR (eGFR) [...] the following links into your internet browser. [email or web address] Blood specimen (specimen) 02/21/2016 10:16 AM EDT 02/21/2016 10:24 AM EDT Narrative Resulting Agency Comment Spec In Lab Sha Figueroa MD CHEMISTRY ORDERABLES [facility] [place] [address] documented in this encounter Visit Diagnoses Diagnosis CLL (chronic lymphocytic leukemia) Chronic lymphoid leukemia, without mention of having achieved remission documented in this encounter Care Teams Axminster Weaver Relationship Specialty Start Date End Date Miki Sandoval MD [address] [address] PCP - General 04/11/11 05/09/17 documented as of this encounter
--- OUTSIDE RECORDS SUMMARY | 2024-11-05 01:49 | XMS_ITS | Encounter Summary ---
Author Organization [facility] Address [facility] [place] [address] Care Team Providers Care Nursing Informatics Clinical Analyst Name Role Phone Marco Reina MD Primary Care Provider [phone] Encounter Details Date Type Department Care Team (Latest Contact Info) Description 10/20/2019 9:00 AM EST - 10/20/2019 11:59 PM [facility] Hospital Encounter [facility] [place] [address] Chronic lymphocytic leukemia Discharge Disposition: Home Social [...] Sig Dispensed Refills Start Date End Date zolpidem (AMBIEN) 10 mg Tablet 1 tablet nightly as needed. 08/07/2019 08/15/2023 clonazePAM (KlonoPIN) 2 mg Tablet 1 tablet as needed. Taking half the dose as needed 07/14/2016 01/11/2023 prazosin (MINIPRESS) 2 mg CapsuleIndications:Inso mnia, unspecified type Take 1 capsule by mouth nightly. May increase to 2 tabs after 3 days then 3 tabs after 3 days 90 capsule 1 02/20/2019 11/19/2019 doxepin (SINEQUAN) 25 mg CapsuleIndications:Inso mnia, unspecified type Take 1 capsule by mouth nightly as needed (may increase to 2 tabs after 1st week). 90 capsule 1 02/20/2019 11/19/2019 sertraline (ZOLOFT) 100 mg TabletIndications:CAROLYNE (generalized anxiety disorder) Take 1 tablet by mouth daily. 90 tablet 1 01/17/2019 10/13/2020 albuterol 90 mcg/actuation HFA Aerosol Inhaler Inhale 2 puffs into the lungs every 4 hours as needed. Use with spacer 05/26/2020 loratadine (CLARITIN) 10 mg Tablet 0 05/22/2018 11/19/2019 documented as of this encounter Plan of Treatment Upcoming Encounters Date Type Department Care Team (Late st Contact Info) Description 11/05/2024 10:30 AM EST Office Visit Hematology/Oncology at [address] [phone] Sha Figueroa MD [facility] DR HEMATOLOGY [place] [address] Stephany Kramer APRN [address] [place] [address] [place] [address] 11/11/2024 8:45 AM EST Office Visit Dermatology at [address] [place] [address] Rusty Flores MD [address], [place] [address] documented as of this encounter Procedures Procedure Name Priority Date/Time Associated Diagnosis Comments SCAN, PERIPHERAL BLOOD STAT 0 9:24 AM EST HEMOGRAM STAT 10/20/2019 9:24 AM EST Chronic lymphocytic leukemia DIFFERENTIAL, AUTOMATED STAT 10/20/2019 9:24 AM EST Chronic lymphocytic leukemia HC CBC,PLT & AUTO DIFF STAT 0 9:24 AM EST Chronic lymphocytic leukemia HC LACTIC DEHYDROGENASE STAT 10/20/2019 9:24 AM EST Chronic lymphocytic leukemia COMPREHENSIVE METABOLIC PANEL STAT 10/20/2019 9:24 AM EST Chronic lymphocytic leukemia documented in this encounter Results * Scan, Peripheral Blood (10/20/2019 9:24 AM EST) Plat estimate Normal [facility] RBC Morphology Normal [facility] Blood specimen (specimen) 10/20/2019 9:24 AM EST 10/20/2019 9:43 AM EST Narrative Resulting Agency Comment Spec In Lab Reny Lawler LAB[employer] HEMATOLOGY ORDERABLE S Performing Organization Address City/State/[facility] Co de Phone Number [facility] [place] [address] * (ABNORMAL) Differential, Automated (10/20/2019 9:24 AM EST) [facility] Neutrophil % 19.5 % [facility] Neutrophil Absolute 2.48 1.70 - 6.10 x10(3)/mc L [facility] Lymph % 70.9 % [facility] Lymphocytes Abs 9.0(H) 0.9 - 3.2 x10(3)/mc L [facility] Monocyte % 5.4 % [facility] Monocyte Abs 0.7 0.3 - 0.9 x10(3)/mc L [facility] Eos % 3.5 % [facility] Eosinophils Abs 0.4 0.0 - 0.4 x10(3)/mc L [facility] Basophil % 0.5 % [facility] Baso Absolute 0.1 0.0 - 0.1 x10(3)/mc L [facility] Immature Gran % 0.20 % [facility] Comment: Immature granulocytes(IG's)percentage and absolute count will include metamyelocytes, myelocytes, and promyelocytes. Blood smears from CBCs yielding IG's will be scanned manually for concordance. If this scan disagrees with the automated IG or if promyelocytes are noted, a manual differential will be performed. Immature Gran Absolute 0.02 0.00 - 0.04 x10(3)/mc L [facility] Blood specimen (specimen) 10/20/2019 9:24 AM EST 10/20/2019 9:43 AM EST Narrative Resulting Agency Comment Spec In Lab Reny Lawler [employer] HEMATOLOGY ORDERABLE S [facility] [place] [address] * (ABNORMAL) Hemogram (10/20/2019 9:24 AM EST) White Blood Cell 12.6(H) 4.0 - 9.5 x10(3)/mc L [facility] Red Blood Cell 4.72 4.58 - 5.54 x10(6)/mc [facility] Hemoglobin 14.7 13.7 - 16.5 gm/dL [facility] Hematocrit 44.0 40.5 - 48.5 % [facility] Mean Cell Volume 93.2(H) 82.9 - 93.1 fL [facility] Mean Cell Hemoglobin 31.1 27.5 - 32.1 pg [facility] Mean Cell Hemoglobin Concentration 33.4 32.0 - 35.7 gm/dL [facility] Platelet 161 145 - 357 x10(3)/ L [facility] RDW Standard Deviation 46.1(H) 36.0 - 45.0 [facility] RDW coefficient of variation 13.5 11.4 - 13.8 % [facility] Mean Platelet Volume 12.2 7.6 - 12.9 [facility] NRBC% auto 0.0 % [facility] NRBC Absolute 0.000 0.000 - 0.000 x10(3)/mc L [facility] Blood specimen (specimen) 10/20/2019 9:24 AM EST 10/20/2019 9:43 AM EST Narrative Resulting Agency Comment Spec In Lab Reny Lawler APRN HEMATOLOGY ORDERABLE S [facility] [place] [address] * Comprehensive metabolic panel (non-fasting) (10/20/2019 9:24 AM EST) Glucose 108 65 - 199 mg/dL [facility] Comment:Diabetes: >=200 mg/d L plus symptoms Blood Urea Nitrogen 16 10 - 20 mg/dL [facility] Creatinine 0.94 0.80 - 1.50 mg/dL [facility] Sodium 142 135 - 145 mmol/L [facility] Potassium 4.7 3.5 - 5.0 mmol/L [facility] Comment: Please note: ??Patients with WBC >100,000 may have falsely elevated Potassium levels. ??For accurate Potassium quantification in these patients send serum separator tube (gold top) for subsequent determinations. ??Contact the Clinical Chemistry Laboratory if there are any questions. Chloride 106 98 - 107 mmol/L [facility] Carbon Dioxide 27 22 - 31 mmol/L [facility] Anion Gap 9 5 - 15 mmol/L [facility] Calcium 9.2 8.5 - 10.5 mg/dL [facility] Protein, Total 6.7 6.1 - 8.0 gm/dL [facility] Albumin 4.4 3.2 - 5.2 gm/dL [facility] Aspartate Aminotransferase 30 0 - 39 unit/L [facility] Alanine Aminotransferase 27 0 - 55 unit/L [facility] Alkaline Phosphatase 78 40 - 130 unit/L [facility] Bilirubin, Total 0.3 0.2 - 1.3 mg/dL [facility] Est Glomerular Filtration Rate 84 >=60 mL/min/1. 73 m?? [facility] Comment: The eGFR was calculated using the CKD-EPI equation. As with all creatinine based estimates of kidney function, eGFR values calculated with the CKD-EPI equation are not accurate in patients with acute kidney failure, extremes of body mass or the acutely ill. [email or web address] eGFR 98 >=60 mL/min/1. 73 m?? [facility] Comment: The eGFR was calculated using the CKD-EPI equation. As with all creatinine based estimates of kidney function, eGFR values calculated with the CKD-EPI equation are not accurate in patients with acute kidney failure, extremes of body mass or the acutely ill. [email or web address] Blood specimen (specimen) 10/20/2019 9:24 AM EST 10/20/2019 9:43 AM EST Narrative Resulting Agency Comment Spec In Lab Reny Lawler [employer] CHEMISTRY ORDERABLES Performing Organization Address [facility] Co de Phone Number [facility] [place] [address] * Lactate Dehydrogenase (10/20/2019 9:24 AM EST) Lactate Dehydrogenase 211 110 - 220 unit/L [facility] Blood specimen (specimen) 10/20/2019 9:24 AM EST 10/20/2019 9:43 AM EST Narrative Resulting Agency Comment Spec In Lab Reny Lawler [employer] CHEMISTRY ORDERABLES Performing Organization Address [facility] Co de Phone Number [facility] [address] documented in this encounter Visit Diagnoses Diagnosis Chronic lymphocytic leukemia Chronic lymphoid leukemia, without mention of having achieved remission documented in this encounter Care Teams Nursing Informatics Clinical Analyst Relationship Specialty Start Date End Date Marco Reina MD [address] [place] [address] PCP - General Family Medicine 07/08/19 10/01/21 documented as of this encounter
--- OUTSIDE RECORDS SUMMARY | 2024-11-05 01:49 | XMS_ITS | Encounter Summary ---
Author Organization [facility] [place] [address] Care Team Providers Care Metallurgical Engineer Name Role Phone Marco Reina MD Primary Care Provider + Reason for Visit * Reason Comments Cough was in [place] for the 10 days, got back sunday, started with a headache, Encounter Details Date Type Department Care Team ([facility] Contact Info) Description 12/03/2019 7:10 PM EST Office Visit Internal Medicine at [facility] [place] [address] Marce Patel APRN Fever, unspecified fever cause; Cough; CLL (chronic lymphocytic leukemia); History of hepatitis C, successfully treated Social History Tobacco Use Types Packs/Day Years [...] Sign Reading Time Taken Comments Blood Pressure 105/63 12/03/2019 7:16 PM EST Pulse 85 12/03/2019 7:16 PM EST Temperature 38.3 ??C (101 ??F) 12/03/2019 7:16 PM EST Respiratory Rate 16 12/03/2019 7:16 PM EST Oxygen Saturation 94% 12/03/2019 7:16 PM EST Inhaled Oxygen Concentration - - Weight - - Height - - Body Mass Index - - documented in this encounter Patient Instructions * Patient Instructions* Amanda, Marce M, STRUCTURAL ARCHITECT - 12/03/2019 7:10 PM EST Images from the original note were not included. We have talked about alternating ibuprofen and acetaminophen on opposite 6 hours. Please do not exceed tylenol / acetaminophen of 3 grams/day. Please stay well-hydrated If you have questions or concerns about COVID 19, please call the Hot Line number which is [phone] . You will also find info on CDC.gov Patient Education Cough: Care Instructions Your Care Instructions A cough is your body's response to something that bothers your throat or airways. Many things can cause a cough. You might cough because of a cold or the flu, bronchitis, or asthma. Smoking, postnasal drip, allergies, and stomach acid that backs up into your throat also can cause coughs. A cough is a symptom, not a disease. Most coughs stop when the cause, such as a cold, goes away. You can take a few steps at home to cough less and feel better. Follow-up care is a flores part of your treatment and safety. Be sure to make and go to all appointments, and call your doctor if you are having problems. It's also a good idea to know your test resultsand keep a list of the medicines you take. How can you care for yourself at home? ?? Drink lots of water and other fluids. This helps thin the mucus and soothes a dry or sore throat. Honey or lemon juice in hot water or tea may ease a dry cough. ?? Take cough medicine as directed by your doctor. ?? Prop up your head on pillows to help you breathe and ease a dry cough. ?? Try cough drops to soothe a dry or sore throat. Cough drops don't stop a cough. Medicine-flavored cough drops are no better than candy-flavored drops or hard candy. ?? Do not smoke. Avoid secondhand smoke. If you need help quitting, talk to your doctor about stop-smoking programs and medicines. These can increase your chances of quitting for good. When should you call for help? Call 911 anytime you think you may need emergency care. For example, call if: ? You have severe trouble breathing. ??Call your doctor now or seek immediate medical care if: ? You cough up blood. ? You have new or worse trouble breathing. ? You have a new or higher fever. ? You have a new rash. ??Watch closely for changes in your health, and be sure to contact your doctor if: ? You cough more deeply or more often, especially if you notice more mucus or a change in the color of your mucus. ? You have new symptoms, such as a sore throat, an earache, or sinus pain. ? You do not get better as expected. Where can you learn more? Visit our [employer] information library at http://Timecros/GERSo You can also view health information on [employer], your personal patient account. Log in or sign uptoday. Enter D279 in the search box to learn more about Cough: Care Instructions. Current as of: March 09, 2019 Content Version: 12.3 ?? [id number] [facility]. Care instructions adapted under license by [facility]. If you have questions about a medical condition or this instruction, always ask your healthcare professional. [facility] disclaims any warranty or liability for your use of this information. Patient Education Learning About Fever What is a fever? A fever is a high body temperature. It's one way your body fights being sick. A fever shows that the body is responding to infection or other illnesses, both minor and severe. A fever is a symptom, not an illness by itself. A fever can be a sign that you are ill, but most fevers are not caused by a serious problem. You may have a fever with a minor illness, such as a cold. But sometimes a very serious infection may cause little or no fever. It is important to look at other symptoms, other conditions you have, and how you feel in general. In children, notice how they act and see what symptoms they complain of. What is a normal body temperature? A normal body temperature is about 98.6??F. Some people have a normal temperature that is a little higher or a little lower than this. Your temperature may be a little lower in the morning than it is later in the day. It may go up during hot weather or when you exercise, wear heavy clothes, or take a hot bath. Your temperature may also be different depending on how you take it. A temperature taken in the mouth (oral) or under the arm may be a little lower than your core temperature (rectal). What is a fever temperature? A core temperature of 100.4??F or above is considered a fever. What can cause a fever? A fever may be caused by: ?? Infections. This is the most common cause of a fever. Examples of infections that can cause a fever include the flu, a kidney infection, or pneumonia. ?? Some medicines. ?? Severe trauma or injury, such as a heart attack, stroke, heatstroke, or gao. ?? Other medical conditions, such as arthritis and some cancers. How can you treat a fever at home? ?? Ask your doctor if you can take an scuw-gut-dlaevrp pain medicine, such as acetaminophen (Tylenol), ibuprofen (Advil, Motrin), or naproxen (Aleve). Be safe with medicines. Read and follow all instructions on the label. ?? To prevent dehydration, drink plenty of fluids. Choose water and other caffeine-free clear liquids until you feel better. If you have kidney, heart, or liver disease and have to limit fluids, talkwith your doctor before you increase the amount of fluids you drink. Follow-up care is a floers part of your treatment and safety. Be sure to make and go to all appointments, and call your doctor if you are having problems. It's also a good idea to know your test resultsand keep a list of the medicines you take. Where can you learn more? Visit our health information library at http://Timecros/GERSo You can also view health information on [employer], your personal patient account. Log in or sign uptoday. Enter G732 in the search box to learn more about Learning About Fever. Current as of: March 26, 2019 Content Version: 12.3 ?? [id number] [facility]. Care instructions adapted under license by [facility]. If you have questions about a medical condition or this instruction, always ask your healthcare professional. [facility] disclaims any warranty or liability for your use of this information. Patient Education Upper Respiratory Infection (Cold): Care Instructions Your Care Instructions An upper respiratory infection, or URI, is an infection of the nose, sinuses, or throat. URIs are spread by coughs, sneezes, and direct contact. The common cold is the most frequent kind of URI. The flu and sinus infections are other kinds of URIs. Almost all URIs are caused by viruses. Antibiotics won't cure them. But you can treat most infections with home care. This may include drinking lots of fluids and taking bccb-bgd-qnebwun pain medicine. You will probably feel better in 4 to 10 days. The doctor has checked you carefully, but problems can develop later. If you notice any problems ornew symptoms, get medical treatment right away. Follow-up care is a flores part of your treatment and safety. Be sure to make and go to all appointments, and call your doctor if you are having problems. It's also a good idea to know your test resultsand keep a list of the medicines you take. How can you care for yourself at home? ?? To prevent dehydration, drink plenty of fluids, enough so that your urine is light yellow or clear like water. Choose water and other caffeine-free clear liquids until you feel better. If you havekidney, heart, or liver disease and have to limit fluids, talk with your doctor before you increasethe amount of fluids you drink. ?? Take an cshf-dho-vsribop pain medicine, such as acetaminophen (Tylenol), ibuprofen (Advil, Motrin), or naproxen (Aleve). Read and follow all instructions on the label. ?? Before you use cough and cold medicines, check the label. These medicines may not be safe for young children or for people with certain health problems. ?? Be careful when taking cxqd-dvl-ovmijem cold or flu medicines and Tylenol at the same time. Manyof these medicines have acetaminophen, which is Tylenol. Read the labels to make sure that you are not taking more than the recommended dose. Too much acetaminophen (Tylenol) can be harmful. ?? Get plenty of rest. ?? Do not smoke or allow others to smoke around you. If you need help quitting, talk to your doctorabout stop-smoking programs and medicines. These can increase your chances of quitting for good. When should you call for help? Call 911 anytime you think you may need emergency care. For example, call if: ? You have severe trouble breathing. ??Call your doctor now or seek immediate medical care if: ? You seem to be getting much sicker. ? You have new or worse trouble breathing. ? You have a new or higher fever. ? You have a new rash. ??Watch closely for changes in your health, and be sure to contact your doctor if: ? You have a new symptom, such as a sore throat, an earache, or sinus pain. ? You cough more deeply or more often, especially if you notice more mucus or a change in the color of your mucus. ? You do not get better as expected. Where can you learn more? Visit our health information library at http://Timecros/GERSo You can also view health information on [employer], your personal patient account. Log in or sign uptoday. Enter K520 in the search box to learn more about Upper Respiratory Infection (Cold): Care Instructions. Current as of: March 09, 2019 Content Version: 12.3 ?? [id number] [facility]. Care instructions adapted under license by [facility]. If you have questions about a medical condition or this instruction, always ask your healthcare professional. [facility] disclaims any warranty or liability for your use of this information. documented in this encounter Progress Notes * Marce Patel APRN - 12/03/2019 7:10 PM EST [facility] WALK -IN CLINIC PCP in [place], [place] Chief Complaint Patient presents with ??? Cough was in [place] for the last 10 days, got back sunday, started with a headache, ?? Isrrael is a 64-year-old man with PMH stage 0 CLL. Counts stable, He is followed at [facility] by Dr Sha Figueroa . In addition he has HO hepatitis C , successfully treated in 2008 Isrrael comes to clinic tonight accompanied by his concerned . Isrrael thinks he began developing Since approx noon yesterday with sx of pounding SOTELO , body aches and a sense of having a fever but no documented temperature He does not have much in the way of cough , he does feel somewhat short of breath . His eyes are bothering him ; burning a bit . No drainage, no visual disturbance Some nasofacial congestion , No facial or dental pain NO travel outside of the [place] NO known exposures IMMUNIZATIONS : he had influenza vaccine in the fall SELF CARE : ES Tylenol Taking 1 grram q 4 to 6 hours . He is aware that this is exceeding the maximum daily dose SH : nonsmoker , With adult children and 4 grandchildren Patient Active Problem List Diagnosis Code ??? [...] allergies Z91.09 ??? Spine pain, multilevel M54.9 Family History Problem Relation Age of Onset ??? Cancer Mother Lung Ca (+) Tobacco abuse ??? Thyroid Disease Mother ??? Aneurysm Father ??? Cerebrovascular Accident Father ??? Diabetes Maternal Grandmother ??? Coronary Artery Disease Maternal Grandmother ??? Heart Disease Maternal Grandmother ??? Arrhythmia Maternal Grandfather ??? Kidney Disease Neg Hx ??? Early Neg Hx OBJECTIVE : vital signs reviewed as below Vital Signs Temp: (!) 38.3 ??C (101 ??F) Temp src: Oral Heart Rate: 85 Resp: 16 BP: 105/63 Patient Position: Sitting SpO2: 94 % GENERAL : Isrrael appears somewhat ill, he sounds nasally resonant . He is alert , well-hydrated . HEAD : ncat EYES : some inc scleral injection, no lid edema , no drainage EARS : normal canals . The TM is somewhat dull and there is sl injection over the TM , but no TMretraction or acute changes. The TM AD is very scarred . Landmarks are not well identified NECK : no stridor NODES : none CHEST : coughs with any respiratory effort. Diminished breath sounds through out however no clear wheezing COR : regular EXT : no edema IMPRESSION and PLAN : Isrrael is here this evening with a febrile URI . Influenza swab is NEGATIVE Here he was administered a nebulized dose of Duo Neb improved air flow and audible breath sounds . He also noted some subjective improvement . We have discussed need for labs tonight , and for self care to include maintaining optimal hydration . Please reduce tylenol not To exceed 4 grams/ day ; preferably not more than 3 . May alternate ibuprofen on opposite 6 hours of tylenol Please follow-up with your PCP if you have worsening symptoms or persistent fever I have advised that I will call tonight with lab results ; however I will call if these results areconcerning 1. Fever, unspecified fever cause - Rapid Influenza A/B and RSV PCR ([facility]) - CBC (with Diff); Future - Basic Metabolic Panel (non-fasting); Future - Basic Metabolic Panel (non-fasting) - CBC (with Diff) - Hemogram - Differential, Automated 2. Cough - Rapid Influenza A/B and RSV PCR ([facility]) - ipratropium-albuteroL (DUONEB) 0.5 mg-3 mg(2.5 mg base)/3 mL nebulizer solution 3 mL 3. CLL (chronic lymphocytic leukemia) 4. History of hepatitis C, successfully treated Future Appointments Date Time Provider Department Center 01/07/2020 11:00 AM Isamar Duffy MD [facility] 10/18/2020 8:45 AM LABORATORY, TECH [facility] INF 3K [facility] 10/18/2020 9:45 AM Sha Figueroa MD [facility] HEM ONC [facility] documented in this encounter Plan of Treatment Upcoming Encounters Date Type Department Care Team (Late st Contact Info) Description 11/05/2024 10:30 AM EST Office Visit Hematology/Oncology at [address] [phone] [facility] HEMATOLOGY AND ONCOLOGY [place], [place] [id number] Stephany Kramer, STRUCTURAL ARCHITECT [address] [place] [address] [place] [address] 11/11/2024 8:45 AM EST Office Visit Dermatology at [address] [place] [phone] Rusty Flores MD [address], [place] [address] documented as of this encounter Procedures Procedure Name Priority Date/Time Associated Diagnosis Comments HEMOGRAM STAT 12/03/2019 8:30 PM EST Fever, unspecified fever cause DIFFERENTIAL, AUTOMATED STAT 12/03/2019 8:30 PM EST Fever, unspecified fever cause HC CBC,PLT & AUTO DIFF STAT 12/03/2019 8:30 PM EST Fever, unspecified fever cause BASIC METABOLIC PANEL STAT 12/03/2019 8:30 PM EST Fever, unspecified fever cause HC INFLUENZA A/B & RSV BY PCR STAT 12/03/2019 7:40 PM EST Fever, unspecified fever cause Cough documented in this encounter Results * (ABNORMAL) Differential, Automated (12/03/2019 8:30 PM EST) Neutrophil % 46.9 % [facility] Neutrophil Absolute 4.65 1.70 - 6.10 x10(3)/mc L [facility] Lymph % 45.0 % [facility] Lymphocytes Abs 4.5(H) 0.9 - 3.2 x10(3)/mc L [facility] Monocyte % 7.0 % [facility] Monocyte Abs 0.7 0.3 - 0.9 x10(3)/mc L [facility] Eos % 0.5 % [facility] Eosinophils Abs 0.0 0.0 - 0.4 x10(3)/mc L [facility] Basophil % 0.3 % [facility] Baso Absolute 0.0 0.0 - 0.1 x10(3)/[facility] Immature Gran % 0.30 % [facility] Comment: Immature granulocytes(IG's)percentage and absolute count will include metamyelocytes, myelocytes, and promyelocytes. Blood smears from CBCs yielding IG's will be scanned manually for concordance. If this scan disagrees with the automated IG or if promyelocytes are noted, a manual differential will be performed. Immature Gran Absolute 0.03 0.00 - 0.04 x10(3)/[facility] Blood specimen (specimen) 12/03/2019 8:30 PM EST 12/03/2019 8:34 PM EST Narrative Resulting Agency Comment Spec In Lab Marce Patel APRN HEMATOLOGY NICK KNAPP Performing Organization Address City/State/[facility] Co de Phone Number [facility] [place] [address] * (ABNORMAL) Hemogram (12/03/2019 8:30 PM EST) White Blood Cell 9.9(H) 4.0 - 9.5 x10(3)/[facility] Red Blood Cell 4.81 4.58 - 5.54 x10(6)/ L [facility] Hemoglobin 14.8 13.7 - 16.5 gm/dL [facility] Hematocrit 45.2 40.5 - 48.5 % [facility] Mean Cell Volume 94.0(H) 82.9 - 93.1 fL [facility] Mean Cell Hemoglobin 30.8 27.5 - 32.1 pg [facility] Mean Cell Hemoglobin Concentration 32.7 32.0 - 35.7 gm/dL [facility] Platelet 137(L) 145 - 357 x10(3)/[facility] RDW Standard Deviation 47.4(H) 36.0 - 45.0 fL [facility] RDW coefficient of variation 13.6 11.4 - 13.8 % [facility] Mean Platelet Volume 12.3 7.6 - 12.9 fL [facility] NRBC% auto 0.0 % [facility] NRBC Absolute 0.000 0.000 - 0.000 x10(3)/mc L [facility] Blood specimen (specimen) 12/03/2019 8:30 PM EST 12/03/2019 8:34 PM EST Narrative Resulting Agency Comment Spec In Lab Marce Patel APRN HEMATOLOGY NICK KNAPP [facility] [place] [address] * (ABNORMAL) Basic Metabolic Panel (non-fasting) (12/03/2019 8:30 PM EST) Glucose 107 65 - 199 mg/dL [facility] Comment:Diabetes: >=200 mg/d L plus symptoms Blood Urea Nitrogen 13 10 - 20 mg/dL [facility] Creatinine 0.83 0.80 - 1.50 mg/dL [facility] Sodium 140 135 - 145 mmol/L [facility] Potassium 4.1 3.5 - 5.0 mmol/L [facility] Comment: Please note: ??Patients with WBC >100,000 may have falsely elevated Potassium levels. ??For accurate Potassium quantification in these patients send serum separator tube (gold top) for subsequent determinations. ??Contact the Clinical Chemistry Laboratory if there are any questions. Chloride 104 98 - 107 mmol/L [facility] Carbon Dioxide 21(L) 22 - 31 mmol/L [facility] Anion Gap 15 5 - 15 mmol/L [facility] Calcium 9.0 8.5 - 10.5 mg/dL [facility] Est Glomerular Filtration Rate 92 >=60 mL/min/1. 73 m?? [facility] Comment: The eGFR was calculated using the CKD-EPI equation. As with all creatinine based estimates of kidney function, eGFR values calculated with the CKD-EPI equation are not accurate in patients with acute kidney failure, extremes of body mass or the acutely ill. [email or web address]/[email or web address] eGFR 106 >=60 mL/min/1. 73 m?? [facility] Comment: The eGFR was calculated using the CKD-EPI equation. As with all creatinine based estimates of kidney function, eGFR values calculated with the CKD-EPI equation are not accurate in patients with acute kidney failure, extremes of body mass or the acutely ill. [email or web address]/[email or web address] Blood specimen (specimen) 12/03/2019 8:30 PM EST 12/03/2019 8:34 PM EST Narrative Resulting Agency Comment Spec In Lab Marce Patel APRN CHEMISTRY ORDER SUSANA Performing Organization Address City/[facility] Co de Phone Number [facility] [place] [address] * Rapid Influenza A/B and RSV PCR ([facility]) (12/03/2019 7:40 PM EST) Influenza A PCR Not Detected Not Detected [facility] Influenza B PCR Not Detected Not Detected [facility] RSV PCR Not Detected Not Detected [facility] Resp PCR Source DIRECTOR OF ESTATE Swab [facility] Nasopharyngeal swab (specimen) 12/03/2019 7:40 PM EST 12/03/2019 7:54 PM EST Narrative Resulting Agency Comment Spec In Lab Marce Patel APRN MICROBIOLOGY - GENERAL ORDERABLES Performing Organization Address City/[facility]/ZIP Co de Phone Number [facility] [place] [address] documented in this encounter Visit Diagnoses Diagnosis Fever, unspecified fever cause Cough CLL (chronic lymphocytic leukemia) Chronic lymphoid leukemia, without mention of having achieved remission History of hepatitis C, successfully treated Personal history of other infectious and parasitic disease documented in this encounter Administered Medications Inactive Administered Medications - up to 3 most recent administrations Medication Order MAR Action Action Date Dose Rate Site ibuprofen (Advil;Motrin) tablet 600 mg 600 mg, Oral, ONCE, 1 dose, On Sun12/03/19 at 2130, STAT Given 12/03/2019 9:15 PM EST 600 mg ipratropium-albuteroL (DUONEB) 0.5 mg-3 mg(2.5 mg base)/3 mL nebulizer solution 3 mL 3 mL, Nebulization, ONCE, 1 dose, On Sun12/03/19 at 2115, STAT Given 12/03/2019 8:55 PM EST 3 mLs documented in this encounter Care Teams Metallurgical Engineer Relationship Specialty Start Date End Date Marco Reina MD [address] [place] [address] PCP - General Family Medicine 07/08/19 10/01/21 documented as of this encounter
--- OUTSIDE RECORDS SUMMARY | 2024-11-05 01:49 | XMS_ITS | Encounter Summary ---
Author Organization [facility] [place] [address] Care Team Providers Care Insurance Verification Specialist Name Role Phone Marco Reian MD Primary Care Provider + Reason for Visit * Reason Comments Follow-up Skin Check Encounter Details Date Type Department Care Team (Late st Contact Info) Description 07/08/2019 11:30 AM EDT Office Visit Dermatology at [address] [phone] Rusty Flores MD [address] [facility], [facility] [place] [address] [place] (actinic keratosis); Seborrheic keratosis; History of [...] Progress Notes * Rusty Flores MD - 07/08/2019 11:30 AM EDT Problem: 1. New lesions of concern 2. History of BCCA right upper shoulder x2, treated 1992 treated at [place]. Isrrael follows up and is concerned about some new skin lesions of his forehead cheek and arm, all onthe left side. He continues to try to use sun with precautions. He also is noted some lesions on his forearms and one in his right upper chest. Physical examination reveals a pleasant 64-year-old gentleman who has actinic's on the left forehead the side left sideburn area and left mid cheek. He has early seborrheic keratoses developing on the left forearm and one on the right upper chest. Fortunately careful examination of the rest of the face the neck the chest the back the hands arms and forearms is benign. Assessment and plan: History of basal carcinoma right upper shoulder times 2, treated in 1992 at [place] 1. No evidence of recurrence. 2. Patient reassured Actinic keratoses [address] 2 x 2 applied each of 3 sites Seborrheic keratoses right upper chest and left dorsal forearm 1. Patient reassured 2. No treatment necessary Recommend return to clinic on an as needed basis for new lesion/concerns CC: Marco Reina MD documented in this encounter Plan of Treatment Upcoming Encounters Date Type Department Care Team (Late st Contact Info) Description 11/05/2024 10:30 AM EST Office Visit Hematology/Oncology at [address] [phone] Sha Figueroa MD [facility] DR HEMATOLOGY [place] [address] Stephany Kramer ORDNANCE ENGINEER [address] [place] [address] [place] [address] 11/11/2024 8:45 AM EST Office Visit Dermatology at [place] 580 [facility] [place] [phone] Rusty Flores MD 580 [facility], [place] [facility] DERMATOLOGY [place], [place] [phone] documented as of this encounter Visit Diagnoses Diagnosis AK (actinic keratosis) Actinic keratosis Seborrheic keratosis Other seborrheic keratosis History of basal cell carcinoma Personal history of other malignant neoplasm of skin documented in this encounter Care Teams Insurance Verification Specialist Relationship Specialty Start Date End Date Marco Reina MD 580 [place] [address] PCP - General Family Medicine 07/08/19 10/01/21 documented as of this encounter
--- OUTSIDE RECORDS SUMMARY | 2024-11-05 01:49 | XMS_ITS | Encounter Summary ---
Author Organization [facility] Address [facility] [place] [address] Care Team Providers Care Historic Site Administrator Name Role Phone Marco Reina MD Primary Care Provider [phone] Reason for Visit * Reason Comments Inguinal Hernia * Consultation (Routine) - Closed Specialty Diagnoses / Procedures Referred By Contac t Referred To Contact General Surgery Diagnoses INGUINAL HERNIA(S) Marco Reina MD [address] [place] [address] [facility] [address] [place] [address] Referral ID Status Reason Start Date Expiration Date Visits Re quested Visits Authorized [id number] Closed 05/20/2020 05/20/2021 1 1 Encounter Details Date Type Department Care Team (Late st Contact Info) Description 05/26/2020 9:20 AM EDT Office [place] [address] Kimmy Trevino MD [facility] [place] [address] Umbilical hernia without obstruction and without gangrene; Left inguinal hernia Social History Tobacco Use Types [...] Sign Reading Time Taken Comments Blood Pressure 111/60 05/26/2020 9:19 AM EDT Pulse 80 05/26/2020 9:19 AM EDT Temperature 36.3 ??C (97.4 ??F) 05/26/2020 9:19 AM ED T Respiratory Rate 16 05/26/2020 9:19 AM EDT Oxygen Saturation 97% 05/26/2020 9:19 AM EDT Inhaled Oxygen Concentration - - Weight 88.7 kg (195 lb 8 oz) 05/26/2020 9:19 AM EDT Height 172.7 cm (5' 7.99) 05/26/2020 9:19 AM ED T Body Mass Index 29.73 05/26/2020 9:19 AM EDT documented in this encounter Progress Notes * Kimmy Trevino MD - 05/26/2020 9:20 AM EDT Isrrael Anton is referred by Marco Reina [...] denies symptoms of incarceration or intestinal obstruction. He states his umbilicus is minimally symptomatic. He has a history of a prior open right inguinal hernia repair. Past Medical History: Diagnosis Date ??? CLL (chronic lymphocytic leukemia) 04/05/2011 Patient Active Problem List Diagnosis Code ??? [...] allergies Z91.09 ??? Spine pain, multilevel M54.9 CLL - stable, diagnosed 10 years ago Past Surgical History: Procedure Laterality Date ??? ELBOW FRACTURE SURGERY Right 1963 ??? HERNIA REPAIR Right 1959 Ingiunal ??? PRO COLONOSCOPY, DIAGNOSTIC N/A 11/27/2018 COLONOSCOPY, DIAGNOSTIC performed by Nuria De León MD at [facility] ENDOSCOPY Vasectomy Current Outpatient Medications: ??? tadalafiL (CIALIS) 5 [...] times daily (with meals)., Disp: , Rfl: Allergies: Viagra [sildenafil] Social history: reports that he has never smoked. He has never used smokeless tobacco. He reports previous alcohol use. He reports previous drug use. Family history noncontributory Review of systems is negative for any unexplained weight loss or weight gain. He denies any cough, chest pain or shortness on breath on exertion. He has no fevers, chills or night sweats. Bowel and bladder elimination is normal. He denies issues with bleeding, clotting or anesthesia. All other system reviews are negative. BP 111/60 (BP Location (NBP): Right arm) [...] extremity and neurological exam are grossly normal. Impression. Symptomatic left inguinal hernia, and umbilical [...] left inguinal hernia and umbilical hernia repair. [facility] Preoperative Assessment - Inguinal Hernia 05/26/2020 [...] prescription opioids in last 30 days 0 documented in this encounter Plan of Treatment Upcoming Encounters Date Type Department Care Team (Late st Contact Info) Description 11/05/2024 10:30 AM EST Office Visit Hematology/Oncology at [address] [phone] Sha Figueroa MD [facility] [place] [address] Stephany Kramer APRN [address] [place] [address] DR MEDICAL ONCOLOGY [place], [place] [address] 11/11/2024 8:45 AM EST Office Visit Dermatology at [place] [address] [place] [phone] Rusty Flores MD 580 [facility], [place] [address] documented as of this encounter Visit Diagnoses Diagnosis Umbilical hernia without obstruction and without gangrene Left inguinal hernia Inguinal hernia without mention of obstruction or gangrene, unilateral or unspecified, (not specified as recurrent) documented in this encounter Care Teams Historic Site Administrator Relationship Specialty Start Date End Date Marco Reina MD 580 [place] [address] PCP - General Family Medicine 07/08/19 10/01/21 documented as of this encounter
--- OUTSIDE RECORDS SUMMARY | 2024-11-05 01:49 | XMS_ITS | Encounter Summary ---
Author Organization [facility] Address [facility] [place] [address] Care Team Providers Care Log Loader Helper Name Role Phone Marco Reina MD Primary Care Provider + Encounter Details Date Type Department Care Team (Late st Contact Info) Description 05/31/2020 Telephone Dermatology at [facility] [address] [place] [phone] Isamar Duffy MD [facility] DR [facility] [place] [address] Social History Tobacco Use Types Packs/Day Years [...] encounter Miscellaneous Notes * Telephone Encounter - Pamella Moura - 05/31/2020 2:44 PM EDT Called Mr. Anton to reschedule appointment canceled on January 07, 2020 and spoke to his . Mr. Anton will call back if he wants to reschedule. documented in this encounter Plan of Treatment Upcoming Encounters Date Type Department Care Team (Late st Contact Info) Description 11/05/2024 10:30 AM EST Office Visit Hematology/Oncology at [address] [phone] Sha Figueroa MD [facility] DR HEMATOLOGY [place] [address] Stephany Kramer, BAHMAN [address] [place] [address] [place] [address] 11/11/2024 8:45 AM EST Office Visit Dermatology at [place] 580 [facility] [place] [address] Rusty Flores MD 580 [facility], [place] [address] documented as of this encounter Visit Diagnoses Not on filedocumented in this encounter Care Teams Log Loader Helper Relationship Specialty Start Date End Date Marco Reina MD 580 [place] [address] PCP - General Family Medicine 07/08/19 10/01/21 documented as of this encounter
--- OUTSIDE RECORDS SUMMARY | 2024-11-05 01:49 | XMS_ITS | Encounter Summary ---
Author Organization [facility] Address [facility] [place] [address] Care Team Providers Care Cushion Spring Assembler Name Role Phone Marco Reina MD Primary Care Provider [phone] Encounter Details Date Type Department Care Team (Late st Contact Info) Description 11/13/2018 Abstract Internal Medicine at [facility] [address] [place] [phone] Yvette Cox, [facility] Social History Tobacco Use Types Packs/Day Years [...] AM EST Office Visit Hematology/Oncology at [address] [phone] Sha Figueroa MD [facility] DR [place] [address] Stephany Kramer, BAHMAN [address] [place] [address] DR MEDICAL ONCOLOGY [place], [place] [phone] 11/11/2024 8:45 AM EST Office Visit Dermatology at [address] [place] [phone] Rusty Flores MD [address], [place] [address] documented as of this encounter Procedures Procedure Name Priority Date/Time Associated Diagnosis Comments EXTERNAL LAB CBC CMP THYROID RESULTS PANEL Routine 01/30/2018 EXTERNAL LIPID LAB RESULTS PANEL Routine 01/30/2017 EXTERNAL COLONOSCOPY RESULT Routine 05/11/2008 documented in this encounter Results * (ABNORMAL) CBC / CMP / Thyroid External Results (01/30/2018) White Blood Cell 14.3(ExtH) EXTERNAL LAB Red Blood Cell 4.44(Exter nal Lab) EXTERNAL LAB Hemoglobin 13.8(Exter nal Lab) EXTERNAL LAB Hematocrit 42.4(Exter nal Lab) EXTERNAL LAB Mean Cell Volume 95.4(Exter nal Lab) EXTERNAL LAB Platelet 186(Prescription Benefit Specialist al Lab) EXTERNAL LAB 01/30/2018 Historical Provider EXTERNAL LAB ORDE RABONELIA EXTERNAL LAB * (ABNORMAL) Lipid External Results (01/30/2017) Cholesterol, Total 185(Exter nal Lab) EXTERNAL LAB HDL Cholesterol 41(Prescription Benefit Specialist al Lab) EXTERNAL LAB LDL Cholesterol 113(Exter nal Lab) EXTERNAL LAB Triglyceride 156(ExtH) EXTERNAL LAB 01/30/2017 Historical Provider POINT OF CARE SHARON T ORDERABLES EXTERNAL LAB * (ABNORMAL) External Colonoscopy (05/11/2008) External Colonoscopy normal(Ext ernal Lab) EXTERNAL LAB Comment:repeat in10 years 05/11/2008 Historical Provider EXTERNAL GI PROCE DURE RESULT EXTERNAL LAB documented in this encounter Visit Diagnoses Not on filedocumented in this encounter Care Teams Cushion Spring Assembler Relationship Specialty Start Date End Date Marco Reina MD [address] [place] [address] PCP - General General Internal Medicine 06/17/18 2 documented as of this encounter
--- OUTSIDE RECORDS SUMMARY | 2024-11-05 01:49 | XMS_ITS | Encounter Summary ---
Author Organization [facility] Address [facility] [place] [address] Care Team Providers Care Chief Program Officer Name Role Phone Marco Reina MD Primary Care Provider + Encounter Details Date Type Department Care Team (Late st Contact Info) Description 12/26/2019 Telephone Dermatology at [facility] [address] [place] [phone] Isamar Duffy MD [facility] DR G[place] [address] Social History Tobacco Use Types Packs/Day Years [...] encounter Miscellaneous Notes * Telephone Encounter - Nicholas Acharya - 12/26/2019 1:49 PM EDT Left a voicemail to inform him that we have to cancel Botox on Masseter muscle appt on 01/07/20 due to current public health concern and that An, Dr. Duffy' insurance agency manager, will reach out to reschedule. At this time, Dr. Duffy recommends postponing appt to March 2020. documented in this encounter Plan of Treatment Upcoming Encounters Date Type Department Care Team (Late st Contact Info) Description 11/05/2024 10:30 AM EST Office Visit Hematology/Oncology at [address] [phone] Sha Figueroa MD [facility] [place] [address] Stephany Kramer APRN [address] [place] [address] [place] [address] 11/11/2024 8:45 AM EST Office Visit Dermatology at [place] 580 [facility] [place] [address] Rusty Flores MD 580 [facility], [place] [address] documented as of this encounter Visit Diagnoses Not on filedocumented in this encounter Care Teams Chief Program Officer Relationship Specialty Start Date End Date Marco Reina MD [address] [place] [address] PCP - General Family Medicine 07/08/19 10/01/21 documented as of this encounter
--- OUTSIDE RECORDS SUMMARY | 2024-11-05 01:49 | XMS_ITS | Encounter Summary ---
Author Organization [facility] [place] [address] Care Team Providers Care Brick Cleaner Name Role Phone Junior España DO Primary Care Provider [phone] Reason for Visit * Reason Comments Follow-up Encounter Details Date Type Department Care Team (Late st Contact Info) Description 02/20/2019 3:00 PM EDT Office Visit Family Medicine at [facility] [address] [place] [phone] [place] [address] Insomnia, unspecified type (Primary Dx); CAROLYNE (generalized anxiety disorder) Social History Tobacco Use Types Packs/Day Years [...] Sign Reading Time Taken Comments Blood Pressure 110/62 02/20/2019 2:58 PM EDT Pulse 68 02/20/2019 2:58 PM EDT Temperature 36.4 ??C (97.6 ??F) 02/20/2019 2:58 PM ED T Respiratory Rate 16 02/20/2019 2:58 PM EDT Oxygen Saturation 98% 02/20/2019 2:58 PM EDT Inhaled Oxygen Concentration - - Weight 86 kg (189 lb 9.6 oz) 02/20/2019 2:58 PM EDT Height 172.7 cm (5' 7.99) 02/20/2019 2:58 PM ED T Body Mass Index 28.84 02/20/2019 2:58 PM EDT documented in this encounter Patient Instructions * Patient Instructions* Coby Parada, DAT - 02/20/2019 3:00 PM EDT 1. Insomnia, unspecified type UNCHANGED; no change after trial Buspar; (+) nightmares (+) restless legs. Consider trial; - prazosin (MINIPRESS) 2 mg Capsule; Take 1 capsule by mouth nightly. May increase to 2 tabs after 3 days then 3 tabs after 3 days Dispense: 90 capsule; Refill: 1 Consider trial; - doxepin (SINEQUAN) 25 mg Capsule; Take 1 capsule by mouth nightly as needed (may increase to 2 tabs after 1st week). Dispense: 90 capsule; Refill: 1 -The risks, benefits, alternatives and indications for the use of mediations prescribed or recommended during today's visit were reviewed with the patient. The patient understood and agreed with whatwas discussed. All questions were answered. 2. CAROLYNE (generalized anxiety disorder) IMPROVED; Decreased CAROLYNE score. Shingles Vaccine: ?? The Shingrix vaccine is recommended and preferred for all patients over 50, even those who have already received the Zostavax. ?? Shingrix, is actually GREATER than 90% effective, up to 97% effective at preventing shingles outbreaks. ?? Contact your insurance company to see if they cover the Shingrix Vaccination. If they do not cover it, check area pharmacies for the Shingrix Vaccine, as it may cost less. ?? You do not need a prescription for the vaccine. You should save documentation of receiving the vaccination, so we can update your medical record. ?? The Shingrix vaccine is a two part series; 2-6 months after the first dose you will receive a second dose. documented in this encounter Progress Notes * Junior España DO - 02/20/2019 3:00 PM EDT Subjective: Return for 4-6 weeks recheck sleep after med trials. Patient ID: Isrrael Anton is a 63 y.o. male. Chief Complaint Patient presents with ??? Follow-up Est pat presenting for 4 week recheck mood and sleep after med trials; - Arrives from home w/spouse Ashley - Anxiety; IMPROVED decreased anxiety - Sleep; UNCHANGED after trial Buspar, 1 tab HS x3 day then increased to 3 tabs HS x 1 week then 3 tabs BID for the rest of the bottle; last dose 6 days ago (+) nightmares without medication use - Current sleep medication nightly Unisom, Aleve PM & Zzzquil last week; still not effective - Increased walking - Denied caffeine or high sugar diet in afternoon GAD7 Questionnaires Data: last 4 values of anxiety scores CAROLYNE-7 Questionnaire Score Only 01/17/2019 02/20/2019 CAROLYNE-7 Score (Clinic) 15 7 PHQ9 Questionnaires Data (Clinic and Pt Entered): last 4 values PHQ-9 QUESTIONNAIRE LAST 4 VALUES (AMB) 11/20/2018 01/17/2019 02/20/2019 PHQ - 9 Score (Clinic) - 13 (Moderate Depression) - Little interest or pleasure (Clinic) - Several Days Not at all Little interest or pleasure (Patient) Not at all - - Down, depressed, hopeless (Clinic) - Not at all Not at all Down, depressed, hopeless (Patient) Not at all - - Trouble sleeping (Clinic) - Nearly every day - Tired or no energy (Clinic) - Nearly every day - Poor appetite or overeating (Clinic) - Several days - Feeling like a failure (Clinic) - Several Days - Trouble concentrating (Clinic) - More than half the days - Moving or speaking slowly (Clinic) - More than half the days - Would be better off (Clinic) - Not at all - BP Readings from Last 3 Encounters: 02/20/19 110/62 01/17/19 120/62 11/27/18 129/61 HPI Social History Social History Narrative Lives w/spouse (Ashley, 1972, 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 Eyes: Negative for visual disturbance. Respiratory: Negative for chest tightness and shortness of breath. Cardiovascular: Negative for chest pain and palpitations. Gastrointestinal: Negative for blood in stool. Genitourinary: Negative for hematuria. Neurological: Negative for dizziness, light-headedness and headaches. Psychiatric/Behavioral: Positive for sleep disturbance (persistent). Negative for dysphoric mood. The patient is nervous/anxious (improved). Objective: Patient reported measures: Pain:3 Physical Health:Very Good Fall: PHQ-9 QUESTIONNAIRE SCORE ONLY (AMB) 01/17/2019 PHQ - 9 Score (Clinic) 13 (Moderate Depression) No LMP for male patient. Physical Exam Psychiatric: He has a normal mood and affect. His speech is normal and behavior is normal. Judgmentand thought content normal. Cognition and memory are normal. Constitutional: Well developed, well nourished, no acute distress, non-toxic appearance Respiratory: No respiratory distress, normal breath sounds, no rales, no wheezing Cardiovascular: Normal rate, normal rhythm, no murmurs, no gallops, no rubs, no ankle edema Integument: Well hydrated, no rash Neurologic: Alert & oriented x 3, no focal deficits note Assessment and Plan: Assessment/Plan Patient Instructions 1. Insomnia, unspecified type UNCHANGED; no change after trial Buspar; (+) nightmares (+) restless legs. Consider trial; - prazosin (MINIPRESS) 2 mg Capsule; Take 1 capsule by mouth nightly. May increase to 2 tabs after 3 days then 3 tabs after 3 days Dispense: 90 capsule; Refill: 1 Consider trial; - doxepin (SINEQUAN) 25 mg Capsule; Take 1 capsule by mouth nightly as needed (may increase to 2 tabs after 1st week). Dispense: 90 capsule; Refill: 1 -The risks, benefits, alternatives and indications for the use of mediations prescribed or recommended during today's visit were reviewed with the patient. The patient understood and agreed with whatwas discussed. All questions were answered. 2. CAROLYNE (generalized anxiety disorder) IMPROVED; Decreased CAROLYNE score. Shingles Vaccine: ?? The Shingrix vaccine is recommended and preferred for all patients over 50, even those who have already received the Zostavax. ?? Shingrix, is actually GREATER than 90% effective, up to 97% effective at preventing shingles outbreaks. ?? Contact your insurance company to see if they cover the Shingrix Vaccination. If they do not cover it, check area pharmacies for the Shingrix Vaccine, as it may cost less. ?? You do not need a prescription for the vaccine. You should save documentation of receiving the vaccination, so we can update your medical record. ?? The Shingrix vaccine is a two part series; 2-6 months after the first dose you will receive a second dose. documented in this encounter Plan of Treatment Upcoming Encounters Date Type Department Care Team (Late st Contact Info) Description 11/05/2024 10:30 AM EST Office Visit Hematology/Oncology at [address] [phone] Sha Figueroa MD [facility] [place] [address] Stephany Kramer LITHOGRAPHIC CAMERA OPERATOR [address] [place] [address] [place] [address] 11/11/2024 8:45 AM EST Office Visit Dermatology at [address] [place] [phone] Rusty Flores MD [address] [place] [address], [place] [address] documented as of this encounter Visit Diagnoses Diagnosis Insomnia, unspecified type- Primary CAROLYNE (generalized anxiety disorder) Generalized anxiety disorder documented in this encounter Care Teams Brick Cleaner Relationship Specialty Start Date End Date Junior España DO [facility] [address] [place] [address] PCP - General Family Medicine 11/21/18 07/07/19 documented as of this encounter
--- OUTSIDE RECORDS SUMMARY | 2024-11-05 01:49 | XMS_ITS | Encounter Summary ---
Author Organization [facility] [place] [address] Care Team Providers Care Head Resident Name Role Phone Marco Reina MD Primary Care Provider + Encounter Details Date Type Department Care Team (Late st Contact Info) Description 11/10/2017 Ancillary Procedure Radiology Library at [facility] [place] [phone] Frank Fairchild APRN Social History Tobacco Use Types Packs/Day Years [...] AM EST Office Visit Hematology/Oncology at [address] [phone] Sha Figueroa MD [facility] DR HEMATOLOGY [place] [address] Stephany Kramer APRN [address] [place] [address] DR MEDICAL ONCOLOGY [place], [place] [id number] 11/11/2024 8:45 AM EST Office Visit Dermatology at [address] [place] [phone] Rusty Flores MD [address], [place] [address] documented as of this encounter Procedures Procedure Name Priority Date/Time Associated Diagnosis Comments FILM LIBRARY STORAGE ONLY CT SPINE Routine 11/10/2017 12:00 AM EST documented in this encounter Results * Film Library- Storage Only CT Spine (11/10/2017 12:00 AM EST) Narrative ADEOLA - 11/19/2019 11:22 AM EST This exam is auto-finalizing. It's purpose is for storage only. Frank Fairchild APRN IMG FILM LIBRARY ORDERABLES Performing Organization Address City/State/[facility] Co de Phone Number [place], [place] documented in this encounter Visit Diagnoses Not on filedocumented in this encounter Care Teams Head Resident Relationship Specialty Start Date End Date Marco Reina MD [address] [place] [address] PCP - General General Internal Medicine 05/10/1706/03 documented as of this encounter
--- OUTSIDE RECORDS SUMMARY | 2024-11-05 01:49 | XMS_ITS | Encounter Summary ---
Author Organization [facility]ly [facility] [place] [address] Care Team Providers Care Life Advisor Name Role Phone Marco Reina MD Primary Care Provider +1 Reason for Referral * Consultation (Routine) - Closed Specialty Diagnoses / Procedures Referred By Contac t Referred To Contact Orthopaedics Diagnoses Spine pain, multilevel *call to reschedule - cxl due to PHC - reschedule in May - inform patient he must call as soon as possible if unable to make it. Frank Fairchild APRN [facility] [place] [address] [address] [place] [address] Referral ID Status Reason Start Date Expiration Date V isits Requested Visits Authorized [id number] Closed Consult, Test & Treat 11/19/2019 11/18/2020 1 1 Reason for Visit * Reason Comments Back Pain Bilateral Hip Pain Neck Pain Bilateral Arm Pain * Consultation (Routine) - Specialty Diagnoses / Procedures Referred By Contac t Referred To Contact [facility] Diagnoses Dorsalgia, unspecified Spine - Back pain/ ?imaging Marco Reina MD [address] [place] [address] Phone: [facility] [place] [address] Referral ID Status Reason Start Date Expiration Date V isits Requested Visits Authorized [id number] Consult, Test & Treat [facility] PCP Updated and/or Approved 11/11/2019 11/11/2020 10 10 Encounter Details Date Type Department Care Team (Late st Contact Info) Description 11/19/2019 9:20 AM EST Office Visit [facility] [place] [address] Frank Fairchild APRN Spine pain, multilevel Social History Tobacco Use Types Packs/Day Years [...] Sign Reading Time Taken Comments Blood Pressure 113/68 11/19/2019 9:13 AM EST Pulse - - Temperature - - Respiratory Rate - - Oxygen Saturation - - Inhaled Oxygen Concentration - - Weight 85.7 kg (189 lb) 11/19/2019 9:13 AM EST Height 174 cm (5' 8.5) 11/19/2019 9:13 AM EST Body Mass Index 28.32 11/19/2019 9:13 AM EST documented in this encounter Progress Notes * Frank Fairchild APRN - 11/19/2019 9:20 AM EST SUBJECTIVE: Isrrael Anton is a 64 y.o. year old male being seen at the request of Marco Reina with a chief complaint of neck mid and low back pain. Patient states that he is been experiencing pain in multiple levels of his spine and in other portions of his body daily for approximately 25 years with no clear incident or injury inciting it. He describes his neck pain is being posterior neck from the upper cervical spine to the upper thoracic spine and pain into the left trapezius and shoulder pain midline and right of midline in the mid thoracic spine and diffuse low back pain from the upper lumbar spine to lower lumbar spine and diffusely bilaterally. He also complains of pain in the lateral iliac crest area bilaterally pain in the and numbness in the bilateral medial aspects of the lower legs pain and numbness in the palmar aspect of the left forearm as well as pain in other joints such as the wrists elbows and knees. He had 1 or 2 episodes over the last years of a temporary sense of weakness in his arms otherwise he reports a general sense of body wide weakness. His spine pain is aggravated by turning his head lying on his side and is somewhat alleviated by medication. His sleep is regularly disrupted by the symptoms. He does scribes balance disturbances but denies unexplained fallsand reports difficult times with fine motor movements in his fingers. Prior treatments include acetaminophen helpful, naproxen helpful but causes GI upset, chiropractic sometimes helpful. Review of systems is negative for constitutional, GI, symptoms. 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 Past med history includes chronic lymphocytic leukemia, CAD, COPD, and chronic pain syndrome. OBJECTIVE: On examination the patient's affect is bright, his speech is in good time to the point, he respondsappropriate to questions and direction. He stands with his left shoulder slightly elevated over hisright and a level hips. He is nontender in the posterior neck and mid back he is diffusely tender in the low back. Lumbar ROM is 80 degrees of flexion and 10 degrees of extension with extension mildly aggravating diffuse low back pain. Cervical ROM is 55 degrees of flexion, 30 degrees of extension,80 degrees of left and right rotation with all movements aggravating neck and medial trapezius pain. He walks with a steady gait and is able to toe walk heel walk and tandem walk. Motor exam is 5/5 strength of all upper and lower extremity muscle groups bilaterally. Sensation is intact in all dermatomes the upper and lower extremities with exception of the bilateral C6 is and on the left leg L4, L5, and S1 are impaired. Reflexes are symmetrical and 2 at the biceps, to the brachioradialis, 1 at the triceps, 2 at the knees, and 1 at the ankles. There is no Spurling's, Potter's, clonus, or Babinski. Hip ROM and straight leg raise exam is negative. Patient states that he recently had spine x-rays done at an outside hospital but unfortunately those images are not available for me to review today. There is a chest x-ray of 08/27/2015 in which I can visualize a significant portion of the thoracic spine and observe there is spondylitic changes with disc height loss and disc osteophyte but noobvious fracture. Cervical spine CT of 01/05/2012 is reviewed and in the low cervical spine there is mild disc desiccation with osteophyte and facet arthropathy. At C6-7 there is mild to moderate bilateral foraminal stenosis. These images were reviewed with the patient. ASSESSMENT: This is a 64 y.o. year old male with 25 years of chronic diffuse back pain and polyarthralgia in the setting of reassuring physical exam and imaging demonstrating age-appropriate degenerative change in the thoracic and cervical spine. I reassured the patient I see no indications for surgery on his spine and he explains that it is his diffuse back pain and his neck and medial trapezius pain that are really the most persistent and disruptive of his symptoms. I do not see an obvious indication forinjections but did offer to him to be seen by pain specialist for their opinion on that matter. He states at this point he is not interested in pursuing injections. I explained to the patient pain central sensitization as a phenomena that I suspect is significantly involved in the patient's pain experience and explained treatment options for this can include functional adventism program, mindfulness based stress reduction, and cognitive behavior therapy. We provided the patient a copy of the article where pain lives. When explaining the FRP to the patient he has functional goals of not the least of which is to be able to walk regularly with his and we have therefore mutually agreed to proceed as outlined below. PLAN: 1/referral for gap evaluation in consideration of the functional adventism program. documented in this encounter Plan of Treatment Upcoming Encounters Date Type Department Care Team (Late st Contact Info) Description 11/05/2024 10:30 AM EST Office Visit Hematology/Oncology at [address] [phone] Sha Figueroa MD [facility] DR HEMATOLOGY [place] [address] Stephany Kramer APRN [address] [place] [address] [place] [address] 11/11/2024 8:45 AM EST Office Visit Dermatology at [place] [address] [facility] [place] [phone] Rusty Flores MD [address] [facility] [place] [address] Scheduled Referrals Name Type Priority Associated Diagnoses Orde r Schedule Referral to Spine Center Outpatient Referral Routine Spine pain, multilevel Ordered: 11/19/2019 documented as of this encounter Visit Diagnoses Diagnosis Spine pain, multilevel Backache, unspecified documented in this encounter Care Teams Life Advisor Relationship Specialty Start Date End Date Marco Reina MD [address] [place] [address] PCP - General Family Medicine 07/08/19 10/01/21 documented as of this encounter
--- OUTSIDE RECORDS SUMMARY | 2024-11-05 01:49 | XMS_ITS | Encounter Summary ---
Author Organization [facility] [place] [address] Care Team Providers Care Pyrotechnic Mixer Name Role Phone Marco Reina MD Primary Care Provider + Encounter Details Date Type Department Care Team (Late Contact Info) Description 07/26/2017 Orders Only Hematology [place] [address] Sha Figueroa MD [facility] DR [place]Y [place] [address] Chronic lymphocytic leukemia Social History Tobacco Use [...] AM EST Office Visit Hematology/Oncology at [address] [phone] Sha Figueroa MD [facility] DR [place] [address] Stephany Kramer APRN [address] [place] [address] [place] [address] 11/11/2024 8:45 AM EST Office Visit Dermatology at [address] [place] [address] Rusty Flores MD [address] [facility], [place] [address] documented as of this encounter Visit Diagnoses Diagnosis Chronic lymphocytic leukemia Chronic lymphoid leukemia, without mention of having achieved remission documented in this encounter Care Teams Pyrotechnic Mixer Relationship Specialty Start Date End Date Marco Reina MD [address] [place] [address] PCP - General General Internal Medicine 05/10/1706/03 documented as of this encounter
--- OUTSIDE RECORDS SUMMARY | 2024-11-05 01:49 | XMS_ITS | Encounter Summary ---
Author Organization [facility] Address [facility] [place] [address] Care Team Providers Care Rental Clerk Name Role Phone Junior España DO Primary Care Provider [phone]- [phone] Encounter Details Date Type Department Care Team (Late st Contact Info) Description 11/27/2018 2:30 PM EST - 11/27/2018 3:30 PM EST Surgery [place] [address] Nuria De León MD [facility] [place] [address] COLONOSCOPY, DIAGNOSTIC (WRU 3.26) Social History Tobacco Use Types Packs/Day Years [...] Sign Reading Time Taken Comments Blood Pressure 127/68 11/27/2018 3:17 PM EST Pulse 52 11/27/2018 3:17 PM EST Temperature 36.9 ??C (98.4 ??F) 11/27/2018 3:17 PM ES T Respiratory Rate 18 11/27/2018 3:17 PM EST Oxygen Saturation 97% 11/27/2018 3:17 PM EST Inhaled Oxygen Concentration - - [...] to be checked. Sunday-Sunday Same Day Endo [phone]-[id number] Otherwise contact [phone] and ask to speak to the branch retail executive railroad design consultant Follow up care is a flores part [...] AM EST Office Visit Hematology/Oncology at [address] [phone] Sha Figueroa MD [facility] DR HEMATOLOGY [place] [address] Stephany Kramer, [address] [place] [address] 11/11/2024 8:45 AM EST Office Visit Dermatology at [address] [place] [address] Rusty Flores MD [address] [place] [address], [place] [address] documented as of this encounter Procedures Procedure Name Priority Date/Time Associated Diagnosis Comments COLONOSCOPY, DIAGNOSTIC (WRVU 3.26) 11/27/2018 4:07 PM EST 10 year Screening COLONOSCOPY Routine 11/27/2018 4:00 PM EST documented in this encounter Results * COLONOSCOPY (11/27/2018 4:00 PM EST) COLONOSCOPY [facility] Endoscopy Procedure Date: 11/27/2018 4:00 PM ? Patient Name: Isrrael Anton ? Date of : 1955 ? Age: 63 ? Order #: [id number] ? Instrument Name: [id number] ? Procedure: ? Colonoscopy Indications: ? Screening [...] preparation was ? evaluated using the BBPS (Bartlett ? Bowel Preparation Scale) with scores ? [...] 4:00 PM PROVATION 11/27/2018 4:00 PM EST [facility] DO GENERAL SURGICAL O RDERABLES PROVATION documented in this encounter Visit Diagnoses Not on filedocumented in this encounter Administered Medications Inactive Administered Medications - up to 3 most recent administrations Medication Order MAR Action Action Date Dose Rate Site fentaNYL 50 mcg/mL multi-dose injection ONCE PRN, Starting on Sun11/27/18 at 1611, Until Sun11/27/18 at 192, Intra-Operative (Intra-Procedure), Routine Given 11/27/2018 4:28 PM EST 25 mcg Given 11/27/2018 4:24 PM EST 50 mcg Given 11/27/2018 4:14 PM EST 50 mcg lactated Ringers infusion 100 mL/hr, Intravenous, CONTINUOUS, Starting on Sun11/27/18 at 1530, Until Sun11/27/18 at 1929, Endoscopy (Day of Procedure) New Bag 11/27/2018 3:30 PM EST 100 mL/hr 100 mL/hr midazolam (PF) (VERSED) multi-dose injection ONCE PRN, Starting on Sun11/27/18 at 1611, Until Sun11/27/18 at 1929, Intra-Operative (Intra-Procedure), Routine Given 11/27/2018 4:28 PM EST 0.5 mg Given 11/27/2018 4:24 PM EST 1 mg Given 11/27/2018 4:17 PM EST 1 mg documented in this encounter Active and Recently [...] Until Sun11/27/18 at 1929, Intra-Operative (Intra-Procedure), Routine 1611 (Given - Provid er: Gabriela Valdovinos RN)1614 (Given - Provider: Gabriela Valdovinos RN)1624 (Given - Provider: Gabriela Valdovinos RN)1628 (Given - Provider: Gabriela Valdovinos RN) midazolam (PF) (VERSED) multi-dose injection (CANCELED) ONCE PRN, Starting on Sun11/27/18 at 1611, Until Sun11/27/18 at 1929, Intra-Operative (Intra-Procedure), Routine 1611 (Given - Provid er: Gabriela Valdovinos RN)1614 (Given - Provider: Gabriela Valdovinos RN)1617 (Given - Provider: Gabriela Valdovinos RN)1624 (Given - Provider: Gabriela Valdovinos RN)1628 (Given - Provider: Gabriela Valdovinos RN) documented in this encounter Care Teams Rental Clerk Relationship Specialty Start Date End Date Junior España, [facility] [place] [address] PCP - General Family Medicine 11/21/18 07/07/19 documented as of this encounter
--- OUTSIDE RECORDS SUMMARY | 2024-11-05 01:49 | XMS_ITS | Encounter Summary ---
Author Organization [facility] Address [facility] [place] [address] Care Team Providers Care Solid Plasterer Name Role Phone Miki Sandoval MD Primary Care Provider [phone] Reason for Referral * Consultation (Routine) - Closed Specialty Diagnoses / Procedures Referred By Contac t Referred To Contact Hematology and Oncology Diagnoses Chronic lymphocytic leukemia Reny Lawler, [facility] [place] [address] Bety Savage, PhD [facility] [address] Referral ID Status Reason Start Date Expiration Date V isits Requested Visits Authorized [id number] Closed Consult, Test & Treat 02/21/2016 02/20/2017 1 1 Reason for Visit * Reason Comments Follow-up Encounter Details Date Type Department Care Team (Late st Contact Info) Description 02/21/2016 10:15 AM EDT Office Visit Hematology [place] [address] Sha Figueroa MD [facility] HEMATOLOGY [place] [address] Reny Lawler APRN [place], [place], MD [facility] HEMATOLGY/[place] [address] Chronic lymphocytic leukemia Social History Tobacco Use Types Packs/Day Years Used Date Smoking Tobacco: Never Sex and Gender Information Value Date Recorded Sex Assigned at Not on file Gender Identity Not on file Sexual Orientation Not on file documented as of this encounter Last Filed Vital Signs Vital Sign Reading Time Taken Comments Blood Pressure 116/69 02/21/2016 10:20 AM EDT Pulse 54 02/21/2016 10:20 AM EDT Temperature 36.7 ??C (98.1 ??F) 02/21/2016 10:20 AM E DT Respiratory Rate 16 02/21/2016 10:20 AM EDT Oxygen Saturation 100% 02/21/2016 10:20 AM EDT Inhaled Oxygen Concentration - - Weight 87 kg (191 lb 12.8 oz) 02/21/2016 10:20 A M EDT Height 171.9 cm (5' 7.68) 02/21/2016 10:20 AM E DT Body Mass Index 29.44 02/21/2016 10:20 AM EDT documented in this encounter Progress Notes * Reny Lawler, MANAGER INVENTORY - 02/21/2016 10:20 AM EDT Subjective: Patient ID: Isrrael Anton is a 60 y.o. male here for f/u of CLL Patient Active Problem List Diagnosis ??? CLL (chronic lymphocytic leukemia) 1. 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 a. Lincoln 70 neg, Chrom 13 abnm by FISH (good prognosis) b. Observation only ??? History of hepatitis C, successfully treated HPI Isrrael is doing OK - he has been followed by his PCP in [place] for the past 4 + years. 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 He does have sleep isues and has been taking ambien nightly for years. He is often nauseated - feels full /bloated a lot - he has lost 10 pounds - but has been watching his diet. Short term memory loss - has talked to his PCP about this. Heis worried about this - has trouble with word finding. No history of stroke or TIA that he is aware. He does take PRN klonopin - only 1/2 mg approx QD or QOD. Denies any adenopathy or drenchign nightsweats. He does get 'walking pneumonia' each year - treated with Z-pack. He also has a history of [place] PD/bronchitis - has inhalers. He no longer gets annual flu shot secondary to reaction. He has not had the pneumonia vaccine. Review of Systems Constitutional: Positive for fatigue. Negative for chills, diaphoresis and fever. HENT: Negative. Eyes: Negative. Respiratory: Negative. Inhalers PRN Cardiovascular: Negative. Gastrointestinal: Positive for abdominal distention and nausea. As above - also history og GERD Endocrine: Negative. Genitourinary: Negative. Musculoskeletal: Positive for arthralgias. Chronic overuse joint pains Skin: Negative. Neurological: Negative. Hematological: Negative. Psychiatric/Behavioral: Positive for decreased concentration. As above Objective: Physical Exam Constitutional: He is oriented [...] and affect. Recent Results (from the past 72 hour(s)) Comprehensive metabolic panel (non-fasting) Result Value Ref Range Glucose Lvl 109 65 - 199 mg/dL BUN 16 10 - 20 mg/dL Creatinine 0.87 0.80 - 1.50 mg/dL Sodium 143 135 - 145 mmol/L Potassium 4.3 3.5 - 5.0 mmol/L Chloride 106 98 - 107 mmol/L CO2 24 22 - 31 mmol/L Anion Gap 13 5 - 15 mmol/L Calcium 8.7 8.5 - 10.5 mg/dL Total Protein 6.7 6.1 - 8.0 gm/dL Albumin 4.4 3.2 - 5.2 gm/dL AST 33 0 - 39 unit/L ALT 27 0 - 55 unit/L Alk Phos 81 40 - 120 unit/L Total Bilirubin 0.6 0.2 - 1.3 mg/dL Bili, Direct 0.1 0.0 - 0.3 mg/dL Estimated GFR >60 >=60 Hemogram Result Value Ref Range WBC 10.9 (H) 4.0 - 10.0 x10(3)/mcL RBC 4.73 4.63 - 6.08 x10(6)/mcL Hemoglobin 14.8 13.7 - 17.5 gm/dL Hematocrit 44.0 40.0 - 51.0 % MCV 93.0 (H) 79.0 - 92.0 fL MCH 31.3 25.6 - 32.2 pg MCHC 33.6 32.0 - 36.5 gm/dL Platelets 171 145 - 370 x10(3)/mcL RDWSD 46.2 (H) 35.0 - 46.0 fL RDWCV 13.7 10.9 - 14.4 % MPV 12.5 (H) 9.0 - 12.0 fL Visit Vitals ??? BP 116/69 (Patient Position: Sitting) ??? Pulse 54 ??? Temp 36.7 ??C (98.1 ??F) (Oral) ??? Resp 16 ??? Ht 171.9 cm (5' 7.68) ??? Wt 87 kg (191 lb 12.8 oz) ??? SpO2 100% ??? BMI 29.44 kg/m2 Assessment and Plan: 1. CLL now approx 6 years s/p diagnosis with no treatment to date.Counts stable, No worrisome or symptomatic adenoapthy. No B symptoms, ALC doubling time yet to be determined, no splenomegaly. No recurrent infections, no signs of AIHA or ITP. No concern for transformation. No indication for treatment at this time. Reviewed CLL and indications for therapy, Also reviewed inherent increase risk for infection. Influenza =does not take secondary to previous reaction Pneumococcal - due - will ask PCP to get this UTD. With CLL reccommended Q 5years. 2. History of short term memory issues, word findings. He is very concered about these symptoms. Will refer for neurophysch testing. 3. Nausea, bloating - ? GERD equivalent - will take his GERD medication for the next 2-3 weeks daily - if no improvement will follow with PCP - ? Consider H- Pylori testing. I do not think this is related to his CLL. 4. Fatigue - likely multifactorial with ambien and Klonopin contributing. With normal hemoglobin I do not think this is strictly related to his CLL diagnosis Plan: We will continue to monitor in hematology clinic. Reviewed CLL and indications for treatment.Isrrael will return to hematology in 12 months. he will call if there are any problems before then. documented in this encounter Plan of Treatment Upcoming Encounters Date Type Department Care Team (Late st Contact Info) Description 11/05/2024 10:30 AM EST Office Visit Hematology/Oncology at [address] [phone] Sha Figueroa MD [facility] DR HEMATOLOGY [place] [address] Stephany Kramer APRN [address] [place] [address] [place] [address] 11/11/2024 8:45 AM EST Office Visit Dermatology at [place] [address] [place] [phone] Rusty Flores MD [address] [facility] [place] [address] Scheduled Referrals Name Type Priority Associated Diagnoses Orde r Schedule Referral to Hematology and Oncology Outpatient Referral Routine Chronic lymphocytic leukemia Ordered: 02/21/2016 documented as of this encounter Visit Diagnoses Diagnosis Chronic lymphocytic leukemia Chronic lymphoid leukemia, without mention of having achieved remission documented in this encounter Care Teams Solid Plasterer Relationship Specialty Start Date End Date Miki Sandoval MD [facility] [address] [place] [address] PCP - General 04/11/11 05/09/17 documented as of this encounter
--- OUTSIDE RECORDS SUMMARY | 2024-11-05 01:50 | XMS_ITS | Encounter Summary ---
Author Organization [facility] [place] [address] Care Team Providers Care E Commerce Analyst Name Role Phone Saige Cobian APRN Primary Care Provider [phone] Reason for Visit * Reason Comments Follow-up Encounter Details Date Type Department Care Team (Latest Contact Info) Description 04/10/2011 1:02 PM EDT - 04/10/2011 11:59 PM EDT Hospital Encounter [place]ology [place] [address] Sha Figueroa MD [facility] [address] [place] [address] CLL (chronic lymphocytic leukemia) Discharge Disposition: Home Social History Tobacco Use Types Packs/Day Years Used Date Smoking Tobacco: Never Assessed Sex and Gender Information Value Date Recorded Sex Assigned at Not on file Gender Identity Not on file Sexual Orientation Not on file documented as of this encounter Last Filed Vital Signs Vital Sign Reading Time Taken Comments Blood Pressure 106/64 04/10/2011 3:37 PM EDT Pulse 41 04/10/2011 3:37 PM EDT Temperature 36.9 ??C (98.4 ??F) 04/10/2011 3:37 PM ED T Respiratory Rate 18 04/10/2011 3:37 PM EDT Oxygen Saturation 98% 04/10/2011 3:37 PM EDT Inhaled Oxygen Concentration - - Weight 83.5 kg (184 lb 1.4 oz) 04/10/2011 3:37 P M EDT Height 172.5 cm (5' 7.9) 04/10/2011 3:37 PM EDT Body Mass Index 28.07 04/10/2011 3:37 PM EDT documented in this encounter Medications at Time of Discharge Medication Sig Dispensed Refills Start Date End Date zolpidem (AMBIEN) 10 mg tablet 10/03/2010 11/21/2018 clonAZEpam (KLONOPIN) 2 mg disintegrating tablet 10/03/2010 11/22/2017 documented as of this encounter Progress Notes * Sha Figueroa MD - 05/16/2011 12:15 PM EDTEncounter addended by: Sha Figueroa MD on: 05/16/2011 12:15 PM
Documentation filed: Inpatient Notes * Amrita Dash RN - 04/10/2011 1:33 PM EDT Documentation of Informed Consent to Participate in Clinical Trial D0905: Protocol to Obtain Blood Samples for Leukemia Research Patient was seen in Hematology-Oncology clinic on 04/10/11, while awaiting appt with Dr. Figueroa. Patient was offered the opportunity to participate in study D0905: Protocol to Obtain Blood Samplesfor Leukemia Research. Study protocol reviewed with patient, including description of study purpose, potential risks and benefits, voluntary nature or participation, and requirements of participation. Education regarding additional blood to be drawn at time of routine blood draw provided. Discussed confidentiality of patient???s private health information as specified in consent form. Patient informed that he may discontinue study involvement at any time; informed that declining to participate or discontinuing study treatment will not compromise his access to treatment options or care at this institution. Mr. Anton was given written informed consent form to read and review. He was given adequate time toreview all information, and to ask questions and review concerns, all of which were answered to hissatisfaction. Patient verbalized understanding of this protocol and consented for treatment on study D0905. Consent form was signed and dated by patient and underwriter mortgage loan. Written informed consent was obtained prior to any study blood work being drawn. A copy of the signed consent form was given to patient. Original signed IC form given to LUIS E Cortes. * Sha Figueroa MD - 04/10/2011 12:00 AM EDT Subjective: Patient ID: Isrrael Anton is a 56 y.o. male. HPI 1. 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 a. [place] 70 neg, Chrom 13 abnm by FISH (good prognosis) b. Observation only The patient returns to hematology clinic in followup for his stage 0 CLL. He has never required therapy. He is not even reached his doubling time after several years of observation. He continues to feel well. 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 He generally feels okay with his diagnosis although sometimes he worries. He's not had any recent infections. No lumps or bumps. His energy is good. Review of Systems Constitutional: Negative for fever, fatigue and unexpected weight change. HENT: Negative for nosebleeds. Respiratory: Negative for cough and shortness of breath. Cardiovascular: Negative for chest pain and palpitations. Gastrointestinal: Negative for abdominal pain. Musculoskeletal: Negative for back pain. Hematological: Negative for adenopathy. All other systems reviewed and are negative. Objective: Physical Exam Constitutional: He is oriented to person, place, and time. He appears well- developed and well-nourished. No distress. HENT: Mouth/Throat: No oropharyngeal exudate. Eyes: No scleral icterus. Cardiovascular: Normal rate, regular rhythm and normal heart sounds. Pulmonary/Chest: Effort normal and breath sounds normal. He has no wheezes. Abdominal: Soft. There is no splenomegaly. No tenderness. Musculoskeletal: He exhibits no edema. Lymphadenopathy: He has no cervical adenopathy. He has no axillary adenopathy. Right: No inguinal adenopathy present. Left: No inguinal adenopathy present. Neurological: He is alert and oriented to person, place, and time. Recent Results (from the past 72 hour(s)) IMMUNOGLOBULINS, QUANTITATIVE Component Value Range ??? IgG 797 700 - 1600 (mg/dL) ??? IgA 88 70 - 400 (mg/dL) ??? IgM 26 (*) 40 - 230 (mg/dL) COMPREHENSIVE METABOLIC PANEL (NON-FASTING) Component Value Range ??? Glucose Lvl 93 60 - 199 (mg/dL) ??? BUN 12 10 - 20 (mg/dL) ??? Creatinine 0.84 0.80 - 1.50 (mg/dL) ??? Sodium 140 135 - 145 (mmol/L) ??? Potassium 3.9 3.5 - 5.0 (mmol/L) ??? Chloride 105 98 - 107 (mmol/L) ??? CO2 24 22 - 31 (mmol/L) ??? Anion Gap 11 5 - 15 (mmol/L) ??? Calcium 9.3 8.5 - 10.5 (mg/dL) ??? Total Protein 6.7 6.4 - 8.3 (gm/dL) ??? Albumin 4.6 3.2 - 5.2 (gm/dL) ??? AST 31 0 - 39 (unit/L) ??? ALT 22 0 - 55 (unit/L) ??? Alk Phos 65 40 - 120 (unit/L) ??? Total Bilirubin 0.9 0.2 - 1.3 (mg/dL) ??? Bili, Direct 0.2 0.0 - 0.3 (mg/dL) ? ? Estimated GFR >60 >=60 CBC (WITH DIFF) Component Value Range ??? WBC 12.1 (*) 4.0 - 10.0 (x10(3)/mcL) ??? RBC 4.72 4.63 - 6.08 (x10(6)/mcL) ??? Hemoglobin 14.9 13.7 - 17.5 (gm/dL) ??? Hematocrit 42.3 40.0 - 51.0 (%) ??? MCV 89.6 79.0 - 92.0 (fL) ??? MCH 31.6 25.6 - 32.2 (pg) ??? MCHC 35.2 32.0 - 36.5 (gm/dL) ??? Platelets 142 (*) 145 - 370 (x10(3)/mcL) ??? RDWSD 43.7 35.0 - 46.0 (fL) ??? RDWCV 13.3 10.9 - 14.4 (%) ??? MPV 12.0 9.0 - 12.0 (fL) REFLEX LAB-SCAN, PERIPHERAL BLOOD Component Value Range ??? Plat Estimate Decreased ??? RBC Morphology Normal REFLEX LAB-A-DIFF Component Value Range ??? Neutrophils % 27.6 (*) 34.0 - 71.0 (%) ??? Neutr Abs (ANC) 3.33 1.50 - 6.30 (x10(3)/mcL) ??? Lymphocytes % 64.4 (*) 19.0 - 53.0 (%) ??? Lymphocytes Abs 7.8 (*) 1.0 - 3.6 (x10(3)/mcL) ??? Monocytes % 5.0 4.0 - 13.0 (%) ??? Monocyte Abs 0.6 0.2 - 1.0 (x10(3)/mcL) ??? Eosinophils % 2.5 0.0 - 7.0 (%) ??? Eosinophils Abs 0.3 0.0 - 0.5 (x10(3)/mcL) ??? Basophils % 0.3 0.0 - 2.0 (%) ??? Basophils Abs 0.0 0.0 - 0.2 (x10(3)/mcL) ??? Immature Gran % 0.20 0.00 - 0.66 (%) ??? Letty Gran Abs 0.02 0.00 - 0.05 (x10(3)/mcL) Assessment and Plan: 56-year-old man with chronic lymphocytic leukemia stage 0 with good prognostic markers. His lymphocyte Count remains low and is not increased substantially over the last few years. I did let him know again today that I thought he had a good risk chronic lymphocytic leukemia. I thought that was low likelihood that it would progress in the near or even remote future. I think we can observe him less closely. I would like to see him just once a year. If he has more problems we would be happy to see him sooner. documented in this encounter Plan of Treatment Upcoming Encounters Date Type Department Care Team (Late st Contact Info) Description 11/05/2024 10:30 AM EST Office Visit Hematology/Oncology at [address] [phone] Sha Figueroa MD [facility] [place]AT[place] [address] Stephany Kramer, AIR TRAFFIC CONTROL SPECIALIST [address] [place] [address] [place] [address] 11/11/2024 8:45 AM EST Office Visit Dermatology at [place] [address] [place] [phone] Rusty Flores MD [address], [place] [address] documented as of this encounter Procedures Procedure Name Priority Date/Time Associated Diagnosis Comments IMMUNOGLOBULINS, QUANTITATIVE Routine 04/10/2011 1:24 PM EDT SCAN, PERIPHERAL BLOOD STAT 1 1:24 PM EDT DIFFERENTIAL, AUTOMATED STAT 04/10/2011 1:24 PM EDT CBC (WITH DIFF) STAT 04/10/2011 1:24 PM EDT COMPREHENSIVE METABOLIC PANEL STAT 04/10/2011 1:24 PM EDT documented in this encounter Results * (ABNORMAL) REFLEX LAB-A-DIFF (04/10/2011 1:24 PM EDT) Neutrophil % 27.6(L) 34.0 - 71.0 % CERNER MILLENNIUM Neutrophil Absolute 3.33 1.50 - 6.30 x10(3)/mc L CERNER MILLENNIUM Lymph % 64.4(H) 19.0 - 53.0 % CERNER MILLENNIUM Lymphocytes Abs 7.8(H) 1.0 - 3.6 x10(3)/mc L CERNER MILLENNIUM Monocyte % 5.0 4.0 - 13.0 % CERNER MILLENNIUM Monocyte Abs 0.6 0.2 - 1.0 x10(3)/mc L CERNER MILLENNIUM Eos % 2.5 0.0 - 7.0 % CERNER MILLENNIUM Eosinophils Abs 0.3 0.0 - 0.5 x10(3)/mc L CERNER MILLENNIUM Basophil % 0.3 0.0 - 2.0 % CERNER MILLENNIUM Baso Absolute 0.0 0.0 - 0.2 x10(3)/mc L CERNER MILLENNIUM Immature Gran % 0.20 0.00 - 0.66 % CERNER MILLENNIUM Comment: Immature granulocytes(IG's)percentage and absolute count will include metamyelocytes, myelocytes, and promyelocytes. Blood smears from CBCs yielding IG's will be scanned manually for concordance. If this scan disagrees with the automated IG or if promyelocytes are noted, a manual differential will be performed. Immature Gran Absolute 0.02 0.00 - 0.05 x10(3)/mc L CERNER MILLENNIUM Blood specimen (specimen) 04/10/2011 1:24 PM EDT 04/10/2011 1:30 PM EDT Sha Figueroa MD HEMATOLOGY ORDERABLE S CERNER MILLENNIUM * REFLEX LAB-SCAN, PERIPHERAL BLOOD (04/10/2011 1:24 PM EDT) Plat estimate Decreased CERNER MILLENNIUM RBC Morphology Normal CERNE R MILLENNIUM Blood specimen (specimen) 04/10/2011 1:24 PM EDT 04/10/2011 1:30 PM EDT Sha Figueroa MD HEMATOLOGY ORDERABLE S CERNER MILLENNIUM * (ABNORMAL) CBC (WITH DIFF) (04/10/2011 1:24 PM EDT) White Blood Cell 12.1(H) 4.0 - 10.0 x10(3)/mc L CERNER MILLENNIUM Red Blood Cell 4.72 4.63 - 6.08 x10(6)/mc L CERNER MILLENNIUM Hemoglobin 14.9 13.7 - 17.5 gm/dL CERNER MILLENNIUM Hematocrit 42.3 40.0 - 51.0 % CERNER MILLENNIUM Mean Cell Volume 89.6 79.0 - 92.0 fL CERNER MILLENNIUM Mean Cell Hemoglobin 31.6 25.6 - 32.2 pg CERNER MILLENNIUM Mean Cell Hemoglobin Concentration 35.2 32.0 - 36.5 gm/dL CERNER MILLENNIUM Platelet 142(L) 145 - 370 x10(3)/mc L CERNER MILLENNIUM RDW Standard Deviation 43.7 35.0 - 46.0 fL CERNER MILLENNIUM RDW coefficient of variation 13.3 10.9 - 14.4 % CERNER MILLENNIUM Mean Platelet Volume 12.0 9.0 - 12.0 fL CERNER MILLENNIUM Blood specimen (specimen) 04/10/2011 1:24 PM EDT 04/10/2011 1:30 PM EDT Sha Figueroa MD HEMATOLOGY ORDERABLE S CERNER MILLENNIUM * COMPREHENSIVE METABOLIC PANEL (NON-FASTING) (04/10/2011 1:24 PM EDT) Pathologist [facility] Glucose 93 60 - 199 mg/dL CERNER MILLENNIUM Comment:Diabetes: >=200 mg/d L plus symptoms Blood Urea Nitrogen 12 10 - 20 mg/dL CERNER MILLENNIUM Creatinine 0.84 0.80 - 1.50 mg/dL CERNER MILLENNIUM Sodium 140 135 - 145 mmol/L CERNER MILLENNIUM Potassium 3.9 3.5 - 5.0 mmol/L CERNER MILLENNIUM Comment: Please note: ??Patients with WBC >100,000 may have falsely elevated Potassium levels. ??For accurate Potassium quantification in these patients send serum separator tube (gold top) for subsequent determinations. ??Contact the Clinical Chemistry Laboratory if there are any questions. Chloride 105 98 - 107 mmol/L CERNER MILLENNIUM Carbon Dioxide 24 22 - 31 mmol/L CERNER MILLENNIUM Anion Gap 11 5 - 15 mmol/L CERNER MILLENNIUM Calcium 9.3 8.5 - 10.5 mg/dL CERNER MILLENNIUM Protein, Total 6.7 6.4 - 8.3 gm/dL CERNER MILLENNIUM Albumin 4.6 3.2 - 5.2 gm/dL CERNER MILLENNIUM Aspartate Aminotransferase 31 0 - 39 unit/L CERNER MILLENNIUM Alanine Aminotransferase 22 0 - 55 unit/L CERNER MILLENNIUM Alkaline Phosphatase 65 40 - 120 unit/L CERNER MILLENNIUM Bilirubin, Total 0.9 0.2 - 1.3 mg/dL CERNER MILLENNIUM Bilirubin, Direct 0.2 0.0 - 0.3 mg/dL CERNER MILLENNIUM Est Glomerular Filtration Rate >60 >=60 CERNER MILLENNIUM Comment: The National Kidney Disease Education Program (NKDEP) has recommended all laboratories report estimated GFR (eGFR) along with plasma creatinine measurements to assist you with recognition of early kidney disease. Caveats: ??Plasma creatinine should be at steady-state (unchanged within the past week). For patients multiply eGFR by 1.2.MDRD equation has not been validated for pediatric patients and is only valid for patients with age >= 18 years. At present, NKDEP does NOT recommend using the MDRD equation for drug dosing purposes and pharmacists should continue to use their current dosing methods. In addition, numerical eGFR values greater than 60 ml/min/1.73 square meters should be treated as > 60, and not an exact number due to greater inaccuracies at these higher values. Per NKDEP, they classify normal renal function as any GFR >60ml/min/1.73 square meters; chronic kidney disease when GFR <60, and renal failure when GFR <15. ??This calculation may not be valid for patients with atypical muscle mass (very lean or obese), acute renal failure, and in patients with diabetic kidney disease. References: http://nkdep.nih.gov/resources/NKDEP_Suggestn4Labs_0606_508.pdf http://www.kidney.org/professionals/kls/pdf/faq_gfr.pdf Blood specimen (specimen) 04/10/2011 1:24 PM EDT 04/10/2011 1:30 PM EDT Sha Figueroa MD CHEMISTRY ORDERABLES CERNER MILLENNIUM * (ABNORMAL) IMMUNOGLOBULINS, QUANTITATIVE (04/10/2011 1:24 PM EDT) IgG 797 700 - 1600 mg/dL CERNER MILLENNIUM IgA 88 70 - 400 mg/dL CERNER MILLENNIUM IgM 26(L) 40 - 230 mg/dL XIOMARA AHN Blood specimen (specimen) 04/10/2011 1:24 PM EDT 04/10/2011 1:30 PM EDT Sha Figueroa MD CHEMISTRY ORDERABLES [facility]SE [facility]EDG[facility] documented in this encounter Visit Diagnoses Diagnosis CLL (chronic lymphocytic leukemia) Chronic lymphoid leukemia, without mention of having achieved remission documented in this encounter Care Teams E Commerce Analyst Relationship Specialty Start Date End Date Saige Cobian APRN PCP - General 08/23/10 04/10/11 documented as of this encounter
--- OUTSIDE RECORDS SUMMARY | 2024-11-05 01:50 | XMS_ITS | Encounter Summary ---
Author Organization [facility] Address [facility] [place] [address] Care Team Providers Care Rn Hemodialysis Charge Name Role Phone MangoSaige sandra BAHMAN Primary Care Provider [phone] Encounter Details Date Type Department Care Team (Late st Contact Info) Description 10/03/2010 3:30 PM EST Follow-Up Hematology [place] [address] Reny Lawler APRN Social History Tobacco Use Types Packs/Day [...] AM EST Office Visit Hematology/Oncology at [address] [phone] Sha Figueroa MD [facility] [address] [place] [address] Stephany Kramer APRN [address] [place] [address] DR MEDICAL ONCOLOGY [place], [place] [id number] 11/11/2024 8:45 AM EST Office Visit Dermatology at [address] [place] [phone] Rusty Flores MD [address] [place] [address] RD, [place] [address] documented as of this encounter Visit Diagnoses Not on filedocumented in this encounter Care Teams Rn Hemodialysis Charge Relationship Specialty Start Date End Date Saige Cobian APRN PCP - General 08/23/10 04/10/11 documented as of this encounter
--- OUTSIDE RECORDS SUMMARY | 2024-11-05 01:50 | XMS_ITS | Encounter Summary ---
Author Organization Formerly [facility] [place] [address] Care Team Providers Care Chemical Mixer Name Role Phone Miki Sandoval MD Primary Care Provider [phone] Reason for Visit * Reason Comments Follow-up Encounter Details Date Type Department Care Team (Late st Contact Info) Description 04/15/2012 3:45 PM EDT Follow-Up [place]ematology [place] [address] Sha Figueroa MD [facility] DR HEMATOLOGY [place] [address] CLL (chronic lymphocytic leukemia) (Primary Dx); Chronic lymphoid leukemia (without mention of remission) Discharge Disposition: Home Social History Tobacco Use Types Packs/Day Years Used Date Smoking Tobacco: Never Sex and Gender Information Value Date Recorded Sex Assigned at Not on file Gender Identity Not on file Sexual Orientation Not on file documented as of this encounter Last Filed Vital Signs Vital Sign Reading Time Taken Comments Blood Pressure 125/67 04/15/2012 3:13 PM EDT Pulse 53 04/15/2012 3:13 PM EDT Temperature 37 ??C (98.6 ??F) 04/15/2012 3:13 PM EDT Respiratory Rate 18 04/15/2012 3:13 PM EDT Oxygen Saturation 98% 04/15/2012 3:13 PM EDT Inhaled Oxygen Concentration - - Weight 81.5 kg (179 lb 10.8 oz) 04/15/2012 3:13 PM EDT Height 171.5 cm (5' 7.52) 04/15/2012 3:13 PM ED T Body Mass Index 27.71 04/15/2012 3:13 PM EDT documented in this encounter Patient Instructions * Patient Instructions* Reny Lawler, SPECIAL PROCEDURES NURSE - 04/15/2012 3:49 PM EDT Recent Results (from the past 72 hour(s)) CBC (WITH DIFF) Component Value Range ??? WBC 14.7 (*) 4.0 - 10.0 (x10(3)/mcL) ??? RBC 4.78 4.63 - 6.08 (x10(6)/mcL) ??? Hemoglobin 15.0 13.7 - 17.5 (gm/dL) ??? Hematocrit 43.1 40.0 - 51.0 (%) ??? MCV 90.2 79.0 - 92.0 (fL) ??? MCH 31.4 25.6 - 32.2 (pg) ??? MCHC 34.8 32.0 - 36.5 (gm/dL) ??? Platelets 160 145 - 370 (x10(3)/mcL) ??? RDWSD 43.3 35.0 - 46.0 (fL) ??? RDWCV 13.3 10.9 - 14.4 (%) ??? MPV 12.0 9.0 - 12.0 (fL) COMPREHENSIVE METABOLIC PANEL (NON-FASTING) Component Value Range ??? Glucose Lvl 89 60 - 199 (mg/dL) ??? BUN 16 10 - 20 (mg/dL) ??? Creatinine 0.79 (*) 0.80 - 1.50 (mg/dL) ??? Sodium 138 135 - 145 (mmol/L) ??? Potassium 3.8 3.5 - 5.0 (mmol/L) ??? Chloride 106 98 - 107 (mmol/L) ??? CO2 25 22 - 31 (mmol/L) ??? Anion Gap 7 5 - 15 (mmol/L) ??? Calcium 9.0 8.5 - 10.5 (mg/dL) ??? Total Protein 6.9 6.4 - 8.3 (gm/dL) ??? Albumin 4.4 3.2 - 5.2 (gm/dL) ??? AST 29 0 - 39 (unit/L) ??? ALT 21 0 - 55 (unit/L) ??? Alk Phos 68 40 - 120 (unit/L) ??? Total Bilirubin 0.6 0.2 - 1.3 (mg/dL) ??? Bili, Direct 0.1 0.0 - 0.3 (mg/dL) ? ? Estimated GFR >60 >=60 SCAN, PERIPHERAL BLOOD Component Value Range ??? Plat Estimate Normal ??? RBC Morphology Normal NUCLEATED RED BLOOD CELLS Component Value Range ??? nRBC % Auto 0.0 0.0 - 0.2 (%) ??? nRBC Abs Auto 0.000 0.000 - 0.012 (x10(3)/mcL) DIFFERENTIAL, AUTOMATED Component Value Range ??? Neutrophils % 26.6 (*) 34.0 - 71.0 (%) ??? Neutr Abs (ANC) 3.91 1.50 - 6.30 (x10(3)/mcL) ??? Lymphocytes % 66.1 (*) 19.0 - 53.0 (%) ??? Lymphocytes Abs 9.7 (*) 1.0 - 3.6 (x10(3)/mcL) ??? Monocytes % 4.4 4.0 - 13.0 (%) ??? Monocyte Abs 0.6 0.2 - 1.0 (x10(3)/mcL) ??? Eosinophils % 2.5 0.0 - 7.0 (%) ??? Eosinophils Abs 0.4 0.0 - 0.5 (x10(3)/mcL) ??? Basophils % 0.3 0.0 - 2.0 (%) ??? Basophils Abs 0.0 0.0 - 0.2 (x10(3)/mcL) ??? Immature Gran % 0.10 0.00 - 0.66 (%) ??? Letty Gran Abs 0.02 0.00 - 0.05 (x10(3)/mcL) BP 125/67 Pulse 53 Temp(Src) 37 ??C (98.6 ??F) (Oral) Resp 18 Ht 171.5 cm (5' 7.52) Wt 81.5 kg (179 lb 10.8 oz) BMI 27.71 kg/m2 SpO2 98% documented in this encounter Progress Notes * Reny Lawler APRN - 04/15/2012 4:01 PM EDT Subjective: Patient ID: Isrrael Anton is a 57 y.o. male her for f/u of CLL Patient Active Problem List Diagnoses ??? CLL (chronic lymphocytic leukemia) 1. 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 a. Sweeny 70 neg, Chrom 13 abnm by FISH (good prognosis) b. Observation only ??? History of hepatitis C, successfully treated HPI Isrrael is doing well. His son is getting this summer which is very exciting. He also has anew granddaughter. He has been healthy - he occasionally gets tired - he calls it chronic fatigue - most days he lies down and takes a nap after work. 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 He was in the ED twice with URI's - frequent cough - treated with albuterol inhaler and steriods and antibiotics. This has now completely resolved. No night sweats. NO new adenopathy. Review of Systems Constitutional: Positive for fatigue. HENT: Negative. Respiratory: Negative. Cardiovascular: Negative. Gastrointestinal: Loose stools on and off- mostly in the fall. ? IBS type symptoms. Seems to be better the past few weeks. Musculoskeletal: He did have some disc problems with radicular pain/sx last fall. Non- surgical treatment. Skin: Negative. Hematological: Negative. Objective: Physical Exam Constitutional: He is oriented to person, place, and time. He appears well- developed and well-nourished. HENT: Head: Atraumatic. Eyes: Conjunctivae are normal. Pupils are equal, round, and reactive to light. Neck: Normal range of motion. Neck supple. Cardiovascular: Normal rate, regular rhythm and normal heart sounds. No murmur heard. Pulmonary/Chest: Effort normal and breath sounds normal. Abdominal: Soft. Bowel sounds are normal. Musculoskeletal: Normal range of motion. Lymphadenopathy: Head (right side): No submental, no submandibular, no tonsillar, no preauricular, no posterior auricular and no occipital adenopathy present. Head (left side): No submental, no submandibular, no tonsillar, no preauricular, no posterior auricular and no occipital adenopathy present. He has no cervical adenopathy. He has no axillary adenopathy. Right: No inguinal and no supraclavicular adenopathy present. Left: No inguinal and no supraclavicular adenopathy present. Neurological: He is alert and oriented to person, place, and time. Skin: Skin is warm and dry. Psychiatric: He has a normal mood and affect. Recent Results (from the past 72 hour(s)) CBC (WITH DIFF) Component Value Range ??? WBC 14.7 (*) 4.0 - 10.0 (x10(3)/mcL) ??? RBC 4.78 4.63 - 6.08 (x10(6)/mcL) ??? Hemoglobin 15.0 13.7 - 17.5 (gm/dL) ??? Hematocrit 43.1 40.0 - 51.0 (%) ??? MCV 90.2 79.0 - 92.0 (fL) ??? MCH 31.4 25.6 - 32.2 (pg) ??? MCHC 34.8 32.0 - 36.5 (gm/dL) ??? Platelets 160 145 - 370 (x10(3)/mcL) ??? RDWSD 43.3 35.0 - 46.0 (fL) ??? RDWCV 13.3 10.9 - 14.4 (%) ??? MPV 12.0 9.0 - 12.0 (fL) COMPREHENSIVE METABOLIC PANEL (NON-FASTING) Component Value Range ??? Glucose Lvl 89 60 - 199 (mg/dL) ??? BUN 16 10 - 20 (mg/dL) ??? Creatinine 0.79 (*) 0.80 - 1.50 (mg/dL) ??? Sodium 138 135 - 145 (mmol/L) ??? Potassium 3.8 3.5 - 5.0 (mmol/L) ??? Chloride 106 98 - 107 (mmol/L) ??? CO2 25 22 - 31 (mmol/L) ??? Anion Gap 7 5 - 15 (mmol/L) ??? Calcium 9.0 8.5 - 10.5 (mg/dL) ??? Total Protein 6.9 6.4 - 8.3 (gm/dL) ??? Albumin 4.4 3.2 - 5.2 (gm/dL) ??? AST 29 0 - 39 (unit/L) ??? ALT 21 0 - 55 (unit/L) ??? Alk Phos 68 40 - 120 (unit/L) ??? Total Bilirubin 0.6 0.2 - 1.3 (mg/dL) ??? Bili, Direct 0.1 0.0 - 0.3 (mg/dL) ? ? Estimated GFR >60 >=60 SCAN, PERIPHERAL BLOOD Component Value Range ??? Plat Estimate Normal ??? RBC Morphology Normal NUCLEATED RED BLOOD CELLS Component Value Range ??? nRBC % Auto 0.0 0.0 - 0.2 (%) ??? nRBC Abs Auto 0.000 0.000 - 0.012 (x10(3)/mcL) DIFFERENTIAL, AUTOMATED Component Value Range ??? Neutrophils % 26.6 (*) 34.0 - 71.0 (%) ??? Neutr Abs (ANC) 3.91 1.50 - 6.30 (x10(3)/mcL) ??? Lymphocytes % 66.1 (*) 19.0 - 53.0 (%) ??? Lymphocytes Abs 9.7 (*) 1.0 - 3.6 (x10(3)/mcL) ??? Monocytes % 4.4 4.0 - 13.0 (%) ??? Monocyte Abs 0.6 0.2 - 1.0 (x10(3)/mcL) ??? Eosinophils % 2.5 0.0 - 7.0 (%) ??? Eosinophils Abs 0.4 0.0 - 0.5 (x10(3)/mcL) ??? Basophils % 0.3 0.0 - 2.0 (%) ??? Basophils Abs 0.0 0.0 - 0.2 (x10(3)/mcL) ??? Immature Gran % 0.10 0.00 - 0.66 (%) ??? Letty Gran Abs 0.02 0.00 - 0.05 (x10(3)/mcL) BP 125/67 Pulse 53 Temp(Src) 37 ??C (98.6 ??F) (Oral) Resp 18 Ht 171.5 cm (5' 7.52) Wt 81.5 kg (179 lb 10.8 oz) BMI 27.71 kg/m2 SpO2 98% Assessment and Plan: 1. Assessment: Good risk CLL. Counts stable, No worrisome or symptomatic adenoapthy. No B symptoms,ALC doubling time yet to be determined, no signs of AIHA or ITP. No concern for transformation. No indication for treatment at this time. He did have a few URI's this past year - we will re-check qauntitative immunoglobulins again next year - IgG almost 800 last year. Plan: We will continue to monitor in hematology clinic. Reviewed CLL and indications for treatment.Isrrael will return to hematology in 12 months. he will call if there are any problems before then. documented in this encounter Plan of Treatment Upcoming Encounters Date Type Department Care Team (Late st Contact Info) Description 11/05/2024 10:30 AM EST Office Visit Hematology/Oncology at [address] [phone] Sha Figueroa MD [facility] DR HEMATOLOGY [place] [address] Stephany Kramer APRN [address] [place] [address] [place] [address] 11/11/2024 8:45 AM EST Office Visit Dermatology at [place] [address] [place] [address] Rusty Flores MD [address], [place] [address] documented as of this encounter Procedures Procedure Name Priority Date/Time Associated Diagnosis Comments SCAN, PERIPHERAL BLOOD STAT 2 3:01 PM EDT NUCLEATED RED BLOOD CELLS STAT 04/15/2012 3:01 PM EDT DIFFERENTIAL, AUTOMATED STAT 04/15/2012 3:01 PM EDT CBC (WITH DIFF) STAT 04/15/2012 3:01 PM EDT CLL (chronic lymphocytic leukemia) COMPREHENSIVE METABOLIC PANEL STAT 04/15/2012 3:01 PM EDT CLL (chronic lymphocytic leukemia) documented in this encounter Results * (ABNORMAL) DIFFERENTIAL, AUTOMATED (04/15/2012 3:01 PM EDT) Neutrophil % 26.6(L) 34.0 - 71.0 % CERNER MILLENNIUM Neutrophil Absolute 3.91 1.50 - 6.30 x10(3)/mc L CERNER MILLENNIUM Lymph % 66.1(H) 19.0 - 53.0 % CERNER MILLENNIUM Lymphocytes Abs 9.7(H) 1.0 - 3.6 x10(3)/mc L CERNER MILLENNIUM Monocyte % 4.4 4.0 - 13.0 % CERNER MILLENNIUM Monocyte Abs 0.6 0.2 - 1.0 x10(3)/mc L CERNER MILLENNIUM Eos % 2.5 0.0 - 7.0 % CERNER MILLENNIUM Eosinophils Abs 0.4 0.0 - 0.5 x10(3)/mc L CERNER MILLENNIUM Basophil % 0.3 0.0 - 2.0 % CERNER MILLENNIUM Baso Absolute 0.0 0.0 - 0.2 x10(3)/mc L CERNER MILLENNIUM Immature Gran % 0.10 0.00 - 0.66 % CERNER MILLENNIUM Comment: Immature granulocytes(IG's)percentage and absolute count will include metamyelocytes, myelocytes, and promyelocytes. Blood smears from CBCs yielding IG's will be scanned manually for concordance. If this scan disagrees with the automated IG or if promyelocytes are noted, a manual differential will be performed. Immature Gran Absolute 0.02 0.00 - 0.05 x10(3)/mc L CERNER MILLENNIUM Blood specimen (specimen) 04/15/2012 3:01 PM EDT 04/15/2012 3:06 PM EDT Sha Figueroa MD HEMATOLOGY ORDERABLE S Performing Organization Address [facility]/ZIP Co de Phone Number CERNER MILLENNIUM * NUCLEATED RED BLOOD CELLS (04/15/2012 3:01 PM EDT) [facility] NRBC% auto 0.0 0.0 - 0.2 % CERNER MILLENNIUM NRBC Absolute 0.000 0.000 - 0.012 x10(3)/mcL CERNER MILLENNIUM Blood specimen (specimen) 04/15/2012 3:01 PM EDT 04/15/2012 3:06 PM EDT Narrative Resulting Agency Comment Spec In Lab Sha Figueroa MD HEMATOLOGY ORDERABLE S Performing Organization Address [facility] Co de Phone Number CERNER MILLENNIUM * SCAN, PERIPHERAL BLOOD (04/15/2012 3:01 PM EDT) [facility] Plat estimate Normal CERNER MILLENNIUM RBC Morphology Normal CERNE R MILLENNIUM Blood specimen (specimen) 04/15/2012 3:01 PM EDT 04/15/2012 3:06 PM EDT Narrative Resulting Agency Comment Spec In Lab Sha Figueroa MD HEMATOLOGY ORDERABLE S Performing Organization Address [facility] de Phone Number CERNER EUGENIAENNIUM * (ABNORMAL) Comprehensive metabolic panel (non-fasting) (04/15/2012 3:01 PM EDT) [facility] Glucose 89 60 - 199 mg/dL CERNER MILLENNIUM Comment:Diabetes: >=200 mg/d L plus symptoms Blood Urea Nitrogen 16 10 - 20 mg/dL CERNER MILLENNIUM Creatinine 0.79(L) 0.80 - 1.50 mg/dL CERNER MILLENNIUM Comment: Please note that the pediatric reference intervals supplied above were not validated at [facility]. Results from pediatric patients should be interpreted in conjunction to the patient's age, height and muscle mass. Sodium 138 135 - 145 mmol/L CERNER MILLENNIUM Potassium 3.8 3.5 - 5.0 mmol/L CERNER MILLENNIUM Comment: Please note: ??Patients with WBC >100,000 may have falsely elevated Potassium levels. ??For accurate Potassium quantification in these patients send serum separator tube (gold top) for subsequent determinations. ??Contact the Clinical Chemistry Laboratory if there are any questions. Chloride 106 98 - 107 mmol/L CERNER MILLENNIUM Carbon Dioxide 25 22 - 31 mmol/L CERNER MILLENNIUM Anion Gap 7 5 - 15 mmol/L CERNER MILLENNIUM Calcium 9.0 8.5 - 10.5 mg/dL CERNER MILLENNIUM Protein, Total 6.9 6.4 - 8.3 gm/dL CERNER MILLENNIUM Albumin 4.4 3.2 - 5.2 gm/dL CERNER MILLENNIUM Aspartate Aminotransferase 29 0 - 39 unit/L CERNER MILLENNIUM Alanine Aminotransferase 21 0 - 55 unit/L CERNER MILLENNIUM Alkaline Phosphatase 68 40 - 120 unit/L CERNER MILLENNIUM Bilirubin, Total 0.6 0.2 - 1.3 mg/dL CERNER MILLENNIUM Bilirubin, Direct 0.1 0.0 - 0.3 mg/dL CERNER MILLENNIUM Est Glomerular Filtration Rate >60 >=60 CERNER MILLENNIUM Comment: The National Kidney Disease Education Program (NKDEP) has recommended all laboratories report estimated GFR (eGFR) along with plasma creatinine measurements to assist you with recognition of early kidney disease. Caveats: ??Plasma creatinine should be at steady-state (unchanged within the past week). For patients multiply eGFR by 1.2. The MDRD equation was developed using patients between the ages of 18 and 70 years. ?? The MDRD equation has not been validated for patients < 18 years of age and should not be used to assess renal function in the pediatric population. ??The MDRD eGFR equation will also overestimate the true GFR of patients above the age of 70. ??This overestimation is variable but increases with age. At present, NKDEP does NOT recommend using [...] with diabetic kidney disease. References: http://nkdep.nih.gov/resources/NKDEP_Suggestn4Labs_0606_508.pdf http://www.kidney.org/professionals/kls/pdf/faq_gfr.pdf Lilli K, Torres NA, Marilin AK, Nikita TS, Sherlyn AD, Julee MYNOR. Relative performance of the MDRD and CKD-EPI equations for estimating glomerular filtration rate among patients with varied clinical presentations. Clin J Am Soc Nephrol;6:1963-72. Blood specimen (specimen) 04/15/2012 3:01 PM EDT 04/15/2012 3:06 PM EDT Narrative Resulting Agency Comment Spec In Lab Sha Figueroa MD CHEMISTRY ORDERABLES CERNER MILLENNIUM * (ABNORMAL) CBC (with Diff) (04/15/2012 3:01 PM EDT) White Blood Cell 14.7(H) 4.0 - 10.0 x10(3)/mc L CERNER MILLENNIUM Red Blood Cell 4.78 4.63 - 6.08 x10(6)/mc L CERNER MILLENNIUM Hemoglobin 15.0 13.7 - 17.5 gm/dL CERNER MILLENNIUM Hematocrit 43.1 40.0 - 51.0 % CERNER MILLENNIUM Mean Cell Volume 90.2 79.0 - 92.0 fL CERNER MILLENNIUM Mean Cell Hemoglobin 31.4 25.6 - 32.2 pg CERNER MILLENNIUM Mean Cell Hemoglobin Concentration 34.8 32.0 - 36.5 gm/dL CERNER MILLENNIUM Platelet 160 145 - 370 x10(3)/mc L CERNER MILLENNIUM RDW Standard Deviation 43.3 35.0 - 46.0 fL CERNER MILLENNIUM RDW coefficient of variation 13.3 10.9 - 14.4 % CERNER MILLENNIUM Mean Platelet Volume 12.0 9.0 - 12.0 fL CERNER MILLENNIUM Blood specimen (specimen) 04/15/2012 3:01 PM EDT 04/15/2012 3:06 PM EDT Narrative Resulting Agency Comment Spec In Lab Sha Figueroa MD HEMATOLOGY ORDERABLE S [facility] documented in this encounter Visit Diagnoses Diagnosis CLL (chronic lymphocytic leukemia)- Primary Chronic lymphoid leukemia, without mention of having achieved remission Chronic lymphoid leukemia (without mention of remission) Chronic lymphoid leukemia, without mention of having achieved remission documented in this encounter Care Teams Chemical Mixer Relationship Specialty Start Date End Date Miki Sandoval MD [facility] [address] [place] [address] PCP - General 04/11/11 05/09/17 documented as of this encounter
--- OUTSIDE RECORDS SUMMARY | 2024-11-05 01:50 | XMS_ITS | Encounter Summary ---
Author Organization Counts Include [facility] Address [facility] [place] [address] Care Team Providers Care Medical Staff Coordinator Name Role Phone KeishaVahe oliveira Primary Care Provider [phone] Encounter Details Date Type Department Care Team (Late st Contact Info) Description 01/16/2007 Orders Only Dermatology at [address] [place] [address] Rusty Flores MD [address] [place] [address], [place] [address] Social History Tobacco Use Types Packs/Day Years [...] AM EST Office Visit Hematology/Oncology at [address] [phone] Sha Figueroa MD [facility] DR HEMATOLOGY [place] [address] Stephany Kramer APRN [address] [place] [address] DR MEDICAL ONCOLOGY [place], [place] [address] 11/11/2024 8:45 AM EST Office Visit Dermatology at [address] [place] [phone] Rusty Flores MD [address] [facility], [place] [address] documented as of this encounter Procedures Procedure Name Priority Date/Time Associated Diagnosis Comments SURGICAL PATHOLOGY REPORT Routine 01/16/2007 5:38 PM EDT documented in this encounter Results * Surgical Pathology Report (01/16/2007 5:38 PM EDT) Surgical Pathology Report [id number] ? Location: The signing pathologist has (i) examined the relevant preparation(s) for the specimen(s) and (ii) rendered or confirmed the diagnosis(es). . ?Pathology Surgical Pathology Final Report Clinical Information Specimen Submitted: A - (L) Flank: ??Punch 4 mm Clinical History: Changing Mole Clinical Diagnosis: Dermatofibroma vs Atrophoderma Gross Description Labeled/Fixative : ? Labeled with the patient's name and medical record ?number, formalin. Qty/Size/Weight: ?Single punch, 0.4 cm, with a mottled, marmolejo-white skin ?surface. Sections/Process ing: ??Bisected. ??(T1) ??aje/PPS Microscopic Description Slides reviewed, microscopic description not recorded. Diagnosis Skin, left flank, punch biopsy: 1 - Dermatofibroma, involving peripheral and deep edges CR-0 01/18/07 PAS 01/21/07 Verified by: ? Carmen Aragon ?Pathologist/De rmatopathologist ?(Electronic Signature) The attending pathologist whose signature appears on this report has reviewed all diagnostic slides and has edited the gross and/or microscopic portion of the report in rendering the final pathologic diagnosis. [facility], [facility] 01/16/2007 5:38 PM EDT Rusty Flores MD PATHOLOGY/CYTOLOGY Ruth AGUILAR Performing Organization Address City/State/[facility] Co de Phone Number [facility] documented in this encounter Visit Diagnoses Not on filedocumented in this encounter Care Teams Medical Staff Coordinator Relationship Specialty Start Date End Date Vahe Valdes DO [address] [place] [address] PCP - General Family Medicine 12/13/21 documented as of this encounter
--- OUTSIDE RECORDS SUMMARY | 2024-11-05 01:50 | XMS_ITS | Encounter Summary ---
Author Organization [facility]ly [facility] [place] [address] Care Team Providers Care Woolen Tester Name Role Phone Saige Cobian BAHMAN Primary Care Provider Encounter Details Date Type Department Care Team (Late Contact Info) Description 10/03/2010 [place] [phone] Sha Figueroa MD [facility] [address] [place] [address] Social History Tobacco Use Types Packs/Day Years Used Date Smoking Tobacco: Never Assessed Sex and Gender Information Value Date Recorded Sex Assigned at Not on file Gender Identity Not on file Sexual Orientation Not on file documented as of this encounter Plan of Treatment Upcoming Encounters Date Type Department Care Team (Late Contact Info) Description 11/05/2024 10:30 AM EST Office Visit Hematology/Oncology at [address] [phone] Sha Figueroa MD [facility] DR [place] [address] Stephany Kramer POTTERY STRIPER [address] [place] [address] [place] [address] 11/11/2024 8:45 AM EST Office Visit Dermatology at [address] [place] [phone] Rusty Flores MD [address], [place] [address] documented as of this encounter Procedures Procedure Name Priority Date/Time Associated Diagnosis Comments SCAN, PERIPHERAL BLOOD Routine 1 2:14 PM EST DIFFERENTIAL, AUTOMATED Routine 10/03/2010 2:14 PM EST RETICULOCYTE COUNT Routine 10/03/2010 2: 14 PM EST CBC (WITH DIFF) Routine 10/03/2010 2:14 PM EST COMPREHENSIVE METABOLIC PANEL Routine 10/03/2010 2:14 PM EST documented in this encounter Results * REFLEX LAB-SCAN (10/03/2010 2:14 PM EST) Pathologist [facility] Plat estimate Normal CERNER MILLENNIUM RBC Morphology Normal CERNE R MILLENNIUM Smudge cell Present CERNER MILLENNIUM Blood specimen (specimen) 10/03/2010 2:14 PM EST 10/03/2010 2:32 PM EST Sha Figueroa MD HEMATOLOGY ORDERABLE S CERNER MILLENNIUM * (ABNORMAL) REFLEX LAB-A-DIFF (10/03/2010 2:14 PM EST) Neutrophil % 30.4(L) 34.0 - 71.0 % CERNER MILLENNIUM Neutrophil Absolute 4.17 1.50 - 6.30 x10(3)/mc L CERNER MILLENNIUM Lymph % 63.3(H) 19.0 - 53.0 % CERNER MILLENNIUM Lymphocytes Abs 8.7(H) 1.0 - 3.6 x10(3)/mc L CERNER MILLENNIUM Monocyte % 3.9(L) 4.0 - 13.0 % CERNER MILLENNIUM Monocyte Abs 0.5 0.2 - 1.0 x10(3)/mc L CERNER MILLENNIUM Eos % 2.0 0.0 - 7.0 % CERNER MILLENNIUM Eosinophils [...] are noted, a manual differential will be performed.v Immature Gran Absolute 0.02 0.00 - 0.05 x10(3)/mc L CERNER MILLENNIUM Blood specimen (specimen) 10/03/2010 2:14 PM EST 10/03/2010 2:32 PM EST Sha Figueroa MD HEMATOLOGY ORDERABLE S [facility] * COMPREHENSIVE METABOLIC PANEL (NON-FASTING) (10/03/2010 2:14 PM EST) Glucose 90 <=199 mg/dL CERNER MILLENNIUM Comment:Diabetes: >=200 mg/d L plus symptoms Blood Urea Nitrogen 12 10 - 20 mg/dL CERNER MILLENNIUM Creatinine 0.90 0.80 - 1.50 mg/dL CERNER MILLENNIUM Sodium 143 135 - 145 mmol/L CERNER MILLENNIUM Potassium 4.3 3.5 - 5.0 mmol/L CERNER MILLENNIUM Comment: Please note: ??Patients with WBC >100,000 may have falsely elevated Potassium levels. ??For accurate Potassium quantification in these patients send serum separator tube (gold top) for subsequent determinations. ??Contact the Clinical Chemistry Laboratory if there are any questions. Chloride 106 98 - 107 mmol/L CERNER MILLENNIUM Carbon Dioxide 29 22 - 31 mmol/L CERNER MILLENNIUM Anion Gap 8 5 - 15 mmol/L CERNER MILLENNIUM Calcium 9.2 8.5 - 10.5 mg/dL CERNER MILLENNIUM Protein, Total 7.1 6.4 - 8.3 gm/dL CERNER MILLENNIUM Albumin 4.7 3.2 - 5.2 gm/dL CERNER MILLENNIUM Aspartate Aminotransferase 34 0 - 39 unit/L CERNER MILLENNIUM Alanine Aminotransferase 29 0 - 55 unit/L CERNER MILLENNIUM Alkaline Phosphatase 67 40 - 120 unit/L CERNER MILLENNIUM Bilirubin, Total 0.7 0.2 - 1.3 mg/dL CERNER MILLENNIUM Bilirubin, [...] at steady-state (unchanged within the past week). ??Patient age > = 18 years, and for Americans multiply eGFR by 1.2. At present, NKDEP does NOT recommend using [...] disease. References: http://nkdep.nih.gov/resources/NKDEP_Suggestn4Labs_0606_508.pdf http://www.kidney.org/professionals/kls/pdf/faq_gfr.pdf Blood specimen (specimen) 10/03/2010 2:14 PM EST 10/03/2010 2:32 PM EST Sha Figueroa MD CHEMISTRY ORDERABLES Performing Organization Address [facility]/ZIP Co de Phone Number CEREDGARDO BELLOENNIUM * RETICULOCYTE COUNT (10/03/2010 2:14 PM EST) Reticulocyte % 1.2 0.5 - 2.4 % CERNER MILLENNIUM Retic Abs # 0.060 0.027 - 0.095 x10(6)/mcL CERNER MILLENNIUM Immature Retic% 10.5 2.3 - 15.9 % CERNER MILLENNIUM Reticulated Hgb 35.3 28.5 - 38.9 pg CERNER MILLENNIUM Immature Plt % 6.2 0.0 - 7.4 % CERNER MILLENNIUM Blood specimen (specimen) 10/03/2010 2:14 PM EST 10/03/2010 2:32 PM EST Sha Figueroa MD HEMATOLOGY ORDERABLE S Performing Organization Address [facility] de Phone Number CEREDGARDO BELLOENNIUM * (ABNORMAL) CBC (10/03/2010 2:14 PM EST) White Blood Cell 13.8(H) 4.0 - 10.0 x10(3)/mc L CERNER MILLENNIUM Red Blood Cell 5.06 4.63 - 6.08 x10(6)/mc L CERNER MILLENNIUM Hemoglobin 15.6 13.7 - 17.5 gm/dL CERNER MILLENNIUM Hematocrit 46.4 40.0 - 51.0 % CERNER MILLENNIUM Mean Cell Volume 91.7 79.0 - 92.0 fL CERNER MILLENNIUM Mean Cell Hemoglobin 30.8 25.6 - 32.2 pg CERNER MILLENNIUM Mean Cell Hemoglobin Concentration 33.6 32.0 - 36.5 gm/dL CERNER MILLENNIUM Platelet 178 145 - 370 x10(3)/mc L CERNER MILLENNIUM RDW Standard Deviation 45.2 35.0 - 46.0 fL CERNER MILLENNIUM RDW coefficient of variation 13.7 10.9 - 14.4 % CERNER MILLENNIUM Mean Platelet Volume 11.6 9.0 - 12.0 fL CERNER MILLENNIUM Blood specimen (specimen) 10/03/2010 2:14 PM EST 10/03/2010 2:32 PM EST Sha Figueroa MD HEMATOLOGY ORDERABLE S Performing Organization Address City/State/[facility] Co id Phone Number [facility] documented in this encounter Visit Diagnoses Not on filedocumented in this encounter Care Teams Woolen Tester Relationship Specialty Start Date End Date Saige Cobian APRN PCP - General 08/23/10 04/10/11 documented as of this encounter
--- OUTSIDE RECORDS SUMMARY | 2024-11-05 01:50 | XMS_ITS | Encounter Summary ---
Author Organization [facility] [place] [address] Care Team Providers Care Geomorphology Teacher Name Role Phone Saige Cobian BAHMAN Primary Care Provider [phone] Encounter Details Date Type Department Care Team (Late st Contact Info) Description 04/10/2011 Orders Only [place] [phone] Junior Ochoa MD CLL (chronic lymphocytic leukemia) (Primary Dx) Social History Tobacco Use Types [...] AM EST Office Visit Hematology/Oncology at [address] [phone] Sha Figueroa MD [facility] [address] [place] [address] Stephany Kramer APRN [address] [place] [address] DR MEDICAL ONCOLOGY [place], [place] [phone] 11/11/2024 8:45 AM EST Office Visit Dermatology at [address] [place] [phone] Rusty Flores MD [address], [place] [address] documented as of this encounter Visit Diagnoses Diagnosis CLL (chronic lymphocytic leukemia)- Primary Chronic lymphoid leukemia, without mention of having achieved remission documented in this encounter Care Teams Geomorphology Teacher Relationship Specialty Start Date End Date Saige Cobian APRN PCP - General 08/23/10 04/10/11 documented as of this encounter
--- OUTSIDE RECORDS SUMMARY | 2024-11-05 01:50 | XMS_ITS | Encounter Summary ---
Author Organization [facility] [place] [address] Care Team Providers Care Parts Counter Sales Person Name Role Phone Mango, Saige BAHMAN Primary Care Provider [phone] Encounter Details Date Type Department Care Team (Late st Contact Info) Description 10/03/2010 3:30 PM EST Follow-Up Hematology [place] [address] CLINIC, Sha Hwang MD [facility] DR HEMATOLOGY [place] [address] Reny Lawler APRN Discharge Disposition: Home Social History Tobacco Use [...] AM EST Office Visit Hematology/Oncology at [address] [phone] Sha Figueroa MD [facility] DR HEMATOLOGY [place] [address] Stephany Kramer APRN [address] [place] [address] [place] [address] 11/11/2024 8:45 AM EST Office Visit Dermatology at [place] [address] [place] [phone] Rusty Flores MD [address], [place] [address] documented as of this encounter Visit Diagnoses Not on filedocumented in this encounter Care Teams Parts Counter Sales Person Relationship Specialty Start Date End Date Saige Cobian APRN PCP - General 08/23/10 04/10/11 documented as of this encounter
--- OUTSIDE RECORDS SUMMARY | 2024-11-05 01:50 | XMS_ITS | Encounter Summary ---
Author Organization [facility] [place] [address] Care Team Providers Care Middleware Engineer Name Role Phone Miki Sandoval MD Primary Care Provider [phone] Encounter Details Date Type Department Care Team (Late st Contact Info) Description 05/21/2012 Ancillary Procedure Radiology Library at [facility] [place] [phone] Frank Fairchild APRN Social History Tobacco Use [...] 10:30 AM EST Office Visit Hematology/Oncology at [address] [phone] Sha Figueroa MD [facility] [place] [address] Stephany Kramer APRN [address] [place] [address] DR MEDICAL ONCOLOGY [place], [place] [address] 11/11/2024 8:45 AM EST Office Visit Dermatology at [address] [place] [address] Rusty Flores MD [address] [place] [address] RD, [place] [address] documented as of this encounter Procedures Procedure Name Priority Date/Time Associated Diagnosis Comments FILM LIBRARY STORAGE ONLY DX SPINE Routine 05/21/2012 12:00 AM EDT documented in this encounter Results * Film Library- Storage Only DX Spine (05/21/2012 12:00 AM EDT) Narrative ADEOLA - 11/19/2019 11:21 AM EST This exam is auto-finalizing. It's purpose is for storage only. Frank Fairchild APRN IMG FILM LIBRARY ORDERABLES Performing Organization Address City/State/[facility] Co de Phone Number [place], [place] documented in this encounter Visit Diagnoses Not on filedocumented in this encounter Care Teams Middleware Engineer Relationship Specialty Start Date End Date Miki Sandoval MD [address] [address] PCP - General 04/11/11 05/09/17 documented as of this encounter
--- OUTSIDE RECORDS SUMMARY | 2024-11-05 01:50 | XMS_ITS | Encounter Summary ---
Author Organization [facility]ly [facility] [place] [address] Care Team Providers Care Sodder Name Role Phone Saige Cobian BAHMAN Primary Care Provider [phone] Encounter Details Date Type Department Care Team (Late st Contact Info) Description 10/03/2010 2:30 PM EST Procedure visit [place] [phone] Social History Tobacco Use Types Packs/Day Years [...] AM EST Office Visit Hematology/Oncology at [address] [phone] Sha Figueroa MD [facility] [address] [place] [address] Stephany Kramer APRN [address] [place] [address] [place] [address] 11/11/2024 8:45 AM EST Office Visit Dermatology at [address] [place] [address] Rusty Flores MD [address], [place] [address] documented as of this encounter Visit Diagnoses Not on filedocumented in this encounter Care Teams Sodder Relationship Specialty Start Date End Date Saige Cobian APRN PCP - General 08/23/10 04/10/11 documented as of this encounter
--- OUTSIDE RECORDS SUMMARY | 2024-11-05 01:50 | XMS_ITS | Encounter Summary ---
Author Organization [facility] [place] [address] Care Team Providers Care Hot Kettle Tender Name Role Phone Saige Cobian APRN Primary Care Provider [phone] Encounter Details Date Type Department Care Team (Latest Contact Info) Description 04/10/2011 1:00 PM EDT - 04/10/2011 11:59 PM EDT Hospital [place] [address] CLINIC, Sha Hwang MD [facility] DR [place] [address] Discharge Disposition: Home Social History Tobacco Use [...] 10/03/2010 11/22/2017 documented as of this encounter Plan of Treatment Upcoming Encounters Date Type Department Care Team (Late st Contact Info) Description 11/05/2024 10:30 AM EST Office Visit Hematology/Oncology at [address] [phone] Sha Figueroa MD [facility] DR [place] [address] Stephany Kramer APRN [address] [place] [address] [place] [address] 11/11/2024 8:45 AM EST Office Visit Dermatology at [address] [place] [phone] Rusty Flores MD [address], REX [place] [address] documented as of this encounter Visit Diagnoses Not on filedocumented in this encounter Care Teams Hot Kettle Tender Relationship Specialty Start Date End Date Saige Cobian APRN PCP - General 08/23/10 04/10/11 documented as of this encounter
--- OUTSIDE RECORDS SUMMARY | 2024-11-05 01:50 | XMS_ITS | Encounter Summary ---
Author Organization [facility] Address [facility] [place] [address] Care Team Providers Care Glass Fitter Name Role Phone Frieda Lo MD Primary Care Provider [phone] Reason for Visit * Reason Comments GI Problem Encounter Details Date Type Department Care Team (Late st Contact Info) Description 10/15/2013 2:30 PM EST Office [place] [address] Yassine Bertrand MD [facility] GASTROENTEROLOGY DEPT [place], [place] [phone] Abdominal pain, LUQ (left upper quadrant) (Primary Dx) Discharge Disposition: Home Social History Tobacco Use Types Packs/Day Years Used Date Smoking Tobacco: Never Sex and Gender Information Value Date Recorded Sex Assigned at Not on file Gender Identity Not on file Sexual Orientation Not on file documented as of this encounter Last Filed Vital Signs Vital Sign Reading Time Taken Comments Blood Pressure 133/69 10/15/2013 2:36 PM EST Pulse 57 10/15/2013 2:36 PM EST Temperature - - Respiratory Rate - - Oxygen Saturation - - Inhaled Oxygen Concentration - - Weight - - Height 172.7 cm (5' 8) 10/15/2013 2:36 PM EST Body Mass Index - - documented in this encounter Progress Notes * Rubio Simon MD - 10/17/2013 4:48 PM EST ATTENDING ADDENDUM I interviewed and examined Isrrael Anton with Dr. Bertrand in clinic. I have discussed the case withher and confirm the history and flores physical findings outlined in this note. The assessment and plan were formulated in discussion with me at the time of this encounter, and I agree with them as documented. * Yassine Bertrand H - 10/15/2013 2:28 PM EST [facility] Section of Gastroenterology and Hepatology Outpatient Consultation Reason for Visit: persistent left lateral pain, hx of incidental finding on CT scan 02/10 of small hiatal hernia Referred by Ansley Malik Dr. Spicer (PCP) History of Present Illness: Mr. Isrrael Anton is a 58 y.o. 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 Per patient reports history of regular BM, noted in December 2012 he had an episode of abdominal cramping/non bloody diarrhea, which prompted a work up including CT scan (02/10) which per radiology report was unrevealing (no splenomegaly/normal pancreas/liver contour, no lymphadenopathy), just note of a small hiatal hernia, labs with a leukocytosis (12.6/lymphocytosis 6K), otherwise normal LFT's/Hb. R eports sx resolution. Was taking over the counter probiotic. Reports reason for today's visit, was noting left lateral abdominal pain in 08/2013. Denies any changes in BM. He was concerned whether this was related to his finding of hiatal hernia. Pain is tender to touch/worse with certain movements. Denies trauma, fever/chills, N/V, radiation, dysuria/hematuria. No association with eating/defecation. He goes on to mention, around this time he began having violent cough spells, coughing made this left lower rib pain worse. Reports dry cough, denies sputum. He was treated with Z-lyla for a PNA by his PCP. He is wearing a face mask due to persistent but less violent cough that still lingers. Denies diarrhea, constipation, GERD sx, denies weight loss/B-symptoms. Last colonoscopy 2007: [facility], normal rec 10 year f/u. Denies NSAIDs. Denies heartburn sx. Denies fevers/chills. Denies rashes, oral ulcers. 02/10 CT [facility]: higinio hiatal hernia, mild arterioscelerosis 02/10 WBC 12.1-lymph elevated, Hb 13.6, normocytic, LFT's BMP WNL PMH: GERD-prilosec daily (placed recently 08/13 for LUQ pain)-no change in sx COPD (inhalers)-unclear PFT's/no hx of tobacco use HCV-successfully treated-2008-->undetectable CLL-Dr. Figueroa-observation (diagnosed 06/09) Anxiety/depression Surgeries: hernia repair as a child, elbow surgery-right, BCC excision -muscular, can consider-repeat ct scan if persistent LUQ pain/eval spleen. FH: Mother lung cancer, smoker SH: -tobacco-denies -ETOH-none for 15 years, heavy in past -denies drugs now, teenager-marijuanna denies IVDA -denies blood transfusions/denies tattoos -Lives in [place], [place] (50 miles), currently employed-works with [employer] Review of Systems: Constitutional: no weight loss HEENT: no visual changes, no URI symptoms Cardio: no chest pain Resp: no cough, no SOB Hem/Lymph: no new lumps or bumps on body GI: see HPI : no dysuria Integumentary: no new rashes Musculoskeletal: no new joint pains Neuro: no new numbness, weakness in extremities All other systems negative except as above in HPI Past Medical History Diagnosis Date ??? CLL (chronic lymphocytic leukemia) 04/05/2011 No past surgical history on file. Social History: reports that he has never smoked. He does not have any smokeless tobacco history onfile. Family History: family history is not on file. Current Outpatient Prescriptions Medication Sig Dispense Refill ??? PAROXETINE HCL (PAXIL ORAL) Take by mouth daily. ??? zolpidem (AMBIEN) 10 mg tablet ??? clonAZEpam (KLONOPIN) 2 mg disintegrating tablet No Known Allergies Physical Examination: BP 133/69 Pulse 57 Ht 172.7 cm (5' 8) General:Pleasant, cooperative, NAD, WN/WD HEENT: NC/AT, PERRL, anicteric sclera, MMM, no erythema or exudate Neck: soft, supple, no cervical LAD Chest: CTA bilaterally, no wheeze, rale or rhonchi CVS: Regular rate and rhythm, normal s1/s2, no murmur, rub or gallop ABD: soft, non-tender, non-distended, normal active bowel sounds. No hepatosplenomegaly appreciatedLeft lower rib palpable tenderness, left lateral upper abdomen-tenderness/soreness to palpation MS: Pain worse with spine extension, forward flexion, lateral rotation Rectal: Deferred Extremities: Warm and well perfused. No clubbing, cynanosis or edema Skin:No rash or lesion Neuro: AAOx3, Grossly non-focal. Additional Testing: Reviewed available labs, imaging and endoscopy results in EDH/CIS as well as Scan Docs tab. Labs: Lab Results Component Value Date WBC 14.7* 04/15/2012 HGB 15.0 04/15/2012 HCT 43.1 04/15/2012 MCV 90.2 04/15/2012 PLATELET 160 04/15/2012 Chemistry Component Value Date/Time NA 138 04/15/2012 1501 K 3.8 04/15/2012 1501 CL 106 04/15/2012 1501 CO2 25 04/15/2012 1501 BUN 16 04/15/2012 1501 CREATININE 0.79* 04/15/2012 1501 Component Value Date/Time CALCIUM 9.0 04/15/2012 1501 ALKPHOS 68 04/15/2012 1501 AST 29 04/15/2012 1501 ALT 21 04/15/2012 1501 BILITOT 0.6 04/15/2012 1501 Lab Results Component Value Date ALT 21 04/15/2012 AST 29 04/15/2012 ALKPHOS 68 04/15/2012 BILITOT 0.6 04/15/2012 IMPRESSION: Mr. Isrrael Anton is a 58 y.o. very pleasant WM, PMH s/o stage 0 CLL diagnosed 08/2009 (Pollock 70 neg,Chrom 13 abnm by FISH;good prognosis, under observation), successfully treated HCV, asthma/COPD (nodocumented PFT's on file), anxiety/depression, recently treated for walking PNA with azithromycin/violent cough spells 08/13 now with residual cough, who presents with left lateral lower rib pain since 08/2013 likely musculoskeletal in etiology. Differential includes myositis/costochondritis/rib pain. It is a little perplexing his sx persisted over past 6-8 weeks which he mentions worse now. He alsohas a persistent cough. See recommendations below.Otherwise provided patient reassurance this pain cannot be attributed to the incidental note of a small hiatal hernia on his previous CT scan. RECOMMENDATIONS: -Would recommend further work up of his lateral left sided pain (consider chest xray given persistent cough, if muscle strain-provide PT exercises/analgesic relief, consider obtaining urine analysis) -Recommend CBC (ensure f/u of his CLL under observation) -Okay to discontinue PPI (which was started in 08/13 with onset of this pain, he really doesn't endorse heartburn sx/as well as no alleviation in his sx with trial of PPI) Patient was seen and discussed with Dr. Simon. I will fax a copy of this note to Mr. Anton's PCP, patient aware to contact me if ANY further questions/concerns arise. Yassine Bertrand [place] [address] P: [phone] F: [phone] CC FRIEDA LO MD [facility] [address] [place] [address] Ansley Malik PA [facility] [address] [place] [address] documented in this encounter Plan of Treatment Upcoming Encounters Date Type Department Care Team (Late st Contact Info) Description 11/05/2024 10:30 AM EST Office Visit Hematology/Oncology at [address] [phone] Sha Figueroa MD [facility] HEMATOLOGY [place] [address] Stephany Kramer, BAHMAN [address] [place] [address] [place] [address] 11/11/2024 8:45 AM EST Office Visit Dermatology at [address] [place] [phone] Rusty Flores MD [address] [facility] [place] [address] documented as of this encounter Visit Diagnoses Diagnosis Abdominal pain, LUQ (left upper quadrant)- Primary Abdominal pain, left upper quadrant documented in this encounter Care Teams Glass Fitter Relationship Specialty Start Date End Date Frieda Lo MD [address] [address] PCP - General 04/11/11 05/09/17 documented as of this encounter
--- OUTSIDE RECORDS SUMMARY | 2024-11-05 01:50 | XMS_ITS | Encounter Summary ---
Author Organization [facility] [place] [address] Care Team Providers Care [employer] Scout Name Role Phone KeishaVahe oliveira Primary Care Provider [phone] Encounter Details Date Type Department Care Team (Late st Contact Info) Description 06/23/2009 [place] [phone] Richie Tate MD GASTROENTEROLOGY Social History Tobacco Use Types Packs/Day Years Used Date Smoking Tobacco: Never Assessed Sex and Gender Information Value Date Recorded Sex Assigned at Not on file Gender Identity Not on file Sexual Orientation Not on file documented as of this encounter Plan of Treatment Upcoming Encounters Date Type Department Care Team (Late Contact Info) Description 11/05/2024 10:30 AM EST Office Visit Hematology/Oncology at [address] [phone] Sha Figueroa MD [facility] DR [place] [address] Stephany Kramer APRN [address] [place] [address] DR MEDICAL ONCOLOGY [place], [place] [address] 11/11/2024 8:45 AM EST Office Visit Dermatology at [address] [place] [address] Rusty Flores MD [address], [place], [place] [id number] documented as of this encounter Procedures Procedure Name Priority Date/Time Associated Diagnosis Comments SURGICAL PATHOLOGY REPORT Routine 06/23/2009 6:45 AM EDT documented in this encounter Results * Surgical Pathology Report (06/23/2009 6:45 AM EDT) Surgical Pathology Report [id number] ? Location: [facility] The signing pathologist has (i) examined the relevant preparation(s) for the specimen(s) and (ii) rendered or confirmed the diagnosis(es). . ?Pathology Surgical Pathology Final Report Clinical Information Specimen Submitted: CONSULTATION CASE A - 4 slides labeled [id number], collection date 11/23/08. [id number] Report to: [facility] Surgical Pathology [address] ??[address] Phone - [phone] Fax - [phone] Gross Description [facility]'s pathology slide(s) are reviewed. ??Refer to Diagnosis and Specimen Submitted for specific case information. For the full text of the FA report(s) please refer to Non-DH Documentation Pathology in the Clinical Information System (CIS). Microscopic Description Slides reviewed, microscopic description not recorded. Diagnosis CONSULTATION CASE Outside slides labeled [id number], collection date 11/23/08: Liver biopsy: ?? 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 ?? Portal and lobular necroinflammatory activity consistent with ?? Grade 3/4. ?? Periportal and focal bridging fibrosis is present (Stage 2-3/4). ?? Mild iron deposition (1+) and focal mild macrovesicular steatosis is ?? present. CR-0 06/25/09 JLK 06/25/09 Verified by: ? Bob HUTCHINSON, Yosi ?Pathologist ?(Electronic Signature) The attending pathologist whose signature appears on this report has reviewed all diagnostic slides and has edited the gross and/or microscopic portion of the report in rendering the final pathologic diagnosis. [facility] 06/23/2009 6:45 AM EDT Richie Tate MD PATHOLOGY/CYTOLOGY O RDERABLES Performing Organization Address City/State/[facility] Co de Phone Number [facility] documented in this encounter Visit Diagnoses Not on filedocumented in this encounter Care Teams [employer] Scout Relationship Specialty Start Date End Date Vahe Valdes DO [address] [place] [address] PCP - General Family Medicine 12/13/21 documented as of this encounter
--- OUTSIDE RECORDS SUMMARY | 2024-11-05 01:50 | XMS_ITS | Encounter Summary ---
Author Organization [facility] Address [facility] [place] [address] Care Team Providers Care Heat Treater Helper Name Role Phone Miki Sandoval MD Primary Care Provider [phone] Encounter Details Date Type Department Care Team (Latest Contact Info) Description 04/15/2012 2:50 PM EDT - 04/15/2012 11:59 PM EDT Hospital [place] [phone] CLINIC, Sha Hwang MD [facility] DR HEMATOLOGY [place] [address] Discharge Disposition: Home Social History Tobacco Use Types Packs/Day Years Used Date Smoking Tobacco: Never Sex and Gender Information Value Date Recorded Sex Assigned at Not on file Gender Identity Not on file Sexual Orientation Not on file documented as of this encounter Medications at Time of Discharge Medication Sig Dispensed Refills Start Date End Date PAROXETINE HCL (PAXIL ORAL) Take 20 mg by mouth daily. 11/21/2018 zolpidem (AMBIEN) 10 mg tablet 10/03/2010 11/21/2018 clonAZEpam (KLONOPIN) 2 mg disintegrating tablet 10/03/20102017 documented as of this encounter Plan of Treatment Upcoming Encounters Date Type Department Care Team (Late st Contact Info) Description 11/05/2024 10:30 AM EST Office Visit Hematology/Oncology at [address] [phone] Sha Figueroa MD [facility] DR HEMATOLOGY [place] [address] Stephany Kramer, BAHMAN [address] [place] [address] [place] [address] 11/11/2024 8:45 AM EST Office Visit Dermatology at [place] [address] [place] [phone] Rusty Flores MD [address] [facility] [place] [address] documented as of this encounter Visit Diagnoses Not on filedocumented in this encounter Care Teams Heat Treater Helper Relationship Specialty Start Date End Date Miki Sandoval MD [facility] [address] [place] [address] PCP - General 04/11/11 05/09/17 documented as of this encounter
--- OUTSIDE RECORDS SUMMARY | 2024-11-05 01:50 | XMS_ITS | Encounter Summary ---
Author Organization [facility] [place] [address] Care Team Providers Care In Service Educator Name Role Phone Miki Sandoval MD Primary Care Provider [phone] Encounter Details Date Type Department Care Team (Late Contact Info) Description 10/27/2013 Orders Only [place] [address] Sha Figueroa MD [facility] DR [place] [address] CLL (chronic lymphocytic leukemia) Social History Tobacco [...] AM EST Office Visit Hematology/Oncology at [address] [phone] Sha Figueroa MD [facility] DR H[place]ATOLOGY [place] [address] Stephany Kramer [employer] TECHNOLOGY SPECIALIST [address] [place] [address] [place] [address] 11/11/2024 8:45 AM EST Office Visit Dermatology at [address] [place] [address] Rusty Flores MD [address] [facility] [place] [address] documented as of this encounter Visit Diagnoses Diagnosis CLL (chronic lymphocytic leukemia) Chronic lymphoid leukemia, without mention of having achieved remission documented in this encounter Care Teams In Service Educator Relationship Specialty Start Date End Date Miki Sandoval MD [facility] [address] [place] [address] PCP - General 04/11/11 05/09/17 documented as of this encounter
[2024-11-05 09:50] LABS: Abs Immature Grans 0.02 10^3/uL (0.0-0.06); Absolute Basophil Count 0.05 10^3/uL (0.0-0.2); Absolute Eosinophil Count 0.13 10^3/uL (0.0-0.7); Absolute Lymphocyte Count 12.96 10^3/uL (1.2-3.4); Absolute Monocyte Count 0.51 10^3/uL (0.1-0.8); Basophils % 0.3 %; Eosinophils % 0.8 %; HCT 45.7 % (40.0-50.0); HGB 15.2 g/dL (13.5-17.5); Immature Grans % 0.1 %; Lymphocytes % 79.2 %; MCH 31.1 pg (27.0-33.0); MCHC 33.3 % (32.0-36.0); MCV 94 fL (80-95); MPV 10.8 fL (8.0-11.0); Monocytes % 3.1 %; Neutrophils % 16.5 %; Platelet Count 160 10^3/uL (130-400); RBC 4.89 10^6/uL (4.36-5.78); RDW 13.1 % (11.8-14.1); RDW-SD 44.7 fL; WBC 16.36 10^3/uL (4.4-10.8)
[2024-11-05 10:06] LABS: Diff Comment Agrees w/ Instrument; RBC Morphology Normal
[2024-11-05 10:20] LABS: AST 32 U/L (15-37); Alkaline Phosphatase 71 U/L (46-116); Anion Gap 7.3 mmol/L (3-11); BUN 15 mg/dL (7-18); CO2 29.7 mmol/L (21.0-32.0); Calcium 9.4 mg/dL (8.5-10.1); Chloride 108 mmol/L (98-107); Estimated GFR 80.47 (mL/min/1.73m2); Glucose 100 mg/dL (74-106); LDH 215 U/L (85-227); Potassium 4.8 mmol/L (3.5-5.1); Sodium 145 mmol/L (136-145)
[2024-11-05 10:21] LABS: ALT < 6 U/L (16-63)
== END 2024-11-05 01:11 | disposition home or self-care (01) ==
LOC: LBO 01:10
PROVIDERS: PCP Family Medicine; Visit Provider Internal Medicine Hematology & Oncology
DX: C91.10 Chronic lymphocytic leukemia of B-cell type not having achieved remission (principal)
CPT/HCPCS: 36415; 80053; 83615; 85025